=== PATIENT | male | born 1955 | race Caucasian/White ===

== ENCOUNTER 2020-06-18 12:28 | Inpatient (IN) | payer MEDICARE ==
--- NOTE | 2020-06-18 13:08 | ER Document Report ---
ED Medical Screen (RME) - General Chief Complaint: General Weakness Stated Complaint: WEAKNESS Time Seen by Provider: 06/18/20 13:05 Mode of Arrival: Wheelchair Information source: Relative Notes: Patient presents with altered mental status. Family member who lives with patient states that there was a choking episode 5 days ago when he did perform the Heimlich maneuver. Patient's family member states that since then he has not been acting normal. Patient has not been speaking and has been incontinent of urine twice today. Patient normally ambulates although has not been able to ambulate. Family member states that he fell 4 days ago as well as yesterday. Patient has an underlying history of stroke and only had a residual problem of some dysphagia from his prior stroke. Patient is not on any regular medications. I have greeted and performed a rapid initial assessment of this patient. A comprehensive ED assessment and evaluation of the patient, analysis of test results and completion of the medical decision making process will be conducted by additional ED providers. TRAVEL OUTSIDE OF THE [place] IN LAST 30 DAYS: No - Related Data Allergies/Adverse Reactions: Penicillins Allergy (Verified 06/18/20 12:57) Home Medications: son denies Past Medical History - Social History Chew tobacco use (# tins/day): No Frequency of alcohol use: quit 5 years ago Drug Abuse: None - Past Medical History Cardiac Medical History: Reports: Hx Hypertension Past Surgical History: Reports: Hx Orthopedic Surgery Physical Exam - Vital signs Vitals: Pulse Resp BP Pulse Ox 86 24 H 131/84 H 91 L 06/18/20 12:38 06/18/20 12:38 06/18/20 12:38 06/18/20 12:38 - General General appearance: Alert Notes: Tachypneic, does not respond to questioning - Respiratory Respiratory status: Tachypnea Breath sounds: Normal Course - Vital Signs Vital signs: Temp Pulse Resp BP Pulse Ox 86 24 H 131/84 H 91 L 06/18/20 12:38 06/18/20 12:38 06/18/20 12:38 06/18/20 12:38
[2020-06-18 14:27] LABS: HEMOGLOBIN 12.2 g/dL (13.5-17.0); MEAN CORPUSCULAR HEMOGLOBIN 32.2 pg (27.0-33.4); MEAN CORPUSCULAR HGB CONC 31.3 g/dL (32.0-36.0); MEAN CORPUSCULAR VOLUME 103 fl (80-97); PLATELET COUNT 120 10^3/uL (150-450); RED CELL DISTRIBUTION WIDTH 16.4 % (11.5-14.0); WHITE BLOOD COUNT 4.6 10^3/uL (4.0-10.5)
[2020-06-18 14:33] LABS: INTERNATIONAL RATION (INR) 1.61; PARTIAL THROMBOPLASTIN TIME 29.7 SEC (23.5-35.8)
[2020-06-18 14:38] LABS: PROTHROMBIN TIME 19.2 SEC (11.4-15.4)
[2020-06-18 14:44] LABS: ALBUMIN 3.3 g/dL (3.5-5.0); ALKALINE PHOSPHATASE 158 U/L (38-126); ASPARTATE AMINO TRANSFERASE 37 U/L (17-59); BILIRUBIN,DIRECT 0.4 mg/dL (0.0-0.4); BILIRUBIN,TOTAL 1.2 mg/dL (0.2-1.3); CALCIUM 8.6 mg/dL (8.4-10.2); CARBON DIOXIDE 13 mmol/L (22-30); CHLORIDE 155 mmol/L (98-107); CREATINE KINASE 992 U/L (55-170); GLUCOSE 90 mg/dL (75-110); POTASSIUM 5.5 mmol/L (3.6-5.0); TOTAL PROTEIN 6.3 g/dL (6.3-8.2)
[2020-06-18 14:46] LABS: ANION GAP 18 (5-19)
[2020-06-18 14:51] LABS: BLOOD UREA NITROGEN 149 mg/dL (7-20)
[2020-06-18 14:55] LABS: CREATINE KINASE MB 5.14 ng/mL (<4.55)
[2020-06-18 15:06] LABS: TROPONIN I 0.447 ng/mL
[2020-06-18] MEDS ORDERED: ETOMIDATE INJ/PF 20 MG/10 ML SDV IV ONE ×2 (15:11→15:13)
[2020-06-18 15:12] LABS: ABSOLUTE LYMPHOCYTES# (MANUAL) 1.1 10^3/uL (0.5-4.7); ABSOLUTE MONOCYTES # (MANUAL) 0.2 10^3/uL (0.1-1.4); BAND NEUTROPHILS % (MANUAL) 4 % (3-5); BASOPHILS % (MANUAL) 0 % (0-2); EOSINOPHILS % (MANUAL) 0 % (0-6); LYMPHOCYTES % (MANUAL) 23 % (13-45); MONOCYTES % (MANUAL) 5 % (3-13); NUCLEATED RED BLOOD CELLS 1 /100 WBC (0); SEGMENTED NEUTROPHILS % (MAN) 68 % (42-78); TOTAL CELLS COUNTED 100
[2020-06-18] MEDS ORDERED: SUCCINYLCHOLINE CHLORIDE INJ 200 MG/10 ML VIAL IV ONE (15:12)
[2020-06-18 15:13] LABS: BURR CELLS 2+; PLATELET COMMENT ADEQUATE; POIKILOCYTOSIS 2+
[2020-06-18] MEDS ORDERED: MIDAZOLAM HCL 50 MG/100 ML RTUINJ IV PRN (15:27)
[2020-06-18] MEDS ORDERED: RINGERS SOLUTION,LACTATED 1,000 ML IV PRN (15:28)
--- NOTE | 2020-06-18 15:29 | ER Document Report ---
ED General - General Chief Complaint: General Weakness Stated Complaint: WEAKNESS Time Seen by Provider: 06/18/20 13:05 Mode of Arrival: Wheelchair Notes: Patient is a 65-year-old male who presents emergency department with weakness, according to the patient's son. According to the patient's son, the patient was choking about 5 days ago. Patient had been talking, but the past few days has been more somnolent. According to the patient's son, the patient had fallen about 12 times in the past 4 days. Patient has hit his head multiple times. Patient has history of strokes in the past. According to the son, the patient does not take any medications. TRAVEL OUTSIDE OF THE [place] IN LAST 30 DAYS: No - Related Data Allergies/Adverse Reactions: Penicillins Allergy (Verified 06/18/20 12:57) Home Medications: son denies Past Medical History - General Information source: Relative - Social History Smoking Status: Former Smoker Chew tobacco use (# tins/day): No Frequency of alcohol use: quit 5 years ago Drug Abuse: None Family History: CAD - Past Medical History Cardiac Medical History: Reports: Hx Hypertension Past Surgical History: Reports: Hx Orthopedic Surgery Review of Systems - Review of Systems -: Yes ROS unobtainable due to patient's medical condition Physical Exam - Vital signs Vitals: Pulse Resp BP Pulse Ox 86 24 H 131/84 H 91 L 06/18/20 12:38 06/18/20 12:38 06/18/20 12:38 06/18/20 12:38 - Notes Notes: PHYSICAL EXAMINATION: GENERAL: Cachectic. Respiratory distress HEAD: Normocephalic, atraumatic. EYES: PERRL, conjunctiva normal, all extraocular movements intact, sclera nonicteric ENT: Moist mucous membranes. Cyanotic ears. NECK: Supple, no noticeable swelling, redness, rash. Normal range of motion. LUNGS: Equal breath sounds bilaterally and clear to auscultation. No wheezes rales or rhonchi. CARDIOVASCULAR: S1-S2, regular rate, regular rhythm. Radial pulses 2+, normal. ABDOMEN: Normoactive bowel sounds. Soft, nontender, no guarding, no rebound tenderness, and no masses palpated. EXTREMITIES: Mildly cyanotic. NEUROLOGICAL: Moves extremities to pain. PSYCH: Somnolent, nonresponsive SKIN: Cool, mottled. Course - Re-evaluation Re-evalutation: 06/18/20 15:30 Patient did not have any response and GCS was 5. SPO2 was not detectable. RSI intubation done with Dr. Romero at bedside for airway protection. Once patient was intubated, we were able to get an oxygen saturation of 100% on 40% FiO2. Orders placed.Sodium is 186.3. Patient has poor kidney function with a creatinine of 9.68 and BUN of 49. His CO2 was 13. Creatinine is elevated. Troponin 0 0.447. This is most likely due to ischemia from poor respiratory effort. Hemoglobin is 12.2. There is no elevated white blood cell count. There are 4 bands noted. Patient receive a liter of IV fluids. Versed for sedation. 06/18/20 15:[address] Grant from ICU. Patient will be admitted to ICU. - Vital Signs Vital signs: Temp Pulse Resp BP Pulse Ox 92.2 F L 86 21 H 86/46 L 96 06/18/20 16:02 06/18/20 12:38 06/18/20 16:02 06/18/20 16:02 06/18/20 16:02 - Laboratory Result Diagrams: 06/18/20 14:07 06/18/20 14:07 Laboratory results interpreted by me: 06/18/20 06/18/20 06/18/20 14:07 14:07 14:07 RBC 3.80 L Hgb 12.2 L MCV 103 H MCHC 31.3 L RDW 16.4 H Plt Count 120 L PT 19.2 H Carbonic Acid ABG pH ABG pCO2 ABG pO2 ABG HCO3 ABG Total CO2 Sodium 186.3 H* Potassium 5.5 H Chloride 155 H Carbon Dioxide 13 L BUN 149 H Creatinine 9.68 H Est GFR ( Amer) 7 L Est GFR (MDRD) Non-Af 5 L Alkaline Phosphatase 158 H Creatine Kinase 992 H CK-MB (CK-2) Albumin 3.3 L 06/18/20 06/18/20 14:07 16:04 RBC Hgb MCV MCHC RDW Plt Count PT Carbonic Acid 1.39 H ABG pH 7.01 L* ABG pCO2 46.1 H ABG pO2 107.4 H ABG HCO3 11.4 L ABG Total CO2 12.8 L Sodium Potassium Chloride Carbon Dioxide BUN Creatinine Est GFR ( Amer) Est GFR (MDRD) Non-Af Alkaline Phosphatase Creatine Kinase CK-MB (CK-2) 5.14 H Albumin Procedures - Intubation Orotracheal Airway evaluation: Normal anatomy Medications: Etomidate, Succinylcholine Intubation method: Orotracheal Blade type: Other Equipment used: Glidescope ETT size: 7.5 ETT secured at: Teeth ETT secured at (cm): 22 Breath Sounds after Intubation: Equal End tidal CO2 confirmed: Yes Ventilator settings: SIMV Tidal volume: 450 FiO2: 40 Respirations: 12 PEEP: 5 Post Intubation Xray: Yes Intubation Complications: No complications Critical Care Note - Critical Care Note Comments: Critical care time spent obtaining history from patient or surrogate, discussions with consultants, development of treatment plan with patient or surrogate, evaluation of patient's response to treatment, examination of patie nt, ordering and performing treatments and interventions, ordering and review of laboratory studies, re-evaluation of patient's condition, ordering and review of radiographic studies and review of old charts Discharge - Discharge Clinical Impression: Acute hypoxemic respiratory failure, Hypernatremia, Dehydration Bilateral pneumonia Qualifiers: Pneumonia type: due to unspecified organism Lung location: unspecified part of lung Qualified Code(s): J18.9 - Pneumonia, unspecified organism Acute kidney failure Qualifiers: Acute renal failure type: unspecified Qualified Code(s): N17.9 - Acute kidney failure, unspecified Hypothermia Qualifiers: Encounter type: initial encounter Qualified Code(s): T68.XXXA - Hypothermia, initial encounter Condition: Stable Disposition: ADMITTED INPATIENT Admitting Provider: Rudy (Guitar Instructor) Unit Admitted: ICU
[2020-06-18] MEDS ORDERED: VANCOMYCIN HCL INJ 1000 MG VIAL IV ONE (15:32)
--- NOTE | 2020-06-18 15:35 | RADIOLOGY REPORT (SQ) ---
EXAM DESCRIPTION: CT HEAD WITHOUT IMAGES COMPLETED DATE/TIME: 06/18/2020 1:16 pm REASON FOR STUDY: AMS, multiple falls COMPARISON: 2014 TECHNIQUE: Axial images acquired through the brain without intravenous contrast. Images reviewed wi th bone, brain and subdural windows. Additional sagittal and coronal reconstructions were generated. Images stored on PACS. All CT scanners at this facility use dose modulation, iterative reconstruction, and/or weight based d osing when appropriate to reduce radiation dose to as low as reasonably achievable (ALARA). [facility]: Dose Right [facility]: CareDose [facility]: Dose Right [facility]: Teradose 4D [facility]: Satmex RADIATION DOSE: mGy. LIMITATIONS: None. FINDINGS: VENTRICLES: Prominent. CEREBRUM: No masses. No hemorrhage. No midline shift. Old right occipital infarct. Areas of low d ensity in the white matter most likely due to chronic micro-vascular ischemic change. No evidence fo r acute infarction. CEREBELLUM: No masses. No hemorrhage. No alteration of density. No evidence for acute infarction. EXTRAAXIAL SPACES: Age-related involutional change. No fluid collections. No masses. ORBITS AND GLOBE: No intra- or extraconal masses. Normal contour of globe without masses. CALVARIUM: No fracture. PARANASAL SINUSES: No fluid or mucosal thickening. SOFT TISSUES: No mass or hematoma. OTHER: No other significant finding. IMPRESSION: CHRONIC CHANGES OF ATROPHY AND MICROVASCULAR ISCHEMIA. NO ACUTE PROCESS. EVIDENCE OF ACUTE STROKE: NO. TECHNICAL DOCUMENTATION: JOB ID: [id number] Quality ID # [id number]: Final reports with documentation of one or more dose reduction techniques (e.g., Au tomated exposure control, adjustment of the mA and/or kV according to patient size, use of iterative reconstruction technique) 2010 [employer]- All Rights Reserved Reading location - IP/workstation name: [email or web address]
--- NOTE | 2020-06-18 15:36 | RADIOLOGY REPORT (SQ) ---
EXAM DESCRIPTION: CHEST SINGLE VIEW IMAGES COMPLETED DATE/TIME: 06/18/2020 1:23 pm REASON FOR STUDY: AMS, multiple falls COMPARISON: None. EXAM PARAMETERS: NUMBER OF VIEWS: One view. TECHNIQUE: Single frontal radiographic view of the chest acquired. RADIATION DOSE: NA LIMITATIONS: None. FINDINGS: LUNGS AND PLEURA: Confluent irregular opacities in the upper lungs, right greater than lef t. MEDIASTINUM AND HILAR STRUCTURES: No masses. Contour normal. HEART AND VASCULAR STRUCTURES: Heart normal in size. Normal vasculature. BONES: No acute findings. HARDWARE: None in the chest appeared hardware in the right humerus. OTHER: No other significant finding. IMPRESSION: BILATERAL UPPER LUNG OPACITIES, POSSIBLY DUE TO PNEUMONIA. UNDERLYING PULMONARY MASSES CANNOT BE EXCLUDED. TECHNICAL DOCUMENTATION: JOB ID: [id number] 2010 [employer]- All Rights Reserved Reading location - IP/workstation name: [email or web address]
--- NOTE | 2020-06-18 16:18 | RADIOLOGY REPORT (SQ) ---
EXAM DESCRIPTION: CHEST SINGLE VIEW IMAGES COMPLETED DATE/TIME: 06/18/2020 3:49 pm REASON FOR STUDY: intubation COMPARISON: Earlier the same day. EXAM PARAMETERS: NUMBER OF VIEWS: One view. TECHNIQUE: Single frontal radiographic view of the chest acquired. RADIATION DOSE: NA LIMITATIONS: None. FINDINGS: LUNGS AND PLEURA: Endotracheal tube and NG tube is been added. Both are in satisfactory p osition. Persistent diffuse bilateral airspace disease most marked in the upper lobes. Minimal righ t lower lobe airspace disease. MEDIASTINUM AND HILAR STRUCTURES: No masses. Contour normal. HEART AND VASCULAR STRUCTURES: Heart normal in size. Normal vasculature. BONES: No acute findings. HARDWARE: None in the chest. OTHER: No other significant finding. IMPRESSION: Support lines and tubes are in satisfactory position. Persistent diffuse upper lobe inf iltrates. Minimal right lower lobe airspace disease. TECHNICAL DOCUMENTATION: JOB ID: [id number] 2010 [employer]- All Rights Reserved Reading location - IP/workstation name: [email or web address]
[2020-06-18 16:20] LABS: ARTERIAL BLOOD BASE EXCESS -19.6 mmol/L; ARTERIAL BLOOD H2CO3 1.39 mmol/L (1.05-1.35); ARTERIAL BLOOD HCO3 11.4 mmol/L (20-24); ARTERIAL BLOOD O2 SATURATION 94.9 % (94-98); ARTERIAL BLOOD PCO2 46.1 mmHg (35-45); ARTERIAL BLOOD PO2 107.4 mmHg (80-100); ARTERIAL BLOOD TOTAL CO2 12.8 mmol/L (23-27)
[2020-06-18 16:21] LABS: ARTERIAL BLOOD FIO2 45%
[2020-06-18] MEDS ORDERED: NORMAL SALINE 1000 ML 1,000 ML IV PRN (16:22)
[2020-06-18] MEDS ORDERED: PROPOFOL 1,000 MG/100 ML INFUS..BTL IV PRN (16:22)
[2020-06-18 16:23] LABS: ARTERIAL BLOOD PH 7.01 (7.35-7.45)
[2020-06-18] MEDS ORDERED: DEXTROSE 5%-WATER 1000 ML 1,000 ML with SODIUM BICARBONATE 150 MEQ IV PRN ×4 (18:16→19:58)
[2020-06-18] MEDS ORDERED: 1/2 NORMAL SALINE 1,000 ML IV PRN ×2 (18:27→19:56)
[2020-06-18 18:58] LABS: APPEARANCE,URINE SLIGHTLY-CLOUDY; BILIRUBIN,URINE NEGATIVE (NEGATIVE); COLOR,URINE YELLOW; GLUCOSE, URINE NEGATIVE (NEGATIVE); KETONES,URINE NEGATIVE (NEGATIVE); LEUKOCYTE ESTERASE,URINE NEGATIVE (NEGATIVE); NITRITE,URINE NEGATIVE (NEGATIVE); PROTEIN,URINE 100 mg/dL (NEGATIVE); URINE SPECIFIC GRAVITY 1.019; UROBILINOGEN,URINE NEGATIVE mg/dL (<2.0)
--- NOTE | 2020-06-18 19:01 | EKG REPORT ---
SEVERITY:- ABNORMAL ECG - SINUS RHYTHM INCOMPLETE RIGHT BUNDLE BRANCH BLOCK : Confirmed by: Scooby Carreon MD 18-Jun-2020 18:59:42
--- NOTE | 2020-06-18 19:23 | CRITICAL CARE ADMISSION REPORT ---
HPI Date:: 06/18/20 Time:: 16:32 Reason for ICU Reason:: Acute hypoxemic respiratory failure; severe dehydration; hypernatremia; altered mental status Admission Date/Time & PCP: Admission Date/Time: Primary Care Provider: HPI: This 65-year-old male presented to emergency department via EMS after experiencing altered mental status at home. The patient lives with his son, who provides clinical history. The patient had a choking episode at home approximately 5 days ago. He had trouble swallowing food (a chronic problem secondary to stroke). The patient's son performed the Heimlich maneuver and successfully retrieved the food causing the obstruction. The patient chose not to seek medical attention at that time. The patient's son adds that the patient has had poor oral intake over the past several months, presumably due to his dysphagia. The patient's son reports that his last known well time was yesterday, when the patient was fully conversant and what is at nc s "baseline". Today, the patient became progressively obtunded and visibly cyanotic. The patient was intubated in the emergency department, reportedly with a GCS score of 5. Head CT was negative for acute stroke. However, initial laboratory evaluation in the emergency department reveals a serum sodium of 186. Creatinine is over 9. History obtained from:: Patient's son - Diagnosis/Plan (1) Acute hypoxemic respiratory failure Is this a current diagnosis for this admission?: Yes Plan: * Titrate vent settings based on ABG results. * Propofol for sedation. (2) Acute kidney failure Qualifiers: Acute renal failure type: unspecified Qualified Code(s): N17.9 - Acute kidney failure, unspecified Is this a current diagnosis for this admission?: Yes Plan: * Avoid nephrotoxic drugs. * Renal dosing of medications. * Monitor urine output. * Monitor serum creatinine with cautious correction of hypernatremia. (3) Bilateral pneumonia Qualifiers: Pneumonia type: due to unspecified organism Lung location: unspecified part of lung Qualified Code(s): J18.9 - Pneumonia, unspecified organism Is this a current diagnosis for this admission?: Yes Plan: * This patient was given empiric vancomycin in the emergency department. * In light of the report of an aspiration event, will start empiric cefepime/Flagyl. There is no compelling indication to continue vancomycin use at this time. (4) Hypernatremia Is this a current diagnosis for this admission?: Yes Plan: * Patient has a free water deficit of 8 L. * He has borderline hypotension at the time of my first clinical encounter. Consequently, I will start with infusion of normal saline. * Check sodium every 4 hours. * Start free water supplementation via OG tube at 150 mL every 4 hours for now. * (5) Dehydration Is this a current diagnosis for this admission?: Yes (6) Hypothermia Qualifiers: Encounter type: initial encounter Qualified Code(s): T68.XXXA - Hypothermia, initial encounter Is this a current diagnosis for this admission?: Yes Plan: * Check TSH. * Continue Ravi hugger. (7) Unstageable pressure ulcer of left foot Is this a current diagnosis for this admission?: Yes Plan: Wound care consult Past Medical History Cardiac Medical History: Reports: Hypertension Past Surgical History Past Surgical History: Reports: Orthopedic Surgery Social/Family History - Social History Smoking Status: Former Smoker - Medication/Allergies Home Medications: No Home Medications 08/11/15 Allergies/Adverse Reactions: Penicillins Allergy (Verified 06/18/20 12:57) Review of Systems ROS unobtainable: Due to endotracheal tube, Due to mental status Physical Exam Vital Signs: Temp Pulse Resp BP Pulse Ox 92.2 F L 86 21 H 86/46 L 96 06/18/20 16:02 06/18/20 12:38 06/18/20 16:02 06/18/20 16:02 06/18/20 16:02 Intake & Output 06/17/20 06/18/20 06/19/20 06:59 06:59 06:59 Weight 48.6 kg Weight/Height Weight 48.6 kg Height 1.7 m General appearance: PRESENT: no acute distress, disheveled, thin Head exam: PRESENT: atraumatic, normocephalic Eye exam: PRESENT: conjunctiva pink, EOMI, PERRLA. ABSENT: scleral icterus Mouth exam: PRESENT: dry mucosa, tongue midline Neck exam: ABSENT: carotid bruit, JVD, lymphadenopathy, thyromegaly Respiratory exam: PRESENT: clear to auscultation dane. ABSENT: rales, rhonchi, wheezes Cardiovascular exam: PRESENT: RRR, tachycardia. ABSENT: diastolic murmur, rubs, systolic murmur Pulses: PRESENT: normal dorsalis pedis pul GI/Abdominal exam: PRESENT: normal bowel sounds, soft. ABSENT: distended, guarding, mass, organolmegaly, rebound, tenderness Extremities exam: PRESENT: full ROM. ABSENT: calf tenderness, clubbing, pedal edema Musculoskeletal exam: PRESENT: deformity - Left foot (previous injuryrun over by a tractor) Neurological exam: PRESENT: altered, other - Still under the effects of rapid sequence induction for intubation Skin exam: PRESENT: dry, warm, other - Numerous dried scabs on the left pretibia l region and involving multiple left toes. ABSENT: cyanosis, rash Tubes/Lines: PRESENT: Endotracheal Tube, Other - Orogastric Laboratory/Radiographs Laboratory Results: 06/18/20 14:07 06/18/20 14:07 06/18/20 06/18/20 06/18/20 14:07 14:07 16:04 WBC 4.6 RBC 3.80 L Hgb 12.2 L Hct 39.0 MCV 103 H MCH 32.2 MCHC 31.3 L RDW 16.4 H Plt Count 120 L Seg Neutrophils % Not Reportable Carbonic Acid 1.39 H HCO3/H2CO3 Ratio 8:1 ABG pH 7.01 L* ABG pCO2 46.1 H ABG pO2 107.4 H ABG HCO3 11.4 L ABG O2 Saturation 94.9 ABG Base Excess -19.6 FiO2 45% Sodium 186.3 H* Potassium 5.5 H Chloride 155 H Carbon Dioxide 13 L Anion Gap 18 BUN 149 H Creatinine 9.68 H Est GFR ( Amer) 7 L Glucose 90 Calcium 8.6 Total Bilirubin 1.2 AST 37 Alkaline Phosphatase 158 H Total Protein 6.3 Albumin 3.3 L 06/18/20 06/18/20 14:07 14:07 Creatine Kinase 992 H CK-MB (CK-2) 5.14 H Troponin I 0.447 Impressions: Head CT 06/18/20 13:05 IMPRESSION: CHRONIC CHANGES OF ATROPHY AND MICROVASCULAR ISCHEMIA. NO ACUTE P ROCESS. EVIDENCE OF ACUTE STROKE: NO. Chest X-Ray 06/18/20 15:29 IMPRESSION: Support lines and tubes are in satisfactory position. Persistent diffuse upper lobe infiltrates. Minimal right lower lobe airspace disease. All labs, radiographs, diagnostic studies and EKGs were personally reviewed: Yes In addition, reports of radiographic and diagnostic studies were read: Yes Critical Time Critical Time (minutes): 60 -: The care of a critically ill patient is dynamic. This note represents a static moment in the admission process. Orders and treatments may be given simultaneously and urgently, and time is not sales representative health insurance of the treatment pro cess. This patient requires Critical Care secondary to life threatening organ or limb dysfunction. Without Critical Care services, the patient is at risk for increased mortality and morbidity.
--- NOTE | 2020-06-18 19:28 | Operative Report ---
Bedside Procedure - History of Present Illness Indication for Procedure: vascular access; frequent lab draw; assessment of volume status Date: 06/18/20 Provider: SHELLEY NAVARRO - Central Line Left Internal jugular Time completed: 19:26 Consent obtained: Yes Central line pre-insertion: Sterile PPE donned, Chloraprep applied, Sterile drapes applied Central line lumen type: Triple Anesthetic type: 1% Lidocaine mL's of anesthesia: 5 Ultrasound guided: Yes CM at insertion site: 19 Line secured with sutures: Yes Central line post-insertion: Blood return from lumens, Sutured, Sterile dressing applied, Position confirmed w/ CXR Number of attempts: 1 Complications: No
[2020-06-18] MEDS ORDERED: SUCCINYLCHOLINE CHLORIDE INJ 200 MG/10 ML VIAL ONE (20:02)
[2020-06-18 20:19] LABS: CREATINE KINASE MB 8.85 ng/mL (<4.55)
[2020-06-18 20:23] LABS: TROPONIN I 0.64 ng/mL
--- NOTE | 2020-06-18 20:35 | RADIOLOGY REPORT (SQ) ---
EXAM DESCRIPTION: XR CHEST 1 VIEW 7:35 PM COMPLETED DATE/TME: 06/18/2020 19:12 CLINICAL HISTORY: 65 years, Male, CVC placement COMPARISON: Film today at 3:30 PM TECHNIQUE: Portable chest x-ray. FINDINGS: Lung bases not included in the study. Suspected advanced COPD/emphysema. Extensive bilateral groundglass opacities. Enteric tube present, tip not included. Recent films demonstrated the tube in the proximal stomach and recommend further advancement. Endotracheal tube in good position. Left internal jugular central line with the tip in the distal superior vena cava. No pneumothorax.
[2020-06-18 20:42] LABS: ARTERIAL BLOOD BASE EXCESS -12.6 mmol/L; ARTERIAL BLOOD H2CO3 0.85 mmol/L (1.05-1.35); ARTERIAL BLOOD HCO3 12.8 mmol/L (20-24); ARTERIAL BLOOD O2 SATURATION 94.5 % (94-98); ARTERIAL BLOOD PCO2 28.1 mmHg (35-45); ARTERIAL BLOOD PH 7.28 (7.35-7.45); ARTERIAL BLOOD PO2 79.4 mmHg (80-100); ARTERIAL BLOOD TOTAL CO2 13.7 mmol/L (23-27)
[2020-06-18 20:46] LABS: PROTHROMBIN TIME 19.2 SEC (11.4-15.4)
[2020-06-18 20:47] LABS: PARTIAL THROMBOPLASTIN TIME 29.6 SEC (23.5-35.8)
[2020-06-18 20:51] LABS: ARTERIAL BLOOD FIO2 40%
[2020-06-18] MEDS: METRONIDAZOLE 500 MG/NS RTU 500 MG/100 ML RTUPB IV SCH (20:54)
[2020-06-18] MEDS ORDERED: SODIUM BICARBONATE 8.4% INJ 50 MEQ/50 ML DISP.SYRIN ONE (21:14)
[2020-06-18] MEDS: HEPARIN SOD (PORCINE) 5,000 UNIT/ML 1 ML VIAL SUBCUT SCH (21:16)
[2020-06-18] MEDS: 1/2 NORMAL SALINE 1,000 ML IV PRN (21:19)
[2020-06-18] MEDS: DEXTROSE 5%-WATER 1000 ML 1,000 ML with SODIUM BICARBONATE 150 MEQ IV PRN ×2 (21:23)
[2020-06-18] MEDS ORDERED: SODIUM BICARBONATE 8.4% INJ 50 MEQ/50 ML DISP.SYRIN IV ONE (21:30)
[2020-06-18] MEDS ORDERED: CEFEPIME 1 GM/D5W RTU 1 GM/50 ML RTUPB IV SCH (22:00)
[2020-06-18] MEDS: CEFEPIME 1 GM/D5W RTU 1 GM/50 ML RTUPB IV SCH (22:05)
[2020-06-18] MEDS ORDERED: RINGERS SOLUTION,LACTATED 1,000 ML IV ONE (22:10)
[2020-06-18] MEDS ORDERED: NOREPINEPHRINE BITARTRATE INJ/PF 4 MG/4 ML SDV IV ONE (22:13)
[2020-06-18] MEDS: DEXTROSE 5%-WATER 250 ML with NOREPINEPHRINE BITARTRATE 4 MG IV PRN ×2 (22:27)
[2020-06-19 02:50] LABS: ARTERIAL BLOOD BASE EXCESS -6.7 mmol/L; ARTERIAL BLOOD H2CO3 0.83 mmol/L (1.05-1.35); ARTERIAL BLOOD HCO3 16.9 mmol/L (20-24); ARTERIAL BLOOD O2 SATURATION 96.5 % (94-98); ARTERIAL BLOOD PCO2 27.6 mmHg (35-45); ARTERIAL BLOOD PH 7.41 (7.35-7.45); ARTERIAL BLOOD PO2 83.5 mmHg (80-100); ARTERIAL BLOOD TOTAL CO2 17.8 mmol/L (23-27)
[2020-06-19 02:51] LABS: ARTERIAL BLOOD FIO2 40%
[2020-06-19] MEDS: METRONIDAZOLE 500 MG/NS RTU 500 MG/100 ML RTUPB IV SCH ×2 (02:56→09:46)
[2020-06-19] MEDS ORDERED: FENTANYL CITRATE INJ/PF 100 MCG/2 ML AMPUL IV ONE (03:02)
[2020-06-19 03:12] LABS: CREATINE KINASE MB 21.9 ng/mL (<4.55)
[2020-06-19] MEDS: DEXTROSE 5%-WATER 1000 ML 1,000 ML with SODIUM BICARBONATE 150 MEQ IV PRN ×2 (03:30)
[2020-06-19] MEDS: 1/2 NORMAL SALINE 1,000 ML IV PRN (03:32)
[2020-06-19 03:37] LABS: TROPONIN I 4.59 ng/mL
[2020-06-19] MEDS ORDERED: DEXTROSE 5%-WATER 1000 ML 1,000 ML with SODIUM BICARBONATE 150 MEQ IV PRN ×2 (03:42)
[2020-06-19] MEDS ORDERED: ASPIRIN 325 MG TABLET PO SCH (04:00)
[2020-06-19] MEDS ORDERED: SODIUM BICARBONATE 8.4% INJ 50 MEQ/50 ML DISP.SYRIN ONE (05:01)
[2020-06-19] MEDS ORDERED: NOREPINEPHRINE BITARTRATE INJ/PF 4 MG/4 ML SDV IV ONE ×2 (05:03→09:18)
[2020-06-19] MEDS ORDERED: SODIUM BICARBONATE 8.4% INJ 50 MEQ/50 ML DISP.SYRIN IV ONE (05:03)
[2020-06-19] MEDS ORDERED: ASPIRIN 81 MG TABLET, CHEWABLE PO ONE (05:08)
[2020-06-19] MEDS: DEXTROSE 5%-WATER 250 ML with NOREPINEPHRINE BITARTRATE 4 MG IV PRN ×10 (05:10→22:30)
[2020-06-19] MEDS: HEPARIN SOD (PORCINE) 5,000 UNIT/ML 1 ML VIAL SUBCUT SCH (05:18)
[2020-06-19 06:23] LABS: ALBUMIN 1.9 g/dL (3.5-5.0); ALKALINE PHOSPHATASE 84 U/L (38-126); ANION GAP 13 (5-19); ASPARTATE AMINO TRANSFERASE 58 U/L (17-59); BILIRUBIN,DIRECT 0.3 mg/dL (0.0-0.4); BILIRUBIN,TOTAL 0.9 mg/dL (0.2-1.3); CHLORIDE 133 mmol/L (98-107); CREATINE KINASE 814 U/L (55-170); GLUCOSE 151 mg/dL (75-110); POTASSIUM 4.6 mmol/L (3.6-5.0)
[2020-06-19 06:30] LABS: BLOOD UREA NITROGEN 161 mg/dL (7-20); CARBON DIOXIDE 25 mmol/L (22-30)
[2020-06-19 06:31] LABS: CALCIUM 6.8 mg/dL (8.4-10.2)
[2020-06-19] MEDS ORDERED: CALCIUM GLUC IN NACL, ISO-OSM 1 GM/50 ML RTUPB IV ONE (06:36)
[2020-06-19] MEDS: CALCIUM GLUC IN NACL, ISO-OSM 1 GM/50 ML RTUPB IV SCH ×2 (06:48→08:04)
[2020-06-19 07:15] LABS: HEMATOCRIT 25.4 % (37.9-51.0); MEAN CORPUSCULAR HEMOGLOBIN 32.6 pg (27.0-33.4); MEAN CORPUSCULAR HGB CONC 33.7 g/dL (32.0-36.0); RED BLOOD COUNT 2.63 10^6/uL (4.35-5.55); RED CELL DISTRIBUTION WIDTH 15.1 % (11.5-14.0)
[2020-06-19 07:20] LABS: WHITE BLOOD COUNT 10.6 10^3/uL (4.0-10.5)
[2020-06-19 07:21] LABS: HEMOGLOBIN 8.6 g/dL (13.5-17.0); MEAN CORPUSCULAR VOLUME 97 fl (80-97)
[2020-06-19 07:22] LABS: PLATELET COUNT 65 10^3/uL (150-450)
[2020-06-19 07:57] LABS: ABSOLUTE MONOCYTES # (MANUAL) 0.4 10^3/uL (0.1-1.4); BASOPHILS % (MANUAL) 1 % (0-2); EOSINOPHILS % (MANUAL) 2 % (0-6); LYMPHOCYTES % (MANUAL) 9 % (13-45); MONOCYTES % (MANUAL) 4 % (3-13); SEGMENTED NEUTROPHILS % (MAN) 65 % (42-78); TOTAL CELLS COUNTED 100
[2020-06-19 07:58] LABS: ANISOCYTOSIS SLIGHT
[2020-06-19 07:59] LABS: POIKILOCYTOSIS 1+; SCHISTOCYTES 1+
[2020-06-19 08:01] LABS: HELMET CELLS 1+
[2020-06-19 08:02] LABS: PLATELET COMMENT DECREASED
[2020-06-19 08:04] LABS: METAMYELOCYTES % (MANUAL) 3 % (0-1); MYELOCYTES % (MANUAL) 1 % (0)
[2020-06-19 08:05] LABS: BAND NEUTROPHILS % (MANUAL) 15 % (3-5)
[2020-06-19] MEDS ORDERED: HEPARIN SOD (PORCINE) 1,000 UNIT/ML 10 ML VIAL IV ONE (09:21)
[2020-06-19] MEDS ORDERED: HEPARIN SODIUM,PORCINE/D5W 25,000 UNIT/250 ML RTUINJ IV PRN (09:21)
[2020-06-19] MEDS: PANTOPRAZOLE SODIUM 40 MG VIAL IV SCH (09:47)
[2020-06-19 10:03] LABS: INTERNATIONAL RATION (INR) 1.74; PROTHROMBIN TIME 20.4 SEC (11.4-15.4)
[2020-06-19 10:04] LABS: PARTIAL THROMBOPLASTIN TIME 49.2 SEC (23.5-35.8)
[2020-06-19 10:14] LABS: HEMOGLOBIN 8.5 g/dL (13.5-17.0); MEAN CORPUSCULAR HEMOGLOBIN 31.6 pg (27.0-33.4); MEAN CORPUSCULAR HGB CONC 32.9 g/dL (32.0-36.0); MEAN CORPUSCULAR VOLUME 96 fl (80-97); RED CELL DISTRIBUTION WIDTH 14.8 % (11.5-14.0); WHITE BLOOD COUNT 11.7 10^3/uL (4.0-10.5)
[2020-06-19 10:18] LABS: ARTERIAL BLOOD BASE EXCESS -1.6 mmol/L; ARTERIAL BLOOD FIO2 40%; ARTERIAL BLOOD H2CO3 0.92 mmol/L (1.05-1.35); ARTERIAL BLOOD HCO3 21.7 mmol/L (20-24); ARTERIAL BLOOD O2 SATURATION 97.6 % (94-98); ARTERIAL BLOOD PCO2 30.7 mmHg (35-45); ARTERIAL BLOOD PH 7.47 (7.35-7.45); ARTERIAL BLOOD PO2 93.1 mmHg (80-100); ARTERIAL BLOOD TOTAL CO2 22.6 mmol/L (23-27)
[2020-06-19 10:44] LABS: PLATELET COUNT 65 10^3/uL (150-450)
[2020-06-19 10:47] LABS: ABSOLUTE LYMPHOCYTES# (MANUAL) 0.7 10^3/uL (0.5-4.7); BASOPHILS % (MANUAL) 0 % (0-2); EOSINOPHILS % (MANUAL) 1 % (0-6); LYMPHOCYTES % (MANUAL) 5 % (13-45); METAMYELOCYTES % (MANUAL) 4 % (0-1); MONOCYTES % (MANUAL) 0 % (3-13); MYELOCYTES % (MANUAL) 1 % (0); PROMYELOCYTES % (MANUAL) 3 % (0); SEGMENTED NEUTROPHILS % (MAN) 51 % (42-78); TOTAL CELLS COUNTED 100
[2020-06-19 10:48] LABS: ANISOCYTOSIS SLIGHT
[2020-06-19 10:49] LABS: PLATELET COMMENT DECREASED
[2020-06-19 10:51] LABS: BAND NEUTROPHILS % (MANUAL) 34 % (3-5)
[2020-06-19] MEDS ORDERED: NORMAL SALINE INJ/PF 0.9% 10 ML SDV IV PRN (10:52)
[2020-06-19] MEDS: NORMAL SALINE 1000 ML 1,000 ML IV PRN ×3 (11:04→14:39)
[2020-06-19] MEDS: CLINDAMYCIN 900 MG/D5W RTU 900 MG/50 ML RTUPB IV SCH ×2 (11:58→17:55)
[2020-06-19] MEDS ORDERED: HEPARIN SOD (PORCINE) 1,000 UNIT/ML 10 ML VIAL IV PRN (12:21)
[2020-06-19] MEDS ORDERED: 1/2 NORMAL SALINE 1,000 ML IV PRN (12:49)
[2020-06-19] MEDS ORDERED: CALCIUM GLUCONATE 1000 MG/10 ML INJ IV ONE (12:52)
[2020-06-19 13:06] LABS: ARTERIAL BLOOD BASE EXCESS -2.7 mmol/L; ARTERIAL BLOOD H2CO3 0.96 mmol/L (1.05-1.35); ARTERIAL BLOOD O2 SATURATION 76.8 % (94-98); ARTERIAL BLOOD PCO2 31.8 mmHg (35-45); ARTERIAL BLOOD TOTAL CO2 21.9 mmol/L (23-27)
[2020-06-19 13:07] LABS: ARTERIAL BLOOD FIO2 40%
[2020-06-19 13:09] LABS: ARTERIAL BLOOD PH 7.44 (7.35-7.45); ARTERIAL BLOOD PO2 39.3 mmHg (80-100)
[2020-06-19] MEDS ORDERED: CALCIUM GLUCONATE 1 GM/NS 50 ML RTU IV ONE (14:00)
[2020-06-19 14:58] LABS: ARTERIAL BLOOD BASE EXCESS -2.7 mmol/L; ARTERIAL BLOOD HCO3 20.4 mmol/L (20-24); ARTERIAL BLOOD O2 SATURATION 96.8 % (94-98); ARTERIAL BLOOD PH 7.45 (7.35-7.45); ARTERIAL BLOOD PO2 83.7 mmHg (80-100); ARTERIAL BLOOD TOTAL CO2 21.4 mmol/L (23-27)
[2020-06-19 15:00] LABS: ARTERIAL BLOOD FIO2 40%
--- NOTE | 2020-06-19 15:25 | PDOC CRITICAL CARE PROG REPORT ---
General Date:: 06/19/20 ICU Day:: 2 Ventilator Day:: 2 Resuscitation Status: Full Code Events in the past 12 to 24 Hours:: This 65-year-old male was admitted on 06/18/2020 after experiencing altered mental status at home, which the patient's son suspected was precipitated by a gross aspiration/airway obstruction event 5 days prior to presentation (which the son treated with a Heimlich maneuver). The patient was intubated in the emergency department for acute hypoxemic respiratory failure. Laboratory evaluation revealed that the patient had severe hypernatremia (sodium 186), likely secondary to severe dehydration/malnutrition. Serum creatinine 9.7. Lactate 8.2. Troponin 0 0.45. With a calculated free water deficit of 8 L, the patient was initiated on IV fluid resuscitation. He also was started on norepinephrine infusion. He is on 1/2NS and free water by NG tube for water replacement. 06/19: Remains intubated. Still on norepinephrine. Empiric cefepime/Flagyl/vancomycin. Left IJ CVC was placed yesterday. CVP 5. CK total has trended downward in the interim; however, troponin 0.5-->4.6. Sodium 186>> 171 over 16 hours. Reason for ICU Addmission:: Acute hypoxemic respiratory failure; severe dehydration; hypernatremia; altered mental status - Medications: Medications reviewed and adjusted accordingly: Yes Vasopressors:: Norepinephrine Physical Exam Vital Signs: Temp Pulse Resp BP Pulse Ox 98.8 F 86 28 H 120/86 H 100 06/19/20 08:00 06/19/20 08:00 06/19/20 08:00 06/19/20 08:00 06/19/20 08:00 Intake & Output 06/18/20 06/19/20 06/20/20 06:59 06:59 06:59 Intake Total 3851 573 Output Total 125 0 Balance 3726 573 Weight 53.8 kg Weight/Height Weight 53.8 kg Height 1.7 m General appearance: PRESENT: no acute distress, well-developed, well-nourished Head exam: PRESENT: atraumatic, normocephalic Eye exam: PRESENT: conjunctiva pink, EOMI, PERRLA. ABSENT: scleral icterus Mouth exam: PRESENT: dry mucosa, tongue midline Neck exam: ABSENT: carotid bruit, JVD, lymphadenopathy, thyromegaly Respiratory exam: PRESENT: clear to auscultation dane, tachypnea, unlabored. ABSENT: rales, rhonchi, wheezes Cardiovascular exam: PRESENT: RRR, tachycardia. ABSENT: diastolic murmur, rubs, systolic murmur Pulses: PRESENT: normal dorsalis pedis pul GI/Abdominal exam: PRESENT: normal bowel sounds, soft. ABSENT: distended, guarding, mass, organolmegaly, rebound, tenderness Gentrourinary exam: PRESENT: indwelling catheter Extremities exam: PRESENT: full ROM. ABSENT: calf tenderness, clubbing, pedal edema Musculoskeletal exam: PRESENT: deformity - Left foot (old) Neurological exam: PRESENT: altered, reflexes normal, CN II-XII grossly intact. ABSENT: motor sensory deficit Psychiatric exam: ABSENT: agitated, anxious Skin exam: PRESENT: abrasion - Left foot/toes Tubes/Lines: PRESENT: Endotracheal Tube, Central Line - For IJ Laboratory/Radiographs Laboratory Results: 06/19/20 06:56 06/19/20 05:47 06/18/20 06/18/20 06/18/20 14:07 14:07 16:04 WBC 4.6 RBC 3.80 L Hgb 12.2 L Hct 39.0 MCV 103 H MCH 32.2 MCHC 31.3 L RDW 16.4 H Plt Count 120 L Seg Neutrophils % Not Reportable Carbonic Acid 1.39 H HCO3/H2CO3 Ratio 8:1 ABG pH 7.01 L* ABG pCO2 46.1 H ABG pO2 107.4 H ABG HCO3 11.4 L ABG O2 Saturation 94.9 ABG Base Excess -19.6 FiO2 45% Sodium 186.3 H* Potassium 5.5 H Chloride 155 H Carbon Dioxide 13 L Anion Gap 18 BUN 149 H Creatinine 9.68 H Est GFR ( Amer) 7 L Glucose 90 Lactic Acid Calcium 8.6 Magnesium Total Bilirubin 1.2 AST 37 Alkaline Phosphatase 158 H Ammonia Total Protein 6.3 Albumin 3.3 L TSH Urine Color Urine Appearance Urine pH Ur Specific [place] Urine Protein Urine Glucose (UA) Urine Ketones Urine Blood Urine Nitrite Ur Leukocyte Esterase Urine WBC (Auto) Urine RBC (Auto) 06/18/20 06/18/20 06/18/20 16:20 18:30 18:30 WBC RBC Hgb Hct MCV MCH MCHC RDW Plt Count Seg Neutrophils % Carbonic Acid HCO3/H2CO3 Ratio ABG pH ABG pCO2 ABG pO2 ABG HCO3 ABG O2 Saturation ABG Base Excess FiO2 Sodium 183.5 H* Potassium Chloride Carbon Dioxide Anion Gap BUN Creatinine Est GFR ( Amer) Glucose Lactic Acid 8.2 H Calcium Magnesium Total Bilirubin AST Alkaline Phosphatase Ammonia Total Protein Albumin TSH 2.75 Urine Color Urine Appearance Urine pH Ur Specific [place] Urine Protein Urine Glucose (UA) Urine Ketones Urine Blood Urine Nitrite Ur Leukocyte Esterase Urine WBC (Auto) Urine RBC (Auto) 06/18/20 06/18/20 06/18/20 18:30 19:20 20:15 WBC RBC Hgb Hct MCV MCH MCHC RDW Plt Count Seg Neutrophils % Carbonic Acid 0.85 L HCO3/H2CO3 Ratio 15:1 ABG pH 7.28 L ABG pCO2 28.1 L ABG pO2 79.4 L ABG HCO3 12.8 L ABG O2 Saturation 94.5 ABG Base Excess -12.6 FiO2 40% Sodium Potassium Chloride Carbon Dioxide Anion Gap BUN Creatinine Est GFR ( Amer) Glucose Lactic Acid Calcium Magnesium Total Bilirubin AST Alkaline Phosphatase Ammonia 37.2 H Total Protein Albumin TSH Urine Color YELLOW Urine Appearance SLIGHTLY-CLOUDY Urine pH 5.0 Ur Specific [place] 1.019 Urine Protein 100 H Urine Glucose (UA) NEGATIVE Urine Ketones NEGATIVE Urine Blood LARGE H Urine Nitrite NEGATIVE Ur Leukocyte Esterase NEGATIVE Urine WBC (Auto) 3 Urine RBC (Auto) 42 06/18/20 06/19/20 06/19/20 22:09 02:33 02:33 WBC RBC Hgb Hct MCV MCH MCHC RDW Plt Count Seg Neutrophils % Carbonic Acid 0.83 L HCO3/H2CO3 Ratio 20:1 ABG pH 7.41 ABG pCO2 27.6 L ABG pO2 83.5 ABG HCO3 16.9 L ABG O2 Saturation 96.5 ABG Base Excess -6.7 FiO2 40% Sodium 179.1 H* 172.1 H* Potassium Chloride Carbon Dioxide Anion Gap BUN Creatinine Est GFR ( Amer) Glucose Lactic Acid Calcium Magnesium Total Bilirubin AST Alkaline Phosphatase Ammonia Total Protein Albumin TSH Urine Color Urine Appearance Urine pH Ur Specific [place] Urine Protein Urine Glucose (UA) Urine Ketones Urine Blood Urine Nitrite Ur Leukocyte Esterase Urine WBC (Auto) Urine RBC (Auto) 06/19/20 06/19/20 06/19/20 05:47 05:47 05:47 WBC Cancelled RBC Cancelled Hgb Cancelled Hct Cancelled MCV Cancelled MCH Cancelled MCHC Cancelled RDW Cancelled Plt Count Cancelled Seg Neutrophils % Cancelled Carbonic Acid HCO3/H2CO3 Ratio ABG pH ABG pCO2 ABG pO2 ABG HCO3 ABG O2 Saturation ABG Base Excess FiO2 Sodium 170.6 H* Cancelled Potassium 4.6 Chloride 133 H Carbon Dioxide 25 D Anion Gap 13 BUN 161 H Creatinine 7.86 H Est GFR ( Amer) 8 L Glucose 151 H Lactic Acid Calcium 6.8 L* Magnesium 2.4 H Total Bilirubin 0.9 AST 58 Alkaline Phosphatase 84 Ammonia Total Protein 4.0 L Albumin 1.9 L TSH Urine Color Urine Appearance Urine pH Ur Specific [place] Urine Protein Urine Glucose (UA) Urine Ketones Urine Blood Urine Nitrite Ur Leukocyte Esterase Urine WBC (Auto) Urine RBC (Auto) 06/19/20 06:56 WBC 10.6 H D RBC 2.63 L Hgb 8.6 L D Hct 25.4 L MCV 97 D MCH 32.6 MCHC 33.7 RDW 15.1 H Plt Count 65 L Seg Neutrophils % Not Reportable Carbonic Acid HCO3/H2CO3 Ratio ABG pH ABG pCO2 ABG pO2 ABG HCO3 ABG O2 Saturation ABG Base Excess FiO2 Sodium Potassium Chloride Carbon Dioxide Anion Gap BUN Creatinine Est GFR ( Amer) Glucose Lactic Acid Calcium Magnesium Total Bilirubin AST Alkaline Phosphatase Ammonia Total Protein Albumin TSH Urine Color Urine Appearance Urine pH Ur Specific [place] Urine Protein Urine Glucose (UA) Urine Ketones Urine Blood Urine Nitrite Ur Leukocyte Esterase Urine WBC (Auto) Urine RBC (Auto) 06/18/20 06/18/20 06/18/20 14:07 14:07 18:30 Creatine Kinase 992 H 940 H CK-MB (CK-2) 5.14 H Troponin I 0.447 06/18/20 06/19/20 06/19/20 19:20 02:33 02:33 Creatine Kinase 883 H CK-MB (CK-2) 8.85 H 21.90 H Troponin I 0.640 4.590 06/19/20 06/19/20 06/19/20 05:47 05:47 08:00 Creatine Kinase 814 H 862 H CK-MB (CK-2) Cancelled Troponin I Cancelled 06/19/20 08:00 Creatine Kinase CK-MB (CK-2) Troponin I 8.620 Impressions: Head CT 06/18/20 13:05 IMPRESSION: CHRONIC CHANGES OF ATROPHY AND MICROVASCULAR ISCHEMIA. NO ACUTE PROCESS. EVIDENCE OF ACUTE STROKE: NO. All labs, radiographs, diagnostic studies and EKGs were personally reviewed: Yes In addition, reports of radiographic and diagnostic studies were read: Yes Assessment and Plan - Diagnosis (1) Acute hypoxemic respiratory failure Is this a current diagnosis for this admission?: Yes Plan: * Titrate vent settings based on ABG results. * Propofol/fentanyl for sedation. Titrate for RASS -2. (2) Shock Is this a current diagnosis for this admission?: Yes Plan: * Unclear etiology: Unlikely a combination of hypovolemic +/- cardiogenic +/- septic. * Check SVO 2. * IV bolus with normal saline until CVP 68. * On empiric cefepime/vancomycin. Add clindamycin. (3) Non-ST elevated myocardial infarction (non-STEMI) Is this a current diagnosis for this admission?: Yes Plan: * Will lead EKG now. * Start aspirin. * Start heparin infusion. * Beta-blockade and GONZALO inhibitor/ARB are contraindicated in light of hypotension. (4) Acute kidney failure Qualifiers: Acute renal failure type: unspecified Qualified Code(s): N17.9 - Acute kidney failure, unspecified Is this a current diagnosis for this admission?: Yes Plan: * Creatinine has come down to 7.9, undoubtedly purely dilutional at this point. * He remains virtually anuric with approximately 50 cc of urine output over the past 24 hours. * Monitor urine output. (5) Bilateral pneumonia Qualifiers: Pneumonia type: due to unspecified organism Lung location: unspecified part of lung Qualified Code(s): J18.9 - Pneumonia, unspecified organism Is this a current diagnosis for this admission?: Yes Plan: * In an effort to provide coverage for both aspiration pneumonia and left lower extremity cellulitis, continue cefepime. Change Flagyl to clindamycin.. (6) Hypernatremia Is this a current diagnosis for this admission?: Yes Plan: * Monitor serial sodiums. * For the initial 24 hours, the rate of replacement has been acceptable. Going forward, the rate of correction needs to be 0.5 mEq/h. (7) Dehydration Is this a current diagnosis for this admission?: Yes (8) Hypothermia Qualifiers: Encounter type: initial encounter Qualified Code(s): T68.XXXA - Hypothermia, initial encounter Is this a current diagnosis for this admission?: Yes (9) Unstageable pressure ulcer of left foot Is this a current diagnosis for this admission?: Yes Plan: Start antibiotics (see above). Critical Time Critical Time (minutes): 90 Level of Care: ICU -: 1. The care of a critical patient is a dynamic process. This note is a goodwill representative synopsis but static in nature. The timeframe for treatments given in order is not necessarily the actual time these treatments may have been done. 2. This patient requires critical care secondary to ongoing requirements for therapy not offered or safe outside the critical care environment. Transfer to a lower level of care will result in altered life or limb morbidity and mortality. 3. Multidisciplinary rounds completed. 4. ABCDE bundle addressed.
[2020-06-19] MEDS: FENTANYL CITRATE/PF 600 MCG/60 ML BAG IV PRN ×2 (16:15→23:02)
--- NOTE | 2020-06-19 18:09 | EKG REPORT ---
SEVERITY:- ABNORMAL ECG - SINUS RHYTHM RIGHT AXIS DEVIATION NONSPECIFIC T ABNORMALITIES, ANT-LAT LEADS PROLONGED QT INTERVAL : Confirmed by: Scooby Carreon MD 19-Jun-2020 18:08:21
[2020-06-19 18:58] LABS: URINE SODIUM 28 mmol/L (30-90)
[2020-06-19 19:16] LABS: OSMOLALITY,URINE 489 mOsm/kg (300-900)
--- NOTE | 2020-06-19 19:16 | XCELERA REPORT ---
[address] [address] Transthoracic Echocardiogram Report Name: ALVARO DYKES Age: 65 yrs Gender: Male : 1955 Patient Status: Inpatient Patient Location: ICU^609^A Study Date: 06/19/2020 10:45 AM Height: 67 in Weight: 118 lb BSA: 1.6 m2 Procedure: A two-dimensional transthoracic echocardiogram with color flow and Doppler was performed. Study Quality: Fair. Reason For Study: elevated Troponin History: elevated Troponin / Murmur / Hypotension. Ordering Physician: LORETTA STERLING Performed By: Michelle Estrada Interpretation Summary elevated Troponin / Murmur / Hypotension The left ventricle is normal in size. There is normal left ventricular wall thickness. Left ventricular systolic function is normal. LV EF is 60% Doppler measurements suggest impaired left ventricular relaxation, which is associated with grade I/IV or mild diastolic dysfunction The left ventricular wall motion is normal. There is no thrombus. Cannot assesss ASD ,VSD or PFO. The right atrium is normal. The left atrial size is normal. There is no evidence of mitral valve prolapse. There is no vegetation seen on the mitral valve. There is no mitral valve stenosis. There is a trace amount of mitral regurgitation There is no aortic valvular vegetation. There is no aortic valve stenosis No aortic regurgitation is present. There is no tricuspid stenosis. There is a mild amount of tricuspid regurgitation There is moderate pulmonary hypertension by echo RVSP is at least 54 mm of Hg , with RA mean of at least 20. There is no pulmonic valvular stenosis. There is a trace amount of pulmonic regurgitation The aortic root is normal size. The inferior vena cava appeared dilated and did not change with respiration (RAP > 20 mmHg) There is no pericardial effusion. MMode/2D Measurements & Calculations RVDd: 2.3 cm LVIDd: 4.3 cm FS: 30.8 % Ao root diam: 3.3 cm IVSd: 0.99 cm LVIDs: 3.0 cm EDV(Teich): 82.9 ml Ao root area: 8.7 cm2 LVPWd: 0.99 cm ESV(Teich): 34.2 ml EF(Teich): 58.7 % Doppler Measurements & Calculations MV E max martinez: MV dec slope: Ao V2 max: LV V1 max P.0 cm/sec 322.7 cm/sec2 152.3 cm/sec 6.7 mmHg MV A max martinez: MV dec time: Ao max P.3 mmHgLV V1 max: 83.7 cm/sec 0.19 sec 129.1 cm/sec MV E/A: 0.74 MR max martinez: PA V2 max: PI end-d martinez: TR max martinez: 275.7 cm/sec 103.5 cm/sec 149.4 cm/sec 289.3 cm/sec MR max PG: PA max P.3 mmHg TR max P.4 mmHg 33.5 mmHg Left Ventricle The left ventricle is normal in size. There is normal left ventricular wall thickness. Left ventricular systolic function is normal. LV EF is 60%. Doppler measurements suggest impaired left ventricular relaxation, which is associated with grade I/IV or mild diastolic dysfunction. The left ventricular wall motion is normal. There is no thrombus. Cannot assesss ASD ,VSD or PFO. Right Ventricle The right ventricle is normal in size and function. Atria The right atrium is normal. The left atrial size is normal. Mitral Valve There is no evidence of mitral valve prolapse. There is no vegetation seen on the mitral valve. There is no mitral valve stenosis. There is a trace amount of mitral regurgitation. Aortic Valve There is no aortic valvular vegetation. There is no aortic valve stenosis. No aortic regurgitation is present. Tricuspid Valve There is no tricuspid stenosis. There is a mild amount of tricuspid regurgitation. There is moderate pulmonary hypertension by echo. RVSP is at least 54 mm of Hg , with RA mean of at least 20. Pulmonic Valve There is no pulmonic valvular stenosis. There is a trace amount of pulmonic regurgitation. Great Vessels The aortic root is normal size. The inferior vena cava appeared dilated and did not change with respiration (RAP > 20 mmHg). Effusions There is no pericardial effusion. : LORETTA STERLING, Harriet
--- NOTE | 2020-06-19 21:35 | PDOC CONSULTATION ---
Consultation-Blank Consultation: CARDIOLOGY CONSULTATION by Dr. Harriet Mclean on 06/19/2020. Patient seen at 6 PM. 60 minutes spent with patient more than 50% time spent in direct patient care. CONSULT REQUESTING PHYSICIAN: Dr. Grant. Critical care attends [facility]. REASON FOR CONSULTATION: Elevated troponin I of significant proportions. HISTORY OF present ILLNESS: Patient intubated and sedated and unable to get a history. Chart reviewed. Patient is a 65-year-old male with a history of hypertension prior history of CVA with a history of chronic dysphagia who about 6 days prior to admission was found by the patient's son to be choking on food. The son did the Heimlich maneuver and removed the food particles successfully. The patient did not want to come to the hospital for further treatment at that time. The patient due to his dysphagia has been slowly declining and not eating well or drinking fluids for the past several months. Although as per the chart the patient a day prior to his admission but is able to converse with the with his son and was is in his baseline usual state of health. The patient subsequently became very short of breath on the day of admission he was brought to the emergency room where he was found to be hypoxic and cyanotic and was intubated and subsequently also was hypotensive and required pressors. The patient is on a large dose of Levophed at 20 which has been dialed down to 20 mcg/min today. Yesterday the patient sodium was 186 and the patient's creatini ne was greater than 9. His EKG yesterday showed tall T waves and his potassium was elevated. Today's EKG shows sinus rhythm with incomplete right bundle branch block pattern with minor nonspecific ST-T changes in the anterolateral leads but no acute injury pattern. His troponin initially which was 0.405 trended up to 26 today. Of note the patient potassium is within normal limits today and his T waves are back to normal and are not tall T waves which is seen in the prior EKG when the patient was hyperkalemic. As mentioned earlier there is no acute ST segment depression or ST segment elevation on the EKG. Of note the patient's blood pressure is in the 110 systolic range on 20 mcg/min of Levophed. The patient's chest x-ray also suggestive of bibasilar pneumonia. Also unable to get a history from the patient. PAST MEDICAL HISTORY: As per chart history of hypertension. History of prior stroke CVA. PAST surgical history: History of orthopedic surgery. ALLERGIES: Patient is allergic to penicillin. HOME MEDICATIONS: The patient on no home medication. FAMILY HISTORY: At present not obtainable. SOCIAL HISTORY: Patient is a former smoker. Current Medications Generic Name Dose Route Start Last Admin Trade Name Freq PRN Reason Stop Dose Admin Albuterol 2.5 mg 06/18/20 16:22 Ventolin 0.083% Neb 2.5 Mg/3 Ml Ampul NEB 07/18/20 16:21 [id number] PRN SHORTNESS OF BREATH Aspirin 81 mg 06/20/20 10:00 Aspirin 81 Mg Chewable Tablet PO 07/20/20 09:59 DAILY BOB Heparin Sodium (Porcine) 0 - 12,000 unit 06/19/20 12:21 Heparin Inj 1,000 Unit/Ml 10 Ml Vial IV 07/19/20 12:20 .BOLUS PER PROTOCOL PRN RESPOND TO aPTT VALUE Protocol Heparin Sodium (Porcine) 30 unit 06/19/20 14:00 06/19/20 21:56 Heparin Flush 10 Unit/Ml 5 Ml Disp.Syrg IV 07/19/20 13:59 Not Given Q8 BOB Heparin Sodium (Porcine) 30 unit 06/19/20 10:52 Heparin Flush 10 Unit/Ml 5 Ml Disp.Syrg IV 07/19/20 10:51 .AFTER EACH USE PRN AFTER EACH INTERMITTENT USE Propofol 1,000 mg in 100 mls @ 1.458 mls/hr 06/18/20 16:22 06/19/20 17:12 Diprivan Rtu 1000 Mg/100 Ml Inf.Bottle IV 07/18/20 16:21 0 mcg/kg/min CONTINUOUS PRN 0 mls/hr THIS MED IS NOT "PRN" Titration Protocol 5 MCG/KG/MIN Cefepime HCl 1 gm in 50 mls @ 100 mls/hr 06/18/20 22:00 06/19/20 21:56 Maxipime Rtu 1 Gm/D5w 50 Ml Premix Bag IV 06/25/20 21:59 100 ml/h QHS BOB 100 mls/hr Administration Norepinephrine Bitartrate 4 mg 250 mls @ 0 mls/hr 06/18/20 22:09 06/19/20 21:57 / Dextrose IV 07/18/20 22:08 10 mcg/min CONTINUOUS PRN 37.5 mls/hr THIS MED IS NOT "PRN" Titration Protocol Titrate Sodium Bicarbonate 150 meq/ 1,000 mls @ 50 mls/hr 06/19/20 03:42 06/19/20 10:55 Dextrose IV 07/18/20 18:15 0 ml/h CONTINUOUS PRN 0 mls/hr THIS MED IS NOT "PRN" Infusion Fentanyl Citrate 600 mcg in 60 mls @ 0 mls/hr 06/19/20 05:59 06/19/20 23:02 Sublimaze Financial Advisor Trainee/Pf 600 Mcg/60 Ml Rtu Vial IV 06/26/20 05:58 10 mls/hr ASDIR PRN Administration THIS MED IS NOT "PRN" Protocol Per Protocol Heparin Sodium/Dextrose 25,000 unit in 250 mls @ 0 mls/hr 06/19/20 09:21 06/19/20 20:39 Heparin Rtu 25,000 Unit/250 Ml D5w Premix IV 07/19/20 09:20 476 unit/hr CONTINUOUS PRN 4.76 mls/hr THIS MED IS NOT "PRN" Titration Protocol Titrate Clindamycin Phosphate/Dextrose 900 mg in 50 mls @ 50 mls/hr 06/19/20 10:30 06/19/20 18:55 Cleocin Rtu 900 Mg/D5w 50 Ml Premix IV 06/26/20 10:29 Infused Q8A BOB Infusion Sodium Chloride 1,000 mls @ 100 mls/hr 06/19/20 12:49 06/19/20 15:48 Nacl 0.45% 1000 Ml Iv Soln IV 07/18/20 18:26 0 mls/hr CONTINUOUS PRN Infusion THIS MED IS NOT "PRN" Pantoprazole Sodium 40 mg 06/19/20 10:00 06/19/20 09:47 Protonix Iv Inj 40 Mg Vial IV 06/26/20 09:59 40 mg DAILY BOB Administration Sodium Chloride 2.5 ml 06/18/20 22:00 06/19/20 21:56 Saline Flush 2.5 Ml Monoject Prefil Syrin IV 07/18/20 21:59 Not Given Q8 BOB Sodium Chloride 10 ml 06/19/20 10:52 Nacl 0.9% Inj/Pf 10 Ml Sdv IV 07/19/20 10:51 .AFTER EACH USE PRN AFTER EACH INTERMITTENT USE Discontinued Medications Generic Name Dose Route Start Last Admin Trade Name Gary PRN Reason Stop Dose Admin Aspirin 325 mg 06/19/20 04:00 06/19/20 05:12 Aspirin 325 Mg Tablet PO 07/19/20 03:59 Not Given DAILY BOB Aspirin 324 mg 06/19/20 05:08 06/19/20 05:31 Aspirin 81 Mg Chewable Tablet PO 06/19/20 05:09 324 mg NOW ONE Administration Etomidate Confirm 06/18/20 15:11 06/18/20 15:12 Amidate Inj/Pf 20 Mg/10 Ml Sdv Administered 06/18/20 15:12 20 mg Dose Administration 20 mg IV .STK-MED ONE Etomidate 20 mg 06/18/20 15:13 06/18/20 16:37 Amidate Inj/Pf 20 Mg/10 Ml Sdv IV 06/18/20 15:14 Not Given NOW ONE Fentanyl Citrate 25 mcg 06/19/20 03:02 06/19/20 03:29 Sublimaze Inj/Pf 100 Mcg/2 Ml Ampule IV 06/19/20 03:03 25 mcg NOW ONE Administration Heparin Sodium (Porcine) 5,000 unit 06/18/20 22:00 06/19/20 05:18 Heparin Inj 5,000 Units/Ml 1 Ml Vial SUBCUT 07/18/20 21:59 5,000 unit Q8 BOB Administration Heparin Sodium (Porcine) 3,200 unit 06/19/20 09:21 06/19/20 11:59 Heparin Inj 1,000 Unit/Ml 10 Ml Vial 60 unit/kg (3200 unit) 06/19/20 09:22 3,200 units IV Administration NOW ONE Midazolam HCl 50 mg in 100 mls @ 0 mls/hr 06/18/20 15:27 Versed Rtu 50 Mg/100 Ml Premix Bag IV 06/25/20 15:26 CONTINUOUS PRN THIS MED IS NOT "PRN" Protocol Titrate Lactated Ringer's 1,000 mls @ 0 mls/hr 06/18/20 15:28 Lactated Ringers 1000 Ml Iv Soln IV 07/18/20 15:27 CONTINUOUS PRN THIS MED IS NOT "PRN" Wide Open Sodium Chloride 1,000 mls @ 100 mls/hr 06/18/20 16:22 06/18/20 23:51 Nacl 0.9% 1000 Ml Iv Soln IV 07/18/20 16:21 Infused CONTINUOUS PRN Infusion THIS MED IS NOT "PRN" Sodium Bicarbonate 150 meq/ 1,000 mls @ 50 mls/hr 06/18/20 18:16 Dextrose IV 07/18/20 18:15 CONTINUOUS PRN THIS MED IS NOT "PRN" Metronidazole 500 mg in 100 mls @ 100 mls/hr 06/18/20 20:00 06/19/20 10:46 Flagyl Rtu 500 Mg/Ns 100ml Premix IV 06/25/20 19:59 Infused Q6A BOB Infusion Sodium Chloride 1,000 mls @ 100 mls/hr 06/18/20 18:27 Nacl 0.45% 1000 Ml Iv Soln IV 07/18/20 18:26 CONTINUOUS PRN THIS MED IS NOT "PRN" Sodium Bicarbonate 150 meq/ 1,000 mls @ 75 mls/hr 06/18/20 19:58 06/18/20 23:52 Dextrose IV 07/18/20 18:15 Infused CONTINUOUS PRN Infusion THIS MED IS NOT "PRN" Sodium Chloride 1,000 mls @ 75 mls/hr 06/18/20 19:56 Nacl 0.45% 1000 Ml Iv Soln IV 07/18/20 18:26 CONTINUOUS PRN THIS MED IS NOT "PRN" Sodium Chloride 1,000 mls @ 150 mls/hr 06/18/20 21:11 06/19/20 11:56 Nacl 0.45% 1000 Ml Iv Soln IV 07/18/20 18:26 Infused CONTINUOUS PRN Infusion THIS MED IS NOT "PRN" Sodium Bicarbonate 150 meq/ 1,000 mls @ 150 mls/hr 06/18/20 21:18 06/19/20 03:30 Dextrose IV 07/18/20 18:15 150 ml/h CONTINUOUS PRN 150 mls/hr THIS MED IS NOT "PRN" Administration Lactated Ringer's 1,000 mls @ 0 mls/hr 06/18/20 22:10 06/18/20 23:51 Lactated Ringers 1000 Ml Iv Soln IV 06/18/20 22:11 Infused BOLUS ONE Infusion Wide Open Calcium Gluconate 1 gm in 50 mls @ 50 mls/hr 06/19/20 07:00 06/19/20 08:04 Calcium Gluconate Rtu 1 Gm/50 Ml IV 06/19/20 08:59 50 mls/hr Q1H BOB Administration Calcium Gluconate Confirm 06/19/20 06:36 06/19/20 06:48 Calcium Gluconate Rtu 1 Gm/50 Ml Administered 06/19/20 06:37 Not Given Dose 1 gm in 50 mls @ ud IV .STK-MED ONE Sodium Chloride 1,000 mls @ 999 mls/hr 06/19/20 09:29 06/19/20 15:40 Nacl 0.9% 1000 Ml Iv Soln IV Infused CONTINUOUS PRN Infusion THIS MED IS NOT "PRN" Calcium Gluconate 1 gm in 50 mls @ 50 mls/hr 06/19/20 14:00 06/19/20 14:40 Calcium Gluconate Rtu 1 Gm/50 Ml IV 06/19/20 14:59 50 mls/hr NOW ONE Administration Norepinephrine Bitartrate Confirm 06/18/20 22:13 06/18/20 22:28 Levophed Inj/Pf 4 Mg/4 Ml Sdv Administered 06/18/20 22:14 Not Given Dose 4 mg IV .STK-MED ONE Norepinephrine Bitartrate Confirm 06/19/20 05:03 06/19/20 05:09 Levophed Inj/Pf 4 Mg/4 Ml Sdv Administered 06/19/20 05:04 Not Given Dose 4 mg IV .STK-MED ONE Norepinephrine Bitartrate Confirm 06/19/20 09:18 06/19/20 09:53 Levophed Inj/Pf 4 Mg/4 Ml Sdv Administered 06/19/20 09:19 Not Given Dose 4 mg IV .STK-MED ONE Sodium Bicarbonate 50 meq 06/18/20 21:30 06/18/20 21:16 Sodium Bicarbonate 8.4% Inj 50 Meq/50ml Syrin IV 06/18/20 21:31 50 meq NOW ONE Administration Sodium Bicarbonate Confirm 06/18/20 21:14 06/18/20 21:23 Sodium Bicarbonate 8.4% Inj 50 Meq/50ml Syrin Administered 06/18/20 21:15 Not Given Dose 50 meq .ROUTE .STK-MED ONE Sodium Bicarbonate 100 meq 06/19/20 05:03 06/19/20 05:12 Sodium Bicarbonate 8.4% Inj 50 Meq/50ml Syrin IV 06/19/20 05:04 100 meq NOW ONE Administration Sodium Bicarbonate Confirm 06/19/20 05:01 06/19/20 05:09 Sodium Bicarbonate 8.4% Inj 50 Meq/50ml Syrin Administered 06/19/20 05:02 Not Given Dose 50 meq .ROUTE .STK-MED ONE Succinylcholine Chloride 100 mg 06/18/20 15:12 06/18/20 15:11 Anectine Inj 200 Mg/10 Ml Vial IV 06/18/20 15:13 100 mg NOW ONE Administration Succinylcholine Chloride 200 mg 06/18/20 20:02 Anectine Inj 200 Mg/10 Ml Vial .ROUTE 06/18/20 20:03 .STK-MED ONE Vancomycin HCl 1,000 mg 06/18/20 15:32 06/18/20 17:00 Vancocin Inj 1000 Mg Vial IV 06/18/20 15:33 1,000 mg IVBAG (ED) ONE Administration PHYSICAL EXAMINATION: The patient is intubated and sedated. HEAD: Is atraumatic normocephalic. EYES: Pupils are equal round reactive to light. ENT is negative. Neck is supple. There is no JVD. Carotids are equal there is no bruit. Trachea central. Lungs there is a few bibasilar crackles right crackles. Rest of the lungs are clear. HEART: S1-S2 is heard. There is no S3 gallop. There is no S4 gallop. There is systolic murmur left sternal border and the apex there is no rub. ABDOMEN: Is soft. There is no hepatosplenomegaly. Bowel sounds are heard. EXTREMITIES: Femorals felt. There is no femoral bruits. There is no pedal edema. There is no DVT or cellulitis. Leg pulses slightly diminished. There is no cyanosis or clubbing. DEPARTMENT CLERK and psychiatric not examined since the patient intubated and sedated ECHOCARDIOGRAM: Shows normal normal left atrial chamber size. Wall motion and normal ejection fraction. There is moderate pulmonary hypertension at least. There is no pericardial effusion. The patient's initial EKG done on 06/18/2020 shows sinus rhythm. Incomplete right bundle branch block pattern. Tall T waves suggestive of hyperkalemia. The patient is EKG today shows sinus rhythm. Minor nonspecific ST-T changes. Incomplete right bundle branch block pattern. The T waves are normalized now. Labs- Entire Visit 06/18/20 06/18/20 06/18/20 14:07 14:07 14:07 WBC 4.6 RBC 3.80 L Hgb 12.2 L Hct 39.0 MCV 103 H MCH 32.2 MCHC 31.3 L RDW 16.4 H Plt Count 120 L Lymph % (Auto) Not Reportable Haines % (Auto) Not Reportable Eos % (Auto) Not Reportable Baso % (Auto) Not Reportable Absolute Neuts (auto) Not Reportable Absolute Lymphs (auto) Not Reportable Absolute Monos (auto) Not Reportable Absolute Eos (auto) Not Reportable Absolute Basos (auto) Not Reportable Total Counted 100 Seg Neutrophils % Not Reportable Seg Neuts % (Manual) 68 Band Neutrophils % 4 Lymphocytes % (Manual) 23 Atypical Lymphs % Monocytes % (Manual) 5 Eosinophils % (Manual) 0 Basophils % (Manual) 0 Metamyelocytes % Myelocytes % Promyelocytes % Abs Neuts (Manual) 3.3 Abs Lymphs (Manual) 1.1 Abs Monocytes (Manual) 0.2 Absolute Eos (Manual) 0.0 Abs Basophils (Manual) 0.0 Nucleated RBCs 1 Platelet Estimate Platelet Comment ADEQUATE Poikilocytosis 2+ Anisocytosis Microcytosis 1+ Helmet Cells Robin Cells 2+ Schistocytes PT 19.2 H INR 1.61 APTT 29.7 Carbonic Acid HCO3/H2CO3 Ratio ABG pH ABG pCO2 ABG pO2 ABG HCO3 ABG Total CO2 ABG O2 Saturation ABG Base Excess FiO2 Sodium 186.3 H* Potassium 5.5 H Chloride 155 H Carbon Dioxide 13 L Anion Gap 18 BUN 149 H Creatinine 9.68 H Est GFR ( Amer) 7 L Est GFR (MDRD) Non-Af 5 L Glucose 90 Serum Osmolality Lactic Acid Calcium 8.6 Magnesium Total Bilirubin 1.2 Direct Bilirubin 0.4 Neonat Total Bilirubin Not Reportable Neonat Direct Bilirubin Not Reportable Neonat Indirect Bili Not Reportable AST 37 ALT 40 Alkaline Phosphatase 158 H Ammonia Creatine Kinase 992 H CK-MB (CK-2) Troponin I Total Protein 6.3 Albumin 3.3 L TSH Urine Color Urine Appearance Urine pH Ur Specific [place] Urine Protein Urine Glucose (UA) Urine Ketones Urine Blood Urine Nitrite Urine Bilirubin Urine Urobilinogen Ur Leukocyte Esterase Urine WBC (Auto) Urine RBC (Auto) U Hyaline Cast (Auto) Urine Bacteria (Auto) Squamous Epi Cells Auto Urine Mucus (Auto) Urine Osmolality Urine Sodium Urine Ascorbic Acid Slides for Path Review 06/18/20 06/18/20 06/18/20 14:07 16:04 16:20 WBC RBC Hgb Hct MCV MCH MCHC RDW Plt Count Lymph % (Auto) Haines % (Auto) Eos % (Auto) Baso % (Auto) Absolute Neuts (auto) Absolute Lymphs (auto) Absolute Monos (auto) Absolute Eos (auto) Absolute Basos (auto) Total Counted Seg Neutrophils % Seg Neuts % (Manual) Band Neutrophils % Lymphocytes % (Manual) Atypical Lymphs % Monocytes % (Manual) Eosinophils % (Manual) Basophils % (Manual) Metamyelocytes % Myelocytes % Promyelocytes % Abs Neuts (Manual) Abs Lymphs (Manual) Abs Monocytes (Manual) Absolute Eos (Manual) Abs Basophils (Manual) Nucleated RBCs Platelet Estimate Platelet Comment Poikilocytosis Anisocytosis Microcytosis Helmet Cells Robin Cells Schistocytes PT INR APTT Carbonic Acid 1.39 H HCO3/H2CO3 Ratio 8:1 ABG pH 7.01 L* ABG pCO2 46.1 H ABG pO2 107.4 H ABG HCO3 11.4 L ABG Total CO2 12.8 L ABG O2 Saturation 94.9 ABG Base Excess -19.6 FiO2 45% Sodium Potassium Chloride Carbon Dioxide Anion Gap BUN Creatinine Est GFR ( Amer) Est GFR (MDRD) Non-Af Glucose Serum Osmolality Lactic Acid 8.2 H Calcium Magnesium Total Bilirubin Direct Bilirubin Neonat Total Bilirubin Neonat Direct Bilirubin Neonat Indirect Bili AST ALT Alkaline Phosphatase Ammonia Creatine Kinase CK-MB (CK-2) 5.14 H Troponin I 0.447 Total Protein Albumin TSH Urine Color Urine Appearance Urine pH Ur Specific [place] Urine Protein Urine Glucose (UA) Urine Ketones Urine Blood Urine Nitrite Urine Bilirubin Urine Urobilinogen Ur Leukocyte Esterase Urine WBC (Auto) Urine RBC (Auto) U Hyaline Cast (Auto) Urine Bacteria (Auto) Squamous Epi Cells Auto Urine Mucus (Auto) Urine Osmolality Urine Sodium Urine Ascorbic Acid Slides for Path Review 06/18/20 06/18/20 06/18/20 18:30 18:30 18:30 WBC RBC Hgb Hct MCV MCH MCHC RDW Plt Count Lymph % (Auto) Haines % (Auto) Eos % (Auto) Baso % (Auto) Absolute Neuts (auto) Absolute Lymphs (auto) Absolute Monos (auto) Absolute Eos (auto) Absolute Basos (auto) Total Counted Seg Neutrophils % Seg Neuts % (Manual) Band Neutrophils % Lymphocytes % (Manual) Atypical Lymphs % Monocytes % (Manual) Eosinophils % (Manual) Basophils % (Manual) Metamyelocytes % Myelocytes % Promyelocytes % Abs Neuts (Manual) Abs Lymphs (Manual) Abs Monocytes (Manual) Absolute Eos (Manual) Abs Basophils (Manual) Nucleated RBCs Platelet Estimate Platelet Comment Poikilocytosis Anisocytosis Microcytosis Helmet Cells Winn Cells Schistocytes PT INR APTT Carbonic Acid HCO3/H2CO3 Ratio ABG pH ABG pCO2 ABG pO2 ABG HCO3 ABG Total CO2 ABG O2 Saturation ABG Base Excess FiO2 Sodium 183.5 H* Potassium Chloride Carbon Dioxide Anion Gap BUN Creatinine Est GFR ( Amer) Est GFR (MDRD) Non-Af Glucose Serum Osmolality Lactic Acid Calcium Magnesium Total Bilirubin Direct Bilirubin Neonat Total Bilirubin Neonat Direct Bilirubin Neonat Indirect Bili AST ALT Alkaline Phosphatase Ammonia Creatine Kinase 940 H CK-MB (CK-2) Troponin I Total Protein Albumin TSH 2.75 Urine Color Urine Appearance Urine pH Ur Specific [place] Urine Protein Urine Glucose (UA) Urine Ketones Urine Blood Urine Nitrite Urine Bilirubin Urine Urobilinogen Ur Leukocyte Esterase Urine WBC (Auto) Urine RBC (Auto) U Hyaline Cast (Auto) Urine Bacteria (Auto) Squamous Epi Cells Auto Urine Mucus (Auto) Urine Osmolality Urine Sodium Urine Ascorbic Acid Slides for Path Review 06/18/20 06/18/20 06/18/20 18:30 19:20 19:20 WBC RBC Hgb Hct MCV MCH MCHC RDW Plt Count Lymph % (Auto) Haines % (Auto) Eos % (Auto) Baso % (Auto) Absolute Neuts (auto) Absolute Lymphs (auto) Absolute Monos (auto) Absolute Eos (auto) Absolute Basos (auto) Total Counted Seg Neutrophils % Seg Neuts % (Manual) Band Neutrophils % Lymphocytes % (Manual) Atypical Lymphs % Monocytes % (Manual) Eosinophils % (Manual) Basophils % (Manual) Metamyelocytes % Myelocytes % Promyelocytes % Abs Neuts (Manual) Abs Lymphs (Manual) Abs Monocytes (Manual) Absolute Eos (Manual) Abs Basophils (Manual) Nucleated RBCs Platelet Estimate Platelet Comment Poikilocytosis Anisocytosis Microcytosis Helmet Cells Robin Cells Schistocytes PT INR APTT Carbonic Acid HCO3/H2CO3 Ratio ABG pH ABG pCO2 ABG pO2 ABG HCO3 ABG Total CO2 ABG O2 Saturation ABG Base Excess FiO2 Sodium Potassium Chloride Carbon Dioxide Anion Gap BUN Creatinine Est GFR ( Amer) Est GFR (MDRD) Non-Af Glucose Serum Osmolality Lactic Acid Calcium Magnesium Total Bilirubin Direct Bilirubin Neonat Total Bilirubin Neonat Direct Bilirubin Neonat Indirect Bili AST ALT Alkaline Phosphatase Ammonia 37.2 H Creatine Kinase CK-MB (CK-2) 8.85 H Troponin I 0.640 Total Protein Albumin TSH Urine Color YELLOW Urine Appearance SLIGHTLY-CLOUDY Urine pH 5.0 Ur Specific [place] 1.019 Urine Protein 100 H Urine Glucose (UA) NEGATIVE Urine Ketones NEGATIVE Urine Blood LARGE H Urine Nitrite NEGATIVE Urine Bilirubin NEGATIVE Urine Urobilinogen NEGATIVE Ur Leukocyte Esterase NEGATIVE Urine WBC (Auto) 3 Urine RBC (Auto) 42 U Hyaline Cast (Auto) 1 Urine Bacteria (Auto) TRACE Squamous Epi Cells Auto 1 Urine Mucus (Auto) RARE Urine Osmolality Urine Sodium Urine Ascorbic Acid NEGATIVE Slides for Path Review 06/18/20 06/18/20 06/18/20 19:20 20:15 22:09 WBC RBC Hgb Hct MCV MCH MCHC RDW Plt Count Lymph % (Auto) Haines % (Auto) Eos % (Auto) Baso % (Auto) Absolute Neuts (auto) Absolute Lymphs (auto) Absolute Monos (auto) Absolute Eos (auto) Absolute Basos (auto) Total Counted Seg Neutrophils % Seg Neuts % (Manual) Band Neutrophils % Lymphocytes % (Manual) Atypical Lymphs % Monocytes % (Manual) Eosinophils % (Manual) Basophils % (Manual) Metamyelocytes % Myelocytes % Promyelocytes % Abs Neuts (Manual) Abs Lymphs (Manual) Abs Monocytes (Manual) Absolute Eos (Manual) Abs Basophils (Manual) Nucleated RBCs Platelet Estimate Platelet Comment Poikilocytosis Anisocytosis Microcytosis Helmet Cells Winn Cells Schistocytes PT 19.2 H INR 1.60 APTT 29.6 Carbonic Acid 0.85 L HCO3/H2CO3 Ratio 15:1 ABG pH 7.28 L ABG pCO2 28.1 L ABG pO2 79.4 L ABG HCO3 12.8 L ABG Total CO2 13.7 L ABG O2 Saturation 94.5 ABG Base Excess -12.6 FiO2 40% Sodium 179.1 H* Potassium Chloride Carbon Dioxide Anion Gap BUN Creatinine Est GFR ( Amer) Est GFR (MDRD) Non-Af Glucose Serum Osmolality Lactic Acid Calcium Magnesium Total Bilirubin Direct Bilirubin Neonat Total Bilirubin Neonat Direct Bilirubin Neonat Indirect Bili AST ALT Alkaline Phosphatase Ammonia Creatine Kinase CK-MB (CK-2) Troponin I Total Protein Albumin TSH Urine Color Urine Appearance Urine pH Ur Specific [place] Urine Protein Urine Glucose (UA) Urine Ketones Urine Blood Urine Nitrite Urine Bilirubin Urine Urobilinogen Ur Leukocyte Esterase Urine WBC (Auto) Urine RBC (Auto) U Hyaline Cast (Auto) Urine Bacteria (Auto) Squamous Epi Cells Auto Urine Mucus (Auto) Urine Osmolality Urine Sodium Urine Ascorbic Acid Slides for Path Review 06/19/20 06/19/20 06/19/20 02:33 02:33 02:33 WBC RBC Hgb Hct MCV MCH MCHC RDW Plt Count Lymph % (Auto) Haines % (Auto) Eos % (Auto) Baso % (Auto) Absolute Neuts (auto) Absolute Lymphs (auto) Absolute Monos (auto) Absolute Eos (auto) Absolute Basos (auto) Total Counted Seg Neutrophils % Seg Neuts % (Manual) Band Neutrophils % Lymphocytes % (Manual) Atypical Lymphs % Monocytes % (Manual) Eosinophils % (Manual) Basophils % (Manual) Metamyelocytes % Myelocytes % Promyelocytes % Abs Neuts (Manual) Abs Lymphs (Manual) Abs Monocytes (Manual) Absolute Eos (Manual) Abs Basophils (Manual) Nucleated RBCs Platelet Estimate Platelet Comment Poikilocytosis Anisocytosis Microcytosis Helmet Cells Robin Cells Schistocytes PT INR APTT Carbonic Acid 0.83 L HCO3/H2CO3 Ratio 20:1 ABG pH 7.41 ABG pCO2 27.6 L ABG pO2 83.5 ABG HCO3 16.9 L ABG Total CO2 17.8 L ABG O2 Saturation 96.5 ABG Base Excess -6.7 FiO2 40% Sodium Potassium Chloride Carbon Dioxide Anion Gap BUN Creatinine Est GFR ( Amer) Est GFR (MDRD) Non-Af Glucose Serum Osmolality Lactic Acid Calcium Magnesium Total Bilirubin Direct Bilirubin Neonat Total Bilirubin Neonat Direct Bilirubin Neonat Indirect Bili AST ALT Alkaline Phosphatase Ammonia Creatine Kinase 883 H CK-MB (CK-2) 21.90 H Troponin I 4.590 Total Protein Albumin TSH Urine Color Urine Appearance Urine pH Ur Specific [place] Urine Protein Urine Glucose (UA) Urine Ketones Urine Blood Urine Nitrite Urine Bilirubin Urine Urobilinogen Ur Leukocyte Esterase Urine WBC (Auto) Urine RBC (Auto) U Hyaline Cast (Auto) Urine Bacteria (Auto) Squamous Epi Cells Auto Urine Mucus (Auto) Urine Osmolality Urine Sodium Urine Ascorbic Acid Slides for Path Review 06/19/20 06/19/20 06/19/20 02:33 05:47 05:47 WBC Cancelled RBC Cancelled Hgb Cancelled Hct Cancelled MCV Cancelled MCH Cancelled MCHC Cancelled RDW Cancelled Plt Count Cancelled Lymph % (Auto) Cancelled Haines % (Auto) Cancelled Eos % (Auto) Cancelled Baso % (Auto) Cancelled Absolute Neuts (auto) Cancelled Absolute Lymphs (auto) Cancelled Absolute Monos (auto) Cancelled Absolute Eos (auto) Cancelled Absolute Basos (auto) Cancelled Total Counted Seg Neutrophils % Cancelled Seg Neuts % (Manual) Band Neutrophils % Lymphocytes % (Manual) Atypical Lymphs % Monocytes % (Manual) Eosinophils % (Manual) Basophils % (Manual) Metamyelocytes % Myelocytes % Promyelocytes % Abs Neuts (Manual) Abs Lymphs (Manual) Abs Monocytes (Manual) Absolute Eos (Manual) Abs Basophils (Manual) Nucleated RBCs Platelet Estimate Cancelled Platelet Comment Poikilocytosis Anisocytosis Microcytosis Helmet Cells Robin Cells Schistocytes PT INR APTT Carbonic Acid HCO3/H2CO3 Ratio ABG pH ABG pCO2 ABG pO2 ABG HCO3 ABG Total CO2 ABG O2 Saturation ABG Base Excess FiO2 Sodium 172.1 H* 170.6 H* Potassium 4.6 Chloride 133 H Carbon Dioxide 25 D Anion Gap 13 BUN 161 H Creatinine 7.86 H Est GFR ( Amer) 8 L Est GFR (MDRD) Non-Af 7 L Glucose 151 H Serum Osmolality Lactic Acid Calcium 6.8 L* Magnesium 2.4 H Total Bilirubin 0.9 Direct Bilirubin 0.3 Neonat Total Bilirubin Not Reportable Neonat Direct Bilirubin Not Reportable Neonat Indirect Bili Not Reportable AST 58 ALT 28 Alkaline Phosphatase 84 Ammonia Creatine Kinase 814 H CK-MB (CK-2) Troponin I Total Protein 4.0 L Albumin 1.9 L TSH Urine Color Urine Appearance Urine pH Ur Specific [place] Urine Protein Urine Glucose (UA) Urine Ketones Urine Blood Urine Nitrite Urine Bilirubin Urine Urobilinogen Ur Leukocyte Esterase Urine WBC (Auto) Urine RBC (Auto) U Hyaline Cast (Auto) Urine Bacteria (Auto) Squamous Epi Cells Auto Urine Mucus (Auto) Urine Osmolality Urine Sodium Urine Ascorbic Acid Slides for Path Review Cancelled 06/19/20 06/19/20 06/19/20 05:47 05:47 06:56 WBC 10.6 H D RBC 2.63 L Hgb 8.6 L D Hct 25.4 L MCV 97 D MCH 32.6 MCHC 33.7 RDW 15.1 H Plt Count 65 L Lymph % (Auto) Not Reportable Haines % (Auto) Not Reportable Eos % (Auto) Not Reportable Baso % (Auto) Not Reportable Absolute Neuts (auto) Not Reportable Absolute Lymphs (auto) Not Reportable Absolute Monos (auto) Not Reportable Absolute Eos (auto) Not Reportable Absolute Basos (auto) Not Reportable Total Counted 100 Seg Neutrophils % Not Reportable Seg Neuts % (Manual) 65 Band Neutrophils % 15 H D Lymphocytes % (Manual) 9 L Atypical Lymphs % Monocytes % (Manual) 4 Eosinophils % (Manual) 2 Basophils % (Manual) 1 Metamyelocytes % 3 H Myelocytes % 1 H Promyelocytes % Abs Neuts (Manual) 8.9 H Abs Lymphs (Manual) 1.0 Abs Monocytes (Manual) 0.4 Absolute Eos (Manual) 0.2 Abs Basophils (Manual) 0.1 Nucleated RBCs Platelet Estimate Platelet Comment DECREASED Poikilocytosis 1+ Anisocytosis SLIGHT Microcytosis Helmet Cells 1+ Winn Cells Schistocytes 1+ PT INR APTT Carbonic Acid HCO3/H2CO3 Ratio ABG pH ABG pCO2 ABG pO2 ABG HCO3 ABG Total CO2 ABG O2 Saturation ABG Base Excess FiO2 Sodium Cancelled Potassium Chloride Carbon Dioxide Anion Gap BUN Creatinine Est GFR ( Amer) Est GFR (MDRD) Non-Af Glucose Serum Osmolality Lactic Acid Calcium Magnesium Total Bilirubin Direct Bilirubin Neonat Total Bilirubin Neonat Direct Bilirubin Neonat Indirect Bili AST ALT Alkaline Phosphatase Ammonia Creatine Kinase CK-MB (CK-2) Cancelled Troponin I Cancelled Total Protein Albumin TSH Urine Color Urine Appearance Urine pH Ur Specific [place] Urine Protein Urine Glucose (UA) Urine Ketones Urine Blood Urine Nitrite Urine Bilirubin Urine Urobilinogen Ur Leukocyte Esterase Urine WBC (Auto) Urine RBC (Auto) U Hyaline Cast (Auto) Urine Bacteria (Auto) Squamous Epi Cells Auto Urine Mucus (Auto) Urine Osmolality Urine Sodium Urine Ascorbic Acid Slides for Path Review 06/19/20 06/19/20 06/19/20 08:00 08:00 08:00 WBC RBC Hgb Hct MCV MCH MCHC RDW Plt Count Lymph % (Auto) Haines % (Auto) Eos % (Auto) Baso % (Auto) Absolute Neuts (auto) Absolute Lymphs (auto) Absolute Monos (auto) Absolute Eos (auto) Absolute Basos (auto) Total Counted Seg Neutrophils % Seg Neuts % (Manual) Band Neutrophils % Lymphocytes % (Manual) Atypical Lymphs % Monocytes % (Manual) Eosinophils % (Manual) Basophils % (Manual) Metamyelocytes % Myelocytes % Promyelocytes % Abs Neuts (Manual) Abs Lymphs (Manual) Abs Monocytes (Manual) Absolute Eos (Manual) Abs Basophils (Manual) Nucleated RBCs Platelet Estimate Platelet Comment Poikilocytosis Anisocytosis Microcytosis Helmet Cells Winn Cells Schistocytes PT INR APTT Carbonic Acid HCO3/H2CO3 Ratio ABG pH ABG pCO2 ABG pO2 ABG HCO3 ABG Total CO2 ABG O2 Saturation ABG Base Excess FiO2 Sodium Potassium Chloride Carbon Dioxide Anion Gap BUN Creatinine Est GFR ( Amer) Est GFR (MDRD) Non-Af Glucose Serum Osmolality Lactic Acid Calcium Magnesium Total Bilirubin Direct Bilirubin Neonat Total Bilirubin Neonat Direct Bilirubin Neonat Indirect Bili AST ALT Alkaline Phosphatase Ammonia Creatine Kinase 862 H CK-MB (CK-2) 22.00 H Troponin I 8.620 Total Protein Albumin TSH Urine Color Urine Appearance Urine pH Ur Specific [place] Urine Protein Urine Glucose (UA) Urine Ketones Urine Blood Urine Nitrite Urine Bilirubin Urine Urobilinogen Ur Leukocyte Esterase Urine WBC (Auto) Urine RBC (Auto) U Hyaline Cast (Auto) Urine Bacteria (Auto) Squamous Epi Cells Auto Urine Mucus (Auto) Urine Osmolality Urine Sodium Urine Ascorbic Acid Slides for Path Review 06/19/20 06/19/20 06/19/20 09:41 09:41 09:41 WBC 11.7 H RBC 2.70 L Hgb 8.5 L Hct 26.0 L MCV 96 MCH 31.6 MCHC 32.9 RDW 14.8 H Plt Count 65 L Lymph % (Auto) Not Reportable Haines % (Auto) Not Reportable Eos % (Auto) Not Reportable Baso % (Auto) Not Reportable Absolute Neuts (auto) Not Reportable Absolute Lymphs (auto) Not Reportable Absolute Monos (auto) Not Reportable Absolute Eos (auto) Not Reportable Absolute Basos (auto) Not Reportable Total Counted 100 Seg Neutrophils % Not Reportable Seg Neuts % (Manual) 51 Band Neutrophils % 34 H D Lymphocytes % (Manual) 5 L Atypical Lymphs % 1 Monocytes % (Manual) 0 L Eosinophils % (Manual) 1 Basophils % (Manual) 0 Metamyelocytes % 4 H Myelocytes % 1 H Promyelocytes % 3 H Abs Neuts (Manual) 10.9 H Abs Lymphs (Manual) 0.7 Abs Monocytes (Manual) 0.0 L Absolute Eos (Manual) 0.1 Abs Basophils (Manual) 0.0 Nucleated RBCs Platelet Estimate Platelet Comment DECREASED Poikilocytosis Anisocytosis SLIGHT Microcytosis Helmet Cells Robin Cells Schistocytes PT 20.4 H INR 1.74 APTT 49.2 H Carbonic Acid HCO3/H2CO3 Ratio ABG pH ABG pCO2 ABG pO2 ABG HCO3 ABG Total CO2 ABG O2 Saturation ABG Base Excess FiO2 Sodium 166.3 H Potassium Chloride Carbon Dioxide Anion Gap BUN Creatinine Est GFR ( Amer) Est GFR (MDRD) Non-Af Glucose Serum Osmolality Lactic Acid Calcium Magnesium Total Bilirubin Direct Bilirubin Neonat Total Bilirubin Neonat Direct Bilirubin Neonat Indirect Bili AST ALT Alkaline Phosphatase Ammonia Creatine Kinase CK-MB (CK-2) Troponin I Total Protein Albumin TSH Urine Color Urine Appearance Urine pH Ur Specific [place] Urine Protein Urine Glucose (UA) Urine Ketones Urine Blood Urine Nitrite Urine Bilirubin Urine Urobilinogen Ur Leukocyte Esterase Urine WBC (Auto) Urine RBC (Auto) U Hyaline Cast (Auto) Urine Bacteria (Auto) Squamous Epi Cells Auto Urine Mucus (Auto) Urine Osmolality Urine Sodium Urine Ascorbic Acid Slides for Path Review 06/19/20 06/19/20 06/19/20 09:41 10:00 12:38 WBC RBC Hgb Hct MCV MCH MCHC RDW Plt Count Lymph % (Auto) Haines % (Auto) Eos % (Auto) Baso % (Auto) Absolute Neuts (auto) Absolute Lymphs (auto) Absolute Monos (auto) Absolute Eos (auto) Absolute Basos (auto) Total Counted Seg Neutrophils % Seg Neuts % (Manual) Band Neutrophils % Lymphocytes % (Manual) Atypical Lymphs % Monocytes % (Manual) Eosinophils % (Manual) Basophils % (Manual) Metamyelocytes % Myelocytes % Promyelocytes % Abs Neuts (Manual) Abs Lymphs (Manual) Abs Monocytes (Manual) Absolute Eos (Manual) Abs Basophils (Manual) Nucleated RBCs Platelet Estimate Platelet Comment Poikilocytosis Anisocytosis Microcytosis Helmet Cells Robin Cells Schistocytes PT INR APTT Carbonic Acid 0.92 L HCO3/H2CO3 Ratio 23:1 ABG pH 7.47 H ABG pCO2 30.7 L ABG pO2 93.1 ABG HCO3 21.7 ABG Total CO2 22.6 L ABG O2 Saturation 97.6 ABG Base Excess -1.6 FiO2 40% Sodium Potassium Chloride Carbon Dioxide Anion Gap BUN Creatinine Est GFR ( Amer) Est GFR (MDRD) Non-Af Glucose Serum Osmolality Lactic Acid 3.9 H 3.0 H Calcium Magnesium Total Bilirubin Direct Bilirubin Neonat Total Bilirubin Neonat Direct Bilirubin Neonat Indirect Bili AST ALT Alkaline Phosphatase Ammonia Creatine Kinase CK-MB (CK-2) Troponin I Total Protein Albumin TSH Urine Color Urine Appearance Urine pH Ur Specific [place] Urine Protein Urine Glucose (UA) Urine Ketones Urine Blood Urine Nitrite Urine Bilirubin Urine Urobilinogen Ur Leukocyte Esterase Urine WBC (Auto) Urine RBC (Auto) U Hyaline Cast (Auto) Urine Bacteria (Auto) Squamous Epi Cells Auto Urine Mucus (Auto) Urine Osmolality Urine Sodium Urine Ascorbic Acid Slides for Path Review 06/19/20 06/19/20 06/19/20 12:38 14:20 14:20 WBC RBC Hgb Hct MCV MCH MCHC RDW Plt Count Lymph % (Auto) Haines % (Auto) Eos % (Auto) Baso % (Auto) Absolute Neuts (auto) Absolute Lymphs (auto) Absolute Monos (auto) Absolute Eos (auto) Absolute Basos (auto) Total Counted Seg Neutrophils % Seg Neuts % (Manual) Band Neutrophils % Lymphocytes % (Manual) Atypical Lymphs % Monocytes % (Manual) Eosinophils % (Manual) Basophils % (Manual) Metamyelocytes % Myelocytes % Promyelocytes % Abs Neuts (Manual) Abs Lymphs (Manual) Abs Monocytes (Manual) Absolute Eos (Manual) Abs Basophils (Manual) Nucleated RBCs Platelet Estimate Platelet Comment Poikilocytosis Anisocytosis Microcytosis Helmet Cells Winn Cells Schistocytes PT INR APTT Carbonic Acid 0.96 L HCO3/H2CO3 Ratio 21:1 ABG pH 7.44 ABG pCO2 31.8 L ABG pO2 39.3 L* ABG HCO3 21.0 ABG Total CO2 21.9 L ABG O2 Saturation 76.8 L ABG Base Excess -2.7 FiO2 40% Sodium 162.2 H Potassium Chloride Carbon Dioxide Anion Gap BUN Creatinine Est GFR ( Amer) Est GFR (MDRD) Non-Af Glucose Serum Osmolality Lactic Acid Calcium Magnesium Total Bilirubin Direct Bilirubin Neonat Total Bilirubin Neonat Direct Bilirubin Neonat Indirect Bili AST ALT Alkaline Phosphatase Ammonia Creatine Kinase CK-MB (CK-2) Troponin I 26.900 Total Protein Albumin TSH Urine Color Urine Appearance Urine pH Ur Specific [place] Urine Protein Urine Glucose (UA) Urine Ketones Urine Blood Urine Nitrite Urine Bilirubin Urine Urobilinogen Ur Leukocyte Esterase Urine WBC (Auto) Urine RBC (Auto) U Hyaline Cast (Auto) Urine Bacteria (Auto) Squamous Epi Cells Auto Urine Mucus (Auto) Urine Osmolality Urine Sodium Urine Ascorbic Acid Slides for Path Review 06/19/20 06/19/20 06/19/20 14:20 15:50 17:16 WBC RBC Hgb Hct MCV MCH MCHC RDW Plt Count Lymph % (Auto) Haines % (Auto) Eos % (Auto) Baso % (Auto) Absolute Neuts (auto) Absolute Lymphs (auto) Absolute Monos (auto) Absolute Eos (auto) Absolute Basos (auto) Total Counted Seg Neutrophils % Seg Neuts % (Manual) Band Neutrophils % Lymphocytes % (Manual) Atypical Lymphs % Monocytes % (Manual) Eosinophils % (Manual) Basophils % (Manual) Metamyelocytes % Myelocytes % Promyelocytes % Abs Neuts (Manual) Abs Lymphs (Manual) Abs Monocytes (Manual) Absolute Eos (Manual) Abs Basophils (Manual) Nucleated RBCs Platelet Estimate Platelet Comment Poikilocytosis Anisocytosis Microcytosis Helmet Cells Winn Cells Schistocytes PT INR APTT Carbonic Acid 0.90 L HCO3/H2CO3 Ratio 22:1 ABG pH 7.45 ABG pCO2 30.0 L ABG pO2 83.7 ABG HCO3 20.4 ABG Total CO2 21.4 L ABG O2 Saturation 96.8 ABG Base Excess -2.7 FiO2 40% Sodium Potassium Chloride Carbon Dioxide Anion Gap BUN Creatinine Est GFR ( Amer) Est GFR (MDRD) Non-Af Glucose Serum Osmolality 380 H Lactic Acid 2.8 H Calcium Magnesium Total Bilirubin Direct Bilirubin Neonat Total Bilirubin Neonat Direct Bilirubin Neonat Indirect Bili AST ALT Alkaline Phosphatase Ammonia Creatine Kinase CK-MB (CK-2) Troponin I Total Protein Albumin TSH Urine Color Urine Appearance Urine pH Ur Specific [place] Urine Protein Urine Glucose (UA) Urine Ketones Urine Blood Urine Nitrite Urine Bilirubin Urine Urobilinogen Ur Leukocyte Esterase Urine WBC (Auto) Urine RBC (Auto) U Hyaline Cast (Auto) Urine Bacteria (Auto) Squamous Epi Cells Auto Urine Mucus (Auto) Urine Osmolality Urine Sodium Urine Ascorbic Acid Slides for Path Review 06/19/20 06/19/20 06/19/20 17:16 18:05 18:40 WBC RBC Hgb Hct MCV MCH MCHC RDW Plt Count Lymph % (Auto) Haines % (Auto) Eos % (Auto) Baso % (Auto) Absolute Neuts (auto) Absolute Lymphs (auto) Absolute Monos (auto) Absolute Eos (auto) Absolute Basos (auto) Total Counted Seg Neutrophils % Seg Neuts % (Manual) Band Neutrophils % Lymphocytes % (Manual) Atypical Lymphs % Monocytes % (Manual) Eosinophils % (Manual) Basophils % (Manual) Metamyelocytes % Myelocytes % Promyelocytes % Abs Neuts (Manual) Abs Lymphs (Manual) Abs Monocytes (Manual) Absolute Eos (Manual) Abs Basophils (Manual) Nucleated RBCs Platelet Estimate Platelet Comment Poikilocytosis Anisocytosis Microcytosis Helmet Cells Robin Cells Schistocytes PT INR APTT 141.1 H* D Carbonic Acid HCO3/H2CO3 Ratio ABG pH ABG pCO2 ABG pO2 ABG HCO3 ABG Total CO2 ABG O2 Saturation ABG Base Excess FiO2 Sodium 159.5 H Potassium Chloride Carbon Dioxide Anion Gap BUN Creatinine Est GFR ( Amer) Est GFR (MDRD) Non-Af Glucose Serum Osmolality Lactic Acid Calcium Magnesium Total Bilirubin Direct Bilirubin Neonat Total Bilirubin Neonat Direct Bilirubin Neonat Indirect Bili AST ALT Alkaline Phosphatase Ammonia Creatine Kinase CK-MB (CK-2) Troponin I Total Protein Albumin TSH Urine Color Urine Appearance Urine pH Ur Specific [place] Urine Protein Urine Glucose (UA) Urine Ketones Urine Blood Urine Nitrite Urine Bilirubin Urine Urobilinogen Ur Leukocyte Esterase Urine WBC (Auto) Urine RBC (Auto) U Hyaline Cast (Auto) Urine Bacteria (Auto) Squamous Epi Cells Auto Urine Mucus (Auto) Urine Osmolality 489 Urine Sodium 28 L Urine Ascorbic Acid Slides for Path Review 11/05/20 20:25 WBC RBC Hgb Hct MCV MCH MCHC RDW Plt Count Lymph % (Auto) Haines % (Auto) Eos % (Auto) Baso % (Auto) Absolute Neuts (auto) Absolute Lymphs (auto) Absolute Monos (auto) Absolute Eos (auto) Absolute Basos (auto) Total Counted Seg Neutrophils % Seg Neuts % (Manual) Band Neutrophils % Lymphocytes % (Manual) Atypical Lymphs % Monocytes % (Manual) Eosinophils % (Manual) Basophils % (Manual) Metamyelocytes % Myelocytes % Promyelocytes % Abs Neuts (Manual) Abs Lymphs (Manual) Abs Monocytes (Manual) Absolute Eos (Manual) Abs Basophils (Manual) Nucleated RBCs Platelet Estimate Platelet Comment Poikilocytosis Anisocytosis Microcytosis Helmet Cells Winn Cells Schistocytes PT INR APTT Carbonic Acid HCO3/H2CO3 Ratio ABG pH ABG pCO2 ABG pO2 ABG HCO3 ABG Total CO2 ABG O2 Saturation ABG Base Excess FiO2 Sodium Potassium Chloride Carbon Dioxide Anion Gap BUN Creatinine Est GFR ( Amer) Est GFR (MDRD) Non-Af Glucose Serum Osmolality Lactic Acid Calcium Magnesium Total Bilirubin Direct Bilirubin Neonat Total Bilirubin Neonat Direct Bilirubin Neonat Indirect Bili AST ALT Alkaline Phosphatase Ammonia Creatine Kinase CK-MB (CK-2) Troponin I 36.400 Total Protein Albumin TSH Urine Color Urine Appearance Urine pH Ur Specific [place] Urine Protein Urine Glucose (UA) Urine Ketones Urine Blood Urine Nitrite Urine Bilirubin Urine Urobilinogen Ur Leukocyte Esterase Urine WBC (Auto) Urine RBC (Auto) U Hyaline Cast (Auto) Urine Bacteria (Auto) Squamous Epi Cells Auto Urine Mucus (Auto) Urine Osmolality Urine Sodium Urine Ascorbic Acid Slides for Path Review Chest X-Ray 06/18/20 13:05 IMPRESSION: BILATERAL UPPER LUNG OPACITIES, POSSIBLY DUE TO PNEUMONIA. UNDERLYING PULMONARY MASSES CANNOT BE EXCLUDED. Head CT 06/18/20 13:05 IMPRESSION: CHRONIC CHANGES OF ATROPHY AND MICROVASCULAR ISCHEMIA. NO ACUTE PROCESS. EVIDENCE OF ACUTE STROKE: NO. Chest X-Ray 06/18/20 15:29 IMPRESSION: Support lines and tubes are in satisfactory position. Persistent diffuse upper lobe infiltrates. Minimal right lower lobe airspace disease. IMPRESSION/RECOMMENDATION: 1. Significantly elevated troponin I albeit with no EKG changes. Since the patient cannot give a history although this may all be due to troponin leak due to hypotension/shock, severe dehydration and possibly sepsis would at least place the patient on IV heparin drip for at least 48 hours. Unfortunately due to the patient's being shocked cannot use beta-blockers or nitrates. Consider aspirin by her NG tube or as a suppository. 2. Shock is mostly combination of dehydration, and sepsis and secondary to severe acidosis. Continue IV Levophed for now consider starting the patient on vasopressin drip. 3. Acute renal failure: Continue hydration. 4. Severe hypernatremia: Continue gentle hydration 5. Bibasilar pneumonia: Continue antibiotics 6. Prior history of CVA. Current CT scan does not show any new CVA. 7. History of hypertension: At present patient is Medications reviewed. Medical regimen and management plan discussed with the typewriter repairer. Medical decision making is of high complexity. 60 minutes spent with patient with more than 50% of time spent in direct patient care. Will follow
[2020-06-19] MEDS: CEFEPIME 1 GM/D5W RTU 1 GM/50 ML RTUPB IV SCH (21:56)
[2020-06-20] MEDS: CLINDAMYCIN 900 MG/D5W RTU 900 MG/50 ML RTUPB IV SCH ×3 (01:10→18:05)
[2020-06-20] MEDS ORDERED: 1/2 NORMAL SALINE 1,000 ML IV PRN ×2 (04:03→04:04)
[2020-06-20] MEDS: FENTANYL CITRATE/PF 600 MCG/60 ML BAG IV PRN ×4 (04:58→22:31)
[2020-06-20] MEDS: DEXTROSE 5%-WATER 250 ML with NOREPINEPHRINE BITARTRATE 4 MG IV PRN ×6 (06:11→19:54)
[2020-06-20 06:17] LABS: ARTERIAL BLOOD BASE EXCESS -5.6 mmol/L; ARTERIAL BLOOD H2CO3 1.18 mmol/L (1.05-1.35); ARTERIAL BLOOD HCO3 19.9 mmol/L (20-24); ARTERIAL BLOOD O2 SATURATION 87.9 % (94-98); ARTERIAL BLOOD PCO2 39.1 mmHg (35-45); ARTERIAL BLOOD PH 7.32 (7.35-7.45); ARTERIAL BLOOD PO2 57.3 mmHg (80-100); ARTERIAL BLOOD TOTAL CO2 21.1 mmol/L (23-27)
[2020-06-20 06:23] LABS: APPEARANCE,URINE CLOUDY; BILIRUBIN,URINE NEGATIVE (NEGATIVE); GLUCOSE, URINE NEGATIVE (NEGATIVE); KETONES,URINE NEGATIVE (NEGATIVE); LEUKOCYTE ESTERASE,URINE TRACE (NEGATIVE); NITRITE,URINE NEGATIVE (NEGATIVE); PROTEIN,URINE 100 mg/dL (NEGATIVE); URINE SPECIFIC GRAVITY 1.017; UROBILINOGEN,URINE NEGATIVE mg/dL (<2.0)
[2020-06-20 06:24] LABS: ARTERIAL BLOOD FIO2 40%; COLOR,URINE DARK YELLOW
[2020-06-20 06:27] LABS: HEMATOCRIT 23.1 % (37.9-51.0); MEAN CORPUSCULAR HEMOGLOBIN 32.1 pg (27.0-33.4); MEAN CORPUSCULAR HGB CONC 32.8 g/dL (32.0-36.0); RED BLOOD COUNT 2.36 10^6/uL (4.35-5.55); RED CELL DISTRIBUTION WIDTH 15.8 % (11.5-14.0); WHITE BLOOD COUNT 14.4 10^3/uL (4.0-10.5)
[2020-06-20 06:41] LABS: ANION GAP 12 (5-19); CARBON DIOXIDE 20 mmol/L (22-30); CHLORIDE 125 mmol/L (98-107); PHOSPHORUS 5.5 mg/dL (2.5-4.5); POTASSIUM 5.4 mmol/L (3.6-5.0)
[2020-06-20 06:48] LABS: PREALBUMIN 3.9 mg/dL (17.6-36.0)
[2020-06-20 06:52] LABS: BLOOD UREA NITROGEN 147 mg/dL (7-20); CALCIUM 6.2 mg/dL (8.4-10.2); GLUCOSE 61 mg/dL (75-110)
[2020-06-20 07:17] LABS: PLATELET COUNT 50 10^3/uL (150-450)
[2020-06-20 07:19] LABS: HEMOGLOBIN 7.6 g/dL (13.5-17.0)
[2020-06-20 07:24] LABS: ABSOLUTE LYMPHOCYTES# (MANUAL) 0.7 10^3/uL (0.5-4.7); ABSOLUTE MONOCYTES # (MANUAL) 0.3 10^3/uL (0.1-1.4); BAND NEUTROPHILS % (MANUAL) 13 % (3-5); BASOPHILS % (MANUAL) 0 % (0-2); BURR CELLS SLIGHT; EOSINOPHILS % (MANUAL) 1 % (0-6); LYMPHOCYTES % (MANUAL) 5 % (13-45); MONOCYTES % (MANUAL) 2 % (3-13); POIKILOCYTOSIS SLIGHT; SEGMENTED NEUTROPHILS % (MAN) 79 % (42-78); TOTAL CELLS COUNTED 100
[2020-06-20 07:25] LABS: PLATELET COMMENT DECREASED
[2020-06-20 07:26] LABS: MEAN CORPUSCULAR VOLUME 98 fl (80-97)
[2020-06-20] MEDS ORDERED: DOBUTAMINE HCL/D5W 500 MG/250 ML RTUINJ IV PRN ×2 (07:52→20:12)
[2020-06-20] MEDS ORDERED: DOBUTAMINE HCL/D5W 500 MG/250 ML RTUINJ IV ONE (07:56)
--- NOTE | 2020-06-20 08:19 | RADIOLOGY REPORT (SQ) ---
EXAM DESCRIPTION: CHEST SINGLE VIEW IMAGES COMPLETED DATE/TIME: 06/20/2020 5:25 am REASON FOR STUDY: ETT tube COMPARISON: 06/18/2020 NUMBER OF VIEWS: One view. TECHNIQUE: Single frontal radiographic image of the chest acquired. LIMITATIONS: None. FINDINGS: LUNGS AND PLEURA: Stable appearance. MEDIASTINUM AND HILAR STRUCTURES: Stable heart size and mediastinal structures. HEART AND VASCULAR STRUCTURES: Stable appearance. SUPPORT DEVICES: Appropriate location without change. BONES: No acute findings. OTHER: No other significant finding. IMPRESSION: STABLE APPEARANCE OF THE CHEST. SUPPORT DEVICES UNCHANGED. TECHNICAL DOCUMENTATION: JOB ID: [id number] 2010 [employer] All Rights Reserved Reading location - IP/workstation name: [email or web address]
[2020-06-20] MEDS: ASPIRIN 81 MG TABLET, CHEWABLE PO SCH (10:44)
[2020-06-20] MEDS: PANTOPRAZOLE SODIUM 40 MG VIAL IV SCH (10:46)
[2020-06-20] MEDS ORDERED: NORMAL SALINE 1000 ML 2,000 ML IV ONE (11:29)
[2020-06-20] MEDS ORDERED: CALCIUM GLUC IN NACL, ISO-OSM 1 GM/50 ML RTUPB IV ONE ×4 (11:49→22:00)
[2020-06-20] MEDS ORDERED: DEXTROSE 50%-WATER 25 GM/50 ML DISP.SYRIN IV ONE ×2 (11:52→11:53)
[2020-06-20] MEDS ORDERED: CALCIUM GLUCONATE 1000 MG/10 ML INJ IV ONE (11:53)
[2020-06-20 13:27] LABS: PATH REVIEW PATHOLOGIST REVIEWED
[2020-06-20] MEDS: CEFTRIAXONE 1 GM/D5W RTU 1 GM/50 ML RTUPB IV SCH (13:41)
[2020-06-20] MEDS: ALBUTEROL SULFATE 0.083% NEB 2.5 MG/3 ML AMPUL NEB PRN (15:06)
[2020-06-20 15:21] LABS: ARTERIAL BLOOD BASE EXCESS -7.7 mmol/L; ARTERIAL BLOOD H2CO3 1.01 mmol/L (1.05-1.35); ARTERIAL BLOOD HCO3 17.4 mmol/L (20-24); ARTERIAL BLOOD O2 SATURATION 91.8 % (94-98); ARTERIAL BLOOD PCO2 33.6 mmHg (35-45); ARTERIAL BLOOD PH 7.33 (7.35-7.45); ARTERIAL BLOOD PO2 65.2 mmHg (80-100); ARTERIAL BLOOD TOTAL CO2 18.4 mmol/L (23-27)
[2020-06-20 15:27] LABS: ARTERIAL BLOOD FIO2 40%
[2020-06-20 15:34] LABS: ANION GAP 15 (5-19); CARBON DIOXIDE 17 mmol/L (22-30); CHLORIDE 125 mmol/L (98-107); GLUCOSE 131 mg/dL (75-110); POTASSIUM 4.9 mmol/L (3.6-5.0)
[2020-06-20 15:41] LABS: BLOOD UREA NITROGEN 151 mg/dL (7-20)
[2020-06-20 15:42] LABS: CALCIUM 6.4 mg/dL (8.4-10.2)
[2020-06-20] MEDS ORDERED: NORMAL SALINE 250 ML IV PRN ×2 (16:27)
[2020-06-20] MEDS ORDERED: NORMAL SALINE 250 ML with NOREPINEPHRINE BITARTRATE 4 MG IV PRN ×2 (18:01)
[2020-06-20] MEDS ORDERED: DOPAMINE HCL/DEXTROSE 5%-WATER 800 MG/250 ML RTUINJ IV PRN (18:31)
[2020-06-20] MEDS ORDERED: DOPAMINE HCL/DEXTROSE 5%-WATER 800 MG/250 ML RTUINJ IV ONE (18:31)
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
[2020-06-20] MEDS ORDERED: DEXTROSE 5%-WATER 250 ML with VASOPRESSIN 100 UNIT IV PRN ×2 (19:02)
[2020-06-20] MEDS ORDERED: VASOPRESSIN INJ 20 UNIT/1 ML VIAL ONE (19:05)
[2020-06-20] MEDS ORDERED: LIDOCAINE 2% INJ-PF (100 MG/5 ML) SYRINGE ONE (19:19)
[2020-06-20 20:51] LABS: ARTERIAL BLOOD BASE EXCESS -10.3 mmol/L; ARTERIAL BLOOD H2CO3 0.94 mmol/L (1.05-1.35); ARTERIAL BLOOD HCO3 15.1 mmol/L (20-24); ARTERIAL BLOOD O2 SATURATION 90.4 % (94-98); ARTERIAL BLOOD PCO2 31.2 mmHg (35-45); ARTERIAL BLOOD PO2 63.1 mmHg (80-100)
[2020-06-20 20:53] LABS: ARTERIAL BLOOD FIO2 40%
[2020-06-20 21:54] LABS: HEMATOCRIT 23.3 % (37.9-51.0); MEAN CORPUSCULAR HEMOGLOBIN 31.2 pg (27.0-33.4); MEAN CORPUSCULAR HGB CONC 32.4 g/dL (32.0-36.0); MEAN CORPUSCULAR VOLUME 96 fl (80-97); RED BLOOD COUNT 2.42 10^6/uL (4.35-5.55); RED CELL DISTRIBUTION WIDTH 16.5 % (11.5-14.0); WHITE BLOOD COUNT 12.2 10^3/uL (4.0-10.5)
[2020-06-20 22:15] LABS: PLATELET COUNT 38 10^3/uL (150-450)
[2020-06-20 22:18] LABS: HEMOGLOBIN 7.5 g/dL (13.5-17.0)
--- NOTE | 2020-06-20 22:48 | Progress Note ---
Provider Note Provider Note: CARDIOLOGY PROGRESS NOTE by Dr. Harriet Mclean on 06/20/2020. SUBJECTIVE: The patient is intubated and sedated. His sodium is coming down gently. There was some artifact on the monitor and also on the twelve-lead EKG with no definite evidence of V. tach or arrhythmia. An attempt was made to stop the patient's Levophed and change him to dopamine and vasopressin. But with that the patient blood pressure dropped to 60s and hence these were stopped and the patient is back on Levophed. PHYSICAL EXAMINATION: The patient appears to be chronically ill he is intubated and sedated. Selected Entries 06/19/20 06/19/20 06/19/20 18:07 18:08 18:55 Temperature 99.3 F 99.1 F Heart Rate ( 77 Monitors) Respiratory 29 H Rate Blood Pressure 111/53 L Blood Pressure 72 Mean O2 Sat by Pulse 99 Oximetry Fraction of 40 Inspired Oxygen (FIO2) 06/20/20 06/20/20 06/20/20 20:29 20:33 20:34 Temperature 96.6 F L Heart Rate ( 89 Monitors) Respiratory 24 H Rate Blood Pressure 95/46 L 116/48 L Blood Pressure 62 70 Mean O2 Sat by Pulse 100 Oximetry Fraction of Inspired Oxygen (FIO2) PHYSICAL EXAMINATION: The patient is intubated and sedated. HEAD: Is atraumatic normocephalic. EYES: Pupils are equal round reactive to light. ENT is negative. Neck is supple. There is no JVD. Carotids are equal there is no bruit. Trachea central. Lungs there is a few bibasilar crackles right crackles. Rest of the lungs are clear. HEART: S1-S2 is heard. There is no S3 gallop. There is no S4 gallop. There is systolic murmur left sternal border and the apex there is no rub. ABDOMEN: Is soft. There is no hepatosplenomegaly. Bowel sounds are heard. EXTREMITIES: Femorals felt. There is no femoral bruits. There is no pedal edema. There is no DVT or cellulitis. Leg pulses slightly diminished. There is no cyanosis or clubbing. AUTH SPECIALIST and psychiatric not examined since the patient intubated and sedated. His 24-hour intake is 6309 mL. Output is 197 mL. Labs- All tests 24 hr 06/19/20 06/19/2020 06:56 21:58 02:15 WBC RBC Hgb Hct MCV MCH MCHC RDW Plt Count Lymph % (Auto) Blair % (Auto) Eos % (Auto) Baso % (Auto) Absolute Neuts (auto) Absolute Lymphs (auto) Absolute Monos (auto) Absolute Eos (auto) Absolute Basos (auto) Total Counted Seg Neutrophils % Seg Neuts % (Manual) Band Neutrophils % Lymphocytes % (Manual) Monocytes % (Manual) Eosinophils % (Manual) Basophils % (Manual) Abs Neuts (Manual) Abs Lymphs (Manual) Abs Monocytes (Manual) Absolute Eos (Manual) Abs Basophils (Manual) Platelet Comment Poikilocytosis [place] Cells APTT 107.3 H Carbonic Acid HCO3/H2CO3 Ratio ABG pH ABG pCO2 ABG pO2 ABG HCO3 ABG Total CO2 ABG O2 Saturation ABG Base Excess FiO2 Sodium 158.5 H Potassium Chloride Carbon Dioxide Anion Gap BUN Creatinine Est GFR ( Amer) Est GFR (MDRD) Non-Af Glucose Calcium Ionized Calcium [place] Phosphorus Magnesium Troponin I Prealbumin Urine Color Urine Appearance Urine pH Ur Specific [place] Urine Protein Urine Glucose (UA) Urine Ketones Urine Blood Urine Nitrite Urine Bilirubin Urine Urobilinogen Ur Leukocyte Esterase Urine WBC (Auto) Urine RBC (Auto) Urine Bacteria (Auto) Squamous Epi Cells Auto Urine Mucus (Auto) Urine Ascorbic Acid Slides for Path Review PATHOLOGIST REVIEWED Blood Type Blood Type Confirm Antibody Screen Crossmatch 06/20/20 06/20/20 06/20/20 02:15 02:15 05:55 WBC RBC Hgb Hct MCV MCH MCHC RDW Plt Count Lymph % (Auto) Blair % (Auto) Eos % (Auto) Baso % (Auto) Absolute Neuts (auto) Absolute Lymphs (auto) Absolute Monos (auto) Absolute Eos (auto) Absolute Basos (auto) Total Counted Seg Neutrophils % Seg Neuts % (Manual) Band Neutrophils % Lymphocytes % (Manual) Monocytes % (Manual) Eosinophils % (Manual) Basophils % (Manual) Abs Neuts (Manual) Abs Lymphs (Manual) Abs Monocytes (Manual) Absolute Eos (Manual) Abs Basophils (Manual) Platelet Comment Poikilocytosis [place] Cells APTT Carbonic Acid 1.18 HCO3/H2CO3 Ratio 16:1 ABG pH 7.32 L ABG pCO2 39.1 ABG pO2 57.3 L ABG HCO3 19.9 L ABG Total CO2 21.1 L ABG O2 Saturation 87.9 L ABG Base Excess -5.6 FiO2 40% Sodium 158.4 H Potassium Chloride Carbon Dioxide Anion Gap BUN Creatinine Est GFR ( Amer) Est GFR (MDRD) Non-Af Glucose Calcium Ionized Calcium [place] 0.89 L Phosphorus Magnesium Troponin I 31.500 Prealbumin Urine Color Urine Appearance Urine pH Ur Specific [place] Urine Protein Urine Glucose (UA) Urine Ketones Urine Blood Urine Nitrite Urine Bilirubin Urine Urobilinogen Ur Leukocyte Esterase Urine WBC (Auto) Urine RBC (Auto) Urine Bacteria (Auto) Squamous Epi Cells Auto Urine Mucus (Auto) Urine Ascorbic Acid Slides for Path Review Blood Type Blood Type Confirm Antibody Screen Crossmatch 06/20/20 06/20/20 06/20/20 05:55 05:55 05:55 WBC 14.4 H RBC 2.36 L Hgb 7.6 L Hct 23.1 L MCV 98 H MCH 32.1 MCHC 32.8 RDW 15.8 H Plt Count 50 L Lymph % (Auto) Not Reportable [place] % (Auto) Not Reportable Eos % (Auto) Not Reportable Baso % (Auto) Not Reportable Absolute Neuts (auto) Not Reportable Absolute Lymphs (auto) Not Reportable Absolute Monos (auto) Not Reportable Absolute Eos (auto) Not Reportable Absolute Basos (auto) Not Reportable Total Counted 100 Seg Neutrophils % Not Reportable Seg Neuts % (Manual) 79 H Band Neutrophils % 13 H Lymphocytes % (Manual) 5 L Monocytes % (Manual) 2 L Eosinophils % (Manual) 1 Basophils % (Manual) 0 Abs Neuts (Manual) 13.2 H Abs Lymphs (Manual) 0.7 Abs Monocytes (Manual) 0.3 Absolute Eos (Manual) 0.1 Abs Basophils (Manual) 0.0 Platelet Comment DECREASED Poikilocytosis SLIGHT [place] Cells SLIGHT APTT Carbonic Acid HCO3/H2CO3 Ratio ABG pH ABG pCO2 ABG pO2 ABG HCO3 ABG Total CO2 ABG O2 Saturation ABG Base Excess FiO2 Sodium 156.7 H Potassium 5.4 H Chloride 125 H Carbon Dioxide 20 L Anion Gap 12 BUN 147 H Creatinine 7.88 H Est GFR ( Amer) 8 L Est GFR (MDRD) Non-Af 7 L Glucose 61 L Calcium 6.2 L* Ionized Calcium [place] Phosphorus 5.5 H Magnesium 2.1 Troponin I Prealbumin 3.9 L Urine Color DARK YELLOW Urine Appearance CLOUDY Urine pH 5.0 Ur Specific [place] 1.017 Urine Protein 100 H Urine Glucose (UA) NEGATIVE Urine Ketones NEGATIVE Urine Blood MODERATE H Urine Nitrite NEGATIVE Urine Bilirubin NEGATIVE Urine Urobilinogen NEGATIVE Ur Leukocyte Esterase TRACE H Urine WBC (Auto) 8 Urine RBC (Auto) 20 Urine Bacteria (Auto) TRACE Squamous Epi Cells Auto <1 Urine Mucus (Auto) RARE Urine Ascorbic Acid NEGATIVE Slides for Path Review Blood Type Blood Type Confirm Antibody Screen Crossmatch 06/20/20 06/20/20 06/20/20 08:21 08:21 08:21 WBC RBC Hgb Hct MCV MCH MCHC RDW Plt Count Lymph % (Auto) [place] % (Auto) Eos % (Auto) Baso % (Auto) Absolute Neuts (auto) Absolute Lymphs (auto) Absolute Monos (auto) Absolute Eos (auto) Absolute Basos (auto) Total Counted Seg Neutrophils % Seg Neuts % (Manual) Band Neutrophils % Lymphocytes % (Manual) Monocytes % (Manual) Eosinophils % (Manual) Basophils % (Manual) Abs Neuts (Manual) Abs Lymphs (Manual) Abs Monocytes (Manual) Absolute Eos (Manual) Abs Basophils (Manual) Platelet Comment Poikilocytosis [place] Cells APTT 78.0 H Carbonic Acid HCO3/H2CO3 Ratio ABG pH ABG pCO2 ABG pO2 ABG HCO3 ABG Total CO2 ABG O2 Saturation ABG Base Excess FiO2 Sodium 156.9 H Potassium Chloride Carbon Dioxide Anion Gap BUN Creatinine Est GFR ( Amer) Est GFR (MDRD) Non-Af Glucose Calcium Ionized Calcium [place] Phosphorus Magnesium Troponin I 24.700 Prealbumin Urine Color Urine Appearance Urine pH Ur Specific [place] Urine Protein Urine Glucose (UA) Urine Ketones Urine Blood Urine Nitrite Urine Bilirubin Urine Urobilinogen Ur Leukocyte Esterase Urine WBC (Auto) Urine RBC (Auto) Urine Bacteria (Auto) Squamous Epi Cells Auto Urine Mucus (Auto) Urine Ascorbic Acid Slides for Path Review Blood Type Blood Type Confirm Antibody Screen Crossmatch 06/20/20 06/20/20 06/20/20 13:45 13:45 13:45 WBC RBC Hgb Hct MCV MCH MCHC RDW Plt Count Lymph % (Auto) [place] % (Auto) Eos % (Auto) Baso % (Auto) Absolute Neuts (auto) Absolute Lymphs (auto) Absolute Monos (auto) Absolute Eos (auto) Absolute Basos (auto) Total Counted Seg Neutrophils % Seg Neuts % (Manual) Band Neutrophils % Lymphocytes % (Manual) Monocytes % (Manual) Eosinophils % (Manual) Basophils % (Manual) Abs Neuts (Manual) Abs Lymphs (Manual) Abs Monocytes (Manual) Absolute Eos (Manual) Abs Basophils (Manual) Platelet Comment Poikilocytosis [place] Cells APTT Carbonic Acid HCO3/H2CO3 Ratio ABG pH ABG pCO2 ABG pO2 ABG HCO3 ABG Total CO2 ABG O2 Saturation ABG Base Excess FiO2 Sodium 154.7 H 156.6 H Potassium 4.9 Chloride 125 H Carbon Dioxide 17 L Anion Gap 15 BUN 151 H Creatinine 7.52 H Est GFR ( Amer) 9 L Est GFR (MDRD) Non-Af 7 L Glucose 131 H Calcium 6.4 L* Ionized Calcium [place] Phosphorus Magnesium 2.1 Troponin I 20.800 Prealbumin Urine Color Urine Appearance Urine pH Ur Specific [place] Urine Protein Urine Glucose (UA) Urine Ketones Urine Blood Urine Nitrite Urine Bilirubin Urine Urobilinogen Ur Leukocyte Esterase Urine WBC (Auto) Urine RBC (Auto) Urine Bacteria (Auto) Squamous Epi Cells Auto Urine Mucus (Auto) Urine Ascorbic Acid Slides for Path Review Blood Type Blood Type Confirm Antibody Screen Crossmatch 06/20/20 06/20/20 06/20/20 15:02 16:47 16:54 WBC RBC Hgb Hct MCV MCH MCHC RDW Plt Count Lymph % (Auto) [place] % (Auto) Eos % (Auto) Baso % (Auto) Absolute Neuts (auto) Absolute Lymphs (auto) Absolute Monos (auto) Absolute Eos (auto) Absolute Basos (auto) Total Counted Seg Neutrophils % Seg Neuts % (Manual) Band Neutrophils % Lymphocytes % (Manual) Monocytes % (Manual) Eosinophils % (Manual) Basophils % (Manual) Abs Neuts (Manual) Abs Lymphs (Manual) Abs Monocytes (Manual) Absolute Eos (Manual) Abs Basophils (Manual) Platelet Comment Poikilocytosis [place] Cells APTT Carbonic Acid 1.01 L HCO3/H2CO3 Ratio 17:1 ABG pH 7.33 L ABG pCO2 33.6 L ABG pO2 65.2 L ABG HCO3 17.4 L ABG Total CO2 18.4 L ABG O2 Saturation 91.8 L ABG Base Excess -7.7 FiO2 40% Sodium Potassium Chloride Carbon Dioxide Anion Gap BUN Creatinine Est GFR ( Amer) Est GFR (MDRD) Non-Af Glucose Calcium Ionized Calcium [place] Phosphorus Magnesium Troponin I Prealbumin Urine Color Urine Appearance Urine pH Ur Specific [place] Urine Protein Urine Glucose (UA) Urine Ketones Urine Blood Urine Nitrite Urine Bilirubin Urine Urobilinogen Ur Leukocyte Esterase Urine WBC (Auto) Urine RBC (Auto) Urine Bacteria (Auto) Squamous Epi Cells Auto Urine Mucus (Auto) Urine Ascorbic Acid Slides for Path Review Blood Type A POSITIVE Blood Type Confirm A POSITIVE Antibody Screen NEGATIVE Crossmatch See Detail 06/20/20 06/20/20 06/20/20 18:09 20:25 20:25 WBC RBC Hgb Hct MCV MCH MCHC RDW Plt Count Lymph % (Auto) [place] % (Auto) Eos % (Auto) Baso % (Auto) Absolute Neuts (auto) Absolute Lymphs (auto) Absolute Monos (auto) Absolute Eos (auto) Absolute Basos (auto) Total Counted Seg Neutrophils % Seg Neuts % (Manual) Band Neutrophils % Lymphocytes % (Manual) Monocytes % (Manual) Eosinophils % (Manual) Basophils % (Manual) Abs Neuts (Manual) Abs Lymphs (Manual) Abs Monocytes (Manual) Absolute Eos (Manual) Abs Basophils (Manual) Platelet Comment Poikilocytosis [place] Cells APTT Carbonic Acid 0.94 L HCO3/H2CO3 Ratio 16:1 ABG pH 7.30 L ABG pCO2 31.2 L ABG pO2 63.1 L ABG HCO3 15.1 L ABG Total CO2 16.0 L ABG O2 Saturation 90.4 L ABG Base Excess -10.3 FiO2 40% Sodium 155.9 H Potassium Chloride Carbon Dioxide Anion Gap BUN Creatinine Est GFR ( Amer) Est GFR (MDRD) Non-Af Glucose Calcium Ionized Calcium [place] 0.98 L Phosphorus Magnesium Troponin I 17.300 Prealbumin Urine Color Urine Appearance Urine pH Ur Specific [place] Urine Protein Urine Glucose (UA) Urine Ketones Urine Blood Urine Nitrite Urine Bilirubin Urine Urobilinogen Ur Leukocyte Esterase Urine WBC (Auto) Urine RBC (Auto) Urine Bacteria (Auto) Squamous Epi Cells Auto Urine Mucus (Auto) Urine Ascorbic Acid Slides for Path Review Blood Type Blood Type Confirm Antibody Screen Crossmatch 06/20/20 06/20/20 20:25 21:13 WBC 12.2 H RBC 2.42 L Hgb 7.5 L Hct 23.3 L MCV 96 MCH 31.2 MCHC 32.4 RDW 16.5 H Plt Count 38 L Lymph % (Auto) [place] % (Auto) Eos % (Auto) Baso % (Auto) Absolute Neuts (auto) Absolute Lymphs (auto) Absolute Monos (auto) Absolute Eos (auto) Absolute Basos (auto) Total Counted Seg Neutrophils % Seg Neuts % (Manual) Band Neutrophils % Lymphocytes % (Manual) Monocytes % (Manual) Eosinophils % (Manual) Basophils % (Manual) Abs Neuts (Manual) Abs Lymphs (Manual) Abs Monocytes (Manual) Absolute Eos (Manual) Abs Basophils (Manual) Platelet Comment Poikilocytosis [place] Cells APTT Carbonic Acid HCO3/H2CO3 Ratio ABG pH ABG pCO2 ABG pO2 ABG HCO3 ABG Total CO2 ABG O2 Saturation ABG Base Excess FiO2 Sodium 154.5 H Potassium Chloride Carbon Dioxide Anion Gap BUN Creatinine Est GFR ( Amer) Est GFR (MDRD) Non-Af Glucose Calcium Ionized Calcium [place] Phosphorus Magnesium Troponin I Prealbumin Urine Color Urine Appearance Urine pH Ur Specific [place] Urine Protein Urine Glucose (UA) Urine Ketones Urine Blood Urine Nitrite Urine Bilirubin Urine Urobilinogen Ur Leukocyte Esterase Urine WBC (Auto) Urine RBC (Auto) Urine Bacteria (Auto) Squamous Epi Cells Auto Urine Mucus (Auto) Urine Ascorbic Acid Slides for Path Review Blood Type Blood Type Confirm Antibody Screen Crossmatch Chest X-Ray 06/18/20 13:05 IMPRESSION: BILATERAL UPPER LUNG OPACITIES, POSSIBLY DUE TO PNEUMONIA. UNDERLYING PULMONARY MASSES CANNOT BE EXCLUDED. Head CT 06/18/20 13:05 IMPRESSION: CHRONIC CHANGES OF ATROPHY AND MICROVASCULAR ISCHEMIA. NO ACUTE PROCESS. EVIDENCE OF ACUTE STROKE: NO. Chest X-Ray 06/18/20 15:29 IMPRESSION: Support lines and tubes are in satisfactory position. Persistent diffuse upper lobe infiltrates. Minimal right lower lobe airspace disease. Chest X-Ray 06/20/20 05:00 IMPRESSION: STABLE APPEARANCE OF THE CHEST. SUPPORT DEVICES UNCHANGED. IMPRESSION/RECOMMENDATION: 1. Significantly elevated troponin I albeit with no EKG changes. Since the patient cannot give a history although this may all be due to troponin leak due to hypotension/shock, severe dehydration and possibly sepsis would at least place the patient on IV heparin drip for at least 48 hours. Unfortunately due to the patient's being shocked cannot use beta-blockers or nitrates. Consider aspirin by her NG tube or as a suppository. 2. Shock is mostly combination of dehydration, and sepsis and secondary to severe acidosis. Continue IV Levophed for now consider starting the patient on vasopressin drip. 3. Acute renal failure: Continue hydration. 4. Severe hypernatremia: Continue gentle hydration 5. Bibasilar pneumonia: Continue antibiotics 6. Prior history of CVA. Current CT scan does not show any new CVA. 7. History of hypertension: At present patient is requiring inotropes to keep his blood pressure up. Medications reviewed. Medical regimen and management plan discussed with the deputy brand inspector. Medical decision making is of high complexity. 60 minutes spent with patient with more than 50% of time spent in direct patient care. Will follow
[2020-06-21] MEDS ORDERED: AMIODARONE HCL INJ 150 MG/3 ML VIAL IV ONE ×2 (00:44→01:37)
[2020-06-21] MEDS ORDERED: MAGNESIUM SULFATE/D5W 1 GM/100 ML RTUPB IV ONE ×2 (00:58→01:32)
[2020-06-21] MEDS ORDERED: DEXTROSE 5%-WATER 500 ML with AMIODARONE HCL 900 MG IV PRN ×2 (01:31)
[2020-06-21] MEDS ORDERED: AMIODARONE HCL 150 MG in DEXTROSE 5%-WATER 100 ML IV ONE (01:31)
[2020-06-21] MEDS ORDERED: NOREPINEPHRINE BITARTRATE INJ/PF 4 MG/4 ML SDV IV ONE (02:29)
[2020-06-21] MEDS: CLINDAMYCIN 900 MG/D5W RTU 900 MG/50 ML RTUPB IV SCH ×3 (02:30→17:04)
--- NOTE | 2020-06-21 06:54 | EKG REPORT ---
SEVERITY:- ABNORMAL ECG - SINUS RHYTHM RIGHT AXIS DEVIATION LOW VOLTAGE THROUGHOUT BORDERLINE R WAVE PROGRESSION, ANTERIOR LEADS ABNORMAL T, CONSIDER ISCHEMIA, INFERIOR LEADS MOVEMENT ARTEFACT : Confirmed by: Scooby Carreon MD 21-Jun-2020 06:53:29
--- NOTE | 2020-06-21 06:55 | EKG REPORT ---
SEVERITY:- ABNORMAL ECG - PROBABALE SINUS RHYTHM LOW VOLTAGE THROUGHOUT BORDERLINE R WAVE PROGRESSION, ANTERIOR LEADS NONSPECIFIC T ABNORMALITIES, ANT-LAT LEADS BASELINE ARTEFACT PROLONGED QT INTERVAL : Confirmed by: Scooby Carreon MD 21-Jun-2020 06:54:49
[2020-06-21 07:24] LABS: ANION GAP 12 (5-19); CARBON DIOXIDE 18 mmol/L (22-30); CHLORIDE 125 mmol/L (98-107); GLUCOSE 113 mg/dL (75-110); POTASSIUM 5.4 mmol/L (3.6-5.0)
[2020-06-21 07:36] LABS: BLOOD UREA NITROGEN 152 mg/dL (7-20)
[2020-06-21 07:38] LABS: CALCIUM 6.4 mg/dL (8.4-10.2)
[2020-06-21] MEDS ORDERED: CALCIUM GLUC IN NACL, ISO-OSM 1 GM/50 ML RTUPB IV ONE (07:41)
[2020-06-21 08:34] LABS: ARTERIAL BLOOD BASE EXCESS -11.1 mmol/L; ARTERIAL BLOOD H2CO3 0.88 mmol/L (1.05-1.35); ARTERIAL BLOOD HCO3 14.2 mmol/L (20-24); ARTERIAL BLOOD O2 SATURATION 95.5 % (94-98); ARTERIAL BLOOD PCO2 29.3 mmHg (35-45); ARTERIAL BLOOD PO2 83.8 mmHg (80-100); ARTERIAL BLOOD TOTAL CO2 15.1 mmol/L (23-27)
[2020-06-21 08:38] LABS: ARTERIAL BLOOD FIO2 40%; HEMATOCRIT 25.9 % (37.9-51.0); HEMOGLOBIN 8.7 g/dL (13.5-17.0); MEAN CORPUSCULAR HEMOGLOBIN 31.3 pg (27.0-33.4); MEAN CORPUSCULAR HGB CONC 33.6 g/dL (32.0-36.0); MEAN CORPUSCULAR VOLUME 93 fl (80-97); RED BLOOD COUNT 2.78 10^6/uL (4.35-5.55); RED CELL DISTRIBUTION WIDTH 16.8 % (11.5-14.0); WHITE BLOOD COUNT 12.4 10^3/uL (4.0-10.5)
[2020-06-21 08:43] LABS: PLATELET COUNT 32 10^3/uL (150-450)
[2020-06-21 09:02] LABS: ABSOLUTE LYMPHOCYTES# (MANUAL) 0.5 10^3/uL (0.5-4.7); ABSOLUTE MONOCYTES # (MANUAL) 0.1 10^3/uL (0.1-1.4); BAND NEUTROPHILS % (MANUAL) 18 % (3-5); BASOPHILS % (MANUAL) 0 % (0-2); EOSINOPHILS % (MANUAL) 0 % (0-6); LYMPHOCYTES % (MANUAL) 4 % (13-45); METAMYELOCYTES % (MANUAL) 1 % (0-1); MONOCYTES % (MANUAL) 1 % (3-13); SEGMENTED NEUTROPHILS % (MAN) 76 % (42-78); TOTAL CELLS COUNTED 100
[2020-06-21 09:04] LABS: ANISOCYTOSIS 1+; BURR CELLS 1+; PLATELET COMMENT DECREASED; POIKILOCYTOSIS 1+
--- NOTE | 2020-06-21 09:30 | RADIOLOGY REPORT (SQ) ---
EXAM DESCRIPTION: CHEST SINGLE VIEW IMAGES COMPLETED DATE/TIME: 06/21/2020 6:00 am REASON FOR STUDY: dyspnea COMPARISON: 06/20/2020 06/18/2020 EXAM PARAMETERS: NUMBER OF VIEWS: One view TECHNIQUE: Single frontal radiograph of the chest. RADIATION DOSE: N/A LIMITATIONS: None. FINDINGS: TEMPORARY SUPPORT DEVICES:ETT in expected location. NG tube courses below the jerrell-diaphr agm in to the stomach. Central venous access catheter tip is in expected location. LUNGS AND PLEURA: Persistent parenchymal opacities predominantly upper lobe. No effusions. MEDIASTINUM AND HILAR STRUCTURES: No masses. Contour normal. HEART AND VASCULAR STRUCTURES: Heart size normal. Normal vascularity. Aorta normal for age BONES: Acute appearing right rib fractures 7th 8th and 9th ribs. OTHER: No other significant finding. IMPRESSION: Parenchymal opacities with some improvement particularly since 06/18/2020 Acute appearing lower right rib fractures. Unchanged from 06/18/2020. SUPPORT DEVICE(S) IN EXPECTED LOCATIONS. TECHNICAL DOCUMENTATION: JOB ID: [id number] 2010 [employer]- All Rights Reserved Reading location - IP/workstation name: [email or web address]
[2020-06-21] MEDS: DEXTROSE 5%-WATER 1000 ML 1,000 ML with SODIUM BICARBONATE 100 MEQ IV PRN ×2 (10:31)
[2020-06-21] MEDS: ASPIRIN 81 MG TABLET, CHEWABLE PO SCH (10:31)
[2020-06-21] MEDS: CEFTRIAXONE 1 GM/D5W RTU 1 GM/50 ML RTUPB IV SCH (10:32)
[2020-06-21] MEDS: PANTOPRAZOLE SODIUM 40 MG VIAL IV SCH (10:32)
[2020-06-21] MEDS ORDERED: HEPARIN SODIUM,PORCINE/D5W 25,000 UNIT/250 ML RTUINJ IV PRN (11:00)
[2020-06-21 12:21] LABS: ARTERIAL BLOOD BASE EXCESS -10.2 mmol/L; ARTERIAL BLOOD H2CO3 1.05 mmol/L (1.05-1.35); ARTERIAL BLOOD HCO3 15.7 mmol/L (20-24); ARTERIAL BLOOD O2 SATURATION 93.9 % (94-98); ARTERIAL BLOOD PCO2 34.8 mmHg (35-45); ARTERIAL BLOOD PH 7.27 (7.35-7.45); ARTERIAL BLOOD PO2 77.1 mmHg (80-100); ARTERIAL BLOOD TOTAL CO2 16.8 mmol/L (23-27)
[2020-06-21 12:27] LABS: ARTERIAL BLOOD FIO2 40%
[2020-06-21] MEDS: FENTANYL CITRATE/PF 600 MCG/60 ML BAG IV PRN ×2 (12:27→23:33)
[2020-06-21] MEDS ORDERED: VASOPRESSIN INJ 20 UNIT/1 ML VIAL ONE (13:35)
[2020-06-21] MEDS: DEXTROSE 5%-WATER 250 ML with VASOPRESSIN 100 UNIT IV PRN ×2 (13:45)
[2020-06-21 14:21] LABS: HEMATOCRIT 25.9 % (37.9-51.0); HEMOGLOBIN 8.7 g/dL (13.5-17.0); MEAN CORPUSCULAR HEMOGLOBIN 31.5 pg (27.0-33.4); MEAN CORPUSCULAR HGB CONC 33.7 g/dL (32.0-36.0); MEAN CORPUSCULAR VOLUME 93 fl (80-97); RED BLOOD COUNT 2.78 10^6/uL (4.35-5.55); RED CELL DISTRIBUTION WIDTH 16.9 % (11.5-14.0); WHITE BLOOD COUNT 11.1 10^3/uL (4.0-10.5)
[2020-06-21 14:44] LABS: PLATELET COUNT 32 10^3/uL (150-450)
[2020-06-21] MEDS ORDERED: NORMAL SALINE 250 ML with ARGATROBAN 250 MG IV PRN ×2 (15:12)
[2020-06-21] MEDS: DEXTROSE 5%-WATER 250 ML with NOREPINEPHRINE BITARTRATE 4 MG IV PRN ×2 (15:20)
[2020-06-21 15:37] LABS: ARTERIAL BLOOD BASE EXCESS -8.9 mmol/L; ARTERIAL BLOOD H2CO3 0.86 mmol/L (1.05-1.35); ARTERIAL BLOOD HCO3 15.6 mmol/L (20-24); ARTERIAL BLOOD O2 SATURATION 97.9 % (94-98); ARTERIAL BLOOD PCO2 28.7 mmHg (35-45); ARTERIAL BLOOD PH 7.35 (7.35-7.45); ARTERIAL BLOOD TOTAL CO2 16.4 mmol/L (23-27)
[2020-06-21 15:40] LABS: ARTERIAL BLOOD FIO2 40%
[2020-06-21] MEDS: NORMAL SALINE 250 ML with ARGATROBAN 250 MG IV PRN ×2 (16:52)
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
[2020-06-21] MEDS: ALBUTEROL SULFATE 0.083% NEB 2.5 MG/3 ML AMPUL NEB PRN (18:47)
[2020-06-21] MEDS ORDERED: VANCOMYCIN HCL 750 MG in DEXTROSE 5%-WATER 250 ML IV SCH (20:00)
--- NOTE | 2020-06-21 21:13 | Progress Note ---
Provider Note Provider Note: CARDIOLOGY PROGRESS NOTE by Dr. Harriet Mclean on 06/21/2020. SUBJECTIVE: The patient continues to be intubated and sedated. The patient is on amiodarone. Review of the patient's chart and monitor does not show any arrhythmias or indication for the patient being on amiodarone. Hence will recommend stopping this. Also the patient is on dobutamine and Levophed. His blood pressure is in the 70s to 80s. We will stop the patient's dobutamine. Will gallop the norepinephrine and start the patient on vasopressin. The patient's urine output is still in the oliguric range. There is no arrhythmias seen on the monitor. With the change in the inotropes and addition of vasopressin the patient's blood pressure is come up. PHYSICAL EXAMINATION: The patient appears to be chronically ill. Selected Entries 06/21/20 06/21/20 16:30 16:45 Temperature 97.2 F Heart Rate ( 65 Monitors) Respiratory 24 H Rate Blood Pressure 106/58 L Blood Pressure 74 Mean O2 Sat by Pulse 99 Oximetry Fraction of 40 Inspired Oxygen (FIO2) PHYSICAL EXAMINATION: The patient is intubated and sedated. HEAD: Is atraumatic normocephalic. EYES: Pupils are equal round reactive to light. ENT is negative. Neck is supple. There is no JVD. Carotids are equal there is no bruit. Trachea central. Lungs there is a few bibasilar crackles right crackles. Rest of the lungs are clear. HEART: S1-S2 is heard. There is no S3 gallop. There is no S4 gallop. There is systolic murmur left sternal border and the apex there is no rub. ABDOMEN: Is soft. There is no hepatosplenomegaly. Bowel sounds are heard. EXTREMITIES: Femorals felt. There is no femoral bruits. There is no pedal edema. There is no DVT or cellulitis. Leg pulses slightly diminished. There is no cyanosis or clubbing. INTERNET DESIGNER and psychiatric not examined since the patient intubated and sedated. His 24-hour intake is 4146 mL. Output is 205 mL. EKG: Shows ectopic atrial rhythm no acute changes. This is probably the effect of amiodarone. EKG has been interpreted by [facility] Chest X-Ray 06/18/20 13:05 IMPRESSION: BILATERAL UPPER LUNG OPACITIES, POSSIBLY DUE TO PNEUMONIA. UNDERLYING PULMONARY MASSES CANNOT BE EXCLUDED. Head CT 06/18/20 13:05 IMPRESSION: CHRONIC CHANGES OF ATROPHY AND MICROVASCULAR ISCHEMIA. NO ACUTE PROCESS. EVIDENCE OF ACUTE STROKE: NO. Chest X-Ray 06/18/20 15:29 IMPRESSION: Support lines and tubes are in satisfactory position. Persistent diffuse upper lobe infiltrates. Minimal right lower lobe airspace disease. Chest X-Ray 06/20/20 05:00 IMPRESSION: STABLE APPEARANCE OF THE CHEST. SUPPORT DEVICES UNCHANGED. Chest X-Ray 06/21/20 05:00 IMPRESSION: Parenchymal opacities with some improvement particularly since 06/18/2020 Acute appearing lower right rib fractures. Unchanged from 06/18/2020. SUPPORT DEVICE(S) IN EXPECTED LOCATIONS. Labs- All tests 24 hr 06/20/20 06/20/20 06/20/20 16:47 20:25 20:25 WBC RBC Hgb Hct MCV MCH MCHC RDW Plt Count Lymph % (Auto) [place] % (Auto) Eos % (Auto) Baso % (Auto) Absolute Neuts (auto) Absolute Lymphs (auto) Absolute Monos (auto) Absolute Eos (auto) Absolute Basos (auto) Total Counted Seg Neutrophils % Seg Neuts % (Manual) Band Neutrophils % Lymphocytes % (Manual) Monocytes % (Manual) Eosinophils % (Manual) Basophils % (Manual) Metamyelocytes % Abs Neuts (Manual) Abs Lymphs (Manual) Abs Monocytes (Manual) Absolute Eos (Manual) Abs Basophils (Manual) Platelet Comment Poikilocytosis Anisocytosis Robin Cells APTT Carbonic Acid HCO3/H2CO3 Ratio ABG pH ABG pCO2 ABG pO2 ABG HCO3 ABG Total CO2 ABG O2 Saturation ABG Base Excess FiO2 Sodium 154.5 H Potassium Chloride Carbon Dioxide Anion Gap BUN Creatinine Est GFR ( Amer) Est GFR (MDRD) Non-Af Glucose POC Glucose Lactic Acid Calcium Magnesium Troponin I 17.300 NT-Pro-B Natriuret Pep Blood Type A POSITIVE Antibody Screen NEGATIVE Crossmatch See Detail 06/20/20 06/21/20 06/21/20 21:13 05:00 05:00 WBC 12.2 H RBC 2.42 L Hgb 7.5 L Hct 23.3 L MCV 96 MCH 31.2 MCHC 32.4 RDW 16.5 H Plt Count 38 L Lymph % (Auto) [place] % (Auto) Eos % (Auto) Baso % (Auto) Absolute Neuts (auto) Absolute Lymphs (auto) Absolute Monos (auto) Absolute Eos (auto) Absolute Basos (auto) Total Counted Seg Neutrophils % Seg Neuts % (Manual) Band Neutrophils % Lymphocytes % (Manual) Monocytes % (Manual) Eosinophils % (Manual) Basophils % (Manual) Metamyelocytes % Abs Neuts (Manual) Abs Lymphs (Manual) Abs Monocytes (Manual) Absolute Eos (Manual) Abs Basophils (Manual) Platelet Comment Poikilocytosis Anisocytosis [place] Cells APTT Carbonic Acid HCO3/H2CO3 Ratio ABG pH ABG pCO2 ABG pO2 ABG HCO3 ABG Total CO2 ABG O2 Saturation ABG Base Excess FiO2 Sodium 154.5 H Potassium 5.4 H Chloride 125 H Carbon Dioxide 18 L Anion Gap 12 BUN 152 H Creatinine 7.15 H Est GFR ( Amer) 9 L Est GFR (MDRD) Non-Af 8 L Glucose 113 H POC Glucose Lactic Acid Calcium 6.4 L* Magnesium 2.3 Troponin I NT-Pro-B Natriuret Pep 7010 H Blood Type Antibody Screen Crossmatch 06/21/20 06/21/20 06/21/20 05:00 05:00 07:50 WBC 12.4 H RBC 2.78 L Hgb 8.7 L Hct 25.9 L MCV 93 MCH 31.3 MCHC 33.6 RDW 16.8 H Plt Count 32 L Lymph % (Auto) Not Reportable [place] % (Auto) Not Reportable Eos % (Auto) Not Reportable Baso % (Auto) Not Reportable Absolute Neuts (auto) Not Reportable Absolute Lymphs (auto) Not Reportable Absolute Monos (auto) Not Reportable Absolute Eos (auto) Not Reportable Absolute Basos (auto) Not Reportable Total Counted 100 Seg Neutrophils % Not Reportable Seg Neuts % (Manual) 76 Band Neutrophils % 18 H Lymphocytes % (Manual) 4 L Monocytes % (Manual) 1 L Eosinophils % (Manual) 0 Basophils % (Manual) 0 Metamyelocytes % 1 Abs Neuts (Manual) 11.8 H Abs Lymphs (Manual) 0.5 Abs Monocytes (Manual) 0.1 Absolute Eos (Manual) 0.0 Abs Basophils (Manual) 0.0 Platelet Comment DECREASED Poikilocytosis 1+ Anisocytosis 1+ Robin Cells 1+ APTT 59.0 H Carbonic Acid HCO3/H2CO3 Ratio ABG pH ABG pCO2 ABG pO2 ABG HCO3 ABG Total CO2 ABG O2 Saturation ABG Base Excess FiO2 Sodium Potassium Chloride Carbon Dioxide Anion Gap BUN Creatinine Est GFR ( Amer) Est GFR (MDRD) Non-Af Glucose POC Glucose Lactic Acid Calcium Magnesium Troponin I 10.500 NT-Pro-B Natriuret Pep Blood Type Antibody Screen Crossmatch 06/21/20 06/21/20 06/21/20 07:50 07:50 10:10 WBC RBC Hgb Hct MCV MCH MCHC RDW Plt Count Lymph % (Auto) [place] % (Auto) Eos % (Auto) Baso % (Auto) Absolute Neuts (auto) Absolute Lymphs (auto) Absolute Monos (auto) Absolute Eos (auto) Absolute Basos (auto) Total Counted Seg Neutrophils % Seg Neuts % (Manual) Band Neutrophils % Lymphocytes % (Manual) Monocytes % (Manual) Eosinophils % (Manual) Basophils % (Manual) Metamyelocytes % Abs Neuts (Manual) Abs Lymphs (Manual) Abs Monocytes (Manual) Absolute Eos (Manual) Abs Basophils (Manual) Platelet Comment Poikilocytosis Anisocytosis Robin Cells APTT Carbonic Acid 0.88 L HCO3/H2CO3 Ratio 16:1 ABG pH 7.30 L ABG pCO2 29.3 L ABG pO2 83.8 ABG HCO3 14.2 L ABG Total CO2 15.1 L ABG O2 Saturation 95.5 ABG Base Excess -11.1 FiO2 40% Sodium 152.0 H Potassium Chloride Carbon Dioxide Anion Gap BUN Creatinine Est GFR ( Amer) Est GFR (MDRD) Non-Af Glucose POC Glucose Lactic Acid Calcium Magnesium Troponin I 10.300 NT-Pro-B Natriuret Pep Blood Type Antibody Screen Crossmatch 06/21/20 06/21/20 06/21/20 12:00 12:00 14:00 WBC 11.1 H RBC 2.78 L Hgb 8.7 L Hct 25.9 L MCV 93 MCH 31.5 MCHC 33.7 RDW 16.9 H Plt Count 32 L Lymph % (Auto) [place] % (Auto) Eos % (Auto) Baso % (Auto) Absolute Neuts (auto) Absolute Lymphs (auto) Absolute Monos (auto) Absolute Eos (auto) Absolute Basos (auto) Total Counted Seg Neutrophils % Seg Neuts % (Manual) Band Neutrophils % Lymphocytes % (Manual) Monocytes % (Manual) Eosinophils % (Manual) Basophils % (Manual) Metamyelocytes % Abs Neuts (Manual) Abs Lymphs (Manual) Abs Monocytes (Manual) Absolute Eos (Manual) Abs Basophils (Manual) Platelet Comment Poikilocytosis Anisocytosis [place] Cells APTT Carbonic Acid 1.05 HCO3/H2CO3 Ratio 14:1 ABG pH 7.27 L ABG pCO2 34.8 L ABG pO2 77.1 L ABG HCO3 15.7 L ABG Total CO2 16.8 L ABG O2 Saturation 93.9 L ABG Base Excess -10.2 FiO2 40% Sodium Potassium Chloride Carbon Dioxide Anion Gap BUN Creatinine Est GFR ( Amer) Est GFR (MDRD) Non-Af Glucose POC Glucose Lactic Acid 1.8 Calcium Magnesium Troponin I NT-Pro-B Natriuret Pep Blood Type Antibody Screen Crossmatch 06/21/20 06/21/20 06/21/20 14:00 14:00 15:15 WBC RBC Hgb Hct MCV MCH MCHC RDW Plt Count Lymph % (Auto) [place] % (Auto) Eos % (Auto) Baso % (Auto) Absolute Neuts (auto) Absolute Lymphs (auto) Absolute Monos (auto) Absolute Eos (auto) Absolute Basos (auto) Total Counted Seg Neutrophils % Seg Neuts % (Manual) Band Neutrophils % Lymphocytes % (Manual) Monocytes % (Manual) Eosinophils % (Manual) Basophils % (Manual) Metamyelocytes % Abs Neuts (Manual) Abs Lymphs (Manual) Abs Monocytes (Manual) Absolute Eos (Manual) Abs Basophils (Manual) Platelet Comment Poikilocytosis Anisocytosis Robin Cells APTT Carbonic Acid 0.86 L HCO3/H2CO3 Ratio 18:1 ABG pH 7.35 ABG pCO2 28.7 L ABG pO2 110.0 H ABG HCO3 15.6 L ABG Total CO2 16.4 L ABG O2 Saturation 97.9 ABG Base Excess -8.9 FiO2 40% Sodium 149.0 H Potassium Chloride Carbon Dioxide Anion Gap BUN Creatinine Est GFR ( Amer) Est GFR (MDRD) Non-Af Glucose POC Glucose Lactic Acid Calcium Magnesium Troponin I 8.520 NT-Pro-B Natriuret Pep Blood Type Antibody Screen Crossmatch 06/21/20 06/21/20 06/21/20 15:15 15:15 17:37 WBC RBC Hgb Hct MCV MCH MCHC RDW Plt Count Lymph % (Auto) [place] % (Auto) Eos % (Auto) Baso % (Auto) Absolute Neuts (auto) Absolute Lymphs (auto) Absolute Monos (auto) Absolute Eos (auto) Absolute Basos (auto) Total Counted Seg Neutrophils % Seg Neuts % (Manual) Band Neutrophils % Lymphocytes % (Manual) Monocytes % (Manual) Eosinophils % (Manual) Basophils % (Manual) Metamyelocytes % Abs Neuts (Manual) Abs Lymphs (Manual) Abs Monocytes (Manual) Absolute Eos (Manual) Abs Basophils (Manual) Platelet Comment Poikilocytosis Anisocytosis [place] Cells APTT 61.2 H Carbonic Acid HCO3/H2CO3 Ratio ABG pH ABG pCO2 ABG pO2 ABG HCO3 ABG Total CO2 ABG O2 Saturation ABG Base Excess FiO2 Sodium Potassium Chloride Carbon Dioxide Anion Gap BUN Creatinine Est GFR ( Amer) Est GFR (MDRD) Non-Af Glucose POC Glucose 187 H Lactic Acid 2.8 H Calcium Magnesium Troponin I NT-Pro-B Natriuret Pep Blood Type Antibody Screen Crossmatch 06/21/20 06/21/20 06/21/20 18:25 19:00 19:00 WBC RBC Hgb Hct MCV MCH MCHC RDW Plt Count Lymph % (Auto) [place] % (Auto) Eos % (Auto) Baso % (Auto) Absolute Neuts (auto) Absolute Lymphs (auto) Absolute Monos (auto) Absolute Eos (auto) Absolute Basos (auto) Total Counted Seg Neutrophils % Seg Neuts % (Manual) Band Neutrophils % Lymphocytes % (Manual) Monocytes % (Manual) Eosinophils % (Manual) Basophils % (Manual) Metamyelocytes % Abs Neuts (Manual) Abs Lymphs (Manual) Abs Monocytes (Manual) Absolute Eos (Manual) Abs Basophils (Manual) Platelet Comment Poikilocytosis Anisocytosis [place] Cells APTT 66.0 H Carbonic Acid HCO3/H2CO3 Ratio ABG pH ABG pCO2 ABG pO2 ABG HCO3 ABG Total CO2 ABG O2 Saturation ABG Base Excess FiO2 Sodium 147.4 H Potassium Chloride Carbon Dioxide Anion Gap BUN Creatinine Est GFR ( Amer) Est GFR (MDRD) Non-Af Glucose POC Glucose Lactic Acid 3.3 H Calcium Magnesium Troponin I NT-Pro-B Natriuret Pep Blood Type Antibody Screen Crossmatch IMPRESSION/RECOMMENDATION: 1. Significantly elevated troponin I albeit with no EKG changes. Since the patient cannot give a history although this may all be due to troponin leak due to hypotension/shock, severe dehydration and possibly sepsis would at least place the patient on IV heparin drip for at least 48 hours. Unfortunately due to the patient's being shocked cannot use beta-blockers or nitrates. Consider aspirin by her NG tube or as a suppository. Troponin is still elevated. 2. Shock is mostly combination of dehydration, and sepsis and secondary to severe acidosis. Continue IV Levophed for now consider starting the patient on vasopressin drip. 3. Acute renal failure: Continue hydration. Still no significant improvement in urine output., But the creatinine is coming down slightly. 4. Severe hypernatremia: Continue gentle hydration 5. Bibasilar pneumonia: Continue antibiotics 6. Prior history of CVA. Current CT scan does not show any new CVA. 7. History of hypertension: At present patient is requiring inotropes to keep his blood pressure up. Medications reviewed. Medications adjusted. Discussed with Dr. Grant. Discussed with the patient's nurse. Medical decision making is high complexity. 40 minutes spent as patient more than 50% of time spent in direct patient care. Will follow.
--- NOTE | 2020-06-21 21:23 | RADIOLOGY REPORT (SQ) ---
XR CHEST 1 VIEW HISTORY: Evaluate enteric tube. COMPARISON: Radiographs from earlier the same day. FINDINGS: The enteric tube courses below the left hemidiaphragm out of the [id number]. Remaining support devices are stable. Unchanged bilateral patchy airspace opacities but no large pleural effusions or pneumothorax. Heart size is stable. Multiple right lower rib fractures are stable. IMPRESSION: Enteric tube courses below the left hemidiaphragm out of the [id number]. Consider abdominal radiographs for complete evaluation.
[2020-06-21 21:27] LABS: ARTERIAL BLOOD BASE EXCESS -9.6 mmol/L; ARTERIAL BLOOD FIO2 40%; ARTERIAL BLOOD H2CO3 0.88 mmol/L (1.05-1.35); ARTERIAL BLOOD HCO3 15.1 mmol/L (20-24); ARTERIAL BLOOD O2 SATURATION 97.5 % (94-98); ARTERIAL BLOOD PCO2 29.2 mmHg (35-45); ARTERIAL BLOOD PH 7.33 (7.35-7.45); ARTERIAL BLOOD PO2 104.4 mmHg (80-100)
[2020-06-22] MEDS: CLINDAMYCIN 900 MG/D5W RTU 900 MG/50 ML RTUPB IV SCH ×2 (01:05→10:54)
[2020-06-22] MEDS: DEXTROSE 5%-WATER 250 ML with NOREPINEPHRINE BITARTRATE 4 MG IV PRN ×2 (03:56)
[2020-06-22 06:04] LABS: ARTERIAL BLOOD BASE EXCESS -6.6 mmol/L; ARTERIAL BLOOD H2CO3 0.82 mmol/L (1.05-1.35); ARTERIAL BLOOD HCO3 16.9 mmol/L (20-24); ARTERIAL BLOOD O2 SATURATION 98.2 % (94-98); ARTERIAL BLOOD PCO2 27.3 mmHg (35-45); ARTERIAL BLOOD PH 7.41 (7.35-7.45); ARTERIAL BLOOD PO2 110.9 mmHg (80-100); ARTERIAL BLOOD TOTAL CO2 17.7 mmol/L (23-27)
[2020-06-22 06:23] LABS: HEMATOCRIT 25.4 % (37.9-51.0); HEMOGLOBIN 8.7 g/dL (13.5-17.0); MEAN CORPUSCULAR HEMOGLOBIN 31.6 pg (27.0-33.4); MEAN CORPUSCULAR HGB CONC 34.2 g/dL (32.0-36.0); MEAN CORPUSCULAR VOLUME 92 fl (80-97); RED BLOOD COUNT 2.75 10^6/uL (4.35-5.55); RED CELL DISTRIBUTION WIDTH 16.8 % (11.5-14.0); WHITE BLOOD COUNT 8.6 10^3/uL (4.0-10.5)
[2020-06-22 06:24] LABS: ALBUMIN 1.7 g/dL (3.5-5.0); ALKALINE PHOSPHATASE 141 U/L (38-126); ANION GAP 15 (5-19); ASPARTATE AMINO TRANSFERASE 31 U/L (17-59); BILIRUBIN,DIRECT 0.6 mg/dL (0.0-0.4); BILIRUBIN,TOTAL 0.8 mg/dL (0.2-1.3); CARBON DIOXIDE 17 mmol/L (22-30); CHLORIDE 115 mmol/L (98-107); GLUCOSE 284 mg/dL (75-110); PHOSPHORUS 5.4 mg/dL (2.5-4.5); POTASSIUM 5.5 mmol/L (3.6-5.0); TOTAL PROTEIN 3.7 g/dL (6.3-8.2)
[2020-06-22 06:29] LABS: ARTERIAL BLOOD FIO2 40%
[2020-06-22 06:36] LABS: BLOOD UREA NITROGEN 159 mg/dL (7-20)
[2020-06-22 06:39] LABS: CALCIUM 6.6 mg/dL (8.4-10.2)
[2020-06-22] MEDS: FENTANYL CITRATE/PF 600 MCG/60 ML BAG IV PRN (07:34)
[2020-06-22] MEDS: DEXTROSE 5%-WATER 1000 ML 1,000 ML with SODIUM BICARBONATE 100 MEQ IV PRN ×2 (08:00)
[2020-06-22 08:25] LABS: PLATELET COUNT 31 10^3/uL (150-450)
[2020-06-22 08:28] LABS: ABSOLUTE MONOCYTES # (MANUAL) 0.2 10^3/uL (0.1-1.4); BASOPHILS % (MANUAL) 0 % (0-2); EOSINOPHILS % (MANUAL) 0 % (0-6); LYMPHOCYTES % (MANUAL) 12 % (13-45); MONOCYTES % (MANUAL) 2 % (3-13); NUCLEATED RED BLOOD CELLS 3 /100 WBC (0); SEGMENTED NEUTROPHILS % (MAN) 86 % (42-78); TOTAL CELLS COUNTED 100
[2020-06-22 08:30] LABS: ANISOCYTOSIS 1+; PLATELET COMMENT DECREASED; TOXIC GRANULATION 1+; TOXIC VACUOLATION PRESENT
--- NOTE | 2020-06-22 08:39 | RADIOLOGY REPORT (SQ) ---
EXAM DESCRIPTION: KUB/ABDOMEN (SINGLE VIEW) IMAGES COMPLETED DATE/TIME: 06/22/2020 8:22 am REASON FOR STUDY: high tube feed residuals COMPARISON: None. NUMBER OF VIEWS: One view. TECHNIQUE: Supine radiographic image of the abdomen acquired. LIMITATIONS: None. FINDINGS: BOWEL GAS PATTERN: Normal bowel gas pattern. No dilated loops. CALCIFICATIONS: No suspicious calcifications. SOFT TISSUES: No gross mass or suggestion of organomegaly. HARDWARE: Nasogastric tube tip in the stomach. BONES: No acute fracture. No worrisome bone lesions. OTHER: No other significant finding. IMPRESSION: NO RADIOGRAPHIC EVIDENCE FOR ACUTE ABDOMINAL DISEASE. TECHNICAL DOCUMENTATION: JOB ID: [id number] 2010 [employer]- All Rights Reserved Reading location - IP/workstation name: [email or web address]
--- NOTE | 2020-06-22 09:24 | RADIOLOGY REPORT (SQ) ---
EXAM DESCRIPTION: CHEST SINGLE VIEW IMAGES COMPLETED DATE/TIME: 06/22/2020 5:47 am REASON FOR STUDY: ETT tube COMPARISON: 06/21/2020 EXAM PARAMETERS: NUMBER OF VIEWS: One view TECHNIQUE: Single frontal radiograph of the chest. RADIATION DOSE: N/A LIMITATIONS: None. FINDINGS: TEMPORARY SUPPORT DEVICES:ETT in expected location. NG tube courses below the jerrell-diaphr agm in to the stomach. Central venous access catheter tip is in expected location. LUNGS AND PLEURA: Stable parenchymal opacities. No pneumothorax. MEDIASTINUM AND HILAR STRUCTURES: No masses. Contour normal. HEART AND VASCULAR STRUCTURES: Heart size normal. Normal vascularity. Aorta normal for age BONES: No acute findings. OTHER: No other significant finding. IMPRESSION: Stable parenchymal opacities without improvement. SUPPORT DEVICE(S) IN EXPECTED LOCATIONS. TECHNICAL DOCUMENTATION: JOB ID: [id number] 2010 [employer]- All Rights Reserved Reading location - IP/workstation name: [email or web address]
[2020-06-22] MEDS: ASPIRIN 81 MG TABLET, CHEWABLE PO SCH (10:09)
[2020-06-22] MEDS: PANTOPRAZOLE SODIUM 40 MG VIAL IV SCH (10:09)
[2020-06-22] MEDS: CEFTRIAXONE 1 GM/D5W RTU 1 GM/50 ML RTUPB IV SCH (10:09)
[2020-06-22] MEDS ORDERED: SENNOSIDES/DOCUSATE 8.6-50 MG 1 EACH TABLET PO PRN (10:55)
[2020-06-22] MEDS ORDERED: CALCIUM GLUC IN NACL, ISO-OSM 1 GM/50 ML RTUPB IV ONE (11:30)
[2020-06-22] MEDS: ALBUMIN HUMAN 12.5 GM/50 ML RTUINJ IV SCH ×4 (13:04→15:39)
[2020-06-22] MEDS ORDERED: VASOPRESSIN INJ 20 UNIT/1 ML VIAL ONE (13:46)
[2020-06-22] MEDS: DEXTROSE 5%-WATER 250 ML with VASOPRESSIN 100 UNIT IV PRN ×2 (13:53)
[2020-06-22 15:51] LABS: ARTERIAL BLOOD BASE EXCESS -3.7 mmol/L; ARTERIAL BLOOD H2CO3 0.87 mmol/L (1.05-1.35); ARTERIAL BLOOD O2 SATURATION 96.5 % (94-98); ARTERIAL BLOOD PCO2 28.8 mmHg (35-45); ARTERIAL BLOOD PH 7.44 (7.35-7.45); ARTERIAL BLOOD PO2 81.8 mmHg (80-100); ARTERIAL BLOOD TOTAL CO2 19.9 mmol/L (23-27)
[2020-06-22 15:55] LABS: ARTERIAL BLOOD FIO2 40%
[2020-06-22 16:44] LABS: ANION GAP 15 (5-19); CARBON DIOXIDE 18 mmol/L (22-30); CHLORIDE 112 mmol/L (98-107); GLUCOSE 219 mg/dL (75-110); POTASSIUM 4.9 mmol/L (3.6-5.0)
[2020-06-22 16:56] LABS: BLOOD UREA NITROGEN 162 mg/dL (7-20)
[2020-06-22 16:58] LABS: CALCIUM 6.8 mg/dL (8.4-10.2)
[2020-06-22] MEDS: AZITHROMYCIN 500 MG in DEXTROSE 5%-WATER 250 ML IV SCH (18:06)
--- NOTE | 2020-06-22 18:08 | EKG REPORT ---
SEVERITY:- ABNORMAL ECG - SINUS OR ECTOPIC ATRIAL RHYTHM ATRIAL PREMATURE COMPLEX PROBABLE ANTEROSEPTAL INFARCT, AGE INDETERM BORDERLINE PROLONGED QT INTERVAL : Confirmed by: Scooby Carreon MD 22-Jun-2020 18:06:37
--- NOTE | 2020-06-22 18:08 | EKG REPORT ---
SEVERITY:- ABNORMAL ECG - SINUS ARRHYTHMIA PROBABLE ANTEROSEPTAL INFARCT, AGE INDETERM PROLONGED QT INTERVAL : Confirmed by: Scooby Carreon MD 22-Jun-2020 18:06:28
--- NOTE | 2020-06-22 19:22 | Progress Note ---
Provider Note Provider Note: CARDIOLOGY PROGRESS NOTE by Dr. Harriet Mclean on 06/22/2020. SUBJECTIVE: The patient showed some slight improvement but still intubated and sedated. There is no atrial or ventricular arrhythmias seen on the monitor although the morning EKG shows sinus arrhythmia. The patient sodium is coming down. His troponin yesterday was down to 8.5. The patient's blood pressure is also improved with vasopressin he is now on Levophed at 2mcg/min. This will also be weaned off as per the patient's blood pressure. PHYSICAL EXAMINATION: The patient appears to be chronically ill. Selected Entries 06/22/20 14:02 Temperature 97.0 F Heart Rate ( 61 Monitors) Respiratory 19 Rate Blood Pressure 107/70 Blood Pressure 82 Mean O2 Sat by Pulse 100 Oximetry PHYSICAL EXAMINATION: The patient is intubated and sedated. HEAD: Is atraumatic normocephalic. EYES: Pupils are equal round reactive to light. ENT is negative. Neck is supple. There is no JVD. Carotids are equal there is no bruit. Trachea central. Lungs there is a few bibasilar crackles right crackles. Rest of the lungs are clear. HEART: S1-S2 is heard. There is no S3 gallop. There is no S4 gallop. There is systolic murmur left sternal border and the apex there is no rub. ABDOMEN: Is soft. There is no hep atosplenomegaly. Bowel sounds are heard. EXTREMITIES: Femorals felt. There is no femoral bruits. There is no pedal edema. There is no DVT or cellulitis. Leg pulses slightly diminished. There is no cyanosis or clubbing. OPERATIONS OFFICER and psychiatric not examined since the patient intubated and sedated. His 24-hour intake is 2202 mL. Output is 262 mL. EKG:SINUS ARRHYTHMIA [AMI21] . PROBABLE ANTEROSEPTAL INFARCT, AGE INDETERM [LQT] . PROLONGED QT INTERVAL Labs- All tests 24 hr 06/20/20 06/21/20 06/21/20 16:47 18:25 19:00 WBC RBC Hgb Hct MCV MCH MCHC RDW Plt Count Lymph % (Auto) Clarke % (Auto) Eos % (Auto) Baso % (Auto) Absolute Neuts (auto) Absolute Lymphs (auto) Absolute Monos (auto) Absolute Eos (auto) Absolute Basos (auto) Total Counted Seg Neutrophils % Seg Neuts % (Manual) Lymphocytes % (Manual) Monocytes % (Manual) Eosinophils % (Manual) Basophils % (Manual) Abs Neuts (Manual) Abs Lymphs (Manual) Abs Monocytes (Manual) Absolute Eos (Manual) Abs Basophils (Manual) Nucleated RBCs Toxic Granulation Toxic Vacuolation Dohle Bodies Platelet Comment Anisocytosis APTT Carbonic Acid HCO3/H2CO3 Ratio ABG pH ABG pCO2 ABG pO2 ABG HCO3 ABG Total CO2 ABG O2 Saturation ABG Base Excess FiO2 Sodium 147.4 H Potassium Chloride Carbon Dioxide Anion Gap BUN Creatinine Est GFR ( Amer) Est GFR (MDRD) Non-Af Glucose Lactic Acid 3.3 H Calcium Ionized Calcium Akila Phosphorus Magnesium Total Bilirubin Direct Bilirubin Neonat Total Bilirubin Neonat Direct Bilirubin Neonat Indirect Bili AST ALT Alkaline Phosphatase NT-Pro-B Natriuret Pep Total Protein Albumin Time Trough Drawn Vancomycin Trough Blood Type A POSITIVE Antibody Screen NEGATIVE Crossmatch See Detail 06/21/20 06/21/20 06/21/20 19:00 20:40 20:40 WBC RBC Hgb Hct MCV MCH MCHC RDW Plt Count Lymph % (Auto) Clarke % (Auto) Eos % (Auto) Baso % (Auto) Absolute Neuts (auto) Absolute Lymphs (auto) Absolute Monos (auto) Absolute Eos (auto) Absolute Basos (auto) Total Counted Seg Neutrophils % Seg Neuts % (Manual) Lymphocytes % (Manual) Monocytes % (Manual) Eosinophils % (Manual) Basophils % (Manual) Abs Neuts (Manual) Abs Lymphs (Manual) Abs Monocytes (Manual) Absolute Eos (Manual) Abs Basophils (Manual) Nucleated RBCs Toxic Granulation Toxic Vacuolation Dohle Bodies Platelet Comment Anisocytosis APTT 66.0 H Carbonic Acid 0.88 L HCO3/H2CO3 Ratio 17:1 ABG pH 7.33 L ABG pCO2 29.2 L ABG pO2 104.4 H ABG HCO3 15.1 L ABG Total CO2 16.0 L ABG O2 Saturation 97.5 ABG Base Excess -9.6 FiO2 40% Sodium 147.8 H Potassium Chloride Carbon Dioxide Anion Gap BUN Creatinine Est GFR ( Amer) Est GFR (MDRD) Non-Af Glucose Lactic Acid Calcium Ionized Calcium Akila Phosphorus Magnesium Total Bilirubin Direct Bilirubin Neonat Total Bilirubin Neonat Direct Bilirubin Neonat Indirect Bili AST ALT Alkaline Phosphatase NT-Pro-B Natriuret Pep Total Protein Albumin Time Trough Drawn Vancomycin Trough Blood Type Antibody Screen Crossmatch 06/21/20 06/22/20 06/22/20 20:40 02:10 05:30 WBC 8.6 RBC 2.75 L Hgb 8.7 L Hct 25.4 L MCV 92 MCH 31.6 MCHC 34.2 RDW 16.8 H Plt Count 31 L Lymph % (Auto) Not Reportable Clarke % (Auto) Not Reportable Eos % (Auto) Not Reportable Baso % (Auto) Not Reportable Absolute Neuts (auto) Not Reportable Absolute Lymphs (auto) Not Reportable Absolute Monos (auto) Not Reportable Absolute Eos (auto) Not Reportable Absolute Basos (auto) Not Reportable Total Counted 100 Seg Neutrophils % Not Reportable Seg Neuts % (Manual) 86 H Lymphocytes % (Manual) 12 L Monocytes % (Manual) 2 L Eosinophils % (Manual) 0 Basophils % (Manual) 0 Abs Neuts (Manual) 7.4 Abs Lymphs (Manual) 1.0 Abs Monocytes (Manual) 0.2 Absolute Eos (Manual) 0.0 Abs Basophils (Manual) 0.0 Nucleated RBCs 3 Toxic Granulation 1+ Toxic Vacuolation PRESENT Dohle Bodies PRESENT Platelet Comment DECREASED Anisocytosis 1+ APTT Carbonic Acid HCO3/H2CO3 Ratio ABG pH ABG pCO2 ABG pO2 ABG HCO3 ABG Total CO2 ABG O2 Saturation ABG Base Excess FiO2 Sodium 144.9 Potassium Chloride Carbon Dioxide Anion Gap BUN Creatinine Est GFR ( Amer) Est GFR (MDRD) Non-Af Glucose Lactic Acid Calcium Ionized Calcium Akila Phosphorus Magnesium Total Bilirubin Direct Bilirubin Neonat Total Bilirubin Neonat Direct Bilirubin Neonat Indirect Bili AST ALT Alkaline Phosphatase NT-Pro-B Natriuret Pep Total Protein Albumin Time Trough Drawn 2040 Vancomycin Trough 7.0 Blood Type Antibody Screen Crossmatch 06/22/20 06/22/20 06/22/20 05:30 05:30 05:50 WBC RBC Hgb Hct MCV MCH MCHC RDW Plt Count Lymph % (Auto) Clarke % (Auto) Eos % (Auto) Baso % (Auto) Absolute Neuts (auto) Absolute Lymphs (auto) Absolute Monos (auto) Absolute Eos (auto) Absolute Basos (auto) Total Counted Seg Neutrophils % Seg Neuts % (Manual) Lymphocytes % (Manual) Monocytes % (Manual) Eosinophils % (Manual) Basophils % (Manual) Abs Neuts (Manual) Abs Lymphs (Manual) Abs Monocytes (Manual) Absolute Eos (Manual) Abs Basophils (Manual) Nucleated RBCs Toxic Granulation Toxic Vacuolation Dohle Bodies Platelet Comment Anisocytosis APTT Carbonic Acid 0.82 L HCO3/H2CO3 Ratio 20:1 ABG pH 7.41 ABG pCO2 27.3 L ABG pO2 110.9 H ABG HCO3 16.9 L ABG Total CO2 17.7 L ABG O2 Saturation 98.2 H ABG Base Excess -6.6 FiO2 40% Sodium 146.7 H Potassium 5.5 H Chloride 115 H Carbon Dioxide 17 L Anion Gap 15 BUN 159 H Creatinine 6.71 H Est GFR ( Amer) 10 L Est GFR (MDRD) Non-Af 8 L Glucose 284 H Lactic Acid Calcium 6.6 L* Ionized Calcium Akial Phosphorus 5.4 H Magnesium 2.2 Total Bilirubin 0.8 Direct Bilirubin 0.6 H Neonat Total Bilirubin Not Reportable Neonat Direct Bilirubin Not Reportable Neonat Indirect Bili Not Reportable AST 31 ALT 21 Alkaline Phosphatase 141 H NT-Pro-B Natriuret Pep 6320 H Total Protein 3.7 L Albumin 1.7 L Time Trough Drawn Vancomycin Trough Blood Type Antibody Screen Crossmatch 06/22/20 06/22/20 06/22/20 08:00 15:05 15:05 WBC RBC Hgb Hct MCV MCH MCHC RDW Plt Count Lymph % (Auto) Clarke % (Auto) Eos % (Auto) Baso % (Auto) Absolute Neuts (auto) Absolute Lymphs (auto) Absolute Monos (auto) Absolute Eos (auto) Absolute Basos (auto) Total Counted Seg Neutrophils % Seg Neuts % (Manual) Lymphocytes % (Manual) Monocytes % (Manual) Eosinophils % (Manual) Basophils % (Manual) Abs Neuts (Manual) Abs Lymphs (Manual) Abs Monocytes (Manual) Absolute Eos (Manual) Abs Basophils (Manual) Nucleated RBCs Toxic Granulation Toxic Vacuolation Dohle Bodies Platelet Comment Anisocytosis APTT Carbonic Acid 0.87 L HCO3/H2CO3 Ratio 21:1 ABG pH 7.44 ABG pCO2 28.8 L ABG pO2 81.8 ABG HCO3 19.0 L ABG Total CO2 19.9 L ABG O2 Saturation 96.5 ABG Base Excess -3.7 FiO2 40% Sodium 145.2 H Potassium 4.9 Chloride 112 H Carbon Dioxide 18 L Anion Gap 15 BUN 162 H Creatinine 6.50 H Est GFR ( Amer) 10 L Est GFR (MDRD) Non-Af 9 L Glucose 219 H Lactic Acid Calcium 6.8 L* Ionized Calcium Akila 1.02 L Phosphorus Magnesium 2.3 Total Bilirubin Direct Bilirubin Neonat Total Bilirubin Neonat Direct Bilirubin Neonat Indirect Bili AST ALT Alkaline Phosphatase NT-Pro-B Natriuret Pep Total Protein Albumin Time Trough Drawn Vancomycin Trough Blood Type Antibody Screen Crossmatch 06/22/20 17:06 WBC RBC Hgb Hct MCV MCH MCHC RDW Plt Count Lymph % (Auto) Clarke % (Auto) Eos % (Auto) Baso % (Auto) Absolute Neuts (auto) Absolute Lymphs (auto) Absolute Monos (auto) Absolute Eos (auto) Absolute Basos (auto) Total Counted Seg Neutrophils % Seg Neuts % (Manual) Lymphocytes % (Manual) Monocytes % (Manual) Eosinophils % (Manual) Basophils % (Manual) Abs Neuts (Manual) Abs Lymphs (Manual) Abs Monocytes (Manual) Absolute Eos (Manual) Abs Basophils (Manual) Nucleated RBCs Toxic Granulation Toxic Vacuolation Dohle Bodies Platelet Comment Anisocytosis APTT 83.0 H Carbonic Acid HCO3/H2CO3 Ratio ABG pH ABG pCO2 ABG pO2 ABG HCO3 ABG Total CO2 ABG O2 Saturation ABG Base Excess FiO2 Sodium Potassium Chloride Carbon Dioxide Anion Gap BUN Creatinine Est GFR ( Amer) Est GFR (MDRD) Non-Af Glucose Lactic Acid Calcium Ionized Calcium Akila Phosphorus Magnesium Total Bilirubin Direct Bilirubin Neonat Total Bilirubin Neonat Direct Bilirubin Neonat Indirect Bili AST ALT Alkaline Phosphatase NT-Pro-B Natriuret Pep Total Protein Albumin Time Trough Drawn Vancomycin Trough Blood Type Antibody Screen Crossmatch Chest X-Ray 06/18/20 13:05 IMPRESSION: BILATERAL UPPER LUNG OPACITIES, POSSIBLY DUE TO PNEUMONIA. UNDERLYING PULMONARY MASSES CANNOT BE EXCLUDED. Head CT 06/18/20 13:05 IMPRESSION: CHRONIC CHANGES OF ATROPHY AND MICROVASCULAR ISCHEMIA. NO ACUTE PROCESS. EVIDENCE OF ACUTE STROKE: NO. Chest X-Ray 06/18/20 15:29 IMPRESSION: Support lines and tubes are in satisfactory position. Persistent diffuse upper lobe infiltrates. Minimal right lower lobe airspace disease. Chest X-Ray 06/20/20 05:00 IMPRESSION: STABLE APPEARANCE OF THE CHEST. SUPPORT DEVICES UNCHANGED. Chest X-Ray 06/21/20 05:00 IMPRESSION: Parenchymal opacities with some improvement particularly since 06/18/2020 Acute appearing lower right rib fractures. Unchanged from 06/18/2020. SUPPORT DEVICE(S) IN EXPECTED LOCATIONS. Chest X-Ray 06/21/20 20:31 IMPRESSION: Enteric tube courses below the left hemidiaphragm out of the [id number]. Consider abdominal radiographs for complete evaluation. KUB X-Ray 06/22/20 00:00 IMPRESSION: NO RADIOGRAPHIC EVIDENCE FOR ACUTE ABDOMINAL DISEASE. Chest X-Ray 06/22/20 05:00 IMPRESSION: Stable parenchymal opacities without improvement. SUPPORT DEVICE(S) IN EXPECTED LOCATIONS. IMPRESSION/RECOMMENDATION: 1. Significantly elevated troponin I albeit with no EKG changes. Since the patient cannot give a history although this may all be due to troponin leak due to hypotension/shock, severe dehydration and possibly sepsis would at least place the patient on IV heparin drip for at least 48 hours. Unfortunately due to the patient's being shocked cannot use beta-blockers or nitrates. Consider aspirin by her NG tube or as a suppository. Troponin is still elevated. 2. Shock is mostly combination of dehydration, and sepsis and secondary to severe acidosis. Continue IV Levophed for now consider starting the patient on vasopressin drip. 3. Acute renal failure: Continue hydration. Still no significant improvement in urine output., But the creatinine is coming down slightly. 4. Severe hypernatremia: Continue gentle hydration 5. Bibasilar pneumonia: Continue antibiotics 6. Prior history of CVA. Current CT scan does not show any new CVA. 7. History of hypertension: At present patient is requiring inotropes to keep his blood pressure up. 8. History of dysphagia Medications reviewed. Medical regimen management plan discussed with the supervisor forming department. Medical decision making hours of moderate complexity since the patient's of all inotropes except vasopressin. 40 minutes spent on this patient with more than 50% time spent in direct patient care. Will follow.
--- NOTE | 2020-06-22 19:30 | PDOC CRITICAL CARE PROG REPORT ---
General Date:: 06/22/20 ICU Day:: 5 Ventilator Day:: 5 Hospital Day:: 5 Resuscitation Status: Full Code Events in the past 12 to 24 Hours:: This 65-year-old male was admitted on 06/18/2020 after experiencing alt ered mental status at home, which the patient's son suspected was precipitated by a gross aspiration/airway obstruction event 5 days prior to presentation (which the son treated with a Heimlich maneuver). The patient was intubated in the emergency department for acute hypoxemic respiratory failure. Laboratory evaluation revealed that the patient had severe hypernatremia (sodium 186), likely secondary to severe dehydration/malnutrition. Serum creatinine 9.7. Lactate 8.2. Troponin 0 0.45. With a calculated free water deficit of 8 L, the patient was initiated on IV fluid resuscitation. He also was started on norepinephrine infusion. He is on 1/2NS and free water by NG tube for water rep lacement. 06/19: Remains intubated. Still on norepinephrine. Empiric cefepime/Flagyl/vancomycin. Left IJ CVC was placed yesterday. CVP 5. CK total has trended downward in the interim; however, troponin 0.5-->4.6. Sodium 186>> 171 over 16 hours. 06/20: Remains intubated. Still on norepinephrine. Started on dobutamine this morning. On empiric cefepime/Flagyl/vancomycin. However, wound culture has isolated Haemophilus influenzae (should be covered by clindamycin). CVP 56. Troponin peaked yesterday at 36.4, now downtrending. On heparin. On aspirin. Not on beta-blockade, GONZALO inhibitor or ARB due to hypotension. Sodium 157 this morning. All free water supplementation was discontinued in the interim due to concerns about overly rapid correction of serum sodium. 06/21: Remains intubated. On norepinephrine and dobutamine. Afebrile. WBC 12.4. On Rocephin/clindamycin/vancomycin. Trach aspirate (06/19) is isolating gram-negative rods. Remains on heparin infusion for non-STEMI. On aspirin. Sodium 155 this morning. Throughout the day yesterday and overnight, the patient demonstrated arrhythmias on the monitor. This was quite confusing, as t he monitor made it appear as if the patient was having VT/VF; however, 12-lead EKG demonstrated an underlying sinus rhythm. Rhythm abnormalities did seem to be related to initiation of dobutamine and/or dopamine (observed with a both medications). No improvement with IV lidocaine. Overnight, the patient did get amiodarone bolus and was started on amiodarone infusion. This did "clean up" the rhythm to a sinus rhythm with right axis deviation. This morning, nurse reports high tube feed residuals, hindering free water supplementation. Creatinine 7.2 today. Continues to be oliguric. 06/22: Remains intubated. ABG this a.m. 7.. Case discussed again with Dr. Mclean yesterday. Now on norepinephrine/vasopressin for blood pressure support. Remains on heparin infusion for non-STEMI. On aspirin. No sinister arrhythmias in the interim. Monitor shows sinus bradycardia. Afebrile. WBC 8.6. On Rocephin/clindamycin/vancomycin. Blood cultures (06/18) isolated Cardenas emophilus influenzae. Trach aspirate (06/19) isolated gram-negative rods: A cinetobacter baumannii, Klebsiella pneumoniae. Nursing staff is reported a new problem with high tube feed residuals that started yesterday. Diminished bowel sounds. Sodium 146. Creatinine 6.7. Still oliguric. Ionized calcium 1.0. Review of systems relevant to events:: Neurologic: Altered mental status Renal: Hypernatremia, dehydration, acute renal failure Cardiovascular: Hypotension Skin: Left diabetic foot Reason for ICU Addmission:: Acute hypoxemic respiratory failure; severe dehydration; hypernatremia; altered mental status - Medications: Medications reviewed and adjusted accordingly: Yes Vasopressors:: Norepinephrine/vasopressin Sedation:: Fentanyl Physical Exam Vital Signs: Temp Pulse Resp BP Pulse Ox 97.9 F 57 L 27 H 104/54 L 100 06/22/20 06:31 06/22/20 06:00 06/22/20 06:31 06/22/20 06:31 06/22/20 08:05 Intake & Output 06/21/20 06/22/20 06/23/20 06:59 06:59 06:59 Intake Total 4146 2169 1074 Output Total 205 262 35 Balance 3941 1907 1039 Weight 64.9 kg 67.2 kg Weight/Height Weight 67.2 kg Height 1.7 m General appearance: PRESENT: no acute distress, thin Head exam: PRESENT: atraumatic, normocephalic Eye exam: PRESENT: conjunctiva pink, EOMI, PERRLA. ABSENT: scleral icterus Mouth exam: PRESENT: moist, tongue midline, other - Lower incisor loose (imminent enucleation) Neck exam: ABSENT: carotid bruit, JVD, lymphadenopathy, thyromegaly Respiratory exam: PRESENT: rales, rhonchi, symmetrical, tachypnea, unlabored. ABSENT: wheezes Cardiovascular exam: PRESENT: bradycardia, RRR. ABSENT: diastolic murmur, rubs, systolic murmur GI/Abdominal exam: PRESENT: soft. ABSENT: distended, guarding, mass, organolmegaly, rebound, tenderness Laboratory/Radiographs Laboratory Results: 06/22/20 05:30 06/22/20 05:30 06/20/20 06/21/20 06/21/20 16:47 10:10 12:00 WBC RBC Hgb Hct MCV MCH MCHC RDW Plt Count Seg Neutrophils % Carbonic Acid 1.05 HCO3/H2CO3 Ratio 14:1 ABG pH 7.27 L ABG pCO2 34.8 L ABG pO2 77.1 L ABG HCO3 15.7 L ABG O2 Saturation 93.9 L ABG Base Excess -10.2 FiO2 40% Sodium 152.0 H Potassium Chloride Carbon Dioxide Anion Gap BUN Creatinine Est GFR ( Amer) Glucose Lactic Acid Calcium Ionized Calcium Akila Phosphorus Magnesium Total Bilirubin AST Alkaline Phosphatase Total Protein Albumin Blood Type A POSITIVE Antibody Screen NEGATIVE 06/21/20 06/21/20 06/21/20 12:00 14:00 14:00 WBC 11.1 H RBC 2.78 L Hgb 8.7 L Hct 25.9 L MCV 93 MCH 31.5 MCHC 33.7 RDW 16.9 H Plt Count 32 L Seg Neutrophils % Carbonic Acid HCO3/H2CO3 Ratio ABG pH ABG pCO2 ABG pO2 ABG HCO3 ABG O2 Saturation ABG Base Excess FiO2 Sodium 149.0 H Potassium Chloride Carbon Dioxide Anion Gap BUN Creatinine Est GFR ( Amer) Glucose Lactic Acid 1.8 Calcium Ionized Calcium Akila Phosphorus Magnesium Total Bilirubin AST Alkaline Phosphatase Total Protein Albumin Blood Type Antibody Screen 06/21/20 06/21/20 06/21/20 15:15 15:15 18:25 WBC RBC Hgb Hct MCV MCH MCHC RDW Plt Count Seg Neutrophils % Carbonic Acid 0.86 L HCO3/H2CO3 Ratio 18:1 ABG pH 7.35 ABG pCO2 28.7 L ABG pO2 110.0 H ABG HCO3 15.6 L ABG O2 Saturation 97.9 ABG Base Excess -8.9 FiO2 40% Sodium Potassium Chloride Carbon Dioxide Anion Gap BUN Creatinine Est GFR ( Amer) Glucose Lactic Acid 2.8 H 3.3 H Calcium Ionized Calcium Akila Phosphorus Magnesium Total Bilirubin AST Alkaline Phosphatase Total Protein Albumin Blood Type Antibody Screen 06/21/20 06/21/20 06/21/20 19:00 20:40 20:40 WBC RBC Hgb Hct MCV MCH MCHC RDW Plt Count Seg Neutrophils % Carbonic Acid 0.88 L HCO3/H2CO3 Ratio 17:1 ABG pH 7.33 L ABG pCO2 29.2 L ABG pO2 104.4 H ABG HCO3 15.1 L ABG O2 Saturation 97.5 ABG Base Excess -9.6 FiO2 40% Sodium 147.4 H 147.8 H Potassium Chloride Carbon Dioxide Anion Gap BUN Creatinine Est GFR ( Amer) Glucose Lactic Acid Calcium Ionized Calcium Akila Phosphorus Magnesium Total Bilirubin AST Alkaline Phosphatase Total Protein Albumin Blood Type Antibody Screen 06/22/20 06/22/20 06/22/20 02:10 05:30 05:30 WBC 8.6 RBC 2.75 L Hgb 8.7 L Hct 25.4 L MCV 92 MCH 31.6 MCHC 34.2 RDW 16.8 H Plt Count 31 L Seg Neutrophils % Not Reportable Carbonic Acid HCO3/H2CO3 Ratio ABG pH ABG pCO2 ABG pO2 ABG HCO3 ABG O2 Saturation ABG Base Excess FiO2 Sodium 144.9 146.7 H Potassium 5.5 H Chloride 115 H Carbon Dioxide 17 L Anion Gap 15 BUN 159 H Creatinine 6.71 H Est GFR ( Amer) 10 L Glucose 284 H Lactic Acid Calcium 6.6 L* Ionized Calcium Akila Phosphorus 5.4 H Magnesium 2.2 Total Bilirubin 0.8 AST 31 Alkaline Phosphatase 141 H Total Protein 3.7 L Albumin 1.7 L Blood Type Antibody Screen 06/22/20 06/22/20 05:50 08:00 WBC RBC Hgb Hct MCV MCH MCHC RDW Plt Count Seg Neutrophils % Carbonic Acid 0.82 L HCO3/H2CO3 Ratio 20:1 ABG pH 7.41 ABG pCO2 27.3 L ABG pO2 110.9 H ABG HCO3 16.9 L ABG O2 Saturation 98.2 H ABG Base Excess -6.6 FiO2 40% Sodium Potassium Chloride Carbon Dioxide Anion Gap BUN Creatinine Est GFR ( Amer) Glucose Lactic Acid Calcium Ionized Calcium Akila 1.02 L Phosphorus Magnesium Total Bilirubin AST Alkaline Phosphatase Total Protein Albumin Blood Type Antibody Screen 06/18/20 06/18/20 06/18/20 14:07 14:07 18:30 Creatine Kinase 992 H 940 H CK-MB (CK-2) 5.14 H Troponin I 0.447 NT-Pro-B Natriuret Pep 06/18/20 06/19/20 06/19/20 19:20 02:33 02:33 Creatine Kinase 883 H CK-MB (CK-2) 8.85 H 21.90 H Troponin I 0.640 4.590 NT-Pro-B Natriuret Pep 06/19/20 06/19/20 06/19/20 05:47 05:47 08:00 Creatine Kinase 814 H CK-MB (CK-2) Cancelled 22.00 H Troponin I Cancelled NT-Pro-B Natriuret Pep 06/19/20 06/19/20 06/19/20 08:00 08:00 14:20 Creatine Kinase 862 H CK-MB (CK-2) Troponin I 8.620 26.900 NT-Pro-B Natriuret Pep 06/19/20 06/20/20 06/20/20 20:25 02:15 08:21 Creatine Kinase CK-MB (CK-2) Troponin I 36.400 31.500 24.700 NT-Pro-B Natriuret Pep 06/20/20 06/20/20 06/21/20 13:45 20:25 05:00 Creatine Kinase CK-MB (CK-2) Troponin I 20.800 17.300 NT-Pro-B Natriuret Pep 7010 H 06/21/20 06/21/20 06/21/20 05:00 07:50 14:00 Creatine Kinase CK-MB (CK-2) Troponin I 10.500 10.300 8.520 NT-Pro-B Natriuret Pep 06/22/20 05:30 Creatine Kinase CK-MB (CK-2) Troponin I NT-Pro-B Natriuret Pep 6320 H Impressions: Head CT 06/18/20 13:05 IMPRESSION: CHRONIC CHANGES OF ATROPHY AND MICROVASCULAR ISCHEMIA. NO ACUTE PROCESS. EVIDENCE OF ACUTE STROKE: NO. KUB X-Ray 06/22/20 00:00 IMPRESSION: NO RADIOGRAPHIC EVIDENCE FOR ACUTE ABDOMINAL DISEASE. Chest X-Ray 06/22/20 05:00 IMPRESSION: Stable parenchymal opacities without improvement. SUPPORT DEVICE(S) IN EXPECTED LOCATIONS. All labs, radiographs, diagnostic studies and EKGs were personally reviewed: Yes In addition, reports of radiographic and diagnostic studies were read: Yes Assessment and Plan - Diagnosis (1) Acute hypoxemic respiratory failure Is this a current diagnosis for this admission?: Yes (2) Shock Is this a current diagnosis for this admission?: Yes (3) Non-ST elevated myocardial infarction (non-STEMI) Is this a current diagnosis for this admission?: Yes (4) Acute kidney failure Qualifiers: Acute renal failure type: unspecified Qualified Code(s): N17.9 - Acute kidney failure, unspecified Is this a current diagnosis for this admission?: Yes (5) Bilateral pneumonia Qualifiers: Pneumonia type: due to Haemophilus influenzae Lung location: unspecified part of lung Qualified Code(s): J14 - Pneumonia due to Hemophilus influenzae Is this a current diagnosis for this admission?: Yes Plan: * On cefepime/clindamycin. Continue cefepime. Change clindamycin to az ithromycin. Add MULUGETA nebs. * Respiratory cultures isolate Acinetobacter baumannii and Klebsiella pneumoniae . * Blood cultures isolated Haemophilus influenzae. (6) Hypernatremia Is this a current diagnosis for this admission?: Yes (7) Dehydration Is this a current diagnosis for this admission?: Yes (8) Hypothermia Qualifiers: Encounter type: initial encounter Qualified Code(s): T68.XXXA - Hypothermia, initial encounter Is this a current diagnosis for this admission?: Yes (9) Unstageable pressure ulcer of left foot Is this a current diagnosis for this admission?: Yes (10) Thrombocytopenia Is this a current diagnosis for this admission?: Yes (11) Failure to thrive in adult Is this a current diagnosis for this admission?: Yes (12) Constipation Qualifiers: Constipation type: unspecified constipation type Qualified Code(s): K59.00 - Constipation, unspecified Is this a current diagnosis for this admission?: Yes Plan: * I suspect this is drug-induced constipation, although his lactate is rising which does raise the possibility of bowel ischemia. * Hold tube feeds. * KUB now. * Add senna plus. Critical Time Critical Time (minutes): 90 Level of Care: ICU -: 1. The care of a critical patient is a dynamic process. This note is a quality control representative synopsis but static in nature. The timeframe for treatments given in order is not necessarily the actual time these treatments may have been done. 2. This patient requires critical care secondary to ongoing requirements for therapy not offered or safe outside the critical care environment. Transfer to a lower level of care will result in altered life or limb morbidity and mortality. 3. Multidisciplinary rounds completed. 4. ABCDE bundle addressed.
[2020-06-22] MEDS ORDERED: TOBRAMYCIN SULFATE INJ 80 MG/2 ML VIAL NEB SCH (20:00)
[2020-06-22] MEDS: TOBRAMYCIN SULFATE NEB 40 MG/ML 30 ML NEB SCH (20:17)
[2020-06-22] MEDS: ALBUTEROL SULFATE 0.083% NEB 2.5 MG/3 ML AMPUL NEB PRN (20:18)
[2020-06-22] MEDS ORDERED: CEFEPIME 2 GM/D5W RTU 2 GM/50 ML RTUPB IV SCH (22:00)
[2020-06-23] MEDS: CEFEPIME 1 GM/D5W RTU 1 GM/50 ML RTUPB IV SCH ×2 (01:00→21:49)
[2020-06-23] MEDS: DEXTROSE 5%-WATER 1000 ML 1,000 ML with SODIUM BICARBONATE 100 MEQ IV PRN ×2 (07:14)
--- NOTE | 2020-06-23 08:42 | RADIOLOGY REPORT (SQ) ---
EXAM DESCRIPTION: CHEST SINGLE VIEW IMAGES COMPLETED DATE/TIME: 06/23/2020 5:44 am REASON FOR STUDY: ETT tube COMPARISON: AP chest 06/22/2020, 06/21/2020 EXAM PARAMETERS: NUMBER OF VIEWS: One view. TECHNIQUE: Single frontal radiographic view of the chest acquired. RADIATION DOSE: NA LIMITATIONS: None. FINDINGS: LUNGS AND PLEURA: Diffuse bilateral airspace disease increased compared to 06/22/2020. SYLVIA S versus pneumonia versus pulmonary edema. No pneumothorax Right apical pleural calcification MEDIASTINUM AND HILAR STRUCTURES: No masses. Contour normal. HEART AND VASCULAR STRUCTURES: No cardiomegaly BONES: Old right lateral rib fractures HARDWARE: Endotracheal tube tip 4 cm above the hedy. Nasogastric tube tip and side port below the hemidiaphragms. Left jugular central line tip superior vena cava OTHER: No other significant finding. IMPRESSION: Tubes and lines in good positioning Increasing bilateral alveolar and interstitial infiltrates TECHNICAL DOCUMENTATION: JOB ID: [id number] 2010 [employer]- All Rights Reserved Reading location - IP/workstation name: [email or web address]
[2020-06-23] MEDS: ALBUTEROL SULFATE 0.083% NEB 2.5 MG/3 ML AMPUL NEB PRN (09:07)
[2020-06-23] MEDS: TOBRAMYCIN SULFATE NEB 40 MG/ML 30 ML NEB SCH ×2 (09:07→22:05)
--- NOTE | 2020-06-23 09:11 | PDOC CRITICAL CARE PROG REPORT ---
General Date:: 06/23/20 ICU Day:: 5 Ventilator Day:: 5 Hospital Day:: 5 Resuscitation Status: Full Code Events in the past 12 to 24 Hours:: Off sedation but still not awake enough to protect airway. Review of systems relevant to events:: Neurological. Reason for ICU Addmission:: Acute hypoxemic respiratory failure; severe dehydration; hypernatremia; altered mental status. Intubated. - Medications: Medications reviewed and adjusted accordingly: Yes Vasopressors:: Vasopressin. Sedation:: None as off this AM. Physical Exam Vital Signs: Temp Pulse Resp BP Pulse Ox 97.3 F 54 L 20 107/55 L 97 06/23/20 08:12 06/23/20 05:43 06/23/20 08:12 06/23/20 08:12 06/23/20 08:12 Intake & Output 06/22/20 06/23/20 06/24/20 06:59 06:59 06:59 Intake Total 2202 3127 50 Output Total 262 467 60 Balance 1940 2660 -10 Weight 67.2 kg 70 kg Weight/Height Weight 70 kg Height 5 ft 7 in General appearance: PRESENT: no acute distress, disheveled, thin Head exam: PRESENT: atraumatic, normocephalic Eye exam: PRESENT: conjunctiva pink, EOMI, PERRLA. ABSENT: scleral icterus Ear exam: PRESENT: normal external ear exam Mouth exam: PRESENT: moist, tongue midline Respiratory exam: PRESENT: clear to auscultation dane, decreased breath sounds. ABSENT: rales, rhonchi, wheezes Cardiovascular exam: PRESENT: bradycardia, RRR. ABSENT: diastolic murmur, rubs, systolic murmur GI/Abdominal exam: PRESENT: normal bowel sounds, soft. ABSENT: distended, guarding, mass, organolmegaly, rebound, tenderness Rectal exam: PRESENT: deferred Extremities exam: PRESENT: full ROM. ABSENT: calf tenderness, clubbing, pedal edema Musculoskeletal exam: PRESENT: normal inspection Neurological exam: PRESENT: altered, other - edated and eyes slightly discongugate. Skin exam: PRESENT: dry, intact, warm, other - Wound on L foot.. ABSENT: cyanosis, rash Laboratory/Radiographs Laboratory Results: 06/22/20 05:30 06/22/20 15:05 06/22/20 06/22/20 15:05 15:05 Carbonic Acid 0.87 L HCO3/H2CO3 Ratio 21:1 ABG pH 7.44 ABG pCO2 28.8 L ABG pO2 81.8 ABG HCO3 19.0 L ABG O2 Saturation 96.5 ABG Base Excess -3.7 FiO2 40% Sodium 145.2 H Potassium 4.9 Chloride 112 H Carbon Dioxide 18 L Anion Gap 15 BUN 162 H Creatinine 6.50 H Est GFR ( Amer) 10 L Glucose 219 H Calcium 6.8 L* Magnesium 2.3 06/19/20 13:15 Tracheal Aspirate Gram Stain - Final 06/19/20 13:15 Tracheal Aspirate Sputum Culture - Final Acinetobacter Baumannii/Haem Klebsiella Pneumoniae Greatly Reduced Normal Malathi 06/18/20 06/18/20 06/18/20 14:07 14:07 18:30 Creatine Kinase 992 H 940 H CK-MB (CK-2) 5.14 H Troponin I 0.447 NT-Pro-B Natriuret Pep 06/18/20 06/19/20 06/19/20 19:20 02:33 02:33 Creatine Kinase 883 H CK-MB (CK-2) 8.85 H 21.90 H Troponin I 0.640 4.590 NT-Pro-B Natriuret Pep 06/19/20 06/19/20 06/19/20 05:47 05:47 08:00 Creatine Kinase 814 H CK-MB (CK-2) Cancelled 22.00 H Troponin I Cancelled NT-Pro-B Natriuret Pep 06/19/20 06/19/20 06/19/20 08:00 08:00 14:20 Creatine Kinase 862 H CK-MB (CK-2) Troponin I 8.620 26.900 NT-Pro-B Natriuret Pep 06/19/20 06/20/20 06/20/20 20:25 02:15 08:21 Creatine Kinase CK-MB (CK-2) Troponin I 36.400 31.500 24.700 NT-Pro-B Natriuret Pep 06/20/20 06/20/20 06/21/20 13:45 20:25 05:00 Creatine Kinase CK-MB (CK-2) Troponin I 20.800 17.300 NT-Pro-B Natriuret Pep 7010 H 06/21/20 06/21/20 06/21/20 05:00 07:50 14:00 Creatine Kinase CK-MB (CK-2) Troponin I 10.500 10.300 8.520 NT-Pro-B Natriuret Pep 06/22/20 05:30 Creatine Kinase CK-MB (CK-2) Troponin I NT-Pro-B Natriuret Pep 6320 H Impressions: Head CT 06/18/20 13:05 IMPRESSION: CHRONIC CHANGES OF ATROPHY AND MICROVASCULAR ISCHEMIA. NO ACUTE PROCESS. EVIDENCE OF ACUTE STROKE: NO. KUB X-Ray 06/22/20 00:00 IMPRESSION: NO RADIOGRAPHIC EVIDENCE FOR ACUTE ABDOMINAL DISEASE. Chest X-Ray 06/23/20 05:00 IMPRESSION: Tubes and lines in good positioning Increasing bilateral alveolar and interstitial infiltrates All labs, radiographs, diagnostic studies and EKGs were personally reviewed: Yes In addition, reports of radiographic and diagnostic studies were read: Yes Assessment and Plan - Diagnosis (1) Acute kidney failure Qualifiers: Acute renal failure type: unspecified Qualified Code(s): N17.9 - Acute kidney failure, unspecified Is this a current diagnosis for this admission?: Yes Plan: His U/O is picking up. I've asked Dr. Gan to render an opinion. CR and GFR are improved but still dysfunctional. Does not need dialysis at this time. Recheck labs in AM. (2) Dehydration Is this a current diagnosis for this admission?: Yes Plan: Improving, free water deficit calculated at 8L. (3) Failure to thrive in adult Is this a current diagnosis for this admission?: Yes Plan: This is on going and if he goes home will likely need an APS referral. No allegations of abuse but he does not seem to care well for himself. (4) Non-ST elevated myocardial infarction (non-STEMI) Is this a current diagnosis for this admission?: Yes Plan: Dr. Olvera is helping this aspect. He is only on vasopressin. (5) Thrombocytopenia Is this a current diagnosis for this admission?: Yes Plan: Because of the possibility of HIT he is on argatroban. (6) Aspirated gastric contents in lower respiratory tract Is this a current diagnosis for this admission?: Yes Plan: Given the witnessed aspiration and need for Heimlich at home, his CXR has multilobar involvement C/W aspiration. (7) Altered mental status Qualifiers: Altered mental status type: somnolence Qualified Code(s): R40.0 - Somnolence Is this a current diagnosis for this admission?: Yes Plan: This is likely the result of sedation and renal failure. However the possibility of CPM with his high sodium is possible and the best test for this would be MRI when extubated. Plan Summary: Continue to wean vasopressin, restart TF at lower rate. Wait for him to awaken. Critical Time Critical Time (minutes): 45 Level of Care: ICU Anticipated discharge: SNF Anticipated DC Timeframe: Other -: 1. The care of a critical patient is a dynamic process. This note is a independent sales representative synopsis but static in nature. The timeframe for treatments giv en in order is not necessarily the actual time these treatments may have been done. 2. This patient requires critical care secondary to ongoing requirements for therapy not offered or safe outside the critical care environment. Transfer to a lower level of care will result in altered life or limb morbidity and mortality. 3. Multidisciplinary rounds completed. 4. ABCDE bundle addressed.
[2020-06-23 09:13] LABS: HEMATOCRIT 23.3 % (37.9-51.0); MEAN CORPUSCULAR HEMOGLOBIN 31.2 pg (27.0-33.4); MEAN CORPUSCULAR HGB CONC 34.2 g/dL (32.0-36.0); MEAN CORPUSCULAR VOLUME 91 fl (80-97); RED BLOOD COUNT 2.55 10^6/uL (4.35-5.55); RED CELL DISTRIBUTION WIDTH 16.2 % (11.5-14.0); WHITE BLOOD COUNT 7.6 10^3/uL (4.0-10.5)
[2020-06-23 09:20] LABS: ARTERIAL BLOOD BASE EXCESS -4.8 mmol/L; ARTERIAL BLOOD FIO2 40%; ARTERIAL BLOOD H2CO3 0.79 mmol/L (1.05-1.35); ARTERIAL BLOOD HCO3 18.1 mmol/L (20-24); ARTERIAL BLOOD O2 SATURATION 98.6 % (94-98); ARTERIAL BLOOD PCO2 26.3 mmHg (35-45); ARTERIAL BLOOD PH 7.46 (7.35-7.45); ARTERIAL BLOOD PO2 121.4 mmHg (80-100); ARTERIAL BLOOD TOTAL CO2 18.9 mmol/L (23-27)
[2020-06-23 09:32] LABS: ALBUMIN 2.2 g/dL (3.5-5.0); ALKALINE PHOSPHATASE 180 U/L (38-126); ANION GAP 17 (5-19); ASPARTATE AMINO TRANSFERASE 38 U/L (17-59); BILIRUBIN,DIRECT 0.9 mg/dL (0.0-0.4); BILIRUBIN,TOTAL 1.2 mg/dL (0.2-1.3); CARBON DIOXIDE 19 mmol/L (22-30); CHLORIDE 108 mmol/L (98-107); GLUCOSE 131 mg/dL (75-110); PHOSPHORUS 4.7 mg/dL (2.5-4.5); POTASSIUM 4.7 mmol/L (3.6-5.0); TOTAL PROTEIN 4.6 g/dL (6.3-8.2)
[2020-06-23 09:38] LABS: PLATELET COUNT 26 10^3/uL (150-450)
[2020-06-23 09:39] LABS: PREALBUMIN 4.7 mg/dL (17.6-36.0)
[2020-06-23 09:41] LABS: BLOOD UREA NITROGEN 164 mg/dL (7-20)
[2020-06-23 09:42] LABS: ABSOLUTE LYMPHOCYTES# (MANUAL) 1.7 10^3/uL (0.5-4.7); ABSOLUTE MONOCYTES # (MANUAL) 0.2 10^3/uL (0.1-1.4); ANISOCYTOSIS 1+; BAND NEUTROPHILS % (MANUAL) 1 % (3-5); BASOPHILS % (MANUAL) 0 % (0-2); EOSINOPHILS % (MANUAL) 1 % (0-6); LYMPHOCYTES % (MANUAL) 22 % (13-45); MONOCYTES % (MANUAL) 3 % (3-13); NUCLEATED RED BLOOD CELLS 2 /100 WBC (0); PLATELET COMMENT DECREASED; PLATELET LARGE PRESENT; SEGMENTED NEUTROPHILS % (MAN) 73 % (42-78); TOTAL CELLS COUNTED 100
[2020-06-23 09:44] LABS: CALCIUM 6.6 mg/dL (8.4-10.2)
[2020-06-23] MEDS ORDERED: VANCOMYCIN HCL 1,000 MG in DEXTROSE 5%-WATER 250 ML IV SCH (10:00)
[2020-06-23] MEDS: ASPIRIN 81 MG TABLET, CHEWABLE PO SCH ×2 (10:36→10:42)
[2020-06-23] MEDS: PANTOPRAZOLE SODIUM 40 MG VIAL IV SCH (10:36)
[2020-06-23 13:42] LABS: PATH REVIEW PATHOLOGIST REVIEWED
[2020-06-23] MEDS: ALBUMIN HUMAN 12.5 GM/50 ML RTUINJ IV SCH ×2 (15:49→16:38)
--- NOTE | 2020-06-23 16:09 | RADIOLOGY REPORT (SQ) ---
EXAM DESCRIPTION: U/S RETROPERITON (RENAL/AORTA) IMAGES COMPLETED DATE/TIME: 06/23/2020 3:58 pm REASON FOR STUDY: ANA COMPARISON: None. TECHNIQUE: Dynamic and static grayscale images acquired of the kidneys and bladder and recorded on P ACS. Additional selected color Doppler and spectral images recorded. LIMITATIONS: Study done portable. Patient unable to follow commands. FINDINGS: RIGHT KIDNEY: Normal size. Multiple dilated fluid lesions measuring up to 6 cm. Cannot e xclude chronic hydronephrosis. LEFT KIDNEY: Normal size. Normal echogenicity. No solid or suspicious masses. No hydronephrosis. No calcifications. BLADDER: Zapata catheter. OTHER FINDINGS: No other significant finding. IMPRESSION: Multiple right renal cysts versus chronic hydronephrosis. TECHNICAL DOCUMENTATION: JOB ID: [id number] 2010 [employer]- All Rights Reserved Reading location - IP/workstation name: [email or web address]
--- NOTE | 2020-06-23 16:23 | Progress Note ---
Provider Note Provider Note: CARDIOLOGY PROGRESS NOTE by Dr. Harriet Mclean on 06/23/2020. SUBJECTIVE: The patient showed some slight improvement but still intubated and sedated. There is no atrial or ventricular arrhythmias seen on the monitor although the morning EKG shows sinus arrhythmia. The patient sodium is coming down. His troponin is trending down the patient's blood pressure is also improved with vasopressin he is now on Levophed at 2mcg/min. This will also be weaned off as per the patient's blood pressure. Nephrology has seen the patient. Nephrology consult appreciated. At present no need for renal replacement as per nephrology. Orders have been given for diuresis. PHYSICAL EXAMINATION: The patient appears to be chronically ill. Selected Entries 06/23/20 06/23/20 06/23/20 16:00 16:48 17:00 Temperature 97.3 F 97.5 F Heart Rate ( 61 60 Monitors) Respiratory 19 Rate Blood Pressure 101/51 L Blood Pressure 67 Mean O2 Sat by Pulse 97 98 Oximetry Oxygen Delivery Mechanical Method ( Ventilator includes room air) Fraction of 35 Inspired Oxygen (FIO2) PHYSICAL EXAMINATION: The patient is intubated and sedated. HEAD: Is atraumatic normocephalic. EYES: Pupils are equal round reactive to light. ENT is negative. Neck is supple. There is no JVD. Carotids are equal there is no bruit. Trachea central. Lungs there is a few bibasilar crackles right crackles. Rest of the lungs are clear. HEART: S1-S2 is heard. There is no S3 gallop. There is no S4 gallop. There is systolic murmur left sternal border and the apex there is no rub. ABDOMEN: Is soft. There is no hepatosplenomegaly. Bowel sounds are heard. EXTREMITIES: Femorals felt. There is no femoral bruits. There is no pedal edema. There is no DVT or cellulitis. Leg pulses slightly diminished. There is no cyanosis or clubbing. [employer] and psychiatric not examined since the patient intubated and sedated. His 24-hour intake is 3167 mL. Output is 467 mL. Labs- All tests 24 hr 06/19/20 06/23/20 06/23/20 15:50 06:40 06:40 WBC 7.6 RBC 2.55 L Hgb 8.0 L Hct 23.3 L MCV 91 MCH 31.2 MCHC 34.2 RDW 16.2 H Plt Count 26 L* Lymph % (Auto) Not Reportable Aiken % (Auto) Not Reportable Eos % (Auto) Not Reportable Baso % (Auto) Not Reportable Absolute Neuts (auto) Not Reportable Absolute Lymphs (auto) Not Reportable Absolute Monos (auto) Not Reportable Absolute Eos (auto) Not Reportable Absolute Basos (auto) Not Reportable Total Counted 100 Seg Neutrophils % Not Reportable Seg Neuts % (Manual) 73 Band Neutrophils % 1 L Lymphocytes % (Manual) 22 Monocytes % (Manual) 3 Eosinophils % (Manual) 1 Basophils % (Manual) 0 Abs Neuts (Manual) 5.6 Abs Lymphs (Manual) 1.7 Abs Monocytes (Manual) 0.2 Absolute Eos (Manual) 0.1 Abs Basophils (Manual) 0.0 Nucleated RBCs 2 Large Platelets PRESENT Platelet Comment DECREASED Anisocytosis 1+ ESR APTT Carbonic Acid 0.79 L HCO3/H2CO3 Ratio 22:1 ABG pH 7.46 H ABG pCO2 26.3 L ABG pO2 121.4 H ABG HCO3 18.1 L ABG Total CO2 18.9 L ABG O2 Saturation 98.6 H ABG Base Excess -4.8 FiO2 40% Sodium Potassium Chloride Carbon Dioxide Anion Gap BUN Creatinine Est GFR ( Amer) Est GFR (MDRD) Non-Af Glucose POC Glucose Calcium Ionized Calcium [place] Phosphorus Magnesium Total Bilirubin Direct Bilirubin Neonat Total Bilirubin Neonat Direct Bilirubin Neonat Indirect Bili AST ALT Alkaline Phosphatase Lactate Dehydrogenase Troponin I Total Protein Albumin Prealbumin Procalcitonin 23.50 H Urine Color Urine Appearance Urine pH Ur Specific [place] Urine Protein Urine Glucose (UA) Urine Ketones Urine Blood Urine Nitrite Urine Bilirubin Urine Urobilinogen Ur Leukocyte Esterase Urine WBC (Auto) Urine RBC (Auto) Squamous Epi Cells Auto Urine Mucus (Auto) Urine Creatinine Protein/Creatinin Ratio Urine Total Protein Urine Ascorbic Acid HIV 1&2 Antibody Slides for Path Review PATHOLOGIST REVIEWED 06/23/20 06/23/20 06/23/20 06:40 06:40 06:40 WBC RBC Hgb Hct MCV MCH MCHC RDW Plt Count Lymph % (Auto) Aiken % (Auto) Eos % (Auto) Baso % (Auto) Absolute Neuts (auto) Absolute Lymphs (auto) Absolute Monos (auto) Absolute Eos (auto) Absolute Basos (auto) Total Counted Seg Neutrophils % Seg Neuts % (Manual) Band Neutrophils % Lymphocytes % (Manual) Monocytes % (Manual) Eosinophils % (Manual) Basophils % (Manual) Abs Neuts (Manual) Abs Lymphs (Manual) Abs Monocytes (Manual) Absolute Eos (Manual) Abs Basophils (Manual) Nucleated RBCs Large Platelets Platelet Comment Anisocytosis ESR APTT Carbonic Acid HCO3/H2CO3 Ratio ABG pH ABG pCO2 ABG pO2 ABG HCO3 ABG Total CO2 ABG O2 Saturation ABG Base Excess FiO2 Sodium 144.2 Potassium 4.7 Chloride 108 H Carbon Dioxide 19 L Anion Gap 17 BUN 164 H Creatinine 6.68 H Est GFR ( Amer) 10 L Est GFR (MDRD) Non-Af 8 L Glucose 131 H POC Glucose Calcium 6.6 L* Ionized Calcium Akila 0.90 L Phosphorus 4.7 H Magnesium 2.4 H Total Bilirubin 1.2 Direct Bilirubin 0.9 H Neonat Total Bilirubin Not Reportable Neonat Direct Bilirubin Not Reportable Neonat Indirect Bili Not Reportable AST 38 ALT 22 Alkaline Phosphatase 180 H Lactate Dehydrogenase Troponin I 4.550 Total Protein 4.6 L Albumin 2.2 L Prealbumin 4.7 L Procalcitonin Urine Color Urine Appearance Urine pH Ur Specific [place] Urine Protein Urine Glucose (UA) Urine Ketones Urine Blood Urine Nitrite Urine Bilirubin Urine Urobilinogen Ur Leukocyte Esterase Urine WBC (Auto) Urine RBC (Auto) Squamous Epi Cells Auto Urine Mucus (Auto) Urine Creatinine Protein/Creatinin Ratio Urine Total Protein Urine Ascorbic Acid HIV 1&2 Antibody Slides for Path Review 06/23/20 06/23/20 06/23/20 16:10 16:10 16:10 WBC RBC Hgb Hct MCV MCH MCHC RDW Plt Count Lymph % (Auto) Aiken % (Auto) Eos % (Auto) Baso % (Auto) Absolute Neuts (auto) Absolute Lymphs (auto) Absolute Monos (auto) Absolute Eos (auto) Absolute Basos (auto) Total Counted Seg Neutrophils % Seg Neuts % (Manual) Band Neutrophils % Lymphocytes % (Manual) Monocytes % (Manual) Eosinophils % (Manual) Basophils % (Manual) Abs Neuts (Manual) Abs Lymphs (Manual) Abs Monocytes (Manual) Absolute Eos (Manual) Abs Basophils (Manual) Nucleated RBCs Large Platelets Platelet Comment Anisocytosis ESR 96 H APTT Carbonic Acid HCO3/H2CO3 Ratio ABG pH ABG pCO2 ABG pO2 ABG HCO3 ABG Total CO2 ABG O2 Saturation ABG Base Excess FiO2 Sodium Potassium Chloride Carbon Dioxide Anion Gap BUN Creatinine Est GFR ( Amer) Est GFR (MDRD) Non-Af Glucose POC Glucose Calcium Ionized Calcium [place] Phosphorus Magnesium Total Bilirubin Direct Bilirubin Neonat Total Bilirubin Neonat Direct Bilirubin Neonat Indirect Bili AST ALT Alkaline Phosphatase Lactate Dehydrogenase 382 H Troponin I Total Protein Albumin Prealbumin Procalcitonin Urine Color YELLOW Urine Appearance CLEAR Urine pH 5.0 Ur Specific [place] 1.016 Urine Protein 100 H Urine Glucose (UA) NEGATIVE Urine Ketones NEGATIVE Urine Blood LARGE H Urine Nitrite NEGATIVE Urine Bilirubin NEGATIVE Urine Urobilinogen NEGATIVE Ur Leukocyte Esterase NEGATIVE Urine WBC (Auto) 2 Urine RBC (Auto) 1 Squamous Epi Cells Auto <1 Urine Mucus (Auto) RARE Urine Creatinine Protein/Creatinin Ratio Urine Total Protein Urine Ascorbic Acid NEGATIVE HIV 1&2 Antibody NEGATIVE Slides for Path Review 06/23/20 06/23/20 06/23/20 16:10 16:50 16:51 WBC RBC Hgb Hct MCV MCH MCHC RDW Plt Count Lymph % (Auto) Aiken % (Auto) Eos % (Auto) Baso % (Auto) Absolute Neuts (auto) Absolute Lymphs (auto) Absolute Monos (auto) Absolute Eos (auto) Absolute Basos (auto) Total Counted Seg Neutrophils % Seg Neuts % (Manual) Band Neutrophils % Lymphocytes % (Manual) Monocytes % (Manual) Eosinophils % (Manual) Basophils % (Manual) Abs Neuts (Manual) Abs Lymphs (Manual) Abs Monocytes (Manual) Absolute Eos (Manual) Abs Basophils (Manual) Nucleated RBCs Large Platelets Platelet Comment Anisocytosis ESR APTT Carbonic Acid 1.11 HCO3/H2CO3 Ratio 19:1 ABG pH 7.38 ABG pCO2 36.9 ABG pO2 88.3 ABG HCO3 21.2 ABG Total CO2 22.4 L ABG O2 Saturation 96.6 ABG Base Excess -3.6 FiO2 35% Sodium Potassium Chloride Carbon Dioxide Anion Gap BUN Creatinine Est GFR ( Amer) Est GFR (MDRD) Non-Af Glucose POC Glucose 87 Calcium Ionized Calcium [place] Phosphorus Magnesium Total Bilirubin Direct Bilirubin Neonat Total Bilirubin Neonat Direct Bilirubin Neonat Indirect Bili AST ALT Alkaline Phosphatase Lactate Dehydrogenase Troponin I Total Protein Albumin Prealbumin Procalcitonin Urine Color Urine Appearance Urine pH Ur Specific [place] Urine Protein Urine Glucose (UA) Urine Ketones Urine Blood Urine Nitrite Urine Bilirubin Urine Urobilinogen Ur Leukocyte Esterase Urine WBC (Auto) Urine RBC (Auto) Squamous Epi Cells Auto Urine Mucus (Auto) Urine Creatinine 58.6 Protein/Creatinin Ratio 1.4 H Urine Total Protein 80.4 H Urine Ascorbic Acid HIV 1&2 Antibody Slides for Path Review 06/23/20 17:40 WBC RBC Hgb Hct MCV MCH MCHC RDW Plt Count Lymph % (Auto) Aiken % (Auto) Eos % (Auto) Baso % (Auto) Absolute Neuts (auto) Absolute Lymphs (auto) Absolute Monos (auto) Absolute Eos (auto) Absolute Basos (auto) Total Counted Seg Neutrophils % Seg Neuts % (Manual) Band Neutrophils % Lymphocytes % (Manual) Monocytes % (Manual) Eosinophils % (Manual) Basophils % (Manual) Abs Neuts (Manual) Abs Lymphs (Manual) Abs Monocytes (Manual) Absolute Eos (Manual) Abs Basophils (Manual) Nucleated RBCs Large Platelets Platelet Comment Anisocytosis ESR APTT 73.6 H Carbonic Acid HCO3/H2CO3 Ratio ABG pH ABG pCO2 ABG pO2 ABG HCO3 ABG Total CO2 ABG O2 Saturation ABG Base Excess FiO2 Sodium Potassium Chloride Carbon Dioxide Anion Gap BUN Creatinine Est GFR ( Amer) Est GFR (MDRD) Non-Af Glucose POC Glucose Calcium Ionized Calcium [place] Phosphorus Magnesium Total Bilirubin Direct Bilirubin Neonat Total Bilirubin Neonat Direct Bilirubin Neonat Indirect Bili AST ALT Alkaline Phosphatase Lactate Dehydrogenase Troponin I Total Protein Albumin Prealbumin Procalcitonin Urine Color Urine Appearance Urine pH Ur Specific [place] Urine Protein Urine Glucose (UA) Urine Ketones Urine Blood Urine Nitrite Urine Bilirubin Urine Urobilinogen Ur Leukocyte Esterase Urine WBC (Auto) Urine RBC (Auto) Squamous Epi Cells Auto Urine Mucus (Auto) Urine Creatinine Protein/Creatinin Ratio Urine Total Protein Urine Ascorbic Acid HIV 1&2 Antibody Slides for Path Review Chest X-Ray 06/18/20 13:05 IMPRESSION: BILATERAL UPPER LUNG OPACITIES, POSSIBLY DUE TO PNEUMONIA. UNDERLYING PULMONARY MASSES CANNOT BE EXCLUDED. Head CT 06/18/20 13:05 IMPRESSION: CHRONIC CHANGES OF ATROPHY AND MICROVASCULAR ISCHEMIA. NO ACUTE PROCESS. EVIDENCE OF ACUTE STROKE: NO. Chest X-Ray 06/18/20 15:29 IMPRESSION: Support lines and tubes are in satisfactory position. Persistent diffuse upper lobe infiltrates. Minimal right lower lobe airspace disease. Chest X-Ray 06/20/20 05:00 IMPRESSION: STABLE APPEARANCE OF THE CHEST. SUPPORT DEVICES UNCHANGED. Chest X-Ray 06/21/20 05:00 IMPRESSION: Parenchymal opacities with some improvement particularly since 06/18/2020 Acute appearing lower right rib fractures. Unchanged from 06/18/2020. SUPPORT DEVICE(S) IN EXPECTED LOCATIONS. Chest X-Ray 06/21/20 20:31 IMPRESSION: Enteric tube courses below the left hemidiaphragm out of the [id number]. Consider abdominal radiographs for complete evaluation. KUB X-Ray 06/22/20 00:00 IMPRESSION: NO RADIOGRAPHIC EVIDENCE FOR ACUTE ABDOMINAL DISEASE. Chest X-Ray 06/22/20 05:00 IMPRESSION: Stable parenchymal opacities without improvement. SUPPORT DEVICE(S) IN EXPECTED LOCATIONS. Renal Ultrasound 06/23/20 00:00 IMPRESSION: Multiple right renal cysts versus chronic hydronephrosis. Chest X-Ray 06/23/20 05:00 IMPRESSION: Tubes and lines in good positioning Increasing bilateral alveolar and interstitial infiltrates IMPRESSION/RECOMMENDATION: 1. Significantly elevated troponin I albeit with no EKG changes. Since the patient cannot give a history although this may all be due to troponin leak due to hypotension/shock, severe dehydration and possibly sepsis would at least place the patient on IV heparin drip for at least 48 hours. Unfortunately due to the patient's being shocked cannot use beta-blockers or nitrates. Consider aspirin by her NG tube or as a suppository. Troponin is still elevated. 2. Shock is mostly combination of dehydration, and sepsis and secondary to severe acidosis. Continue IV Levophed for now consider starting the patient on vasopressin drip. 3. Acute renal failure: Continue hydration. Still no significant improvement in urine output., But the creatinine is coming down slightly. 4. Severe hypernatremia: Continue gentle hydration 5. Bibasilar pneumonia: Continue antibiotics 6. Prior history of CVA. Current CT scan does not show any new CVA. 7. History of hypertension: At present patient is requiring inotropes to keep h is blood pressure up. 8. History of dysphagia Medications reviewed. Medical regimen management plan discussed with the supervisor pipe finishing. Medical decision making hours of moderate complexity since the p atient's of all inotropes except vasopressin. 40 minutes spent on this patient with more than 50% time spent in direct patient care. Will follow.
[2020-06-23 16:38] LABS: APPEARANCE,URINE CLEAR; BILIRUBIN,URINE NEGATIVE (NEGATIVE); COLOR,URINE YELLOW; GLUCOSE, URINE NEGATIVE (NEGATIVE); KETONES,URINE NEGATIVE (NEGATIVE); LEUKOCYTE ESTERASE,URINE NEGATIVE (NEGATIVE); NITRITE,URINE NEGATIVE (NEGATIVE); PROTEIN,URINE 100 mg/dL (NEGATIVE); URINE SPECIFIC GRAVITY 1.016; UROBILINOGEN,URINE NEGATIVE mg/dL (<2.0)
[2020-06-23 16:53] LABS: UR PRO/CREAT RATIO RESULT 1.4 mg/mg (0.0-0.2); URINE CREATININE 58.6 mg/dL (22-328); URINE PROTEIN 80.4 mg/dL (<12)
[2020-06-23 17:13] LABS: ARTERIAL BLOOD BASE EXCESS -3.6 mmol/L; ARTERIAL BLOOD H2CO3 1.11 mmol/L (1.05-1.35); ARTERIAL BLOOD HCO3 21.2 mmol/L (20-24); ARTERIAL BLOOD O2 SATURATION 96.6 % (94-98); ARTERIAL BLOOD PCO2 36.9 mmHg (35-45); ARTERIAL BLOOD PH 7.38 (7.35-7.45); ARTERIAL BLOOD PO2 88.3 mmHg (80-100); ARTERIAL BLOOD TOTAL CO2 22.4 mmol/L (23-27)
[2020-06-23 17:15] LABS: ARTERIAL BLOOD FIO2 35%
[2020-06-23] MEDS: AZITHROMYCIN 500 MG in DEXTROSE 5%-WATER 250 ML IV SCH (17:19)
[2020-06-23] MEDS ORDERED: FUROSEMIDE INJ/PF 40 MG/4 ML SDV ONE (17:19)
--- NOTE | 2020-06-23 18:11 | PDOC CONSULTATION ---
Consultation Consult Date: 06/23/20 Provider Consulted: HARJEET JEFFERSON Consult reason:: ANA History of Present Illness Admission Date/PCP: 06/18/20 16:42 History of Present Illness: ALVARO SANDRA is a 65 year old male gentleman admitted on 06/18/2020 due to acute respiratory failure, severe dehydration associated with hypovolemic shock, hypernatremia and altered mental status. Patient has been intubated since admission and history is obtained from records and the patient's son, Alexis singh. Apparently the patient has choking episode 5 days prior to admission for which his son Alvaro had done successfully Heimlich maneuver. For about a week the patient's oral intake of solid and liquid has been diminished. He confirmed that the patient does not regularly see a physician. He was at [facility] emergency room 1 and half months ago for the same choking episode. On admission the patient has a serum sodium of 186, BUN of 149, and creatinine of 9.68 with bicarbonate of 13. Patient was also relatively hypotensive. He was intubated and admitted to the ICU. He was given fluid resuscitation to correct fluid deficit. He has been on vasopressors since admission for hypotension to include norepinephrine, dobutamine and now vasopressin. He developed ventricular arrhythmia at one point. He also has been on bicarbonate drip. He is also being given antibiotics for bilateral pneumonia and possible aspiration. Patient also was noted to have elevated troponin for which he was initiated on heparin drip and it infrastructure consultant, Dr. Mclean consulted. Since his platelets started to go down the heparin drip was changed to argatroban. Heparin-induced platelet antibody still pending. Patient is also significantly anemic. In terms of the kidney function, his BUN and creatinine remains to be elevated although slightly better than admission. Currently he has a BUN of 164, creatinine of 6.68 with EGFR of 8. His last creatinine on records here was from July 2015 with creatinine of 1.32. He has been oliguric with urine output ranging anywhere between 200-400. His cumulative intake and output balance is approximately +19 L since admission. His urinalysis from admission showed positive protein of 100 with moderate blood and some WBC and RBCs. Vancomycin trough level on June 21 was 7.0 and vancomycin was subsequently discontinued. According to Alvaro, patient's son he is not aware of any previous kidney problems nor kidney stones. Son admits some and note of incontinence. He said the patient ate at and drinks decently until about 1 week prior to admission. Past Medical History Cardiac Medical History: Reports: Hypertension-primary Neurological Medical History: Reports: Ischemic CVA, Other - Dysphagia Musculoskeltal Medical History: Reports: Other - Frequent falls Past Surgical History Past Surgical History: Reports: None Social History Information Source: Relative Lives with: Family - Lives with son Smoking Status: Former Smoker Electronic Cigarette use?: No Frequency of Alcohol Use: Heavy - Quit 5 years ago Hx Recreational Drug Use: No Hx Prescription Drug Abuse: No - Advance Directive Resuscitation Status: Full Code Family History Family History: Hypertension - Parents Family History: Son reports no family history of kidney disease Parental Family History Reviewed: Yes Children Family History Reviewed: Yes Sibling(s) Family History Reviewed.: Yes Medication/Allergy Home Medications: No Home Medications 08/11/15 Allergies/Adverse Reactions: Penicillins Allergy (Verified 06/18/20 12:57) Review of Systems ROS unobtainable: Due to endotracheal tube, Due to mental status Physical Exam Vital Signs: Temp Pulse Resp BP Pulse Ox 97.0 F 58 L 9 L 97/49 L 96 06/23/20 14:33 06/23/20 09:07 06/23/20 14:33 06/23/20 14:33 06/23/20 14:33 Intake & Output 06/22/20 06/23/20 06/24/20 06:59 06:59 06:59 Intake Total 2202 3167 154 Output Total 262 467 430 Balance 1940 2700 -276 Weight 67.2 kg 70 kg Exam: General appearance: Intubated, obtunded without sedation, fairly developed and fairly nourished Head exam: PRESENT: atraumatic, normocephalic Eye exam: PRESENT: Eyes closed Mouth exam: PRESENT: moist, neck supple, tongue midline Neck exam: PRESENT: full ROM. ABSENT: carotid bruit, JVD, lymphadenopathy, thyromegaly Respiratory exam: PRESENT: clear to auscultation bilaterally. ABSENT: rales, rhonchi, stridor, wheezes Cardiovascular exam: PRESENT: RRR, +S1, +S2. ABSENT: systolic murmur Pulses: PRESENT: normal radial pulses, normal dorsalis pedis pulses GI/Abdominal exam: PRESENT: normal bowel sounds, soft. ABSENT: guarding, mass, tenderness Rectal exam: Deferred Extremities exam: PRESENT: Positive bilateral upper extremities and grade 2 bilateral lower extremities pitting edema ABSENT: calf tenderness Musculoskeletal: PRESENT: No spontaneous movements Neurological exam: PRESENT: Obtunded without sedation Psychiatric exam: PRESENT: Cannot be assessed at this time Skin exam: PRESENT: intact, dry, warm. ABSENT: rash Results Laboratory Results: 06/23/20 06:40 06/23/20 06:40 06/22/20 06/22/20 06/23/20 15:05 15:05 06:40 WBC RBC Hgb Hct MCV MCH MCHC RDW Plt Count Seg Neutrophils % Carbonic Acid 0.87 L 0.79 L HCO3/H2CO3 Ratio 21:1 22:1 ABG pH 7.44 7.46 H ABG pCO2 28.8 L 26.3 L ABG pO2 81.8 121.4 H ABG HCO3 19.0 L 18.1 L ABG O2 Saturation 96.5 98.6 H ABG Base Excess -3.7 -4.8 FiO2 40% 40% Sodium 145.2 H Potassium 4.9 Chloride 112 H Carbon Dioxide 18 L Anion Gap 15 BUN 162 H Creatinine 6.50 H Est GFR ( Amer) 10 L Glucose 219 H Calcium 6.8 L* Ionized Calcium Akila Phosphorus Magnesium 2.3 Total Bilirubin AST Alkaline Phosphatase Total Protein Albumin Prealbumin 06/23/20 06/23/20 06/23/20 06:40 06:40 06:40 WBC 7.6 RBC 2.55 L Hgb 8.0 L Hct 23.3 L MCV 91 MCH 31.2 MCHC 34.2 RDW 16.2 H Plt Count 26 L* Seg Neutrophils % Not Reportable Carbonic Acid HCO3/H2CO3 Ratio ABG pH ABG pCO2 ABG pO2 ABG HCO3 ABG O2 Saturation ABG Base Excess FiO2 Sodium 144.2 Potassium 4.7 Chloride 108 H Carbon Dioxide 19 L Anion Gap 17 BUN 164 H Creatinine 6.68 H Est GFR ( Amer) 10 L Glucose 131 H Calcium 6.6 L* Ionized Calcium Akila 0.90 L Phosphorus 4.7 H Magnesium 2.4 H Total Bilirubin 1.2 AST 38 Alkaline Phosphatase 180 H Total Protein 4.6 L Albumin 2.2 L Prealbumin 4.7 L 06/19/20 13:15 Tracheal Aspirate Gram Stain - Final 06/19/20 13:15 Tracheal Aspirate Sputum Culture - Final Acinetobacter Baumannii/Haem Klebsiella Pneumoniae Greatly Reduced Normal Malathi 06/18/20 06/18/20 06/18/20 14:07 14:07 18:30 Creatine Kinase 992 H 940 H CK-MB (CK-2) 5.14 H Troponin I 0.447 NT-Pro-B Natriuret Pep 06/18/20 06/19/20 06/19/20 19:20 02:33 02:33 Creatine Kinase 883 H CK-MB (CK-2) 8.85 H 21.90 H Troponin I 0.640 4.590 NT-Pro-B Natriuret Pep 06/19/20 06/19/20 06/19/20 05:47 05:47 08:00 Creatine Kinase 814 H CK-MB (CK-2) Cancelled 22.00 H Troponin I Cancelled NT-Pro-B Natriuret Pep 06/19/20 06/19/20 06/19/20 08:00 08:00 14:20 Creatine Kinase 862 H CK-MB (CK-2) Troponin I 8.620 26.900 NT-Pro-B Natriuret Pep 06/19/20 06/20/20 06/20/20 20:25 02:15 08:21 Creatine Kinase CK-MB (CK-2) Troponin I 36.400 31.500 24.700 NT-Pro-B Natriuret Pep 06/20/20 06/20/20 06/21/20 13:45 20:25 05:00 Creatine Kinase CK-MB (CK-2) Troponin I 20.800 17.300 NT-Pro-B Natriuret Pep 7010 H 06/21/20 06/21/20 06/21/20 05:00 07:50 14:00 Creatine Kinase CK-MB (CK-2) Troponin I 10.500 10.300 8.520 NT-Pro-B Natriuret Pep 06/22/20 06/23/20 05:30 06:40 Creatine Kinase CK-MB (CK-2) Troponin I 4.550 NT-Pro-B Natriuret Pep 6320 H Impressions: Head CT 06/18/20 13:05 IMPRESSION: CHRONIC CHANGES OF ATROPHY AND MICROVASCULAR ISCHEMIA. NO ACUTE PROCESS. EVIDENCE OF ACUTE STROKE: NO. KUB X-Ray 06/22/20 00:00 IMPRESSION: NO RADIOGRAPHIC EVIDENCE FOR ACUTE ABDOMINAL DISEASE. Chest X-Ray 06/23/20 05:00 IMPRESSION: Tubes and lines in good positioning Increasing bilateral alveolar and interstitial infiltrates Assessment & Plan - Diagnosis (1) Acute kidney injury Is this a current diagnosis for this admission?: Yes Plan: Unknown baseline kidney function, last creatinine on record was in 2014 with creatinine of 1.32. Patient continues to be oliguric despite fluid resuscitation with continued elevated BUN and creatinine. His creatinine has gone from admission of 9.68 to current of 6.68. He has associated proteinuria and microhematuria on admission. Differential diagnosis include ATN secondary t o shock and hypotension, needs to rule out glomerular diseases/vasculitis, consider thrombotic microangiopathy with presence of thrombocytopenia and anemia, needs to rule out acute obstructive uropathy. For work-up I will order kidney ultrasound, serologies to rule out the above to include LDH, RAJEEV, ANCA, anti-GBM, hepatitis B and C panels, ESR, C3/C4, cryoglobulin, HIV, and Yu TS 13. There is no indication for acute renal replacement therapy at this time however if the patient's kidney function continued to get worse he will need acute renal replacement therapy at one point. I talked to the patient's son Alvaro about renal replacement therapy. I discussed with him the procedure, benefits and risks to include infection, bleeding, hemodynamic instability and cardiac arrest rarely. He states that if needed he will agree to have it done. For today we will give the patient 25 g of albumin followed by Lasix 40 mg IV to see if he responds. Continue to monitor kidney function. Adjust medications accordingly per kidney function. Avoid nephrotoxic medications. (2) Acute hypoxemic respiratory failure Is this a current diagnosis for this admission?: Yes Plan: On mechanical ventilation per electrical engineer. (3) Shock Is this a current diagnosis for this admission?: Yes Plan: Still requiring Levophed and vasopressin. (4) Metabolic acidosis Is this a current diagnosis for this admission?: Yes Plan: Mild anion gap. Bicarbonate has gone from 13-19. Continue bicarbonate drip for now. (5) Elevated troponin Is this a current diagnosis for this admission?: Yes Plan: Bulb Grader, Dr. Mclean following the patient. Echocardiogram on 06/19/2020 showed LVEF of 60%, grade 1/4 mild diastolic dysfunction with moderate pulmonary hypertension. (6) Thrombocytopenia Is this a current diagnosis for this admission?: Yes Plan: Differential diagnosis includes heparin-induced thrombocytopenia versus the possibility of thrombotic microangiopathy. (7) Anemia Is this a current diagnosis for this admission?: Yes Plan: Acute drop in the hemoglobin throughout hospitalization is most likely secondary to volume resuscitation however also needs to rule out other causes including he molytic anemia in the presence of schistocytes noted 1 day. Check LDH. (8) Hypocalcemia Is this a current diagnosis for this admission?: Yes Plan: Replace as necessary. (9) Bilateral pneumonia Qualifiers: Pneumonia type: due to Haemophilus influenzae Lung location: unspecified part of lung Qualified Code(s): J14 - Pneumonia due to Hemophilus influenzae Is this a current diagnosis for this admission?: Yes Plan: 06/18/2020 blood culture showed Haemophilus influenzae. Sputum culture on 06/19/20 showed Acinetobacter and Klebsiella. By history the patient has been aspirating the causing aspiration pneumonia. Patient was given previously vancomycin, cefepime, Flagyl, Rocephin and clindamycin. Currently on cefepime and azithromycin IV. (10) Altered mental status Qualifiers: Altered mental status type: somnolence Qualified Code(s): R40.0 - Somnolence Is this a current diagnosis for this admission?: Yes Plan: On presentation most likely secondary to uremia, hypernatremia, severe acidosis causing metabolic encephalopathy. Currently obtunded without sedation. (11) Hypernatremia Is this a current diagnosis for this admission?: Yes Plan: Resolved. (12) Dehydration Is this a current diagnosis for this admission?: Yes Plan: Resolved. - Notes Notes: Thank you very much for this consultation. Discussed with Dr. Terry, electrical engineer. Also discussed the assessment and recommendations with the patient's son, Alvaro SandraJr. We will follow the patient with you.
[2020-06-23] MEDS ORDERED: FUROSEMIDE INJ/PF 40 MG/4 ML SDV IV ONE (18:30)
[2020-06-23] MEDS ORDERED: CALCIUM GLUC IN NACL, ISO-OSM 1 GM/50 ML RTUPB IV ONE (22:17)
--- NOTE | 2020-06-23 22:55 | EKG REPORT ---
SEVERITY:- ABNORMAL ECG - ECTOPIC ATRIAL RHYTHM BORDERLINE RIGHT AXIS DEVIATION LOW VOLTAGE IN FRONTAL LEADS BORDERLINE T ABNORMALITIES, ANT-LAT LEADS BORDERLINE PROLONGED QT INTERVAL : Confirmed by: Cruzito Gay 23-Jun-2020 22:53:25
[2020-06-24] MEDS: DEXTROSE 5%-WATER 1000 ML 1,000 ML with SODIUM BICARBONATE 100 MEQ IV PRN ×2 (04:40)
[2020-06-24 05:57] LABS: ANION GAP 15 (5-19); CARBON DIOXIDE 23 mmol/L (22-30); CHLORIDE 108 mmol/L (98-107); POTASSIUM 4.4 mmol/L (3.6-5.0)
[2020-06-24 06:00] LABS: BLOOD UREA NITROGEN 171 mg/dL (7-20); GLUCOSE 63 mg/dL (75-110)
[2020-06-24 06:01] LABS: CALCIUM 6.2 mg/dL (8.4-10.2)
[2020-06-24] MEDS ORDERED: CALCIUM GLUC IN NACL, ISO-OSM 1 GM/50 ML RTUPB IV ONE (06:04)
[2020-06-24 06:10] LABS: ARTERIAL BLOOD BASE EXCESS -2.3 mmol/L; ARTERIAL BLOOD H2CO3 1.07 mmol/L (1.05-1.35); ARTERIAL BLOOD O2 SATURATION 96.5 % (94-98); ARTERIAL BLOOD PCO2 35.6 mmHg (35-45); ARTERIAL BLOOD PH 7.41 (7.35-7.45); ARTERIAL BLOOD PO2 83.9 mmHg (80-100); ARTERIAL BLOOD TOTAL CO2 23.1 mmol/L (23-27)
[2020-06-24 06:23] LABS: ARTERIAL BLOOD FIO2 35%
[2020-06-24] MEDS: TOBRAMYCIN SULFATE NEB 40 MG/ML 30 ML NEB SCH ×2 (08:31→20:32)
[2020-06-24] MEDS: ALBUTEROL SULFATE 0.083% NEB 2.5 MG/3 ML AMPUL NEB PRN (08:31)
[2020-06-24] MEDS: ASPIRIN 81 MG TABLET, CHEWABLE PO SCH (09:27)
[2020-06-24] MEDS: PANTOPRAZOLE SODIUM 40 MG VIAL IV SCH (09:27)
[2020-06-24 11:38] LABS: HEMATOCRIT 22.7 % (37.9-51.0); MEAN CORPUSCULAR HEMOGLOBIN 31.5 pg (27.0-33.4); MEAN CORPUSCULAR HGB CONC 34.6 g/dL (32.0-36.0); MEAN CORPUSCULAR VOLUME 91 fl (80-97); RED BLOOD COUNT 2.49 10^6/uL (4.35-5.55); RED CELL DISTRIBUTION WIDTH 15.4 % (11.5-14.0); WHITE BLOOD COUNT 7.3 10^3/uL (4.0-10.5)
--- NOTE | 2020-06-24 11:58 | PDOC CRITICAL CARE PROG REPORT ---
General Date:: 06/24/20 ICU Day:: 6 Ventilator Day:: 6 Hospital Day:: 6 Resuscitation Status: Full Code Events in the past 12 to 24 Hours:: Off sedation but still not awake. Review of systems relevant to events:: Renal, neurological. Reason for ICU Addmission:: Acute hypoxemic respiratory failure; severe dehydration; hypernatremia; altered mental status. Intubated. - Medications: Medications reviewed and adjusted accordingly: Yes Vasopressors:: None Sedation:: None Physical Exam Vital Signs: Temp Pulse Resp BP Pulse Ox 97.0 F 67 23 H 111/49 L 100 06/24/20 08:00 06/24/20 10:00 06/24/20 10:00 06/24/20 10:00 06/24/20 10:00 Intake & Output 06/23/20 06/24/20 06/25/20 06:59 06:59 06:59 Intake Total 3167 1931 239 Output Total 792 1915 650 Balance 2375 16 -411 Weight 70 kg 68.6 kg 68.8 kg Weight/Height Weight 68.8 kg Height 5 ft 7 in General appearance: PRESENT: no acute distress, thin Head exam: PRESENT: atraumatic, normocephalic Eye exam: PRESENT: conjunctiva pink, EOMI, PERRLA. ABSENT: scleral icterus Ear exam: PRESENT: normal external ear exam Mouth exam: PRESENT: moist, tongue midline Respiratory exam: PRESENT: clear to auscultation dane, decreased breath sounds. ABSENT: rales, rhonchi, wheezes Cardiovascular exam: PRESENT: RRR. ABSENT: diastolic murmur, rubs, systolic murmur GI/Abdominal exam: PRESENT: normal bowel sounds, soft. ABSENT: distended, guarding, mass, organolmegaly, rebound, tenderness Rectal exam: PRESENT: deferred Gentrourinary exam: PRESENT: indwelling catheter Extremities exam: PRESENT: full ROM. ABSENT: calf tenderness, clubbing, pedal edema Musculoskeletal exam: PRESENT: normal inspection Neurological exam: PRESENT: altered, other - He occassionally will open eyes to voice or stimulation. Skin exam: PRESENT: dry, intact, warm. ABSENT: cyanosis, rash Tubes/Lines: PRESENT: Endotracheal Tube, Nasogastic Tube Laboratory/Radiographs Laboratory Results: 06/24/20 03:40 06/23/20 06/23/2006/24/20 16:10 16:50 03:40 Carbonic Acid 1.11 1.07 HCO3/H2CO3 Ratio 19:1 20:1 ABG pH 7.38 7.41 ABG pCO2 36.9 35.6 ABG pO2 88.3 83.9 ABG HCO3 21.2 22.0 ABG O2 Saturation 96.6 96.5 ABG Base Excess -3.6 -2.3 FiO2 35% 35% Sodium Potassium Chloride Carbon Dioxide Anion Gap BUN Creatinine Est GFR ( Amer) Glucose Calcium Ionized Calcium Akila 0.88 L Urine Color YELLOW Urine Appearance CLEAR Urine pH 5.0 Ur Specific [place] 1.016 Urine Protein 100 H Urine Glucose (UA) NEGATIVE Urine Ketones NEGATIVE Urine Blood LARGE H Urine Nitrite NEGATIVE Ur Leukocyte Esterase NEGATIVE Urine WBC (Auto) 2 Urine RBC (Auto) 1 06/24/20 03:40 Carbonic Acid HCO3/H2CO3 Ratio ABG pH ABG pCO2 ABG pO2 ABG HCO3 ABG O2 Saturation ABG Base Excess FiO2 Sodium 145.6 H Potassium 4.4 Chloride 108 H Carbon Dioxide 23 Anion Gap 15 BUN 171 H Creatinine 6.28 H Est GFR ( Amer) 11 L Glucose 63 L Calcium 6.2 L* Ionized Calcium Akila Urine Color Urine Appearance Urine pH Ur Specific [place] Urine Protein Urine Glucose (UA) Urine Ketones Urine Blood Urine Nitrite Ur Leukocyte Esterase Urine WBC (Auto) Urine RBC (Auto) 06/18/20 20:15 Blood Blood Culture - Final NO GROWTH IN 5 DAYS 06/18/20 16:20 Blood Blood Culture (PCR) - Final Haemophilus Influenzae 06/18/20 16:20 Blood Blood Culture - Final Haemophilus Influenzae 06/18/20 06/18/20 06/18/20 14:07 14:07 18:30 Creatine Kinase 992 H 940 H CK-MB (CK-2) 5.14 H Troponin I 0.447 NT-Pro-B Natriuret Pep 06/18/20 06/19/20 06/19/20 19:20 02:33 02:33 Creatine Kinase 883 H CK-MB (CK-2) 8.85 H 21.90 H Troponin I 0.640 4.590 NT-Pro-B Natriuret Pep 06/19/20 06/19/20 06/19/20 05:47 05:47 08:00 Creatine Kinase 814 H CK-MB (CK-2) Cancelled 22.00 H Troponin I Cancelled NT-Pro-B Natriuret Pep 06/19/20 06/19/20 06/19/20 08:00 08:00 14:20 Creatine Kinase 862 H CK-MB (CK-2) Troponin I 8.620 26.900 NT-Pro-B Natriuret Pep 06/19/20 06/20/20 06/20/20 20:25 02:15 08:21 Creatine Kinase CK-MB (CK-2) Troponin I 36.400 31.500 24.700 NT-Pro-B Natriuret Pep 06/20/20 06/20/20 06/21/20 13:45 20:25 05:00 Creatine Kinase CK-MB (CK-2) Troponin I 20.800 17.300 NT-Pro-B Natriuret Pep 7010 H 06/21/20 06/21/20 06/21/20 05:00 07:50 14:00 Creatine Kinase CK-MB (CK-2) Troponin I 10.500 10.300 8.520 NT-Pro-B Natriuret Pep 06/22/20 06/23/20 05:30 06:40 Creatine Kinase CK-MB (CK-2) Troponin I 4.550 NT-Pro-B Natriuret Pep 6320 H Impressions: Head CT 06/18/20 13:05 IMPRESSION: CHRONIC CHANGES OF ATROPHY AND MICROVASCULAR ISCHEMIA. NO ACUTE PROCESS. EVIDENCE OF ACUTE STROKE: NO. KUB X-Ray 06/22/20 00:00 IMPRESSION: NO RADIOGRAPHIC EVIDENCE FOR ACUTE ABDOMINAL DISEASE. Renal Ultrasound 06/23/20 00:00 IMPRESSION: Multiple right renal cysts versus chronic hydronephrosis. Chest X-Ray 06/23/20 05:00 IMPRESSION: Tubes and lines in good positioning Increasing bilateral alveolar and interstitial infiltrates All labs, radiographs, diagnostic studies and EKGs were personally reviewed: Yes In addition, reports of radiographic and diagnostic studies were read: Yes Assessment and Plan - Diagnosis (1) Acute kidney failure Qualifiers: Acute renal failure type: unspecified Qualified Code(s): N17.9 - Acute kidney failure, unspecified Is this a current diagnosis for this admission?: Yes Plan: Cr still 6.2 GFR 9. To be seen by nephrology today. Edging toward dialysis. (2) Dehydration Is this a current diagnosis for this admission?: Yes Plan: Resolved (3) Failure to thrive in adult Is this a current diagnosis for this admission?: Yes Plan: This situation most likely has been going on for quite some time. (4) Non-ST elevated myocardial infarction (non-STEMI) Is this a current diagnosis for this admission?: Yes Plan: Troponin peaked at 36. Now 4.5. Given his renal function this is probably quite low. (5) Thrombocytopenia Is this a current diagnosis for this admission?: Yes Plan: Level only 28. Repeat pending. ? if this is HIT. (6) Aspirated gastric contents in lower respiratory tract Is this a current diagnosis for this admission?: Yes Plan: Resolved (7) Altered mental status Qualifiers: Altered mental status type: somnolence Qualified Code(s): R40.0 - Somnolence Is this a current diagnosis for this admission?: Yes Plan: Despite being off sedation 24 hours or more. He is still obtunded. An MRI would be best but not intubated. Will check head CT today. Critical Time Critical Time (minutes): 35 Level of Care: ICU Anticipated discharge: SNF Anticipated DC Timeframe: Other -: 1. The care of a critical patient is a dynamic process. This note is a traveling sales representative synopsis but static in nature. The timeframe for treatments given in order is not necessarily the actual time these treatments may have been done. 2. This patient requires critical care secondary to ongoing requirements for therapy not offered or safe outside the critical care environment. Transfer to a lower level of care will result in altered life or limb morbidity and mortality. 3. Multidisciplinary rounds completed. 4. ABCDE bundle addressed.
[2020-06-24 12:06] LABS: HEMOGLOBIN 7.8 g/dL (13.5-17.0); PLATELET COUNT 34 10^3/uL (150-450)
[2020-06-24 12:08] LABS: ABSOLUTE MONOCYTES # (MANUAL) 0.1 10^3/uL (0.1-1.4); BAND NEUTROPHILS % (MANUAL) 1 % (3-5); BASOPHILS % (MANUAL) 0 % (0-2); EOSINOPHILS % (MANUAL) 3 % (0-6); LYMPHOCYTES % (MANUAL) 14 % (13-45); MONOCYTES % (MANUAL) 2 % (3-13); SEGMENTED NEUTROPHILS % (MAN) 80 % (42-78); TOTAL CELLS COUNTED 100
[2020-06-24 12:09] LABS: ANISOCYTOSIS SLIGHT
[2020-06-24 12:10] LABS: PLATELET COMMENT DECREASED; ROULEAUX SLIGHT
[2020-06-24] MEDS ORDERED: CALCIUM GLUCONATE 1000 MG/10 ML INJ IV ONE (12:32)
[2020-06-24] MEDS: CALCIUM GLUCONATE 1 GM/NS 50 ML RTU IV SCH ×2 (12:59→14:50)
--- NOTE | 2020-06-24 14:10 | RADIOLOGY REPORT (SQ) ---
EXAM DESCRIPTION: CT HEAD WITHOUT IMAGES COMPLETED DATE/TIME: 06/24/2020 1:53 pm REASON FOR STUDY: Off sedation > 24 hours. Not waking up. COMPARISON: 06/18/2020 TECHNIQUE: Axial images acquired through the brain without intravenous contrast. Images reviewed wi th bone, brain and subdural windows. Additional sagittal and coronal reconstructions were generated. Images stored on PACS. All CT scanners at this facility use dose modulation, iterative reconstruction, and/or weight based d osing when appropriate to reduce radiation dose to as low as reasonably achievable (ALARA). [facility]: Dose Right [facility]: CareDose [facility]: Dose Right [facility]: Teradose 4D [facility]: BookMyShow RADIATION DOSE: CT Rad equipment meets quality standard of care and radiation dose reduction techniq ues were employed. CTDIvol: 49.0 mGy. DLP: 961 mGy-cm. mGy. LIMITATIONS: None. FINDINGS: There has been interval development of large areas of low-attenuation in both cerebral hem ispheres consistent with global anoxia/nonhemorrhagic infarction. Relative sparing of parts of the b ilateral MCA territories as well as sparing of the MARLA territory. Nonhemorrhagic infarction in the r ight cerebellum. IMPRESSION: Extensive acute nonhemorrhagic infarction. EVIDENCE OF ACUTE STROKE: YES. Multiple territories. COMMENT: Quality ID # [id number]: Final reports with documentation of one or more dose reduction techniques (e.g., Automated exposure control, adjustment of the mA and/or kV according to patient size, use of iterative reconstruction technique) TECHNICAL DOCUMENTATION: JOB ID: [id number] 2010 [employer]- All Rights Reserved Reading location - IP/workstation name: [email or web address]
[2020-06-24] MEDS: ALBUMIN HUMAN 12.5 GM/50 ML RTUINJ IV SCH ×3 (14:20→16:04)
[2020-06-24] MEDS: FUROSEMIDE INJ/PF 40 MG/4 ML SDV IV ONE ×2 (14:20→17:05)
[2020-06-24] MEDS ORDERED: TUBERCULIN,PURIF.PROT.DERIV. 5 TU/0.1 ML TEST 1 ML VIAL ID ONE (15:00)
[2020-06-24] MEDS ORDERED: FENTANYL CITRATE INJ/PF 100 MCG/2 ML AMPUL IV ONE (15:08)
--- NOTE | 2020-06-24 16:27 | PDOC PROGRESS REPORT ---
Subjective Date:: 06/24/20 Subjective:: Patient remains to be obtunded and unresponsive without any sedation. He is a s till intubated. Patient responded very well with albumin and furosemide that I gave him yesterday producing about 1915 mL of urine output for the past 24 hours. This morning he already made about 650 mL of urine output. Reason For Visit: ACUTE HYPOXEMIC RESPIRATORY FAILURE; SEVERE Physical Exam Vital Signs: Temp Pulse Resp BP Pulse Ox 97.0 F 67 23 H 111/49 L 99 06/24/20 08:00 06/24/20 10:00 06/24/20 10:00 06/24/20 10:00 06/24/20 12:00 Intake & Output 06/23/20 06/24/20 06/25/20 06:59 06:59 06:59 Intake Total 3167 1931 239 Output Total 792 1915 650 Balance 2375 16 -411 Weight 70 kg 68.6 kg 68.8 kg Exam: General appearance: PRESENT: Intubated Head exam: PRESENT: atraumatic, normocephalic Eye exam: PRESENT: Eyes closed Neck exam: ABSENT: JVD Respiratory exam: PRESENT: Diminished breath sounds. ABSENT: crackles, rales, rhonchi, unlabored, wheezes Cardiovascular exam: PRESENT: Regular rate rhythm -+S1, +S2. ABSENT: diastolic murmur, systolic murmur GI/Abdominal exam: PRESENT: normal bowel sounds, soft. ABSENT: guarding, mass, tenderness Extremities exam: Bilateral upper extremity edema and grade 1 bilateral lower extremity pitting edema Neurological exam: PRESENT: Unresponsive. Skin exam: PRESENT: dry, warm, Results Laboratory Results: 06/24/20 11:21 06/24/20 03:40 06/23/20 06/23/20 06/24/20 16:10 16:50 03:40 WBC RBC Hgb Hct MCV MCH MCHC RDW Plt Count Seg Neutrophils % Carbonic Acid 1.11 1.07 HCO3/H2CO3 Ratio 19:1 20:1 ABG pH 7.38 7.41 ABG pCO2 36.9 35.6 ABG pO2 88.3 83.9 ABG HCO3 21.2 22.0 ABG O2 Saturation 96.6 96.5 ABG Base Excess -3.6 -2.3 FiO2 35% 35% Sodium Potassium Chloride Carbon Dioxide Anion Gap BUN Creatinine Est GFR ( Amer) Glucose Calcium Ionized Calcium Akila 0.88 L Urine Color YELLOW Urine Appearance CLEAR Urine pH 5.0 Ur Specific [place] 1.016 Urine Protein 100 H Urine Glucose (UA) NEGATIVE Urine Ketones NEGATIVE Urine Blood LARGE H Urine Nitrite NEGATIVE Ur Leukocyte Esterase NEGATIVE Urine WBC (Auto) 2 Urine RBC (Auto) 1 06/24/20 06/24/20 03:40 11:21 WBC 7.3 RBC 2.49 L Hgb 7.8 L Hct 22.7 L MCV 91 MCH 31.5 MCHC 34.6 RDW 15.4 H Plt Count 34 L Seg Neutrophils % Not Reportable Carbonic Acid HCO3/H2CO3 Ratio ABG pH ABG pCO2 ABG pO2 ABG HCO3 ABG O2 Saturation ABG Base Excess FiO2 Sodium 145.6 H Potassium 4.4 Chloride 108 H Carbon Dioxide 23 Anion Gap 15 BUN 171 H Creatinine 6.28 H Est GFR ( Amer) 11 L Glucose 63 L Calcium 6.2 L* Ionized Calcium Akila Urine Color Urine Appearance Urine pH Ur Specific [place] Urine Protein Urine Glucose (UA) Urine Ketones Urine Blood Urine Nitrite Ur Leukocyte Esterase Urine WBC (Auto) Urine RBC (Auto) 06/18/20 20:15 Blood Blood Culture - Final NO GROWTH IN 5 DAYS 06/18/20 16:20 Blood Blood Culture (PCR) - Final Haemophilus Influenzae 06/18/20 16:20 Blood Blood Culture - Final Haemophilus Influenzae 06/18/20 06/18/20 06/18/20 14:07 14:07 18:30 Creatine Kinase 992 H 940 H CK-MB (CK-2) 5.14 H Troponin I 0.447 NT-Pro-B Natriuret Pep 06/18/20 06/19/20 06/19/20 19:20 02:33 02:33 Creatine Kinase 883 H CK-MB (CK-2) 8.85 H 21.90 H Troponin I 0.640 4.590 NT-Pro-B Natriuret Pep 06/19/20 06/19/20 06/19/20 05:47 05:47 08:00 Creatine Kinase 814 H CK-MB (CK-2) Cancelled 22.00 H Troponin I Cancelled NT-Pro-B Natriuret Pep 06/19/20 06/19/20 06/19/20 08:00 08:00 14:20 Creatine Kinase 862 H CK-MB (CK-2) Troponin I 8.620 26.900 NT-Pro-B Natriuret Pep 06/19/20 06/20/20 06/20/20 20:25 02:15 08:21 Creatine Kinase CK-MB (CK-2) Troponin I 36.400 31.500 24.700 NT-Pro-B Natriuret Pep 06/20/20 06/20/20 06/21/20 13:45 20:25 05:00 Creatine Kinase CK-MB (CK-2) Troponin I 20.800 17.300 NT-Pro-B Natriuret Pep 7010 H 06/21/20 06/21/20 06/21/20 05:00 07:50 14:00 Creatine Kinase CK-MB (CK-2) Troponin I 10.500 10.300 8.520 NT-Pro-B Natriuret Pep 06/22/20 06/23/20 06/24/20 05:30 06:40 11:21 Creatine Kinase 612 H CK-MB (CK-2) Troponin I 4.550 NT-Pro-B Natriuret Pep 6320 H Impressions: Head CT 06/18/20 13:05 IMPRESSION: CHRONIC CHANGES OF ATROPHY AND MICROVASCULAR ISCHEMIA. NO ACUTE PROCESS. EVIDENCE OF ACUTE STROKE: NO. KUB X-Ray 06/22/20 00:00 IMPRESSION: NO RADIOGRAPHIC EVIDENCE FOR ACUTE ABDOMINAL DISEASE. Renal Ultrasound 06/23/20 00:00 IMPRESSION: Multiple right renal cysts versus chronic hydronephrosis. Chest X-Ray 06/23/20 05:00 IMPRESSION: Tubes and lines in good positioning Increasing bilateral alveolar and interstitial infiltrates Assessment & Plan - Diagnosis (1) Acute kidney injury Is this a current diagnosis for this admission?: Yes Plan: Unknown baseline kidney function, last creatinine on record was in 2014 with creatinine of 1.32. His creatinine has gone from admission of 9.68-> 6.68->6. 28. He has associated proteinuria and microhematuria on admission. Differential diagnosis include ATN secondary to shock and hypotension, needs to rule out glomerular diseases/vasculitis, consider thrombotic microangiopathy with presence of thrombocytopenia and anemia. Kidney ultrasound showed that the right kidney has multiple right renal cysts versus chronic hydronephrosis in the left kidney with normal size and echogenicity without evidence of hydronephrosis. His urine protein to creatinine ratio is 1.4, LDH is elevated at 382, ESR is elevated at 96 and HIV negative. Although other serologies I sent are still currently pending. Since there is no significant improvement in his kidney function although urine output is improved and with associated altered mental state, I think it is worth a try to decrease uremic toxins by doing acute renal replacement therapy and see if that helps his mentation. I talked to the patient's son Hernando again today via the phone about renal replacement therapy. I discussed with him the procedure, benefits and risks to include infection, bleeding, hemodynamic instability and cardiac arrest rarely. He consented to proceed with dialysis. Also explained that he would need a dialysis catheter placed which she also consented. Dr. Terry is kind enough to plan to place the dialysis catheter today for tomorrow's dialysis. For today we will give the patient 25 g of albumin followed by Lasix 40 mg IV to see if he responds. Continue to monitor kidney function. Adjust medications accordingly per kidney function. Avoid nephrotoxic medications. Dr. Valerio will be covering the nephrology service starting tomorrow and will follow the patient. (2) Acute hypoxemic respiratory failure Is this a current diagnosis for this admission?: Yes Plan: On mechanical ventilation per forestry worker. (3) Altered mental status Qualifiers: Altered mental status type: somnolence Qualified Code(s): R40.0 - Somnolence Is this a current diagnosis for this admission?: Yes Plan: CT scan to be done today. This is also contributed by uremia. (4) Shock Is this a current diagnosis for this admission?: Yes Plan: Currently off vasopressors. (5) Metabolic acidosis Is this a current diagnosis for this admission?: Yes Plan: Mild anion gap. Bicarbonate has gone from 13-23. Continue bicarbonate drip for now. Once dialysis is initiated, this can be discontinued. (6) Elevated troponin Is this a current diagnosis for this admission?: Yes Plan: Pattern Mechanic, Dr. Mclean following the patient. Echocardiogram on 06/19/2020 showed LVEF of 60%, grade 1/4 mild diastolic dysfunction with moderate pulmonary hypertension. (7) Thrombocytopenia Is this a current diagnosis for this admission?: Yes Plan: Differential diagnosis includes heparin-induced thrombocytopenia versus the possibility of thrombotic microangiopathy. (8) Anemia Is this a current diagnosis for this admission?: Yes Plan: Acute drop in the hemoglobin throughout hospitalization is most likely secondary to volume resuscitation however also needs to rule out other causes including hemolytic anemia in the presence of schistocytes noted 1 day. Elevated LDH. (9) Hypocalcemia Is this a current diagnosis for this admission?: Yes Plan: Replace as necessary. (10) Bilateral pneumonia Qualifiers: Pneumonia type: due to Haemophilus influenzae Lung location: unspecified part of lung Qualified Code(s): J14 - Pneumonia due to Hemophilus influenzae Is this a current diagnosis for this admission?: Yes Plan: 06/18/2020 blood culture showed Haemophilus influenzae. Sputum culture on 06/19/20 showed Acinetobacter and Klebsiella. By history the patient has been aspirating the causing aspiration pneumonia. Patient was given previously vanc omycin, cefepime, Flagyl, Rocephin and clindamycin. Currently on cefepime and azithromycin IV. (11) Hypernatremia Is this a current diagnosis for this admission?: Yes Plan: Resolved. (12) Dehydration Is this a current diagnosis for this admission?: Yes Plan: Resolved. - Notes Notes: Discussed with Dr. Terry. Discussed with the patient's son Mr. Villagomez Jr Boaz. - Time Time with patient: Greater than 35 minutes
[2020-06-24] MEDS: AZITHROMYCIN 500 MG in DEXTROSE 5%-WATER 250 ML IV SCH (17:15)
--- NOTE | 2020-06-24 19:29 | Progress Note ---
Provider Note Provider Note: CARDIOLOGY PROGRESS NOTE by Dr. Harriet Bearden on 06/24/2020. SUBJECTIVE: The patient remains status quo. He is off all pressors. There is no arrhythmias seen on the monitor. His CT scan of the head shows new extensive nonhemorrhagic infarction. PHYSICAL EXAMINATION: The patient appears to be chronically ill. He frannie intubated. Selected Entries 06/24/20 14:00 Pulse Rate 62 Respiratory 16 Rate Positive End 5 Expiratory Pressure Blood Pressure 112/66 [Right Upper Arm] Blood Pressure 81 Mean [Right Upper Arm] Blood Pressure Supine Position [Right Upper Arm] O2 Sat by Pulse 96 Oximetry Oxygen Delivery Mechanical Method ( Ventilator includes room air) Fraction of 35 Inspired Oxygen (FIO2) PHYSICAL EXAMINATION: The patient is intubated and sedated. HEAD: Is atraumatic normocephalic. EYES: Pupils are equal round reactive to light. ENT is negative. Neck is supple. There is no JVD. Carotids are equal there is no bruit. Trachea central. Lungs there is a few bibasilar crackles right crackles. Rest of the lungs are clear. HEART: S1-S2 is heard. There is no S3 gallop. There is no S4 gallop. There is systolic murmur left sternal border and the apex there is no rub. ABDOMEN: Is soft. There is no hepatosplenomegaly. Bowel sounds are heard. EXTREMITIES: Femorals felt. There is no femoral bruits. There is no pedal edema. There is no DVT or cellulitis. Leg pulses slightly diminished. There is no cyanosis or clubbing. INDUSTRIAL PSYCHOLOGIST and psychiatric not examined since the patient intubated and sedated. His 24-hour intake is 1931 mL. Output is 1915 mL. Labs- All tests 24 hr 06/24/20 06/24/20 06/24/20 03:40 03:40 11:21 WBC 7.3 RBC 2.49 L Hgb 7.8 L Hct 22.7 L MCV 91 MCH 31.5 MCHC 34.6 RDW 15.4 H Plt Count 34 L Lymph % (Auto) Not Reportable [place] % (Auto) Not Reportable Eos % (Auto) Not Reportable Baso % (Auto) Not Reportable Absolute Neuts (auto) Not Reportable Absolute Lymphs (auto) Not Reportable Absolute Monos (auto) Not Reportable Absolute Eos (auto) Not Reportable Absolute Basos (auto) Not Reportable Total Counted 100 Seg Neutrophils % Not Reportable Seg Neuts % (Manual) 80 H Band Neutrophils % 1 L Lymphocytes % (Manual) 14 Monocytes % (Manual) 2 L Eosinophils % (Manual) 3 Basophils % (Manual) 0 Abs Neuts (Manual) 5.9 Abs Lymphs (Manual) 1.0 Abs Monocytes (Manual) 0.1 Absolute Eos (Manual) 0.2 Abs Basophils (Manual) 0.0 Platelet Comment DECREASED Anisocytosis SLIGHT Rouleaux SLIGHT APTT Carbonic Acid 1.07 HCO3/H2CO3 Ratio 20:1 ABG pH 7.41 ABG pCO2 35.6 ABG pO2 83.9 ABG HCO3 22.0 ABG Total CO2 23.1 ABG O2 Saturation 96.5 ABG Base Excess -2.3 FiO2 35% Sodium 145.6 H Potassium 4.4 Chloride 108 H Carbon Dioxide 23 Anion Gap 15 BUN 171 H Creatinine 6.28 H Est GFR ( Amer) 11 L Est GFR (MDRD) Non-Af 9 L Glucose 63 L Calcium 6.2 L* Ionized Calcium [place] 0.88 L Creatine Kinase 06/24/20 06/24/20 11:21 17:11 WBC RBC Hgb Hct MCV MCH MCHC RDW Plt Count Lymph % (Auto) [place] % (Auto) Eos % (Auto) Baso % (Auto) Absolute Neuts (auto) Absolute Lymphs (auto) Absolute Monos (auto) Absolute Eos (auto) Absolute Basos (auto) Total Counted Seg Neutrophils % Seg Neuts % (Manual) Band Neutrophils % Lymphocytes % (Manual) Monocytes % (Manual) Eosinophils % (Manual) Basophils % (Manual) Abs Neuts (Manual) Abs Lymphs (Manual) Abs Monocytes (Manual) Absolute Eos (Manual) Abs Basophils (Manual) Platelet Comment Anisocytosis Rouleaux APTT 59.4 H Carbonic Acid HCO3/H2CO3 Ratio ABG pH ABG pCO2 ABG pO2 ABG HCO3 ABG Total CO2 ABG O2 Saturation ABG Base Excess FiO2 Sodium Potassium Chloride Carbon Dioxide Anion Gap BUN Creatinine Est GFR ( Amer) Est GFR (MDRD) Non-Af Glucose Calcium Ionized Calcium [place]ila Creatine Kinase 612 H Chest X-Ray 06/18/20 13:05 IMPRESSION: BILATERAL UPPER LUNG OPACITIES, POSSIBLY DUE TO PNEUMONIA. UNDERLYING PULMONARY MASSES CANNOT BE EXCLUDED. Head CT 06/18/20 13:05 IMPRESSION: CHRONIC CHANGES OF ATROPHY AND MICROVASCULAR ISCHEMIA. NO ACUTE PROCESS. EVIDENCE OF ACUTE STROKE: NO. Chest X-Ray 06/18/20 15:29 IMPRESSION: Support lines and tubes are in satisfactory position. Persistent diffuse upper lobe infiltrates. Minimal right lower lobe airspace disease. Chest X-Ray 06/20/20 05:00 IMPRESSION: STABLE APPEARANCE OF THE CHEST. SUPPORT DEVICES UNCHANGED. Chest X-Ray 06/21/20 05:00 IMPRESSION: Parenchymal opacities with some improvement particularly since 06/18/2020 Acute appearing lower right rib fractures. Unchanged from 06/18/2020. SUPPORT DEVICE(S) IN EXPECTED LOCATIONS. Chest X-Ray 06/21/20 20:31 IMPRESSION: Enteric tube courses below the left hemidiaphragm out of the [id number]. Consider abdominal radiographs for complete evaluation. KUB X-Ray 06/22/20 00:00 IMPRESSION: NO RADIOGRAPHIC EVIDENCE FOR ACUTE ABDOMINAL DISEASE. Chest X-Ray 06/22/20 05:00 IMPRESSION: Stable parenchymal opacities without improvement. SUPPORT DEVICE(S) IN EXPECTED LOCATIONS. Renal Ultrasound 06/23/20 00:00 IMPRESSION: Multiple right renal cysts versus chronic hydronephrosis. Chest X-Ray 06/23/20 05:00 IMPRESSION: Tubes and lines in good positioning Increasing bilateral alveolar and interstitial infiltrates Head CT 06/24/20 00:00 IMPRESSION: Extensive acute nonhemorrhagic infarction. EVIDENCE OF ACUTE STROKE: YES. Multiple territories. IMPRESSION/RECOMMENDATION: 1. Large recent nonhemorrhagic CVA of the brain. This seems to be very extensive by CT scan of today. 2. Significantly elevated troponin I albeit with no EKG changes. Since the patient cannot give a history although this may all be due to troponin leak due to hypotension/shock, severe dehydration and possibly sepsis. So this is secondary to extensive nonhemorrhagic cerebral infarction showing on the CT scan not much to offer from cardiology point of view. Consider patient being made hospice care. Would recommend stopping the patient's IV heparin. 3. Shock is mostly combination of dehydration, and sepsis and secondary to severe acidosis. The patient is off all pressors and vasopressin. His blood pressure remained stable. 4. Acute renal failure: Continue hydration. Still no significant improvement in urine output., But the creatinine is coming down slightly. Urine output is much improved. 5. Severe hypernatremia: Continue gentle hydration 6. Bibasilar pneumonia: Continue antibiotics 7. Prior history of CVA. Current CT scan of head shows extensive new CVA. 8. History of hypertension: At present patient is requiring inotropes to keep his blood pressure up. 9. History of dysphagia. Medications reviewed. Medical regimen management plan discussed with the wedding florist and the welding machine operator helper gas. In view of the cardiac status now stabilized medical decision making from cardiac standpoint is moderate. Will follow.
[2020-06-24] MEDS: CEFEPIME 1 GM/D5W RTU 1 GM/50 ML RTUPB IV SCH (22:16)
[2020-06-24] MEDS: NORMAL SALINE 250 ML with ARGATROBAN 250 MG IV PRN ×2 (22:53)
[2020-06-25] MEDS: DEXTROSE 5%-WATER 1000 ML 1,000 ML with SODIUM BICARBONATE 100 MEQ IV PRN ×2 (03:59)
[2020-06-25 04:51] LABS: ARTERIAL BLOOD BASE EXCESS 0.5 mmol/L; ARTERIAL BLOOD FIO2 35%; ARTERIAL BLOOD H2CO3 1.01 mmol/L (1.05-1.35); ARTERIAL BLOOD HCO3 23.7 mmol/L (20-24); ARTERIAL BLOOD PCO2 33.5 mmHg (35-45); ARTERIAL BLOOD PH 7.47 (7.35-7.45); ARTERIAL BLOOD PO2 69.6 mmHg (80-100); ARTERIAL BLOOD TOTAL CO2 24.7 mmol/L (23-27)
[2020-06-25 04:52] LABS: APPEARANCE,URINE CLEAR; BILIRUBIN,URINE NEGATIVE (NEGATIVE); COLOR,URINE YELLOW; GLUCOSE, URINE NEGATIVE (NEGATIVE); KETONES,URINE NEGATIVE (NEGATIVE); LEUKOCYTE ESTERASE,URINE NEGATIVE (NEGATIVE); NITRITE,URINE NEGATIVE (NEGATIVE); PROTEIN,URINE 30 mg/dL (NEGATIVE); URINE SPECIFIC GRAVITY 1.006; UROBILINOGEN,URINE NEGATIVE mg/dL (<2.0)
[2020-06-25 04:55] LABS: HEMATOCRIT 23.4 % (37.9-51.0); MEAN CORPUSCULAR HEMOGLOBIN 31.4 pg (27.0-33.4); MEAN CORPUSCULAR HGB CONC 34.3 g/dL (32.0-36.0); MEAN CORPUSCULAR VOLUME 92 fl (80-97); RED BLOOD COUNT 2.55 10^6/uL (4.35-5.55); WHITE BLOOD COUNT 8.8 10^3/uL (4.0-10.5)
[2020-06-25] MEDS ORDERED: NORMAL SALINE 1000 ML 1,000 ML IV PRN (05:00)
[2020-06-25] MEDS ORDERED: HEPARIN SOD (PORCINE) 1,000 UNIT/ML 10 ML VIAL IV PRN (05:00)
[2020-06-25 05:43] LABS: ALBUMIN 2.2 g/dL (3.5-5.0); ANION GAP 14 (5-19); CARBON DIOXIDE 25 mmol/L (22-30); CHLORIDE 103 mmol/L (98-107); GLUCOSE 74 mg/dL (75-110); PHOSPHORUS 5.4 mg/dL (2.5-4.5); POTASSIUM 3.9 mmol/L (3.6-5.0)
[2020-06-25 05:59] LABS: BLOOD UREA NITROGEN 164 mg/dL (7-20)
[2020-06-25 06:01] LABS: PLATELET COUNT 38 10^3/uL (150-450)
[2020-06-25 06:02] LABS: ABSOLUTE LYMPHOCYTES# (MANUAL) 1.5 10^3/uL (0.5-4.7); ABSOLUTE MONOCYTES # (MANUAL) 0.3 10^3/uL (0.1-1.4); BAND NEUTROPHILS % (MANUAL) 1 % (3-5); BASOPHILS % (MANUAL) 0 % (0-2); CALCIUM 6.3 mg/dL (8.4-10.2); EOSINOPHILS % (MANUAL) 1 % (0-6); LYMPHOCYTES % (MANUAL) 17 % (13-45); MONOCYTES % (MANUAL) 3 % (3-13); SEGMENTED NEUTROPHILS % (MAN) 78 % (42-78); TOTAL CELLS COUNTED 100
[2020-06-25 06:03] LABS: ANISOCYTOSIS SLIGHT; OVALOCYTES SLIGHT; POLYCHROMASIA SLIGHT
[2020-06-25 06:04] LABS: PLATELET COMMENT DECREASED
[2020-06-25] MEDS ORDERED: ALBUMIN HUMAN 12.5 GM/50 ML RTUINJ IV SCH (06:30)
[2020-06-25] MEDS: ALBUTEROL SULFATE 0.083% NEB 2.5 MG/3 ML AMPUL NEB PRN (08:18)
[2020-06-25] MEDS: TOBRAMYCIN SULFATE NEB 40 MG/ML 30 ML NEB SCH ×2 (08:18→20:33)
[2020-06-25] MEDS: ASPIRIN 81 MG TABLET, CHEWABLE PO SCH (09:14)
[2020-06-25] MEDS: PANTOPRAZOLE SODIUM 40 MG VIAL IV SCH (09:14)
[2020-06-25] MEDS: ALBUMIN HUMAN 12.5 GM/50 ML RTUINJ IV SCH ×4 (09:14→12:53)
[2020-06-25 10:37] LABS: HEPATITIS C VIRUS AB <0.1 s/co ratio (0.0-0.9)
[2020-06-25 10:46] LABS: HEPATITS B SURFACE ANTIGEN Negative (Negative)
--- NOTE | 2020-06-25 11:46 | PDOC PROGRESS REPORT ---
Subjective Reason For Visit: Patient seen today in the ICU on dialysis. Chart review was done. This patient was admitted via the emergency department via EMS after experiencing altered mental status at home. The patient who lives with his son, who provided clinical history. The patient had a choking episode at home approximately 5 days prior to admission. He had trouble swallowing food (a chronic problem secondary to stroke). The patient's son performed the Heimlich maneuver and successfully retrieved the food causing the obstruction. The patient chose not to seek medical attention at that time. The patient's son added that the diane connor has had poor oral intake over the past several months, presumably due to his dysphagia. The patient's son reports that his last known well time was the day before admission, when the patient was fully conversant and what is at his "baseline". On the day of admission, the patient became progressively obtunded and visibly cyanotic. The patient was intubated in the emergency department, reportedly with a GCS score of 5. Head CT was negative for acute stroke. However, initial laboratory evaluation in the emergency department reveals a serum sodium of 186 and a BUN/creatinine of 149/9.6.Subsequently his BUN/creatinine yesterday was 171/6.2. Because of his continued persistent obtundation and altered mental status a decision was made to initiate hemodialysis and see the response early yesterday. His initial admission CPK was 992 and yesterday was 612 and albumin of 2.2.Initially he was oliguric but his urine output has been progressively increasing and yesterday was over [address] of his brain done yesterday shows extensive acute nonhemorrhagic stroke involving both lobes. Dialysis orders was reviewed with the treating dialysis nurse. Physical Exam Vital Signs: Temp Pulse Resp BP Pulse Ox 98.4 F 60 22 H 143/66 H 98 06/25/20 10:33 06/25/20 10:00 06/25/20 10:33 06/25/20 10:33 06/25/20 10:33 Intake & Output 06/24/20 06/25/20 06/26/20 06:59 06:59 06:59 Intake Total 1931 5016 379 Output Total 1854 9816 575 Balance Weight 68.6 kg 68 kg Exam: Remains intubated and sedated.Looks very gaunt and emaciated. Respiratory exam: PRESENT: clear to auscultation dane. ABSENT: crackles Cardiovascular exam: PRESENT: +S1, +S2, systolic murmur GI/Abdominal exam: PRESENT: normal bowel sounds, soft. ABSENT: organomegaly, tenderness Extremities exam: ABSENT: pedal edema Neurological exam: PRESENT: altered Skin exam: ABSENT: cyanosis, erythema, mottled Results Laboratory Results: 06/25/20 04:15 06/25/20 04:15 06/24/20 06/25/20 06/25/20 11:21 04:15 04:15 WBC 7.3 RBC 2.49 L Hgb 7.8 L Hct 22.7 L MCV 91 MCH 31.5 MCHC 34.6 RDW 15.4 H Plt Count 34 L Seg Neutrophils % Not Reportable Carbonic Acid 1.01 L HCO3/H2CO3 Ratio 23:1 ABG pH 7.47 H ABG pCO2 33.5 L ABG pO2 69.6 L ABG HCO3 23.7 ABG O2 Saturation 95.0 ABG Base Excess 0.5 FiO2 35% Sodium 142.4 Potassium 3.9 Chloride 103 Carbon Dioxide 25 Anion Gap 14 BUN 164 H Creatinine 5.81 H Est GFR ( Amer) 12 L Glucose 74 L Calcium 6.3 L* Ionized Calcium [place]ila 0.88 L Phosphorus 5.4 H Magnesium 2.1 Albumin 2.2 L Urine Color Urine Appearance Urine pH Ur Specific [place] Urine Protein Urine Glucose (UA) Urine Ketones Urine Blood Urine Nitrite Ur Leukocyte Esterase Urine WBC (Auto) Urine RBC (Auto) 06/25/20 06/25/20 04:15 04:15 WBC 8.8 RBC 2.55 L Hgb 8.0 L Hct 23.4 L MCV 92 MCH 31.4 MCHC 34.3 RDW 15.0 H Plt Count 38 L Seg Neutrophils % Not Reportable Carbonic Acid HCO3/H2CO3 Ratio ABG pH ABG pCO2 ABG pO2 ABG HCO3 ABG O2 Saturation ABG Base Excess FiO2 Sodium Potassium Chloride Carbon Dioxide Anion Gap BUN Creatinine Est GFR ( Amer) Glucose Calcium Ionized Calcium Akila Phosphorus Magnesium Albumin Urine Color YELLOW Urine Appearance CLEAR Urine pH 7.0 Ur Specific [place] 1.006 Urine Protein 30 H Urine Glucose (UA) NEGATIVE Urine Ketones NEGATIVE Urine Blood MODERATE H Urine Nitrite NEGATIVE Ur Leukocyte Esterase NEGATIVE Urine WBC (Auto) 2 Urine RBC (Auto) 1 06/18/20 06/18/20 06/18/20 14:07 14:07 18:30 Creatine Kinase 992 H 940 H CK-MB (CK-2) 5.14 H Troponin I 0.447 NT-Pro-B Natriuret Pep 06/18/20 06/19/20 06/19/20 19:20 02:33 02:33 Creatine Kinase 883 H CK-MB (CK-2) 8.85 H 21.90 H Troponin I 0.640 4.590 NT-Pro-B Natriuret Pep 06/19/20 06/19/20 06/19/20 05:47 05:47 08:00 Creatine Kinase 814 H CK-MB (CK-2) Cancelled 22.00 H Troponin I Cancelled NT-Pro-B Natriuret Pep 06/19/20 06/19/20 06/19/20 08:00 08:00 14:20 Creatine Kinase 862 H CK-MB (CK-2) Troponin I 8.620 26.900 NT-Pro-B Natriuret Pep 06/19/20 06/20/20 06/20/20 20:25 02:15 08:21 Creatine Kinase CK-MB (CK-2) Troponin I 36.400 31.500 24.700 NT-Pro-B Natriuret Pep 06/20/20 06/20/20 06/21/20 13:45 20:25 05:00 Creatine Kinase CK-MB (CK-2) Troponin I 20.800 17.300 NT-Pro-B Natriuret Pep 7010 H 06/21/20 06/21/20 06/21/20 05:00 07:50 14:00 Creatine Kinase CK-MB (CK-2) Troponin I 10.500 10.300 8.520 NT-Pro-B Natriuret Pep 06/22/20 06/23/20 06/24/20 05:30 06:40 11:21 Creatine Kinase 612 H CK-MB (CK-2) Troponin I 4.550 NT-Pro-B Natriuret Pep 6320 H Impressions: KUB X-Ray 06/22/20 00:00 IMPRESSION: NO RADIOGRAPHIC EVIDENCE FOR ACUTE ABDOMINAL DISEASE. Renal Ultrasound 06/23/20 00:00 IMPRESSION: Multiple right renal cysts versus chronic hydronephrosis. Chest X-Ray 06/23/20 05:00 IMPRESSION: Tubes and lines in good positioning Increasing bilateral alveolar and interstitial infiltrates Head CT 06/24/20 00:00 IMPRESSION: Extensive acute nonhemorrhagic infarction. EVIDENCE OF ACUTE STROKE: YES. Multiple territories. Assessment & Plan - Diagnosis (1) CVA (cerebral vascular accident) Plan: New CT scan done shows extensive nonhemorrhagic infarction bilaterally. Poor prognosis. (2) Acute hypoxemic respiratory failure Is this a current diagnosis for this admission?: Yes Plan: Currently intubated and sedated. (3) Acute kidney failure Qualifiers: Acute renal failure type: unspecified Qualified Code(s): N17.9 - Acute kidney failure, unspecified Is this a current diagnosis for this admission?: Yes Plan: Multifactorial. Element of rhabdomyolysis which seems to have slowly improving with continuation of fluids and bicarbonate. Looks like he is entering an acute diuretic phase of ATN recovery and has made really good amounts of urine but still BUN is relatively high. See the response to hemodialysis. Initially one was thinking about uremic encephalopathy but given the recent CT scan done yesterday showing bilateral extensive nonhemorrhagic stroke prognosis looks very bleak. (4) Altered mental status Qualifiers: Altered mental status type: somnolence Qualified Code(s): R40.0 - Somnolence Is this a current diagnosis for this admission?: Yes Plan: As mentioned earlier one initially considered uremic encephalopathy as part of differential. However patient looks to have suffered acute bilateral non hemorrhagic infarction in the brain which augments poor prognosis. Monitor closely. (5) Anemia Is this a current diagnosis for this admission?: Yes Plan: Monitor. (6) Bilateral pneumonia Qualifiers: Pneumonia type: due to Haemophilus influenzae Lung location: unspecified part of lung Qualified Code(s): J14 - Pneumonia due to Hemophilus influenzae Is this a current diagnosis for this admission?: Yes Plan: Tracheal aspirate grew Klebsiella and Acinetobacter. On antibiotics. (7) Failure to thrive in adult Is this a current diagnosis for this admission?: Yes Plan: Chronic. Looks very emaciated. (8) Non-ST elevated myocardial infarction (non-STEMI) Is this a current diagnosis for this admission?: Yes Plan: As per cardiology. (9) Shock Is this a current diagnosis for this admission?: Yes Plan: On pressors. Monitor.
[2020-06-25 13:46] LABS: ANION GAP 12 (5-19); CALCIUM 7.5 mg/dL (8.4-10.2); CARBON DIOXIDE 28 mmol/L (22-30); CHLORIDE 100 mmol/L (98-107); GLUCOSE 76 mg/dL (75-110); POTASSIUM 3.3 mmol/L (3.6-5.0)
[2020-06-25 13:57] LABS: BLOOD UREA NITROGEN 100 mg/dL (7-20)
[2020-06-25 15:37] LABS: ANTIMYELOPEROXIDASE (MPO) AB <9.0 U/mL (0.0-9.0); CYTOPLASMIC (C-ANCA) <1:20 titer (Neg:<1:20)
--- NOTE | 2020-06-25 16:43 | PDOC CRITICAL CARE PROG REPORT ---
General Date:: 06/25/20 ICU Day:: 7 Ventilator Day:: 7 Resuscitation Status: Full Code Events in the past 12 to 24 Hours:: Patient with significant bradycardia today in the 40s to 50s however he has remained hemodynamically stable. He underwent HD and his electrolytes are now within normal limits. We will recheck electrolytes in the a.m. Review of systems relevant to events:: ICU day: 7 Neuro: Patient remains unarousable despite not being on any sedation over the past [address] scan on 06/24/2020 shows multiple large areas of anoxic injury, nonhemorrhagic. If no significant improvement, we will readdress goals of care with family tomorrow. In light of new evidence of large CVA on CT scan, his prognosis is unfortunately very poor. Pulmonary: Patient remains on ventilatory support. PSV: 10, PEEP: 5, FiO2 35%. Breath sounds are relatively clear. Tracheal aspirate on 06/19/2020 shows Klebsiella pneumonia. Patient remains on Cefepime. Remains on ventilator due to neuro status. Cardiovascular: Bradycardic earlier today to the 40s and 50s now with a heart rate in the low to mid 60s. He has remained hemodynamically stable. He has been weaned off of all vasoactive medications. Indwelling catheters: Left IJ TLC. Heme: Severe thrombocytopenia, exploring the possibility of HIT. Patient was placed on argatroban and heparin was DC'd. Renal: Hemodialysis today. Sodium bicarb given today and can be discontinued. Electrolytes within normal range. We will repeat renal panel in a.m. Gastrointestinal: No acute abdominal issues. Plan: GI prophylaxis: Patient is on Protonix 40 mg IV daily as well as senna and Colace twice daily. Diet: Nepro 1.8 at 15 mL an hour with goal of 35 mL an hour. : Zapata catheter in place. ID: Patient remains on cefepime and azithromycin as well as tobramycin inhaled. Blood culture positive on 06/18 with H. influenza And tracheal aspirate positive on 06/19 with Klebsiella pneumonia. Barriers to discharge from ICU: Patient has unfortunately not recovered from a neurologic point of view since admission. Ongoing discussions with his family regarding goals of care. Reason for ICU Addmission:: Acute hypoxemic respiratory failure; severe dehydration; hypernatremia; altered mental status. Intubated. - Medications: Medications reviewed and adjusted accordingly: Yes Physical Exam Vital Signs: Temp Pulse Resp BP Pulse Ox 97.5 F 65 17 135/65 H 97 06/25/20 14:33 06/25/20 14:00 06/25/20 14:33 06/25/20 14:33 06/25/20 14:33 Intake & Output 06/24/20 06/25/20 06/26/20 06:59 06:59 06:59 Intake Total 1931 2356 1179 Output Total 4922 4070 3800 Balance 24 -6159 -8457 Weight 68.6 kg 68 kg Weight/Height Weight 68 kg Height 5 ft 7 in General appearance: PRESENT: no acute distress, thin Head exam: PRESENT: atraumatic, normocephalic Eye exam: PRESENT: PERRLA Ear exam: PRESENT: normal external ear exam Mouth exam: PRESENT: dry mucosa Neck exam: PRESENT: full ROM. ABSENT: JVD, lymphadenopathy, thyromegaly Respiratory exam: PRESENT: clear to auscultation dane. ABSENT: rales, rhonchi, wheezes Cardiovascular exam: PRESENT: bradycardia, +S1, +S2 Pulses: PRESENT: normal carotid pulses, normal radial pulses, normal femoral pulses, +1 pedal pulses bilateral Vascular exam: PRESENT: normal capillary refill GI/Abdominal exam: PRESENT: normal bowel sounds, soft Musculoskeletal exam: PRESENT: normal inspection Neurological exam: PRESENT: CN II-XII grossly intact. ABSENT: alert, awake Psychiatric exam: ABSENT: agitated Tubes/Lines: PRESENT: Endotracheal Tube, Central Line Laboratory/Radiographs Laboratory Results: 06/25/20 04:15 06/25/20 12:56 06/25/20 06/25/20 06/25/20 04:15 04:15 04:15 WBC 8.8 RBC 2.55 L Hgb 8.0 L Hct 23.4 L MCV 92 MCH 31.4 MCHC 34.3 RDW 15.0 H Plt Count 38 L Seg Neutrophils % Not Reportable Carbonic Acid 1.01 L HCO3/H2CO3 Ratio 23:1 ABG pH 7.47 H ABG pCO2 33.5 L ABG pO2 69.6 L ABG HCO3 23.7 ABG O2 Saturation 95.0 ABG Base Excess 0.5 FiO2 35% Sodium 142.4 Potassium 3.9 Chloride 103 Carbon Dioxide 25 Anion Gap 14 BUN 164 H Creatinine 5.81 H Est GFR ( Amer) 12 L Glucose 74 L Calcium 6.3 L* Ionized Calcium Akila 0.88 L Phosphorus 5.4 H Magnesium 2.1 Albumin 2.2 L Urine Color Urine Appearance Urine pH Ur Specific Kelly Urine Protein Urine Glucose (UA) Urine Ketones Urine Blood Urine Nitrite Ur Leukocyte Esterase Urine WBC (Auto) Urine RBC (Auto) 06/25/20 06/25/20 04:15 12:56 WBC RBC Hgb Hct MCV MCH MCHC RDW Plt Count Seg Neutrophils % Carbonic Acid HCO3/H2CO3 Ratio ABG pH ABG pCO2 ABG pO2 ABG HCO3 ABG O2 Saturation ABG Base Excess FiO2 Sodium 139.5 Potassium 3.3 L Chloride 100 Carbon Dioxide 28 Anion Gap 12 BUN 100 H D Creatinine 3.56 H Est GFR ( Amer) 21 L Glucose 76 Calcium 7.5 L Ionized Calcium Akila Phosphorus Magnesium Albumin Urine Color YELLOW Urine Appearance CLEAR Urine pH 7.0 Ur Specific Kelly 1.006 Urine Protein 30 H Urine Glucose (UA) NEGATIVE Urine Ketones NEGATIVE Urine Blood MODERATE H Urine Nitrite NEGATIVE Ur Leukocyte Esterase NEGATIVE Urine WBC (Auto) 2 Urine RBC (Auto) 1 06/18/20 06/18/20 06/18/20 14:07 14:07 18:30 Creatine Kinase 992 H 940 H CK-MB (CK-2) 5.14 H Troponin I 0.447 NT-Pro-B Natriuret Pep 06/18/20 06/19/20 06/19/20 19:20 02:33 02:33 Creatine Kinase 883 H CK-MB (CK-2) 8.85 H 21.90 H Troponin I 0.640 4.590 NT-Pro-B Natriuret Pep 06/19/20 06/19/20 06/19/20 05:47 05:47 08:00 Creatine Kinase 814 H CK-MB (CK-2) Cancelled 22.00 H Troponin I Cancelled NT-Pro-B Natriuret Pep 06/19/20 06/19/20 06/19/20 08:00 08:00 14:20 Creatine Kinase 862 H CK-MB (CK-2) Troponin I 8.620 26.900 NT-Pro-B Natriuret Pep 06/19/20 06/20/20 06/20/20 20:25 02:15 08:21 Creatine Kinase CK-MB (CK-2) Troponin I 36.400 31.500 24.700 NT-Pro-B Natriuret Pep 06/20/20 06/20/20 06/21/20 13:45 20:25 05:00 Creatine Kinase CK-MB (CK-2) Troponin I 20.800 17.300 NT-Pro-B Natriuret Pep 7010 H 06/21/20 06/21/20 06/21/20 05:00 07:50 14:00 Creatine Kinase CK-MB (CK-2) Troponin I 10.500 10.300 8.520 NT-Pro-B Natriuret Pep 06/22/20 06/23/20 06/24/20 05:30 06:40 11:21 Creatine Kinase 612 H CK-MB (CK-2) Troponin I 4.550 NT-Pro-B Natriuret Pep 6320 H Impressions: KUB X-Ray 06/22/20 00:00 IMPRESSION: NO RADIOGRAPHIC EVIDENCE FOR ACUTE ABDOMINAL DISEASE. Renal Ultrasound 06/23/20 00:00 IMPRESSION: Multiple right renal cysts versus chronic hydronephrosis. Chest X-Ray 06/23/20 05:00 IMPRESSION: Tubes and lines in good positioning Increasing bilateral alveolar and interstitial infiltrates Head CT 06/24/20 00:00 IMPRESSION: Extensive acute nonhemorrhagic infarction. EVIDENCE OF ACUTE STROKE: YES. Multiple territories. All labs, radiographs, diagnostic studies and EKGs were personally reviewed: Yes In addition, reports of radiographic and diagnostic studies were read: Yes Assessment and Plan - Diagnosis (1) Acute hypoxemic respiratory failure Is this a current diagnosis for this admission?: Yes Plan: Please see systems review for greater detail. Continue vent support Continue albuterol as needed Continue antibiotics for Klebsiella pneumonia. (2) Acute kidney failure Qualifiers: Acute renal failure type: unspecified Qualified Code(s): N17.9 - Acute kidney failure, unspecified Is this a current diagnosis for this admission?: Yes Plan: Patient underwent HD today. We will reevaluate in a.m. for continued need. (3) Bilateral pneumonia Qualifiers: Pneumonia type: due to Haemophilus influenzae Lung location: unspecified part of lung Qualified Code(s): J14 - Pneumonia due to Hemophilus influenzae Is this a current diagnosis for this admission?: Yes Plan: Continue cefepime and azithromycin as well as inhaled tobramycin. Currently without significant leukocytosis. Patient is afebrile. (4) Metabolic acidosis Is this a current diagnosis for this admission?: Yes Plan: Resolved. We can now discontinue sodium bicarbonate. (5) Thrombocytopenia Is this a current diagnosis for this admission?: Yes Plan: Platelets not indicated at this time. No spontaneous bleeding. Patient also has recent nonhemorrhagic CVA. Continue argatroban. Plan Summary: Patient's mental status has not been improving. CT scan shows significant CVA which would explain his very poor mental status. Prognosis is unfortunately very poor. We will discuss goals of care with patient's family in a.m. Critical Time Critical Time (minutes): 50 Level of Care: ICU Anticipated discharge: Hospice Anticipated DC Timeframe: within 48 hours -: 1. The care of a critical patient is a dynamic process. This note is a [employer] liqu[employer] sales representative synopsis but static in nature. The timeframe for treatments given in order is not necessarily the actual time these treatments may have been done. 2. This patient requires critical care secondary to ongoing requirements for therapy not offered or safe outside the critical care environment. Transfer to a lower level of care will result in altered life or limb morbidity and mortality. 3. Multidisciplinary rounds completed. 4. ABCDE bundle addressed.
[2020-06-25] MEDS: AZITHROMYCIN 500 MG in DEXTROSE 5%-WATER 250 ML IV SCH (17:55)
[2020-06-25] MEDS: CEFEPIME 1 GM/D5W RTU 1 GM/50 ML RTUPB IV SCH (21:34)
[2020-06-25] MEDS: PHARMACY COMMUNICATION ORDER MC SCH (21:41)
[2020-06-25] MEDS: NORMAL SALINE 250 ML with ARGATROBAN 250 MG IV PRN ×2 (21:41)
[2020-06-25 22:51] LABS: ABSOLUTE EOSINOPHILS # (AUTO) 0.1 10^3/uL (0.0-0.6); ABSOLUTE LYMPHOCYTES (AUTO) 0.9 10^3/uL (0.5-4.7); ABSOLUTE MONOCYTES (AUTO) 0.6 10^3/uL (0.1-1.4); BASOPHILS % (AUTO) 0.2 % (0-2); EOSINOPHILS % (AUTO) 0.7 % (0-6); HEMATOCRIT 23.6 % (37.9-51.0); HEMOGLOBIN 8.1 g/dL (13.5-17.0); LYMPHOCYTES % (AUTO) 10.8 % (13-45); MEAN CORPUSCULAR HEMOGLOBIN 31.2 pg (27.0-33.4); MEAN CORPUSCULAR HGB CONC 34.4 g/dL (32.0-36.0); MEAN CORPUSCULAR VOLUME 91 fl (80-97); MONOCYTES % (AUTO) 6.5 % (3-13); RED CELL DISTRIBUTION WIDTH 15.1 % (11.5-14.0); SEGMENTED NEUTROPHILS % (AUTO) 81.8 % (42-78); TOTAL CELLS COUNTED % (AUTO) 100 %; WHITE BLOOD COUNT 8.6 10^3/uL (4.0-10.5)
[2020-06-25 23:05] LABS: ALBUMIN 2.4 g/dL (3.5-5.0); ALKALINE PHOSPHATASE 313 U/L (38-126); ANION GAP 12 (5-19); ASPARTATE AMINO TRANSFERASE 58 U/L (17-59); BILIRUBIN,DIRECT 0.5 mg/dL (0.0-0.4); BILIRUBIN,TOTAL 1.1 mg/dL (0.2-1.3); BLOOD UREA NITROGEN 106 mg/dL (7-20); CARBON DIOXIDE 27 mmol/L (22-30); CHLORIDE 100 mmol/L (98-107); GLUCOSE 100 mg/dL (75-110); POTASSIUM 3.5 mmol/L (3.6-5.0); TOTAL PROTEIN 4.7 g/dL (6.3-8.2)
[2020-06-25 23:11] LABS: CALCIUM 6.7 mg/dL (8.4-10.2)
[2020-06-25 23:17] LABS: PLATELET COUNT 57 10^3/uL (150-450)
[2020-06-26 04:28] LABS: ABSOLUTE EOSINOPHILS # (AUTO) 0.1 10^3/uL (0.0-0.6); ABSOLUTE LYMPHOCYTES (AUTO) 0.9 10^3/uL (0.5-4.7); ABSOLUTE MONOCYTES (AUTO) 0.5 10^3/uL (0.1-1.4); ABSOLUTE NEUT (AUTO) 7.8 10^3/uL (1.7-8.2); BASOPHILS % (AUTO) 0.2 % (0-2); EOSINOPHILS % (AUTO) 0.7 % (0-6); HEMATOCRIT 24.5 % (37.9-51.0); HEMOGLOBIN 8.4 g/dL (13.5-17.0); LYMPHOCYTES % (AUTO) 9.6 % (13-45); MEAN CORPUSCULAR HEMOGLOBIN 31.1 pg (27.0-33.4); MEAN CORPUSCULAR HGB CONC 34.3 g/dL (32.0-36.0); MEAN CORPUSCULAR VOLUME 91 fl (80-97); MONOCYTES % (AUTO) 5.9 % (3-13); RED CELL DISTRIBUTION WIDTH 14.7 % (11.5-14.0); SEGMENTED NEUTROPHILS % (AUTO) 83.6 % (42-78); TOTAL CELLS COUNTED % (AUTO) 100 %; WHITE BLOOD COUNT 9.3 10^3/uL (4.0-10.5)
[2020-06-26 04:39] LABS: ALBUMIN 2.4 g/dL (3.5-5.0); ALKALINE PHOSPHATASE 330 U/L (38-126); ANION GAP 10 (5-19); ASPARTATE AMINO TRANSFERASE 60 U/L (17-59); BILIRUBIN,DIRECT 0.7 mg/dL (0.0-0.4); BILIRUBIN,TOTAL 1.3 mg/dL (0.2-1.3); BLOOD UREA NITROGEN 107 mg/dL (7-20); CARBON DIOXIDE 29 mmol/L (22-30); CHLORIDE 100 mmol/L (98-107); GLUCOSE 87 mg/dL (75-110); POTASSIUM 3.6 mmol/L (3.6-5.0); TOTAL PROTEIN 4.5 g/dL (6.3-8.2)
[2020-06-26 04:47] LABS: PLATELET COUNT 62 10^3/uL (150-450)
[2020-06-26 04:51] LABS: CALCIUM 6.6 mg/dL (8.4-10.2)
[2020-06-26 07:02] LABS: ATYPICAL PANCA <1:20 titer (Neg:<1:20)
[2020-06-26] MEDS: TOBRAMYCIN SULFATE NEB 40 MG/ML 30 ML NEB SCH ×2 (07:44→19:45)
[2020-06-26] MEDS ORDERED: INFLUENZA QUAD (6MOS+) 2020-21 VAC 0.5 ML SYR IM ONE (08:00)
[2020-06-26] MEDS: ASPIRIN 81 MG TABLET, CHEWABLE PO SCH (10:24)
[2020-06-26] MEDS: PANTOPRAZOLE SODIUM 40 MG VIAL IV SCH (10:24)
[2020-06-26 10:41] LABS: HEPATITIS B CORE AB TOT Negative (Negative)
--- NOTE | 2020-06-26 13:48 | PDOC CRITICAL CARE PROG REPORT ---
General Date:: 06/26/20 ICU Day:: 8 Hospital Day:: 8 Resuscitation Status: Full Code Events in the past 12 to 24 Hours:: 06/25/20: Patient with significant bradycardia today in the 40s to 50s however he has remained hemodynamically stable. He underwent HD and his electrolytes are now within normal limits. We will recheck electrolytes in the a.m. 06/26/20: Patient's bradycardia seems to have resolved. As per cardiology, argatroban was discontinued. No other acute events. Review of systems relevant to events:: ICU day: 8 Neuro: Patient remains unarousable despite not being on any sedation over the past [address] scan on 06/24/2020 shows multiple large areas of anoxic injury, nonhemorrhagic. If no significant improvement, we will readdress goals of care with family today. In light of new evidence of large CVA on CT scan, his prognosis is unfortunately very poor. Pulmonary: Patient remains on ventilatory support. PSV: 10, PEEP: 5, FiO2 35%. Breath sounds are relatively clear. Tracheal aspirate on 06/19/2020 shows Klebsiella pneumonia. Patient remains on Cefepime. Remains on ventilator due to neuro status. Cardiovascular: Bradycardic earlier today to the 40s and 50s now with a heart rate in the low to mid 60s. He has remained hemodynamically stable. He has been weaned off of all vasoactive medications. Indwelling catheters: Left IJ TLC. Heme: Cytopenia is steadily improving. No evidence of HIT. Argatroban discontinued. Renal: Hemodialysis again for tomorrow. Creatinine did improve after HD yesterday. Electrolytes within normal range. We will repeat renal panel in a.m. Gastrointestinal: No acute abdominal issues. Plan: GI prophylaxis: Patient is on Protonix 40 mg IV daily as well as senna and Colace twice daily. Diet: Nepro 1.8 at 15 mL an hour with goal of 35 mL an hour. : Zapata catheter in place. ID: Patient remains on cefepime and azithromycin as well as tobramycin inhaled. Blood culture positive on 06/18 with H. influenza And tracheal aspirate positive on 06/19 with Klebsiella pneumonia. Barriers to discharge from ICU: Patient has unfortunately not recovered from a neurologic point of view since admission. Ongoing discussions with his family regarding goals of care. Reason for ICU Addmission:: Acute hypoxemic respiratory failure; severe dehydration; hypernatremia; altered mental status. Intubated. - Medications: Medications reviewed and adjusted accordingly: Yes Physical Exam Vital Signs: Temp Pulse Resp BP Pulse Ox 100.6 F H 86 30 H 154/67 H 94 06/26/20 12:00 06/26/20 12:00 06/26/20 12:00 06/26/20 12:00 06/26/20 13:13 Intake & Output 06/25/20 06/26/20 06/27/20 06:59 06:59 06:59 Intake Total 2656 2093 5 Output Total 4070 6180 750 Balance -1412 -4087 -745 Weight 68 kg 66.7 kg 66.7 kg Weight/Height Weight 66.7 kg Height 5 ft 7 in General appearance: PRESENT: no acute distress, thin Head exam: PRESENT: atraumatic, normocephalic Eye exam: PRESENT: PERRLA Ear exam: PRESENT: normal external ear exam Mouth exam: PRESENT: dry mucosa Neck exam: ABSENT: carotid bruit, JVD Respiratory exam: PRESENT: clear to auscultation dane. ABSENT: rhonchi, wheezes Cardiovascular exam: PRESENT: RRR, +S1, +S2 Pulses: PRESENT: normal carotid pulses, normal radial pulses, normal femoral pulses, normal dorsalis pedis pul, +1 pedal pulses bilateral Vascular exam: PRESENT: normal capillary refill GI/Abdominal exam: PRESENT: normal bowel sounds Extremities exam: ABSENT: joint swelling, pedal edema Musculoskeletal exam: PRESENT: normal inspection Neurological exam: ABSENT: awake Skin exam: PRESENT: intact, normal color, warm Tubes/Lines: PRESENT: Endotracheal Tube, Central Line Laboratory/Radiographs Laboratory Results: 06/26/20 03:55 06/26/20 03:55 06/25/20 06/25/20 06/25/20 12:56 22:25 22:25 WBC 8.6 RBC 2.60 L Hgb 8.1 L Hct 23.6 L MCV 91 MCH 31.2 MCHC 34.4 RDW 15.1 H Plt Count 57 L Seg Neutrophils % 81.8 H Sodium 139.5 138.8 Potassium 3.3 L 3.5 L Chloride 100 100 Carbon Dioxide 28 27 Anion Gap 12 12 BUN 100 H D 106 H Creatinine 3.56 H 4.19 H Est GFR ( Amer) 21 L 17 L Glucose 76 100 Calcium 7.5 L 6.7 L* Total Bilirubin 1.1 AST 58 Alkaline Phosphatase 313 H Total Protein 4.7 L Albumin 2.4 L 06/26/20 06/26/20 03:55 03:55 WBC 9.3 RBC 2.70 L Hgb 8.4 L Hct 24.5 L MCV 91 MCH 31.1 MCHC 34.3 RDW 14.7 H Plt Count 62 L Seg Neutrophils % 83.6 H Sodium 138.7 Potassium 3.6 Chloride 100 Carbon Dioxide 29 Anion Gap 10 BUN 107 H Creatinine 4.09 H Est GFR ( Amer) 18 L Glucose 87 Calcium 6.6 L* Total Bilirubin 1.3 AST 60 H Alkaline Phosphatase 330 H Total Protein 4.5 L Albumin 2.4 L 06/18/20 06/18/20 06/18/20 14:07 14:07 18:30 Creatine Kinase 992 H 940 H CK-MB (CK-2) 5.14 H Troponin I 0.447 NT-Pro-B Natriuret Pep 06/18/20 06/19/20 06/19/20 19:20 02:33 02:33 Creatine Kinase 883 H CK-MB (CK-2) 8.85 H 21.90 H Troponin I 0.640 4.590 NT-Pro-B Natriuret Pep 06/19/20 06/19/20 06/19/20 05:47 05:47 08:00 Creatine Kinase 814 H CK-MB (CK-2) Cancelled 22.00 H Troponin I Cancelled NT-Pro-B Natriuret Pep 06/19/20 06/19/20 06/19/20 08:00 08:00 14:20 Creatine Kinase 862 H CK-MB (CK-2) Troponin I 8.620 26.900 NT-Pro-B Natriuret Pep 06/19/20 06/20/20 06/20/20 20:25 02:15 08:21 Creatine Kinase CK-MB (CK-2) Troponin I 36.400 31.500 24.700 NT-Pro-B Natriuret Pep 06/20/20 06/20/20 06/21/20 13:45 20:25 05:00 Creatine Kinase CK-MB (CK-2) Troponin I 20.800 17.300 NT-Pro-B Natriuret Pep 7010 H 11/07/20 11/07/20 11/07/20 05:00 07:50 14:00 Creatine Kinase CK-MB (CK-2) Troponin I 10.500 10.300 8.520 NT-Pro-B Natriuret Pep 06/22/20 06/23/20 06/24/20 05:30 06:40 11:21 Creatine Kinase 612 H CK-MB (CK-2) Troponin I 4.550 NT-Pro-B Natriuret Pep 6320 H Impressions: KUB X-Ray 06/22/20 00:00 IMPRESSION: NO RADIOGRAPHIC EVIDENCE FOR ACUTE ABDOMINAL DISEASE. Renal Ultrasound 06/23/20 00:00 IMPRESSION: Multiple right renal cysts versus chronic hydronephrosis. Chest X-Ray 06/23/20 05:00 IMPRESSION: Tubes and lines in good positioning Increasing bilateral alveolar and interstitial infiltrates Head CT 06/24/20 00:00 IMPRESSION: Extensive acute nonhemorrhagic infarction. EVIDENCE OF ACUTE STROKE: YES. Multiple territories. All labs, radiographs, diagnostic studies and EKGs were personally reviewed: Yes In addition, reports of radiographic and diagnostic studies were read: Yes Assessment and Plan - Diagnosis (1) Acute hypoxemic respiratory failure Is this a current diagnosis for this admission?: Yes Plan: Please see systems review for greater detail. Continue vent support Continue albuterol as needed Continue antibiotics for Klebsiella pneumonia. (2) Acute kidney failure Qualifiers: Acute renal failure type: unspecified Qualified Code(s): N17.9 - Acute kidney failure, unspecified Is this a current diagnosis for this admission?: Yes Plan: BUN/creatinine improved with hemodialysis yesterday. Patient will most likely need dialysis again tomorrow. Goals of care to first be discussed with patient's family today. (3) Bilateral pneumonia Qualifiers: Pneumonia type: due to Haemophilus influenzae Lung location: unspecified part of lung Qualified Code(s): J14 - Pneumonia due to Hemophilus influenzae Is this a current diagnosis for this admission?: Yes Plan: Continue cefepime and azithromycin as well as inhaled tobramycin. Currently without significant leukocytosis. Patient is afebrile. (4) Metabolic acidosis Is this a current diagnosis for this admission?: Yes Plan: Resolved. Sinew to monitor renal panel closely in the presence of renal failure. (5) Thrombocytopenia Is this a current diagnosis for this admission?: Yes Plan: Platelets not indicated at this time. No spontaneous bleeding. Patient also has recent nonhemorrhagic CVA. Argatroban discontinued. No evidence of HIT DVT prophylaxis with subcutaneous heparin reinitiated. We will watch platelet level closely. Critical Time Critical Time (minutes): 40 Level of Care: ICU Anticipated discharge: Other Anticipated DC Timeframe: within 48 hours -: 1. The care of a critical patient is a dynamic process. This note is a patient registration representative synopsis but static in nature. The timeframe for treatments given in order is not necessarily the actual time these treatments may have been done. 2. This patient requires critical care secondary to ongoing requirements for therapy not offered or safe outside the critical care environment. Transfer to a lower level of care will result in altered life or limb morbidity and mortality. 3. Multidisciplinary rounds completed. 4. ABCDE bundle addressed.
[2020-06-26] MEDS: AZITHROMYCIN 500 MG in DEXTROSE 5%-WATER 250 ML IV SCH (17:59)
[2020-06-26] MEDS: PHARMACY COMMUNICATION ORDER MC SCH (19:30)
[2020-06-26] MEDS: ALBUTEROL SULFATE 0.083% NEB 2.5 MG/3 ML AMPUL NEB PRN (19:44)
[2020-06-26] MEDS: CEFEPIME 1 GM/D5W RTU 1 GM/50 ML RTUPB IV SCH (21:26)
[2020-06-26] MEDS: HEPARIN SOD (PORCINE) 5,000 UNIT/ML 1 ML VIAL SUBCUT SCH (21:26)
--- NOTE | 2020-06-26 22:45 | Progress Note ---
Provider Note Provider Note: CARDIOLOGY PROGRESS NOTE by Dr. Harriet Mclean on 06/26/2020. Subjective: The patient underwent dialysis today and his urine output is picked up. Otherwise remains status quo his blood pressure is picked up. Neurologically appears to be the same he still intubated and sedated. There is no atrial or ventricular edema seen. Early the patient is having bradycardia without any hemodynamiic adverse effects. The bradycardia is now resolved. Thrombocytopenia has improved. There is no evidence of heparin-induced thrombocytopenia. The patient is off argatroban. PHYSICAL EXAMINATION: The patient appears to be chronically ill he is intubated and sedated. Selected Entries 06/26/20 06/26/20 06/26/20 16:00 16:28 16:29 Temperature 99.9 F Heart Rate ( 81 Monitors) Respiratory 25 H Rate Blood Pressure 170/68 H Blood Pressure 102 Mean O2 Sat by Pulse 92 Oximetry Oxygen Delivery Mechanical Method ( Ventilator includes room air) Fraction of 35 Inspired Oxygen (FIO2) Percent of 35 Oxygen PHYSICAL EXAMINATION: The patient is intubated and sedated. HEAD: Is atraumatic normocephalic. EYES: Pupils are equal round reactive to light. ENT is negative. Neck is supple. There is no JVD. Carotids are equal there is no bruit. Trachea central. Lungs there is a few bibasilar crackles right crackles. Rest of the lungs are clear. HEART: S1-S2 is heard. There is no S3 gallop. There is no S4 gallop. There is systolic murmur left sternal border and the apex there is no rub. ABDOMEN: Is soft. There is no hepatosplenomegaly. Bowel sounds are heard. EXTREMITIES: Femorals felt. There is no femoral bruits. There is no pedal edema. There is no DVT or cellulitis. Leg pulses slightly diminished. There is no cyanosis or clubbing. SAFETY INSPECTOR and psychiatric not examined since the patient intubated and sedated. His 24-hour intake is 2343 mL. Output is 6180 mL. Labs- All tests 24 hr 06/23/20 06/23/20 06/23/20 16:10 16:10 16:10 WBC RBC Hgb Hct MCV MCH MCHC RDW Plt Count Lymph % (Auto) [place] % (Auto) Eos % (Auto) Baso % (Auto) Absolute Neuts (auto) Absolute Lymphs (auto) Absolute Monos (auto) Absolute Eos (auto) Absolute Basos (auto) Seg Neutrophils % APTT Sodium Potassium Chloride Carbon Dioxide Anion Gap BUN Creatinine Est GFR ( Amer) Est GFR (MDRD) Non-Af Glucose Calcium Total Bilirubin Direct Bilirubin Neonat Total Bilirubin Neonat Direct Bilirubin Neonat Indirect Bili AST ALT Alkaline Phosphatase Total Protein Albumin RAJEEV (Multiplex) TNP c-ANCA Antibody <1:20 Anti-Proteinase 3 Intrp <3.5 Atypical p-ANCA <1:20 p-ANCA Antibody <1:20 Myeloperoxidase Ab <9.0 Complement C3 74 L Hep B Core Total Ab 06/25/20 06/26/20 06/26/20 04:15 03:55 03:55 WBC 9.3 RBC 2.70 L Hgb 8.4 L Hct 24.5 L MCV 91 MCH 31.1 MCHC 34.3 RDW 14.7 H Plt Count 62 L Lymph % (Auto) 9.6 L [place] % (Auto) 5.9 Eos % (Auto) 0.7 Baso % (Auto) 0.2 Absolute Neuts (auto) 7.8 Absolute Lymphs (auto) 0.9 Absolute Monos (auto) 0.5 Absolute Eos (auto) 0.1 Absolute Basos (auto) 0.0 Seg Neutrophils % 83.6 H APTT Sodium 138.7 Potassium 3.6 Chloride 100 Carbon Dioxide 29 Anion Gap 10 BUN 107 H Creatinine 4.09 H Est GFR ( Amer) 18 L Est GFR (MDRD) Non-Af 15 L Glucose 87 Calcium 6.6 L* Total Bilirubin 1.3 Direct Bilirubin 0.7 H Neonat Total Bilirubin Not Reportable Neonat Direct Bilirubin Not Reportable Neonat Indirect Bili Not Reportable AST 60 H ALT 29 Alkaline Phosphatase 330 H Total Protein 4.5 L Albumin 2.4 L RAJEEV (Multiplex) c-ANCA Antibody Anti-Proteinase 3 Intrp Atypical p-ANCA p-ANCA Antibody Myeloperoxidase Ab Complement C3 Hep B Core Total Ab Negative 06/26/20 03:55 WBC RBC Hgb Hct MCV MCH MCHC RDW Plt Count Lymph % (Auto) [place] % (Auto) Eos % (Auto) Baso % (Auto) Absolute Neuts (auto) Absolute Lymphs (auto) Absolute Monos (auto) Absolute Eos (auto) Absolute Basos (auto) Seg Neutrophils % APTT 54.1 H Sodium Potassium Chloride Carbon Dioxide Anion Gap BUN Creatinine Est GFR ( Amer) Est GFR (MDRD) Non-Af Glucose Calcium Total Bilirubin Direct Bilirubin Neonat Total Bilirubin Neonat Direct Bilirubin Neonat Indirect Bili AST ALT Alkaline Phosphatase Total Protein Albumin RAJEEV (Multiplex) c-ANCA Antibody Anti-Proteinase 3 Intrp Atypical p-ANCA p-ANCA Antibody Myeloperoxidase Ab Complement C3 Hep B Core Total Ab Chest X-Ray 06/18/20 13:05 IMPRESSION: BILATERAL UPPER LUNG OPACITIES, POSSIBLY DUE TO PNEUMONIA. UNDERLYING PULMONARY MASSES CANNOT BE EXCLUDED. Head CT 06/18/20 13:05 IMPRESSION: CHRONIC CHANGES OF ATROPHY AND MICROVASCULAR ISCHEMIA. NO ACUTE PROCESS. EVIDENCE OF ACUTE STROKE: NO. Chest X-Ray 06/18/20 15:29 IMPRESSION: Support lines and tubes are in satisfactory position. Persistent diffuse upper lobe infiltrates. Minimal right lower lobe airspace disease. Chest X-Ray 06/20/20 05:00 IMPRESSION: STABLE APPEARANCE OF THE CHEST. SUPPORT DEVICES UNCHANGED. Chest X-Ray 06/21/20 05:00 IMPRESSION: Parenchymal opacities with some improvement particularly since 06/18/2020 Acute appearing lower right rib fractures. Unchanged from 06/18/2020. SUPPORT DEVICE(S) IN EXPECTED LOCATIONS. Chest X-Ray 06/21/20 20:31 IMPRESSION: Enteric tube courses below the left hemidiaphragm out of the [id number]. Consider abdominal radiographs for complete evaluation. KUB X-Ray 06/22/20 00:00 IMPRESSION: NO RADIOGRAPHIC EVIDENCE FOR ACUTE ABDOMINAL DISEASE. Chest X-Ray 06/22/20 05:00 IMPRESSION: Stable parenchymal opacities without improvement. SUPPORT DEVICE(S) IN EXPECTED LOCATIONS. Renal Ultrasound 06/23/20 00:00 IMPRESSION: Multiple right renal cysts versus chronic hydronephrosis. Chest X-Ray 06/23/20 05:00 IMPRESSION: Tubes and lines in good positioning Increasing bilateral alveolar and interstitial infiltrates Head CT 06/24/20 00:00 IMPRESSION: Extensive acute nonhemorrhagic infarction. EVIDENCE OF ACUTE STROKE: YES. Multiple territories. IMPRESSION/RECOMMENDATION: 1. Large recent nonhemorrhagic CVA of the brain. This seems to be very extensive by CT scan of today. 2. Significantly elevated troponin I albeit with no EKG changes. Since the patient cannot give a history although this may all be due to troponin leak due to hypotension/shock, severe dehydration and possibly sepsis. So this is secondary to extensive nonhemorrhagic cerebral infarction showing on the CT scan not much to offer from cardiology point of view. Consider patient being made hospice care. Would recommend stopping the patient's IV heparin. 3. Shock is mostly combination of dehydration, and sepsis and secondary to severe acidosis. The patient is off all pressors and vasopressin. This is resolved and his blood pressures remained stable.. 4. Acute renal failure: Continue hydration. Still no significant improvement in urine output., But the creatinine is coming down slightly. The patient was dialyzed today and urine output is much improved. 5. Severe hypernatremia: Continue gentle hydration this is resolved. 6. Bibasilar pneumonia: Continue antibiotics 7. Prior history of CVA. Current CT scan of head shows extensive new CVA. 8. History of hypertension: At present patient is requiring inotropes to keep his blood pressure up. 9. Thrombocytopenia: No evidence of heparin-induced thrombocytopenia. 10. History of dysphagia. Medications reviewed. Medical regimen management plan discussed with the campus executive director and the pharmacist intern. In view of the cardiac status now stabilized medical decision making from cardiac standpoint is moderate. Further cardiac work-up depending on the patient's neurological recovery and residual neurologic status. Will follow.
[2020-06-27] MEDS ORDERED: HEPARIN SOD (PORCINE) 1,000 UNIT/ML 10 ML VIAL IV PRN (05:00)
[2020-06-27 05:15] LABS: ANION GAP 12 (5-19); BLOOD UREA NITROGEN 104 mg/dL (7-20); CARBON DIOXIDE 26 mmol/L (22-30); CHLORIDE 100 mmol/L (98-107); GLUCOSE 100 mg/dL (75-110); POTASSIUM 3.2 mmol/L (3.6-5.0)
[2020-06-27 05:26] LABS: CALCIUM 6.3 mg/dL (8.4-10.2)
[2020-06-27 05:37] LABS: HEMATOCRIT 26.6 % (37.9-51.0); MEAN CORPUSCULAR HEMOGLOBIN 30.8 pg (27.0-33.4); MEAN CORPUSCULAR HGB CONC 33.9 g/dL (32.0-36.0); MEAN CORPUSCULAR VOLUME 91 fl (80-97); RED BLOOD COUNT 2.93 10^6/uL (4.35-5.55); RED CELL DISTRIBUTION WIDTH 14.6 % (11.5-14.0); WHITE BLOOD COUNT 12.4 10^3/uL (4.0-10.5)
[2020-06-27 05:38] LABS: PLATELET COUNT 128 10^3/uL (150-450)
[2020-06-27] MEDS: TOBRAMYCIN SULFATE NEB 40 MG/ML 30 ML NEB SCH ×2 (08:06→20:17)
[2020-06-27] MEDS: HEPARIN SOD (PORCINE) 5,000 UNIT/ML 1 ML VIAL SUBCUT SCH ×2 (10:05→21:45)
[2020-06-27] MEDS: PANTOPRAZOLE SODIUM 40 MG VIAL IV SCH (10:06)
[2020-06-27] MEDS: ASPIRIN 81 MG TABLET, CHEWABLE PO SCH (10:06)
[2020-06-27] MEDS: EPOETIN ALFA-EPBX 20,000 UNIT in SYRINGE, DISPOSABLE, 1 EACH IV PRN (11:10)
[2020-06-27 11:38] LABS: HEPATITIS C QUANTITATION HCV Not Detected IU/mL (.)
--- NOTE | 2020-06-27 15:07 | PDOC PROGRESS REPORT ---
Subjective Date:: 06/27/20 Reason For Visit: Patient seen in the ICU today on dialysis. Remains intubated and sedated. Labs and medications were reviewed. Good urine output continuing. Labs shows persistent elevated renal numbers. Dialysis orders reviewed with the treating dialysis nurse. Physical Exam Vital Signs: Temp Pulse Resp BP Pulse Ox 99.7 F 80 30 H 149/58 H 94 06/27/20 14:16 06/27/20 12:00 06/27/20 14:16 06/27/20 14:16 06/27/20 14:16 Intake & Output 06/26/20 06/27/20 06/28/20 06:59 06:59 06:59 Intake Total 2343 255 Output Total 6180 5155 2750 Balance -3137 -3060 -2750 Weight 66.7 kg 65.3 kg General appearance: PRESENT: disheveled Exam: Patient intubated and sedated. Respiratory exam: PRESENT: clear to auscultation dane. ABSENT: crackles Cardiovascular exam: PRESENT: +S1, +S2, systolic murmur GI/Abdominal exam: PRESENT: normal bowel sounds, soft. ABSENT: organomegaly, tenderness Extremities exam: ABSENT: pedal edema Neurological exam: PRESENT: altered Results Laboratory Results: 06/27/20 04:24 06/27/20 04:16 06/27/20 06/27/20 04:16 04:24 WBC 12.4 H RBC 2.93 L Hgb 9.0 L Hct 26.6 L MCV 91 MCH 30.8 MCHC 33.9 RDW 14.6 H Plt Count 128 L D Sodium 137.9 Potassium 3.2 L Chloride 100 Carbon Dioxide 26 Anion Gap 12 BUN 104 H Creatinine 4.15 H Est GFR ( Amer) 18 L Glucose 100 Calcium 6.3 L* 06/18/20 06/18/20 06/18/20 14:07 14:07 18:30 Creatine Kinase 992 H 940 H CK-MB (CK-2) 5.14 H Troponin I 0.447 NT-Pro-B Natriuret Pep 06/18/20 06/19/20 06/19/20 19:20 02:33 02:33 Creatine Kinase 883 H CK-MB (CK-2) 8.85 H 21.90 H Troponin I 0.640 4.590 NT-Pro-B Natriuret Pep 06/19/20 06/19/20 06/19/20 05:47 05:47 08:00 Creatine Kinase 814 H CK-MB (CK-2) Cancelled 22.00 H Troponin I Cancelled NT-Pro-B Natriuret Pep 06/19/20 06/19/20 06/19/20 08:00 08:00 14:20 Creatine Kinase 862 H CK-MB (CK-2) Troponin I 8.620 26.900 NT-Pro-B Natriuret Pep 06/19/20 06/20/20 06/20/20 20:25 02:15 08:21 Creatine Kinase CK-MB (CK-2) Troponin I 36.400 31.500 24.700 NT-Pro-B Natriuret Pep 06/20/20 06/20/20 06/21/20 13:45 20:25 05:00 Creatine Kinase CK-MB (CK-2) Troponin I 20.800 17.300 NT-Pro-B Natriuret Pep 7010 H 06/21/20 06/21/20 06/21/20 05:00 07:50 14:00 Creatine Kinase CK-MB (CK-2) Troponin I 10.500 10.300 8.520 NT-Pro-B Natriuret Pep 06/22/20 06/23/20 06/24/20 05:30 06:40 11:21 Creatine Kinase 612 H CK-MB (CK-2) Troponin I 4.550 NT-Pro-B Natriuret Pep 6320 H Impressions: KUB X-Ray 06/22/20 00:00 IMPRESSION: NO RADIOGRAPHIC EVIDENCE FOR ACUTE ABDOMINAL DISEASE. Renal Ultrasound 06/23/20 00:00 IMPRESSION: Multiple right renal cysts versus chronic hydronephrosis. Chest X-Ray 06/23/20 05:00 IMPRESSION: Tubes and lines in good positioning Increasing bilateral alveolar and interstitial infiltrates Head CT 06/24/20 00:00 IMPRESSION: Extensive acute nonhemorrhagic infarction. EVIDENCE OF ACUTE STROKE: YES. Multiple territories. Assessment & Plan - Diagnosis (1) CVA (cerebral vascular accident) Plan: New CT scan done shows extensive nonhemorrhagic infarction bilaterally. Poor prognosis. (2) Acute kidney failure Qualifiers: Acute renal failure type: unspecified Qualified Code(s): N17.9 - Acute kidney failure, unspecified Is this a current diagnosis for this admission?: Yes Plan: Multifactorial. Looks like he is entering an acute diuretic phase of ATN recovery and has made really good amounts of urine but still BUN is relatively high. See the response to hemodialysis. Initially one was thinking about uremic encephalopathy but given the recent CT scan done yesterday showing bilateral extensive nonhemorrhagic stroke prognosis looks very bleak.Patient currently undergoing supervised dialysis. Plan to remove less than a liter of fluid as tolerated. Dialysis orders reviewed with the treating dialysis nurse. (3) Acute hypoxemic respiratory failure Is this a current diagnosis for this admission?: Yes Plan: Currently intubated and sedated. (4) Altered mental status Qualifiers: Altered mental status type: somnolence Qualified Code(s): R40.0 - Somnolence Is this a current diagnosis for this admission?: Yes Plan: As mentioned earlier one initially considered uremic encephalopathy as part of differential. However patient looks to have suffered acute bilateral non hemorrhagic infarction in the brain which augments poor prognosis. Monitor closely. (5) Anemia Is this a current diagnosis for this admission?: Yes Plan: Monitor. (6) Bilateral pneumonia Qualifiers: Pneumonia type: due to Haemophilus influenzae Lung location: unspecified part of lung Qualified Code(s): J14 - Pneumonia due to Hemophilus influenzae Is this a current diagnosis for this admission?: Yes Plan: Tracheal aspirate grew Klebsiella and Acinetobacter. On antibiotics. (7) Failure to thrive in adult Is this a current diagnosis for this admission?: Yes Plan: Chronic. Looks very emaciated. (8) Non-ST elevated myocardial infarction (non-STEMI) Is this a current diagnosis for this admission?: Yes Plan: As per cardiology. (9) Shock Is this a current diagnosis for this admission?: Yes Plan: Off pressors. Monitor.
[2020-06-27] MEDS: AZITHROMYCIN 500 MG in DEXTROSE 5%-WATER 250 ML IV SCH (18:15)
[2020-06-27] MEDS: PHARMACY COMMUNICATION ORDER MC SCH (18:16)
--- NOTE | 2020-06-27 19:27 | PDOC CRITICAL CARE PROG REPORT ---
General Date:: 06/27/20 ICU Day:: 9 Ventilator Day:: 9 Resuscitation Status: Full Code Events in the past 12 to 24 Hours:: 06/25/20: Patient with significant bradycardia today in the 40s to 50s however he has remained hemodynamically stable. He underwent HD and his electrolytes are now within normal limits. We will recheck electrolytes in the a.m. 06/26/20: Patient's bradycardia seems to have resolved. As per cardiology, argatroban was discontinued. No other acute events. 06/27/2020: No significant changes today. I had an extensive conversation with the patient's son yesterday and again today. Patient was made DNR. Son is interested in withdrawing ventilatory support and providing comfort measures. He is reaching out to family members tonight. Review of systems relevant to events:: ICU day: 9 Neuro: Patient remains unarousable despite not being on any sedation over the past [address] scan on 06/24/2020 shows multiple large areas of anoxic injury, nonhemorrhagic. Patient's son expressed interest in withdrawing ventilatory support. Plan will be to provide comfort care. He is first reaching out to family to discuss this plan. In light of new evidence of large CVA on CT scan, his prognosis is unfortunately very poor. Pulmonary: Patient remains on ventilatory support. PSV: 10, PEEP: 5, FiO2 35%. Breath sounds are relatively clear. Tracheal aspirate on 06/19/2020 shows Klebsi juanjo pneumonia. Patient remains on Cefepime. Remains on ventilator due to neuro status. Cardiovascular: He has remained hemodynamically stable. No further episodes of bradycardia. He has been weaned off of all vasoactive medications. Indwelling catheters: Left IJ TLC. Heme: Cytopenia is steadily improving. No evidence of HIT. Argatroban discontinued. Renal: Hemodialysis today. Creatinine today prior to HD was 4.15. Electrolytes within normal range. We will repeat renal panel in a.m. Gastrointestinal: No acute abdominal issues. Plan: GI prophylaxis: Patient is on Protonix 40 mg IV daily as well as senna and Colace twice daily. Diet: Nepro 1.8 with goal of 35 mL an hour. : Zapata catheter in place. ID: Patient remains on cefepime and azithromycin as well as tobramycin inhaled. Blood culture positive on 06/18 with H. influenza And tracheal aspirate positive on 06/19 with Klebsiella pneumonia. Barriers to discharge from ICU: Patient has unfortunately not recovered from a neurologic point of view since admission. Family is interested in comfort measures and is coordinating with other family members. The current plan is to transition to comfort measures within the next 24 hours. Reason for ICU Addmission:: Acute hypoxemic respiratory failure; severe dehydration; hypernatremia; altered mental status. Intubated. - Medications: Medications reviewed and adjusted accordingly: Yes Physical Exam Vital Signs: Temp Pulse Resp BP Pulse Ox 100.0 F 86 27 H 141/85 H 96 06/27/20 16:00 06/27/20 18:00 06/27/20 18:00 06/27/20 18:00 06/27/20 18:00 Intake & Output 06/26/20 06/27/20 06/28/20 06:59 06:59 06:59 Intake Total 2343 255 Output Total 6180 2945 3335 Balance -3837 -2690 -3335 Weight 66.7 kg 65.3 kg Weight/Height Weight 65.3 kg Height 5 ft 7 in General appearance: PRESENT: no acute distress, thin Head exam: PRESENT: atraumatic, normocephalic Eye exam: PRESENT: EOMI, PERRLA Ear exam: PRESENT: normal external ear exam Mouth exam: PRESENT: dry mucosa Neck exam: PRESENT: full ROM. ABSENT: JVD, lymphadenopathy, tracheal deviation Respiratory exam: PRESENT: clear to auscultation dane. ABSENT: accessory muscle use, rales, rhonchi, wheezes Cardiovascular exam: PRESENT: irregular rhythm Pulses: PRESENT: normal carotid pulses, normal radial pulses, normal femoral pulses Vascular exam: PRESENT: normal capillary refill GI/Abdominal exam: PRESENT: normal bowel sounds Extremities exam: PRESENT: +2 edema Musculoskeletal exam: PRESENT: normal inspection Neurological exam: PRESENT: CN II-XII grossly intact - Patient has been unresponsive over the past several days. Tubes/Lines: PRESENT: Endotracheal Tube Laboratory/Radiographs Laboratory Results: 06/27/20 04:24 06/27/20 04:16 06/27/20 06/27/20 04:16 04:24 WBC 12.4 H RBC 2.93 L Hgb 9.0 L Hct 26.6 L MCV 91 MCH 30.8 MCHC 33.9 RDW 14.6 H Plt Count 128 L D Sodium 137.9 Potassium 3.2 L Chloride 100 Carbon Dioxide 26 Anion Gap 12 BUN 104 H Creatinine 4.15 H Est GFR ( Amer) 18 L Glucose 100 Calcium 6.3 L* 06/18/20 06/18/20 06/18/20 14:07 14:07 18:30 Creatine Kinase 992 H 940 H CK-MB (CK-2) 5.14 H Troponin I 0.447 NT-Pro-B Natriuret Pep 06/18/20 06/19/20 06/19/20 19:20 02:33 02:33 Creatine Kinase 883 H CK-MB (CK-2) 8.85 H 21.90 H Troponin I 0.640 4.590 NT-Pro-B Natriuret Pep 06/19/20 06/19/20 06/19/20 05:47 05:47 08:00 Creatine Kinase 814 H CK-MB (CK-2) Cancelled 22.00 H Troponin I Cancelled NT-Pro-B Natriuret Pep 06/19/20 06/19/20 06/19/20 08:00 08:00 14:20 Creatine Kinase 862 H CK-MB (CK-2) Troponin I 8.620 26.900 NT-Pro-B Natriuret Pep 06/19/20 06/20/20 06/20/20 20:25 02:15 08:21 Creatine Kinase CK-MB (CK-2) Troponin I 36.400 31.500 24.700 NT-Pro-B Natriuret Pep 06/20/20 06/20/20 06/21/20 13:45 20:25 05:00 Creatine Kinase CK-MB (CK-2) Troponin I 20.800 17.300 NT-Pro-B Natriuret Pep 7010 H 06/21/20 06/21/20 06/21/20 05:00 07:50 14:00 Creatine Kinase CK-MB (CK-2) Troponin I 10.500 10.300 8.520 NT-Pro-B Natriuret Pep 06/22/20 06/23/20 06/24/20 05:30 06:40 11:21 Creatine Kinase 612 H CK-MB (CK-2) Troponin I 4.550 NT-Pro-B Natriuret Pep 6320 H Impressions: KUB X-Ray 06/22/20 00:00 IMPRESSION: NO RADIOGRAPHIC EVIDENCE FOR ACUTE ABDOMINAL DISEASE. Renal Ultrasound 06/23/20 00:00 IMPRESSION: Multiple right renal cysts versus chronic hydronephrosis. Chest X-Ray 06/23/20 05:00 IMPRESSION: Tubes and lines in good positioning Increasing bilateral alveolar and interstitial infiltrates Head CT 06/24/20 00:00 IMPRESSION: Extensive acute nonhemorrhagic infarction. EVIDENCE OF ACUTE STROKE: YES. Multiple territories. All labs, radiographs, diagnostic studies and EKGs were personally reviewed: Yes In addition, reports of radiographic and diagnostic studies were read: Yes Assessment and Plan - Diagnosis (1) Acute hypoxemic respiratory failure Is this a current diagnosis for this admission?: Yes Plan: Please see systems review for greater detail. Continue vent support Continue albuterol as needed Continue antibiotics for Klebsiella pneumonia. We are likely to withdraw ventilatory support over the next 24 to 48 hours. (2) Acute kidney failure Qualifiers: Acute renal failure type: unspecified Qualified Code(s): N17.9 - Acute kidney failure, unspecified Is this a current diagnosis for this admission?: Yes Plan: BUN/creatinine improved with hemodialysis today. Patient will most likely need dialysis again tomorrow. Patient most likely to transition to comfort measures only over the next 24 to 48 hours.. (3) Bilateral pneumonia Qualifiers: Pneumonia type: due to Haemophilus influenzae Lung location: unspecified part of lung Qualified Code(s): J14 - Pneumonia due to Hemophilus influenzae Is this a current diagnosis for this admission?: Yes Plan: Continue cefepime and azithromycin as well as inhaled tobramycin. Currently without significant leukocytosis. Patient is afebrile. (4) Metabolic acidosis Is this a current diagnosis for this admission?: Yes Plan: Resolved. Continue to monitor renal panel closely in the presence of renal failure. (5) Thrombocytopenia Is this a current diagnosis for this admission?: Yes Plan: Dissolving. Platelets now within normal range. Critical Time Critical Time (minutes): 64 Level of Care: ICU Anticipated discharge: Hospice Anticipated DC Timeframe: within 36 hours -: 1. The care of a critical patient is a dynamic process. This note is a customer service representative teacher synopsis but static in nature. The timeframe for treatments given in order is not necessarily the actual time these treatments may have been done. 2. This patient requires critical care secondary to ongoing requirements for therapy not offered or safe outside the critical care environment. Transfer to a lower level of care will result in altered life or limb morbidity and mortality. 3. Multidisciplinary rounds completed. 4. ABCDE bundle addressed.
[2020-06-27] MEDS: CEFEPIME 1 GM/D5W RTU 1 GM/50 ML RTUPB IV SCH (21:45)
[2020-06-28 08:15] LABS: HEMATOCRIT 27.7 % (37.9-51.0); HEMOGLOBIN 9.2 g/dL (13.5-17.0); MEAN CORPUSCULAR HEMOGLOBIN 30.3 pg (27.0-33.4); MEAN CORPUSCULAR HGB CONC 33.1 g/dL (32.0-36.0); MEAN CORPUSCULAR VOLUME 92 fl (80-97); PLATELET COUNT 197 10^3/uL (150-450); RED BLOOD COUNT 3.02 10^6/uL (4.35-5.55); RED CELL DISTRIBUTION WIDTH 14.5 % (11.5-14.0); WHITE BLOOD COUNT 13.9 10^3/uL (4.0-10.5)
[2020-06-28 08:38] LABS: ANION GAP 9 (5-19); BLOOD UREA NITROGEN 71 mg/dL (7-20); CARBON DIOXIDE 27 mmol/L (22-30); CHLORIDE 100 mmol/L (98-107); GLUCOSE 112 mg/dL (75-110); POTASSIUM 3.3 mmol/L (3.6-5.0)
[2020-06-28 08:44] LABS: CALCIUM 6.9 mg/dL (8.4-10.2)
[2020-06-28] MEDS: TOBRAMYCIN SULFATE NEB 40 MG/ML 30 ML NEB SCH ×2 (08:46→19:28)
[2020-06-28] MEDS: HEPARIN SOD (PORCINE) 5,000 UNIT/ML 1 ML VIAL SUBCUT SCH (09:55)
[2020-06-28] MEDS: ASPIRIN 81 MG TABLET, CHEWABLE PO SCH (09:55)
[2020-06-28] MEDS: PANTOPRAZOLE SODIUM 40 MG VIAL IV SCH (09:55)
--- NOTE | 2020-06-28 15:26 | PDOC CRITICAL CARE PROG REPORT ---
General Date:: 06/28/20 ICU Day:: 10 Ventilator Day:: 10 Hospital Day:: 10 Resuscitation Status: Full Code Events in the past 12 to 24 Hours:: 06/25/20: Patient with significant bradycardia today in the 40s to 50s however he has remained hemodynamically stable. He underwent HD and his electrolytes are now within normal limits. We will recheck electrolytes in the a.m. 06/26/20: Patient's bradycardia seems to have resolved. As per cardiology, argatroban was discontinued. No other acute events. 06/27/2020: No significant changes today. I had an extensive conversation with the patient's son yesterday and again today. Patient was made DNR. Son is interested in withdrawing ventilatory support and providing comfort measures. He is reaching out to family members tonight. 06/28/20: No significant changes again today. Awaiting arrival of son to better understand his family's decisions about comfort care. Review of systems relevant to events:: ICU day: 10 Neuro: Patient remains unarousable despite not being on any sedation over the past several days. Head CT scan on 06/24/2020 shows multiple large areas of anoxic injury, nonhemorrhagic. Patient's son expressed interest in withdrawing ventilatory support. Plan will be to provide comfort care. He is first reaching out to family to discuss this plan. In light of new evidence of large CVA on CT scan, his prognosis is unfortunately very poor. Pulmonary: No change in pulmonary status. Patient remains on ventilatory s upport. PSV: 10, PEEP: 5, FiO2 35%. Breath sounds are relatively clear. Tracheal aspirate on 06/19/2020 shows Klebsiella pneumonia. Patient remains on Cefepime. Remains on ventilator due to neuro status. Cardiovascular: He has remained hemodynamically stable. No further episodes of bradycardia. He has been weaned off of all vasoactive medications. Indwelling catheters: Left IJ TLC. Heme: Cytopenia has resolved Renal: Creatinine remains elevated. BUN may be trending down. Electrolytes within normal range. We will repeat renal panel in a.m. Gastrointestinal: No acute abdominal issues. Plan: GI prophylaxis: Patient is on Protonix 40 mg IV daily as well as senna and Colace twice daily. Diet: Nepro 1.8 with goal of 35 mL an hour. : Zapata catheter in place. ID: Patient remains on cefepime and azithromycin as well as tobramycin inhaled. Blood culture positive on 06/18 with H. influenza And tracheal aspirate positive on 06/19 with Klebsiella pneumonia. Barriers to discharge from ICU: Patient has unfortunately not recovered from a neurologic point of view since admission. Family is interested in comfort measures and is coordinating with other family members. The current plan is to transition to comfort measures within the next 24 hours. Reason for ICU Addmission:: Acute hypoxemic respiratory failure; severe dehydration; hypernatremia; altered mental status. Intubated. - Medications: Medications reviewed and adjusted accordingly: Yes Physical Exam Vital Signs: Temp Pulse Resp BP Pulse Ox 98.6 F 71 23 H 142/64 H 94 06/28/20 13:16 06/28/20 14:00 06/28/20 14:00 06/28/20 14:00 06/28/20 14:00 Intake & Output 06/27/20 06/28/20 06/29/20 06:59 06:59 06:59 Intake Total 255 1003 Output Total 2945 4055 180 Balance -2690 -3052 -180 Weight 65.3 kg 59.1 kg Weight/Height Weight 59.1 kg Height 5 ft 7 in General appearance: PRESENT: no acute distress, thin Head exam: PRESENT: atraumatic, normocephalic Eye exam: PRESENT: EOMI, PERRLA Ear exam: PRESENT: normal external ear exam Mouth exam: PRESENT: moist Neck exam: ABSENT: carotid bruit, JVD Respiratory exam: PRESENT: clear to auscultation dane, unlabored. ABSENT: accessory muscle use, rales, rhonchi, tachypnea, wheezes Cardiovascular exam: PRESENT: irregular rhythm Pulses: PRESENT: normal carotid pulses, normal radial pulses, normal femoral pulses Vascular exam: PRESENT: normal capillary refill GI/Abdominal exam: PRESENT: normal bowel sounds, soft Musculoskeletal exam: PRESENT: normal inspection Neurological exam: PRESENT: CN II-XII grossly intact, other - Patient has been unresponsive. Skin exam: PRESENT: dry, intact. ABSENT: rash, skin tears Tubes/Lines: PRESENT: Endotracheal Tube, Central Line, Dialysis catheter Laboratory/Radiographs Laboratory Results: 06/28/20 07:35 06/28/20 07:35 06/28/20 06/28/20 07:35 07:35 WBC 13.9 H RBC 3.02 L Hgb 9.2 L Hct 27.7 L MCV 92 MCH 30.3 MCHC 33.1 RDW 14.5 H Plt Count 197 Sodium 136.3 L Potassium 3.3 L Chloride 100 Carbon Dioxide 27 Anion Gap 9 BUN 71 H Creatinine 3.27 H Est GFR ( Amer) 23 L Glucose 112 H Calcium 6.9 L* 06/18/20 06/18/20 06/18/20 14:07 14:07 18:30 Creatine Kinase 992 H 940 H CK-MB (CK-2) 5.14 H Troponin I 0.447 NT-Pro-B Natriuret Pep 06/18/20 06/19/20 06/19/20 19:20 02:33 02:33 Creatine Kinase 883 H CK-MB (CK-2) 8.85 H 21.90 H Troponin I 0.640 4.590 NT-Pro-B Natriuret Pep 06/19/20 06/19/20 06/19/20 05:47 05:47 08:00 Creatine Kinase 814 H CK-MB (CK-2) Cancelled 22.00 H Troponin I Cancelled NT-Pro-B Natriuret Pep 06/19/20 06/19/20 06/19/20 08:00 08:00 14:20 Creatine Kinase 862 H CK-MB (CK-2) Troponin I 8.620 26.900 NT-Pro-B Natriuret Pep 06/19/20 06/20/20 06/20/20 20:25 02:15 08:21 Creatine Kinase CK-MB (CK-2) Troponin I 36.400 31.500 24.700 NT-Pro-B Natriuret Pep 06/20/20 06/20/20 06/21/20 13:45 20:25 05:00 Creatine Kinase CK-MB (CK-2) Troponin I 20.800 17.300 NT-Pro-B Natriuret Pep 7010 H 06/21/20 06/21/20 06/21/20 05:00 07:50 14:00 Creatine Kinase CK-MB (CK-2) Troponin I 10.500 10.300 8.520 NT-Pro-B Natriuret Pep 06/22/20 06/23/20 06/24/20 05:30 06:40 11:21 Creatine Kinase 612 H CK-MB (CK-2) Troponin I 4.550 NT-Pro-B Natriuret Pep 6320 H Impressions: KUB X-Ray 06/22/20 00:00 IMPRESSION: NO RADIOGRAPHIC EVIDENCE FOR ACUTE ABDOMINAL DISEASE. Renal Ultrasound 06/23/20 00:00 IMPRESSION: Multiple right renal cysts versus chronic hydronephrosis. Chest X-Ray 06/23/20 05:00 IMPRESSION: Tubes and lines in good positioning Increasing bilateral alveolar and interstitial infiltrates Head CT 06/24/20 00:00 IMPRESSION: Extensive acute nonhemorrhagic infarction. EVIDENCE OF ACUTE STROKE: YES. Multiple territories. All labs, radiographs, diagnostic studies and EKGs were personally reviewed: Yes In addition, reports of radiographic and diagnostic studies were read: Yes Assessment and Plan - Diagnosis (1) Acute hypoxemic respiratory failure Is this a current diagnosis for this admission?: Yes Plan: Please see systems review for greater detail. No change in plan today. Continue vent support Continue albuterol as needed Continue antibiotics for Klebsiella pneumonia. We are likely to withdraw ventilatory support over the next 24 to 48 hours. (2) Acute kidney failure Qualifiers: Acute renal failure type: unspecified Qualified Code(s): N17.9 - Acute kidney failure, unspecified Is this a current diagnosis for this admission?: Yes Plan: BUN trending down. Creatinine also remains elevated but is trending down. Patient most likely to transition to comfort measures only over the next 24 to 48 hours.. (3) Bilateral pneumonia Qualifiers: Pneumonia type: due to Haemophilus influenzae Lung location: unspecified part of lung Qualified Code(s): J14 - Pneumonia due to Hemophilus influenzae Is this a current diagnosis for this admission?: Yes Plan: No change in plan today. Continue cefepime and azithromycin as well as inhaled tobramycin. Currently without significant leukocytosis. Patient is afebrile. (4) Metabolic acidosis Is this a current diagnosis for this admission?: Yes Plan: Resolved. Continue to monitor renal panel closely in the presence of renal failure. (5) Thrombocytopenia Is this a current diagnosis for this admission?: Yes Plan: Resolving. Platelets now within normal range. Critical Time Critical Time (minutes): 35 Level of Care: ICU Anticipated discharge: Hospice Anticipated DC Timeframe: within 48 hours -: 1. The care of a critical patient is a dynamic process. This note is a rep resentative synopsis but static in nature. The timeframe for treatments given in order is not necessarily the actual time these treatments may have been done. 2. This patient requires critical care secondary to ongoing requirements for therapy not offered or safe outside the critical care environment. Transfer to a lower level of care will result in altered life or limb morbidity and mortality. 3. Multidisciplinary rounds completed. 4. ABCDE bundle addressed.
[2020-06-28] MEDS: PHARMACY COMMUNICATION ORDER MC SCH (17:31)
[2020-06-28] MEDS: AZITHROMYCIN 500 MG in DEXTROSE 5%-WATER 250 ML IV SCH (17:31)
[2020-06-29] MEDS: HEPARIN SOD (PORCINE) 5,000 UNIT/ML 1 ML VIAL SUBCUT SCH ×3 (02:08→22:08)
[2020-06-29] MEDS: CEFEPIME 1 GM/D5W RTU 1 GM/50 ML RTUPB IV SCH (02:14)
[2020-06-29] MEDS: TOBRAMYCIN SULFATE NEB 40 MG/ML 30 ML NEB SCH (07:59)
--- NOTE | 2020-06-29 10:19 | PDOC CRITICAL CARE PROG REPORT ---
General Date:: 06/29/20 ICU Day:: 11 Ventilator Day:: 11 Hospital Day:: 11 Resuscitation Status: Do Not Resuscitate Events in the past 12 to 24 Hours:: Essentially no change. Review of systems relevant to events:: Neurological, renal. Reason for ICU Addmission:: Acute hypoxemic respiratory failure; severe dehydration; hypernatremia; altered mental status. Intubated. - Medications: Medications reviewed and adjusted accordingly: Yes Vasopressors:: None Sedation:: None Physical Exam Vital Signs: Temp Pulse Resp BP Pulse Ox 97.9 F 64 22 H 150/69 H 94 06/29/20 09:15 06/29/20 08:00 06/29/20 08:00 06/29/20 08:00 06/29/20 08:00 Intake & Output 06/28/20 06/29/20 06/30/20 06:59 06:59 06:59 Intake Total 1053 1175 Output Total 4055 1115 50 Balance -3002 60 -50 Weight 59.1 kg 62.5 kg Weight/Height Weight 62.5 kg Height 5 ft 7 in General appearance: PRESENT: no acute distress, thin Head exam: PRESENT: atraumatic, normocephalic Eye exam: PRESENT: conjunctiva pink. ABSENT: scleral icterus Ear exam: PRESENT: normal external ear exam Mouth exam: PRESENT: moist, tongue midline Respiratory exam: PRESENT: clear to auscultation dane, decreased breath sounds. ABSENT: rales, rhonchi, wheezes Cardiovascular exam: PRESENT: RRR. ABSENT: diastolic murmur, rubs, systolic murmur GI/Abdominal exam: PRESENT: normal bowel sounds, soft. ABSENT: distended, g uarding, mass, organolmegaly, rebound, tenderness Rectal exam: PRESENT: deferred Gentrourinary exam: PRESENT: indwelling catheter Extremities exam: PRESENT: full ROM. ABSENT: calf tenderness, clubbing, pedal edema Neurological exam: PRESENT: other - Only occassionally will open eyes. Not to voive or touch. I saw no motion of extremities. Skin exam: PRESENT: dry, intact, warm. ABSENT: cyanosis, rash Tubes/Lines: PRESENT: Endotracheal Tube, Central Line, Dialysis catheter, Nasogastic Tube Laboratory/Radiographs Laboratory Results: 06/28/20 07:35 06/28/20 07:35 06/18/20 06/18/20 06/18/20 14:07 14:07 18:30 Creatine Kinase 992 H 940 H CK-MB (CK-2) 5.14 H Troponin I 0.447 NT-Pro-B Natriuret Pep 06/18/20 06/19/20 06/19/20 19:20 02:33 02:33 Creatine Kinase 883 H CK-MB (CK-2) 8.85 H 21.90 H Troponin I 0.640 4.590 NT-Pro-B Natriuret Pep 06/19/20 06/19/20 06/19/20 05:47 05:47 08:00 Creatine Kinase 814 H CK-MB (CK-2) Cancelled 22.00 H Troponin I Cancelled NT-Pro-B Natriuret Pep 06/19/20 06/19/20 06/19/20 08:00 08:00 14:20 Creatine Kinase 862 H CK-MB (CK-2) Troponin I 8.620 26.900 NT-Pro-B Natriuret Pep 06/19/20 06/20/20 06/20/20 20:25 02:15 08:21 Creatine Kinase CK-MB (CK-2) Troponin I 36.400 31.500 24.700 NT-Pro-B Natriuret Pep 06/20/20 06/20/20 06/21/20 13:45 20:25 05:00 Creatine Kinase CK-MB (CK-2) Troponin I 20.800 17.300 NT-Pro-B Natriuret Pep 7010 H 06/21/20 06/21/20 06/21/20 05:00 07:50 14:00 Creatine Kinase CK-MB (CK-2) Troponin I 10.500 10.300 8.520 NT-Pro-B Natriuret Pep 06/22/20 06/23/20 06/24/20 05:30 06:40 11:21 Creatine Kinase 612 H CK-MB (CK-2) Troponin I 4.550 NT-Pro-B Natriuret Pep 6320 H Impressions: KUB X-Ray 06/22/20 00:00 IMPRESSION: NO RADIOGRAPHIC EVIDENCE FOR ACUTE ABDOMINAL DISEASE. Renal Ultrasound 06/23/20 00:00 IMPRESSION: Multiple right renal cysts versus chronic hydronephrosis. Chest X-Ray 06/23/20 05:00 IMPRESSION: Tubes and lines in good positioning Increasing bilateral alveolar and interstitial infiltrates Head CT 06/24/20 00:00 IMPRESSION: Extensive acute nonhemorrhagic infarction. EVIDENCE OF ACUTE STROKE: YES. Multiple territories. All labs, radiographs, diagnostic studies and EKGs were personally reviewed: Yes In addition, reports of radiographic and diagnostic studies were read: Yes Assessment and Plan - Diagnosis (1) Acute kidney failure Qualifiers: Acute renal failure type: unspecified Qualified Code(s): N17.9 - Acute kid johana failure, unspecified Is this a current diagnosis for this admission?: Yes Plan: Still receiving HD. Cr 3.3, GFR 19. Potassium somewhat low. Will not replace. (2) Dehydration Is this a current diagnosis for this admission?: Yes Plan: Resolved (3) Failure to thrive in adult Is this a current diagnosis for this admission?: Yes Plan: This has been chronic for quite some time at home. (4) Non-ST elevated myocardial infarction (non-STEMI) Is this a current diagnosis for this admission?: Yes Plan: Resolved. (5) Thrombocytopenia Is this a current diagnosis for this admission?: Yes Plan: Resolved. Level now 197. (6) Aspirated gastric contents in lower respiratory tract Is this a current diagnosis for this admission?: Yes Plan: Resolved (7) CVA (cerebral vascular accident) Qualifiers: CVA mechanism: embolism Precerebral and cerebral artery: unspecified cerebral artery Qualified Code(s): I63.40 - Cerebral infarction due to embolism of unspecified cerebral artery Is this a current diagnosis for this admission?: Yes Plan: This is in multiple cerebral territories and has resulted in a devestating neurologic injury. He is not brain , however the extent of the injuries precludes a meaningful recovery. When family has gathered plan is to withdraw care, perhaps as early as Tuesday. Plan Summary: Support until family is here to withdraw care. Critical Time Critical Time (minutes): 35 Level of Care: ICU Anticipated discharge: Hospice Anticipated DC Timeframe: Other -: 1. The care of a critical patient is a dynamic process. This note is a entry level marketing representative synopsis but static in nature. The timeframe for treatments given in order is not necessarily the actual time these treatments may have been done. 2. This patient requires critical care secondary to ongoing requirements for therapy not offered or safe outside the critical care environment. Transfer to a lower level of care will result in altered life or limb morbidity and mortality. 3. Multidisciplinary rounds completed. 4. ABCDE bundle addressed.
[2020-06-29] MEDS: PANTOPRAZOLE SODIUM 40 MG VIAL IV SCH (10:23)
[2020-06-29] MEDS: ASPIRIN 81 MG TABLET, CHEWABLE PO SCH (10:23)
[2020-06-30 09:21] LABS: ABSOLUTE BASOPHILS # (AUTO) 0.1 10^3/uL (0.0-0.2); ABSOLUTE EOSINOPHILS # (AUTO) 0.2 10^3/uL (0.0-0.6); ABSOLUTE MONOCYTES (AUTO) 1.4 10^3/uL (0.1-1.4); BASOPHILS % (AUTO) 0.5 % (0-2); EOSINOPHILS % (AUTO) 0.9 % (0-6); HEMATOCRIT 25.4 % (37.9-51.0); HEMOGLOBIN 8.6 g/dL (13.5-17.0); LYMPHOCYTES % (AUTO) 5.6 % (13-45); MEAN CORPUSCULAR HEMOGLOBIN 30.6 pg (27.0-33.4); MEAN CORPUSCULAR HGB CONC 33.8 g/dL (32.0-36.0); MEAN CORPUSCULAR VOLUME 91 fl (80-97); MONOCYTES % (AUTO) 8.1 % (3-13); PLATELET COUNT 329 10^3/uL (150-450); RED BLOOD COUNT 2.81 10^6/uL (4.35-5.55); RED CELL DISTRIBUTION WIDTH 14.2 % (11.5-14.0); SEGMENTED NEUTROPHILS % (AUTO) 84.9 % (42-78); TOTAL CELLS COUNTED % (AUTO) 100 %; WHITE BLOOD COUNT 17.7 10^3/uL (4.0-10.5)
[2020-06-30 09:42] LABS: ALBUMIN 2.3 g/dL (3.5-5.0); ALKALINE PHOSPHATASE 250 U/L (38-126); ANION GAP 7 (5-19); ASPARTATE AMINO TRANSFERASE 57 U/L (17-59); BILIRUBIN,DIRECT 0.4 mg/dL (0.0-0.4); BILIRUBIN,TOTAL 0.7 mg/dL (0.2-1.3); BLOOD UREA NITROGEN 73 mg/dL (7-20); CARBON DIOXIDE 27 mmol/L (22-30); CHLORIDE 99 mmol/L (98-107); GLUCOSE 106 mg/dL (75-110); PHOSPHORUS 5.1 mg/dL (2.5-4.5); POTASSIUM 3.2 mmol/L (3.6-5.0)
[2020-06-30 09:52] LABS: CALCIUM 6.8 mg/dL (8.4-10.2)
[2020-06-30] MEDS: HEPARIN SOD (PORCINE) 5,000 UNIT/ML 1 ML VIAL SUBCUT SCH ×2 (11:44→22:49)
[2020-06-30] MEDS: ASPIRIN 81 MG TABLET, CHEWABLE PO SCH (11:44)
[2020-06-30] MEDS: PANTOPRAZOLE SODIUM 40 MG VIAL IV SCH (11:45)
[2020-06-30] MEDS: EPOETIN ALFA-EPBX 20,000 UNIT in SYRINGE, DISPOSABLE, 1 EACH IV PRN (11:59)
--- NOTE | 2020-06-30 13:38 | PDOC CRITICAL CARE PROG REPORT ---
General Date:: 06/30/20 ICU Day:: 12 Ventilator Day:: 12 Hospital Day:: 12 Resuscitation Status: Do Not Resuscitate Events in the past 12 to 24 Hours:: 06/30 No real change in status. he is getting a short run of dialysis presently. Reason for ICU Addmission:: Acute hypoxemic respiratory failure; severe dehydration; hypernatremia; altered mental status. Intubated. Physical Exam Vital Signs: Temp Pulse Resp BP Pulse Ox 97.5 F 82 22 H 148/63 H 90 L 06/30/20 12:20 06/30/20 07:00 06/30/20 12:20 06/30/20 12:20 06/30/20 12:36 Intake & Output 06/29/20 06/30/20 07/01/20 06:59 06:59 06:59 Intake Total 1175 1970 700 Output Total 1115 1860 2650 Balance 60 110 -1950 Weight 62.5 kg 63.1 kg Weight/Height Weight 63.1 kg Height 5 ft 7 in Neurological exam: PRESENT: other - The patient does not respond. He does not open eyes or respond to commands. His gaze looks down. He does withdraw his feet to noxious stimuli. he does breath on hios own on the ventialtor. He appears to be in a vegetative state. Laboratory/Radiographs Laboratory Results: 06/30/20 08:57 06/30/20 08:57 06/30/20 06/30/20 08:57 08:57 WBC 17.7 H RBC 2.81 L Hgb 8.6 L Hct 25.4 L MCV 91 MCH 30.6 MCHC 33.8 RDW 14.2 H Plt Count 329 Seg Neutrophils % 84.9 H Sodium 133.1 L Potassium 3.2 L Chloride 99 Carbon Dioxide 27 Anion Gap 7 BUN 73 H Creatinine 3.61 H Est GFR ( Amer) 21 L Glucose 106 Calcium 6.8 L* Phosphorus 5.1 H Magnesium 1.8 Total Bilirubin 0.7 AST 57 Alkaline Phosphatase 250 H Total Protein 5.0 L Albumin 2.3 L 06/18/20 06/18/20 06/18/20 14:07 14:07 18:30 Creatine Kinase 992 H 940 H CK-MB (CK-2) 5.14 H Troponin I 0.447 NT-Pro-B Natriuret Pep 1106/19/20 06/19/20 19:20 02:33 02:33 Creatine Kinase 883 H CK-MB (CK-2) 8.85 H 21.90 H Troponin I 0.640 4.590 NT-Pro-B Natriuret Pep 06/19/20 06/19/20 06/19/20 05:47 05:47 08:00 Creatine Kinase 814 H CK-MB (CK-2) Cancelled 22.00 H Troponin I Cancelled NT-Pro-B Natriuret Pep 06/19/20 06/19/20 06/19/20 08:00 08:00 14:20 Creatine Kinase 862 H CK-MB (CK-2) Troponin I 8.620 26.900 NT-Pro-B Natriuret Pep 06/19/20 06/20/20 06/20/20 20:25 02:15 08:21 Creatine Kinase CK-MB (CK-2) Troponin I 36.400 31.500 24.700 NT-Pro-B Natriuret Pep 06/20/20 06/20/20 06/21/20 13:45 20:25 05:00 Creatine Kinase CK-MB (CK-2) Troponin I 20.800 17.300 NT-Pro-B Natriuret Pep 7010 H 06/21/20 06/21/20 06/21/20 05:00 07:50 14:00 Creatine Kinase CK-MB (CK-2) Troponin I 10.500 10.300 8.520 NT-Pro-B Natriuret Pep 06/22/20 06/23/20 06/24/20 05:30 06:40 11:21 Creatine Kinase 612 H CK-MB (CK-2) Troponin I 4.550 NT-Pro-B Natriuret Pep 6320 H Impressions: KUB X-Ray 06/22/20 00:00 IMPRESSION: NO RADIOGRAPHIC EVIDENCE FOR ACUTE ABDOMINAL DISEASE. Renal Ultrasound 06/23/20 00:00 IMPRESSION: Multiple right renal cysts versus chronic hydronephrosis. Chest X-Ray 06/23/20 05:00 IMPRESSION: Tubes and lines in good positioning Increasing bilateral alveolar and interstitial infiltrates Head CT 06/24/20 00:00 IMPRESSION: Extensive acute nonhemorrhagic infarction. EVIDENCE OF ACUTE STROKE: YES. Multiple territories. Assessment and Plan - Diagnosis (1) Vegetative state Is this a current diagnosis for this admission?: Yes (2) Acute hypoxemic respiratory failure Is this a current diagnosis for this admission?: Yes Plan: Please see systems review for greater detail. No change in plan today. Continue vent support Continue albuterol as needed Continue antibiotics for Klebsiella pneumonia. We are likely to withdraw ventilatory support over the next 24 to 48 hours. 06/30 the patient remains on mechanical ventialtion No prospect for weaning given the fact thepatient has not woken up. (3) Acute kidney failure Qualifiers: Acute renal failure type: unspecified Qualified Code(s): N17.9 - Acute kidney failure, unspecified Is this a current diagnosis for this admission?: Yes Plan: Still receiving HD. Cr 3.3, GFR 19. Potassium somewhat low. Will not replace. 06/30 The patient is getting dialyzed today. The plan was to take off about 1.5 liters. His creatine remains in 3-4 range. (4) CVA (cerebral vascular accident) Qualifiers: CVA mechanism: embolism Precerebral and cerebral artery: unspecified cerebral artery Qualified Code(s): I63.40 - Cerebral infarction due to embolism of unspecified cerebral artery Is this a current diagnosis for this admission?: Yes Plan: This is in multiple cerebral territories and has resulted in a devastating neurologic injury. He is not brain , however the extent of the injuries precludes a meaningful recovery. When family has gathered plan is to withdraw care, perhaps as early as Saturday 06/30 The patient has had no improvement in neurolgical status. Between the time of admission and 06/24 thepatient had developed large areas of low attentuationin both cerebral hemispegeres consistent with anoxic injury. He does not respond at all. He can overbreathe the ventiilato but shows no sign of higher function activies. The family is considering a move to terminal weaning at this time. '. Critical Time Critical Time (minutes): 30 Level of Care: ICU -: 1. The care of a critical patient is a dynamic process. This note is a procurement representative synopsis but static in nature. The timeframe for treatments given in order is not necessarily the actual time these treatments may have been done. 2. This patient requires critical care secondary to ongoing requirements for therapy not offered or safe outside the critical care environment. Transfer to a lower level of care will result in altered life or limb morbidity and mort ality. 3. Multidisciplinary rounds completed. 4. ABCDE bundle addressed.
[2020-06-30] MEDS ORDERED: HEPARIN SOD (PORCINE) 1,000 UNIT/ML 10 ML VIAL IV PRN (14:14)
--- NOTE | 2020-06-30 16:05 | PDOC PROGRESS REPORT ---
Subjective Date:: 06/30/20 Reason For Visit: Patient seen in the ICU today on dialysis. He still remains intubated and s edated. Unresponsive. Labs and medications were reviewed. Dialysis orders were reviewed with the treating dialysis nurse. Discussions were done with the ICU bill peddler. Physical Exam Vital Signs: Temp Pulse Resp BP Pulse Ox 97.3 F 82 21 H 151/60 H 95 06/30/20 14:20 06/30/20 07:00 06/30/20 14:20 06/30/20 14:20 06/30/20 14:20 Intake & Output 06/29/20 06/30/20 07/01/20 06:59 06:59 06:59 Intake Total 1175 1970 700 Output Total 1115 1860 2725 Balance 60 110 -2025 Weight 62.5 kg 63.1 kg Exam: Remains intubated and sedated Respiratory exam: PRESENT: clear to auscultation dane. ABSENT: crackles Cardiovascular exam: PRESENT: +S1, +S2, systolic murmur GI/Abdominal exam: PRESENT: normal bowel sounds, soft. ABSENT: organomegaly, tenderness Extremities exam: ABSENT: pedal edema Results Laboratory Results: 06/30/20 08:57 06/30/20 08:57 06/30/20 06/30/20 08:57 08:57 WBC 17.7 H RBC 2.81 L Hgb 8.6 L Hct 25.4 L MCV 91 MCH 30.6 MCHC 33.8 RDW 14.2 H Plt Count 329 Seg Neutrophils % 84.9 H Sodium 133.1 L Potassium 3.2 L Chloride 99 Carbon Dioxide 27 Anion Gap 7 BUN 73 H Creatinine 3.61 H Est GFR ( Amer) 21 L Glucose 106 Calcium 6.8 L* Phosphorus 5.1 H Magnesium 1.8 Total Bilirubin 0.7 AST 57 Alkaline Phosphatase 250 H Total Protein 5.0 L Albumin 2.3 L 06/18/20 06/18/20 06/18/20 14:07 14:07 18:30 Creatine Kinase 992 H 940 H CK-MB (CK-2) 5.14 H Troponin I 0.447 NT-Pro-B Natriuret Pep 06/18/20 06/19/20 06/19/20 19:20 02:33 02:33 Creatine Kinase 883 H CK-MB (CK-2) 8.85 H 21.90 H Troponin I 0.640 4.590 NT-Pro-B Natriuret Pep 06/19/20 06/19/20 06/19/20 05:47 05:47 08:00 Creatine Kinase 814 H CK-MB (CK-2) Cancelled 22.00 H Troponin I Cancelled NT-Pro-B Natriuret Pep 06/19/20 06/19/20 06/19/20 08:00 08:00 14:20 Creatine Kinase 862 H CK-MB (CK-2) Troponin I 8.620 26.900 NT-Pro-B Natriuret Pep 06/19/20 06/20/20 06/20/20 20:25 02:15 08:21 Creatine Kinase CK-MB (CK-2) Troponin I 36.400 31.500 24.700 NT-Pro-B Natriuret Pep 06/20/20 06/20/20 06/21/20 13:45 20:25 05:00 Creatine Kinase CK-MB (CK-2) Troponin I 20.800 17.300 NT-Pro-B Natriuret Pep 7010 H 06/21/20 06/21/20 06/21/20 05:00 07:50 14:00 Creatine Kinase CK-MB (CK-2) Troponin I 10.500 10.300 8.520 NT-Pro-B Natriuret Pep 06/22/20 06/23/20 06/24/20 05:30 06:40 11:21 Creatine Kinase 612 H CK-MB (CK-2) Troponin I 4.550 NT-Pro-B Natriuret Pep 6320 H Impressions: KUB X-Ray 06/22/20 00:00 IMPRESSION: NO RADIOGRAPHIC EVIDENCE FOR ACUTE ABDOMINAL DISEASE. Renal Ultrasound 06/23/20 00:00 IMPRESSION: Multiple right renal cysts versus chronic hydronephrosis. Chest X-Ray 06/23/20 05:00 IMPRESSION: Tubes and lines in good positioning Increasing bilateral alveolar and interstitial infiltrates Head CT 06/24/20 00:00 IMPRESSION: Extensive acute nonhemorrhagic infarction. EVIDENCE OF ACUTE STROKE: YES. Multiple territories. Assessment & Plan - Diagnosis (1) CVA (cerebral vascular accident) Qualifiers: CVA mechanism: embolism Precerebral and cerebral artery: unspecified cerebral artery Qualified Code(s): I63.40 - Cerebral infarction due to embolism of unspecified cerebral artery Is this a current diagnosis for this admission?: Yes Plan: New CT scan done shows extensive nonhemorrhagic infarction bilaterally. Poor prognosis. (2) Acute kidney failure Qualifiers: Acute renal failure type: unspecified Qualified Code(s): N17.9 - Acute kidney failure, unspecified Is this a current diagnosis for this admission?: Yes Plan: Multifactorial. Looks like he is entering an acute diuretic phase of ATN recovery and has made really good amounts of urine but still BUN is relatively high. See the response to hemodialysis. Initially one was thinking about uremic encephalopathy but given the recent CT scan done yesterday showing bilateral extensive nonhemorrhagic stroke prognosis looks very bleak.Patient currently undergoing supervised dialysis. Plan to remove less than a liter of fluid as tolerated. Dialysis orders reviewed with the treating dialysis nurse. (3) Acute hypoxemic respiratory failure Is this a current diagnosis for this admission?: Yes Plan: Currently intubated and sedated. (4) Anemia Is this a current diagnosis for this admission?: Yes Plan: Monitor. (5) Bilateral pneumonia Qualifiers: Pneumonia type: due to Haemophilus influenzae Lung location: unspecified part of lung Qualified Code(s): J14 - Pneumonia due to Hemophilus influenzae Is this a current diagnosis for this admission?: Yes Plan: Tracheal aspirate grew Klebsiella and Acinetobacter. On antibiotics. (6) Failure to thrive in adult Is this a current diagnosis for this admission?: Yes Plan: Chronic. Looks very emaciated. (7) Non-ST elevated myocardial infarction (non-STEMI) Is this a current diagnosis for this admission?: Yes Plan: As per cardiology. (8) Shock Is this a current diagnosis for this admission?: Yes Plan: Off pressors. Monitor.
[2020-07-01 09:30] LABS: ARTERIAL BLOOD BASE EXCESS 1.4 mmol/L; ARTERIAL BLOOD H2CO3 0.87 mmol/L (1.05-1.35); ARTERIAL BLOOD HCO3 23.6 mmol/L (20-24); ARTERIAL BLOOD O2 SATURATION 96.2 % (94-98); ARTERIAL BLOOD PCO2 28.8 mmHg (35-45); ARTERIAL BLOOD PH 7.53 (7.35-7.45); ARTERIAL BLOOD PO2 72.2 mmHg (80-100); ARTERIAL BLOOD TOTAL CO2 24.5 mmol/L (23-27)
[2020-07-01 09:31] LABS: ARTERIAL BLOOD FIO2 35%
[2020-07-01 09:39] LABS: ABSOLUTE BASOPHILS # (AUTO) 0.1 10^3/uL (0.0-0.2); ABSOLUTE EOSINOPHILS # (AUTO) 0.2 10^3/uL (0.0-0.6); ABSOLUTE LYMPHOCYTES (AUTO) 1.1 10^3/uL (0.5-4.7); ABSOLUTE MONOCYTES (AUTO) 1.7 10^3/uL (0.1-1.4); ABSOLUTE NEUT (AUTO) 13.2 10^3/uL (1.7-8.2); BASOPHILS % (AUTO) 0.6 % (0-2); EOSINOPHILS % (AUTO) 0.9 % (0-6); HEMATOCRIT 26.4 % (37.9-51.0); HEMOGLOBIN 8.8 g/dL (13.5-17.0); LYMPHOCYTES % (AUTO) 6.8 % (13-45); MEAN CORPUSCULAR HEMOGLOBIN 30.6 pg (27.0-33.4); MEAN CORPUSCULAR HGB CONC 33.4 g/dL (32.0-36.0); MEAN CORPUSCULAR VOLUME 92 fl (80-97); MONOCYTES % (AUTO) 10.3 % (3-13); PLATELET COUNT 384 10^3/uL (150-450); RED BLOOD COUNT 2.88 10^6/uL (4.35-5.55); RED CELL DISTRIBUTION WIDTH 14.5 % (11.5-14.0); SEGMENTED NEUTROPHILS % (AUTO) 81.4 % (42-78); TOTAL CELLS COUNTED % (AUTO) 100 %; WHITE BLOOD COUNT 16.2 10^3/uL (4.0-10.5)
[2020-07-01 09:56] LABS: ANION GAP 9 (5-19); BLOOD UREA NITROGEN 62 mg/dL (7-20); CALCIUM 7.3 mg/dL (8.4-10.2); CARBON DIOXIDE 26 mmol/L (22-30); CHLORIDE 99 mmol/L (98-107); GLUCOSE 109 mg/dL (75-110); PHOSPHORUS 4.9 mg/dL (2.5-4.5); POTASSIUM 3.4 mmol/L (3.6-5.0)
[2020-07-01] MEDS: HEPARIN SOD (PORCINE) 5,000 UNIT/ML 1 ML VIAL SUBCUT SCH ×2 (10:11→21:59)
[2020-07-01] MEDS: PANTOPRAZOLE SODIUM 40 MG VIAL IV SCH (10:11)
[2020-07-01] MEDS: ASPIRIN 81 MG TABLET, CHEWABLE PO SCH (10:11)
--- NOTE | 2020-07-01 12:03 | PDOC CRITICAL CARE PROG REPORT ---
General Date:: 07/01/20 ICU Day:: Hospital Day:: 13 Resuscitation Status: Do Not Resuscitate Events in the past 12 to 24 Hours:: 06/30 No real change in status. he is getting a short run of dialysis presently. 07/01 The patient was dialyzed yesterday. He is neurological exam is unchanged. the patient dfoes breath spontaneously. He does withdraw to pain. He does not open his eyes or move. He has been off sedation for a week without improvement in his neuro status. I will try to speak with his sone today to try to determine where we go from here. Reason for ICU Addmission:: Acute hypoxemic respiratory failure; severe dehydration; hypernatremia; altered mental status. Intubated. Physical Exam Vital Signs: Temp Pulse Resp BP Pulse Ox 98.1 F 79 25 H 148/62 H 94 07/01/20 10:21 07/01/20 10:00 07/01/20 10:21 07/01/20 10:21 07/01/20 10:21 Intake & Output 06/30/20 07/01/20 07/02/20 06:59 06:59 06:59 Intake Total 1970 1380 Output Total 1860 3800 225 Balance 110 -2420 -225 Weight 63.1 kg 60.4 kg Weight/Height Weight 60.4 kg Height 5 ft 7 in Laboratory/Radiographs Laboratory Results: 07/01/20 09:00 07/01/20 09:00 07/01/20 07/01/20 07/01/20 09:00 09:00 09:00 WBC 16.2 H RBC 2.88 L Hgb 8.8 L Hct 26.4 L MCV 92 MCH 30.6 MCHC 33.4 RDW 14.5 H Plt Count 384 Seg Neutrophils % 81.4 H Carbonic Acid 0.87 L HCO3/H2CO3 Ratio 27:1 ABG pH 7.53 H ABG pCO2 28.8 L ABG pO2 72.2 L ABG HCO3 23.6 ABG O2 Saturation 96.2 ABG Base Excess 1.4 FiO2 35% Sodium 133.6 L Potassium 3.4 L Chloride 99 Carbon Dioxide 26 Anion Gap 9 BUN 62 H Creatinine 2.83 H Est GFR ( Amer) 27 L Glucose 109 Calcium 7.3 L Phosphorus 4.9 H Magnesium 1.9 06/18/20 06/18/2020 14:07 14:07 18:30 Creatine Kinase 992 H 940 H CK-MB (CK-2) 5.14 H Troponin I 0.447 NT-Pro-B Natriuret Pep 06/18/20 06/19/20 06/19/20 19:20 02:33 02:33 Creatine Kinase 883 H CK-MB (CK-2) 8.85 H 21.90 H Troponin I 0.640 4.590 NT-Pro-B Natriuret Pep 06/19/20 06/19/20 06/19/20 05:47 05:47 08:00 Creatine Kinase 814 H CK-MB (CK-2) Cancelled 22.00 H Troponin I Cancelled NT-Pro-B Natriuret Pep 06/19/20 06/19/20 06/19/20 08:00 08:00 14:20 Creatine Kinase 862 H CK-MB (CK-2) Troponin I 8.620 26.900 NT-Pro-B Natriuret Pep 06/19/20 06/20/20 06/20/20 20:25 02:15 08:21 Creatine Kinase CK-MB (CK-2) Troponin I 36.400 31.500 24.700 NT-Pro-B Natriuret Pep 06/20/20 06/20/20 06/21/20 13:45 20:25 05:00 Creatine Kinase CK-MB (CK-2) Troponin I 20.800 17.300 NT-Pro-B Natriuret Pep 7010 H 06/21/20 06/21/20 06/21/20 05:00 07:50 14:00 Creatine Kinase CK-MB (CK-2) Troponin I 10.500 10.300 8.520 NT-Pro-B Natriuret Pep 06/22/20 06/23/20 06/24/20 05:30 06:40 11:21 Creatine Kinase 612 H CK-MB (CK-2) Troponin I 4.550 NT-Pro-B Natriuret Pep 6320 H Impressions: KUB X-Ray 06/22/20 00:00 IMPRESSION: NO RADIOGRAPHIC EVIDENCE FOR ACUTE ABDOMINAL DISEASE. Renal Ultrasound 06/23/20 00:00 IMPRESSION: Multiple right renal cysts versus chronic hydronephrosis. Chest X-Ray 06/23/20 05:00 IMPRESSION: Tubes and lines in good positioning Increasing bilateral alveolar and interstitial infiltrates Head CT 06/24/20 00:00 IMPRESSION: Extensive acute nonhemorrhagic infarction. EVIDENCE OF ACUTE STROKE: YES. Multiple territories. Assessment and Plan - Diagnosis (1) Vegetative state Is this a current diagnosis for this admission?: Yes Plan: The patient appears to be a in a persistent vegetative state. Has been off sedation for a week without marked imrovement. There are larege area od decreased attentuationbilaterally consistent with global ischemia. (2) Acute hypoxemic respiratory failure Is this a current diagnosis for this admission?: Yes Plan: Please see systems review for greater detail. No change in plan today. Continue vent support Continue albuterol as needed Continue antibiotics for Klebsiella pneumonia. We are likely to withdraw ventilatory support over the next 24 to 48 hours. 06/30 the patient remains on mechanical ventialtion No prospect for weaning given the fact thepatient has not woken up 07/01 The patient is on ventiaotor principally becuse of his altered mental status. If his sone wishes to proceed he will need a trachand pEG before going to a nursing facility. (3) Acute kidney failure Qualifiers: Acute renal failure type: unspecified Qualified Code(s): N17.9 - Acute kidney failure, unspecified Is this a current diagnosis for this admission?: Yes Plan: Still receiving HD. Cr 3.3, GFR 19. Potassium somewhat low. Will not replace. 06/30 The patient is getting dialyzed today. The plan was to take off about 1.5 liters. His creatinine remains in 3-4 range. 07/01 The patient has a fair amount of urine in his folley this AM. The patient is putting out close to 100 cc/hr. Unsure if he will need ongoing dialysis at this point. (4) CVA (cerebral vascular accident) Qualifiers: CVA mechanism: embolism Precerebral and cerebral artery: unspecified cere bral artery Qualified Code(s): I63.40 - Cerebral infarction due to embolism of unspecified cerebral artery Is this a current diagnosis for this admission?: Yes Critical Time Critical Time (minutes): 25 Level of Care: ICU -: 1. The care of a critical patient is a dynamic process. This note is a pharmaceutical sales representative synopsis but static in nature. The timeframe for treatments given in order is not necessarily the actual time these treatments may have been done. 2. This patient requires critical care secondary to ongoing requirements for therapy not offered or safe outside the critical care environment. Transfer to a lower level of care will result in altered life or limb morbidity and mortality. 3. Multidisciplinary rounds completed. 4. ABCDE bundle addressed.
[2020-07-02] MEDS: HEPARIN SOD (PORCINE) 5,000 UNIT/ML 1 ML VIAL SUBCUT SCH ×2 (09:25→21:15)
[2020-07-02] MEDS: PANTOPRAZOLE SODIUM 40 MG VIAL IV SCH (09:25)
[2020-07-02] MEDS: ASPIRIN 81 MG TABLET, CHEWABLE PO SCH (09:25)
--- NOTE | 2020-07-02 11:40 | RADIOLOGY REPORT (SQ) ---
EXAM DESCRIPTION: CHEST SINGLE VIEW IMAGES COMPLETED DATE/TIME: 07/02/2020 11:27 am REASON FOR STUDY: respiratory failure COMPARISON: 06/23/2020 EXAM PARAMETERS: NUMBER OF VIEWS: One view. TECHNIQUE: Single frontal radiographic view of the chest acquired. RADIATION DOSE: NA LIMITATIONS: None. FINDINGS: LUNGS AND PLEURA: Improved pulmonary examination demonstrating diminished, albeit persiste nt, multifocal airspace opacities. No pleural effusion or pneumothorax. MEDIASTINUM AND HILAR STRUCTURES: No masses. Contour normal. HEART AND VASCULAR STRUCTURES: Heart normal in size. Normal vasculature. BONES: No acute findings. HARDWARE: Stable appearance of an endotracheal tube, enteric tube, and left internal jugular vascular access catheter. OTHER: No other significant finding. IMPRESSION: Improved pulmonary exam demonstrating diminished, albeit persistent, multifocal airspace opacities. Stable lines and tubes. TECHNICAL DOCUMENTATION: JOB ID: [id number] 2010 [employer]- All Rights Reserved Reading location - IP/workstation name: [email or web address]
--- NOTE | 2020-07-02 15:10 | PDOC CRITICAL CARE PROG REPORT ---
General ICU Day:: 14 Ventilator Day:: 14 Hospital Day:: 14 Resuscitation Status: Do Not Resuscitate Events in the past 12 to 24 Hours:: 06/30 No real change in status. he is getting a short run of dialysis presently. 07/01 The patient was dialyzed yesterday. He is neurological exam is unchanged. the patient does breath spontaneously. He does withdraw to pain. He does not open his eyes or move. He has been off sedation for a week without improvement in his neuro status. I will try to speak with his sone today to try to determine where we go from here. 07/02 Thepatient remains in the ICU on the ventialtor. no major change in status. i winter d a longdiscussionwith his sonyesterday. i was very dali and said thatn his father was not likely to shows any further neurological improvement. imtold him to speak with hsi siblings to determine their course of action in the next few days. If they decide to move forward the patient will need trach and PEG befre going to a SNF. WE have hel;d dialysis at this time. the patienthas an excellent urien output presently. Reason for ICU Addmission:: Acute hypoxemic respiratory failure; severe dehydration; hypernatremia; altered mental status. Intubated. Physical Exam Vital Signs: Temp Pulse Resp BP Pulse Ox 97.3 F 65 19 133/61 H 95 07/02/20 14:00 07/02/20 12:00 07/02/20 14:00 07/02/20 13:21 07/02/20 14:00 Intake & Output 07/01/20 07/02/20 07/03/20 06:59 06:59 06:59 Intake Total 1380 Output Total 3800 1545 340 Balance -2420 -1545 -340 Weight 60.4 kg 60.7 kg Weight/Height Weight 60.7 kg Height 5 ft 7 in Laboratory/Radiographs Laboratory Results: 07/01/20 09:00 07/01/20 09:00 06/18/20 06/18/20 06/18/20 14:07 14:07 18:30 Creatine Kinase 992 H 940 H CK-MB (CK-2) 5.14 H Troponin I 0.447 NT-Pro-B Natriuret Pep 06/18/20 06/19/20 06/19/20 19:20 02:33 02:33 Creatine Kinase 883 H CK-MB (CK-2) 8.85 H 21.90 H Troponin I 0.640 4.590 NT-Pro-B Natriuret Pep 06/19/20 06/19/20 06/19/20 05:47 05:47 08:00 Creatine Kinase 814 H CK-MB (CK-2) Cancelled 22.00 H Troponin I Cancelled NT-Pro-B Natriuret Pep 06/19/20 06/19/20 06/19/20 08:00 08:00 14:20 Creatine Kinase 862 H CK-MB (CK-2) Troponin I 8.620 26.900 NT-Pro-B Natriuret Pep 06/19/20 06/20/20 06/20/20 20:25 02:15 08:21 Creatine Kinase CK-MB (CK-2) Troponin I 36.400 31.500 24.700 NT-Pro-B Natriuret Pep 06/20/20 06/20/20 06/21/20 13:45 20:25 05:00 Creatine Kinase CK-MB (CK-2) Troponin I 20.800 17.300 NT-Pro-B Natriuret Pep 7010 H 06/21/20 06/21/20 06/21/20 05:00 07:50 14:00 Creatine Kinase CK-MB (CK-2) Troponin I 10.500 10.300 8.520 NT-Pro-B Natriuret Pep 06/22/20 06/23/20 06/24/20 05:30 06:40 11:21 Creatine Kinase 612 H CK-MB (CK-2) Troponin I 4.550 NT-Pro-B Natriuret Pep 6320 H Impressions: KUB X-Ray 06/22/20 00:00 IMPRESSION: NO RADIOGRAPHIC EVIDENCE FOR ACUTE ABDOMINAL DISEASE. Renal Ultrasound 06/23/20 00:00 IMPRESSION: Multiple right renal cysts versus chronic hydronephrosis. Head CT 06/24/20 00:00 IMPRESSION: Extensive acute nonhemorrhagic infarction. EVIDENCE OF ACUTE STROKE: YES. Multiple territories. Chest X-Ray 07/02/20 00:00 IMPRESSION: Improved pulmonary exam demonstrating diminished, albeit persistent, multifocal airspace opacities. Stable lines and tubes. Assessment and Plan - Diagnosis (1) Vegetative state Is this a current diagnosis for this admission?: Yes Plan: The patient appears to be a in a persistent vegetative state. Has been off sed ation for a week without marked imrovement. There are larege area od decreased attentuationbilaterally consistent with global ischemia. 07/02 As noted the patient has been off sedation 8 days without any sign of higher cortical function. He appears to be in a chronic vegetative state. We are awioting a decision on how to prceed from the family. (2) Acute hypoxemic respiratory failure Is this a current diagnosis for this admission?: Yes (3) Acute kidney failure Qualifiers: Acute renal failure type: unspecified Qualified Code(s): N17.9 - Acute kidney failure, unspecified Is this a current diagnosis for this admission?: Yes Plan: Still receiving HD. Cr 3.3, GFR 19. Potassium somewhat low. Will not replace. 06/30 The patient is getting dialyzed today. The plan was to take off about 1.5 liters. His creatinine remains in 3-4 range. 07/01 The patient has a fair amount of urine in his folley this AM. The patient is putting out close to 100 cc/hr. Unsure if he will need ongoing dialysis at this point. 07/02 Little change. Urine output > 1500 cc yesterday. Last creat was 2.8 on 07/01. (4) CVA (cerebral vascular accident) Qualifiers: CVA mechanism: embolism Precerebral and cerebral artery: unspecified cerebral artery Qualified Code(s): I63.40 - Cerebral infarction due to embolism of unspecified cerebral artery Is this a current diagnosis for this admission?: Yes Plan: This is in multiple cerebral territories and has resulted in a devastating neurologic injury. He is not brain , however the extent of the injuries precludes a meaningful recovery. When family has gathered plan is to withdraw care, perhaps as early as Saturday 06/30 The patient has had no improvement in neurolgical status. Between the time of admission and 06/24 thepatient had developed large areas of low attentuationin both cerebral hemispegeres consistent with anoxic injury. He does not respond at all. He can over breathe the ventiilato but shows no sign of higher function act ivies. The family is considering a move to terminal weaning at this time. 07/02 As noted we are awiting the family's decison onhow to prceed going forward , either comfort care and termianlextubation vs Trach/PEG and long term care social worker placement. '. Critical Time Critical Time (minutes): 25 Level of Care: ICU -: 1. The care of a critical patient is a dynamic process. This note is a medical billing representative synopsis but static in nature. The timeframe for treatments given in order is not necessarily the actual time these treatments may have been done. 2. This patient requires critical care secondary to ongoing requirements for therapy not offered or safe outside the critical care environment. Transfer to a lower level of care will result in altered life or limb morbidity and mortality. 3. Multidisciplinary rounds completed. 4. ABCDE bundle addressed.
[2020-07-03 03:45] LABS: ALBUMIN 2.5 g/dL (3.5-5.0); ALKALINE PHOSPHATASE 221 U/L (38-126); ANION GAP 10 (5-19); ASPARTATE AMINO TRANSFERASE 51 U/L (17-59); BILIRUBIN,DIRECT 0.4 mg/dL (0.0-0.4); BILIRUBIN,TOTAL 0.7 mg/dL (0.2-1.3); BLOOD UREA NITROGEN 67 mg/dL (7-20); CALCIUM 7.5 mg/dL (8.4-10.2); CARBON DIOXIDE 25 mmol/L (22-30); CHLORIDE 99 mmol/L (98-107); GLUCOSE 115 mg/dL (75-110); PHOSPHORUS 5.4 mg/dL (2.5-4.5); POTASSIUM 3.4 mmol/L (3.6-5.0); TOTAL PROTEIN 5.6 g/dL (6.3-8.2)
[2020-07-03] MEDS: PANTOPRAZOLE SODIUM 40 MG VIAL IV SCH (09:10)
[2020-07-03] MEDS: HEPARIN SOD (PORCINE) 5,000 UNIT/ML 1 ML VIAL SUBCUT SCH ×2 (09:10→21:45)
[2020-07-03] MEDS: POTASSI CL 20 MEQ/50 ML RIDER 20 MEQ/50 ML RTUPB IV SCH ×2 (09:10→11:15)
[2020-07-03] MEDS: ASPIRIN 81 MG TABLET, CHEWABLE PO SCH (09:10)
--- NOTE | 2020-07-03 18:35 | PDOC CRITICAL CARE PROG REPORT ---
General Date:: 07/03/20 ICU Day:: 15 Ventilator Day:: 15 Hospital Day:: 15 Resuscitation Status: Chemical Code Only Events in the past 12 to 24 Hours:: 06/30 No real change in status. he is getting a short run of dialysis presently. 07/01 The patient was dialyzed yesterday. He is neurological exam is unchanged. the patient does breath spontaneously. He does withdraw to pain. He does not open his eyes or move. He has been off sedation for a week without improvement in his neuro status. I will try to speak with his sone today to try to determine where we go from here. 07/02 Thepatient remains in the ICU on the ventialtor. no major change in status. i had a long discussion with his son yesterday. i was very dali and said thatn his father was not likely to shows any further neurological improvement. I told him to speak with hsi siblings to determine their course of action in the next few days. If they decide to move forward the patient will need trach and PEG before going to a SNF. WE have hel;d dialysis at this time. the patient has an excellent urine output presently. 07/03 BEKAH James was going to speak to thepatient about his decision to proceed with trachand PEG. I have held off making any arrangements for that reason. His CXR looks much better than her previous CXR of \several days ago. GNR were isolated from his tracheal aspirate. His WBC is up thepast few days. i was told he had purulent secretions today. therfore we started him on abx coverage at this time. The patient had grown out Acinetobacter and klebsiella pn. on 06/19. Reason for ICU Addmission:: Acute hypoxemic respiratory failure; severe dehydration; hypernatremia; altered mental status. Intubated. Physical Exam Vital Signs: Temp Pulse Resp BP Pulse Ox 98.4 F 70 23 H 138/50 H 97 07/03/20 18:27 07/03/20 18:27 07/03/20 18:27 07/03/20 18:27 07/03/20 18:27 Intake & Output 07/02/20 07/03/20 07/04/20 06:59 06:59 06:59 Intake Total 610 Output Total 1545 1330 1055 Balance -2255 -1330 -445 Weight 60.7 kg 55 kg Weight/Height Weight 55 kg Height 5 ft 7 in Laboratory/Radiographs Laboratory Results: 07/01/20 09:00 07/03/20 03:17 07/03/20 03:17 Sodium 133.5 L Potassium 3.4 L Chloride 99 Carbon Dioxide 25 Anion Gap 10 BUN 67 H Creatinine 3.12 H Est GFR ( Amer) 24 L Glucose 115 H Calcium 7.5 L Phosphorus 5.4 H Magnesium 2.0 Total Bilirubin 0.7 AST 51 Alkaline Phosphatase 221 H Total Protein 5.6 L Albumin 2.5 L 06/18/20 06/18/20 06/18/20 14:07 14:07 18:30 Creatine Kinase 992 H 940 H CK-MB (CK-2) 5.14 H Troponin I 0.447 NT-Pro-B Natriuret Pep 06/18/20 06/19/20 06/19/20 19:20 02:33 02:33 Creatine Kinase 883 H CK-MB (CK-2) 8.85 H 21.90 H Troponin I 0.640 4.590 NT-Pro-B Natriuret Pep 06/19/20 06/19/20 06/19/20 05:47 05:47 08:00 Creatine Kinase 814 H CK-MB (CK-2) Cancelled 22.00 H Troponin I Cancelled NT-Pro-B Natriuret Pep 06/19/20 06/19/20 06/19/20 08:00 08:00 14:20 Creatine Kinase 862 H CK-MB (CK-2) Troponin I 8.620 26.900 NT-Pro-B Natriuret Pep 06/19/20 06/20/20 06/20/20 20:25 02:15 08:21 Creatine Kinase CK-MB (CK-2) Troponin I 36.400 31.500 24.700 NT-Pro-B Natriuret Pep 06/20/20 06/20/20 06/21/20 13:45 20:25 05:00 Creatine Kinase CK-MB (CK-2) Troponin I 20.800 17.300 NT-Pro-B Natriuret Pep 7010 H 06/21/20 06/21/20 06/21/20 05:00 07:50 14:00 Creatine Kinase CK-MB (CK-2) Troponin I 10.500 10.300 8.520 NT-Pro-B Natriuret Pep 06/22/20 06/23/20 06/24/20 05:30 06:40 11:21 Creatine Kinase 612 H CK-MB (CK-2) Troponin I 4.550 NT-Pro-B Natriuret Pep 6320 H Impressions: KUB X-Ray 06/22/20 00:00 IMPRESSION: NO RADIOGRAPHIC EVIDENCE FOR ACUTE ABDOMINAL DISEASE. Renal Ultrasound 06/23/20 00:00 IMPRESSION: Multiple right renal cysts versus chronic hydronephrosis. Head CT 06/24/20 00:00 IMPRESSION: Extensive acute nonhemorrhagic infarction. EVIDENCE OF ACUTE STROKE: YES. Multiple territories. Chest X-Ray 07/02/20 00:00 IMPRESSION: Improved pulmonary exam demonstrating diminished, albeit persistent, multifocal airspace opacities. Stable lines and tubes. Assessment and Plan - Diagnosis (1) Vegetative state Is this a current diagnosis for this admission?: Yes Plan: The patient appears to be a in a persistent vegetative state. Has been off sedation for a week without marked imrovement. There are larege area od decreased attentuationbilaterally consistent with global ischemia. 07/02 As noted the patient has been off sedation 8 days without any sign of higher cortical function. He appears to be in a chronic vegetative state. We are awaiting a decision on how to prceed from the family. 07/03 As noted BEKAH James knows thepatient 's sosn and was going to speak with himand than we will decide when andif to proceed with trach and pEG. (2) Acute hypoxemic respiratory failure Is this a current diagnosis for this admission?: Yes Plan: Please see systems review for greater detail. No change in plan today. Continue vent support Continue albuterol as needed Continue antibiotics for Klebsiella pneumonia. We are likely to withdraw ventilatory support over the next 24 to 48 hours. 06/30 the patient remains on mechanical ventialtion No prospect for weaning given the fact thepatient has not woken up 07/01 The patient is on ventilator principally because of his altered mental status. If his son wishes to proceed he will need a trach and pEG before going to a nursing facility. (3) Acute kidney failure Qualifiers: Acute renal failure type: unspecified Qualified Code(s): N17.9 - Acute kidney failure, unspecified Is this a current diagnosis for this admission?: Yes Plan: Still receiving HD. Cr 3.3, GFR 19. Potassium somewhat low. Will not replace. 06/30 The patient is getting dialyzed today. The plan was to take off about 1.5 liters. His creatinine remains in 3-4 range. 07/01 The patient has a fair amount of urine in his folley this AM. The patient is putting out close to 100 cc/hr. Unsure if he will need ongoing dialysis at this point. 07/02 Little change. Urine output > 1500 cc yesterday. Last creat was 2.8 on 07/01. 07/03 Dialysis is on hold presently. the patient has a good urien output. Will monitor electrolytes. (4) CVA (cerebral vascular accident) Qualifiers: CVA mechanism: embolism Precerebral and cerebral artery: unspecified cerebral artery Qualified Code(s): I63.40 - Cerebral infarction due to embolism of unspecified cerebral artery Is this a current diagnosis for this admission?: Yes Plan: This is in multiple cerebral territories and has resulted in a devastating neurologic injury. He is not brain , however the extent of the injuries precludes a meaningful recovery. When family has gathered plan is to withdraw care, perhaps as early as Saturday 06/30 The patient has had no improvement in neurolgical status. Between the time of admission and 06/24 thepatient had developed large areas of low attentuationin both cerebral hemispegeres consistent with anoxic injury. He does not respond at all. He can over breathe the ventiilato but shows no sign of higher function activies. The family is considering a move to terminal weaning at this time. 07/02 As noted we are awiting the family's decison onhow to prceed going forward , either comfort care and termianlextubation vs Trach/PEG and city auditor placement. '. Critical Time Critical Time (minutes): 20 Level of Care: ICU -: 1. The care of a critical patient is a dynamic process. This note is a rep resentative synopsis but static in nature. The timeframe for treatments given in order is not necessarily the actual time these treatments may have been done. 2. This patient requires critical care secondary to ongoing requirements for therapy not offered or safe outside the critical care environment. Transfer to a lower level of care will result in altered life or limb morbidity and mortality. 3. Multidisciplinary rounds completed. 4. ABCDE bundle addressed.
[2020-07-03] MEDS ORDERED: CEFEPIME HCL 2 GM in DEXTROSE 5%-WATER 50 ML IV SCH (20:00)
[2020-07-03] MEDS ORDERED: HEPARIN SOD (PORCINE) 5,000 UNIT/ML 1 ML VIAL ONE (21:29)
[2020-07-03] MEDS ORDERED: CEFEPIME 2 GM/D5W RTU 2 GM/50 ML RTUPB IV SCH (22:00)
[2020-07-03] MEDS ORDERED: CEFEPIME HCL 2 GM in DEXTROSE 5%-WATER 50 ML IV ONE (22:30)
[2020-07-04] MEDS ORDERED: CEFEPIME 2 GM/D5W RTU 2 GM/50 ML RTUPB IV ONE (00:17)
[2020-07-04 05:35] LABS: ABSOLUTE BASOPHILS # (AUTO) 0.1 10^3/uL (0.0-0.2); ABSOLUTE EOSINOPHILS # (AUTO) 0.1 10^3/uL (0.0-0.6); ABSOLUTE LYMPHOCYTES (AUTO) 1.1 10^3/uL (0.5-4.7); ABSOLUTE MONOCYTES (AUTO) 1.5 10^3/uL (0.1-1.4); ABSOLUTE NEUT (AUTO) 9.9 10^3/uL (1.7-8.2); BASOPHILS % (AUTO) 0.8 % (0-2); HEMATOCRIT 24.4 % (37.9-51.0); LYMPHOCYTES % (AUTO) 8.9 % (13-45); MEAN CORPUSCULAR HEMOGLOBIN 30.4 pg (27.0-33.4); MEAN CORPUSCULAR HGB CONC 32.9 g/dL (32.0-36.0); MEAN CORPUSCULAR VOLUME 92 fl (80-97); MONOCYTES % (AUTO) 11.7 % (3-13); PLATELET COUNT 428 10^3/uL (150-450); RED BLOOD COUNT 2.64 10^6/uL (4.35-5.55); RED CELL DISTRIBUTION WIDTH 14.7 % (11.5-14.0); SEGMENTED NEUTROPHILS % (AUTO) 77.6 % (42-78); TOTAL CELLS COUNTED % (AUTO) 100 %; WHITE BLOOD COUNT 12.8 10^3/uL (4.0-10.5)
[2020-07-04 06:04] LABS: ALBUMIN 2.5 g/dL (3.5-5.0); ALKALINE PHOSPHATASE 221 U/L (38-126); ANION GAP 11 (5-19); ASPARTATE AMINO TRANSFERASE 50 U/L (17-59); BILIRUBIN,DIRECT 0.3 mg/dL (0.0-0.4); BILIRUBIN,TOTAL 0.6 mg/dL (0.2-1.3); BLOOD UREA NITROGEN 74 mg/dL (7-20); CALCIUM 7.8 mg/dL (8.4-10.2); CARBON DIOXIDE 21 mmol/L (22-30); CHLORIDE 103 mmol/L (98-107); GLUCOSE 97 mg/dL (75-110); POTASSIUM 4.4 mmol/L (3.6-5.0); TOTAL PROTEIN 5.7 g/dL (6.3-8.2)
[2020-07-04 09:44] LABS: ARTERIAL BLOOD BASE EXCESS -0.5 mmol/L; ARTERIAL BLOOD H2CO3 1.06 mmol/L (1.05-1.35); ARTERIAL BLOOD HCO3 23.4 mmol/L (20-24); ARTERIAL BLOOD PCO2 35.2 mmHg (35-45); ARTERIAL BLOOD PH 7.44 (7.35-7.45); ARTERIAL BLOOD PO2 87.2 mmHg (80-100); ARTERIAL BLOOD TOTAL CO2 24.5 mmol/L (23-27)
[2020-07-04 09:45] LABS: ARTERIAL BLOOD FIO2 35%
[2020-07-04] MEDS: HEPARIN SOD (PORCINE) 5,000 UNIT/ML 1 ML VIAL SUBCUT SCH ×2 (10:26→21:04)
[2020-07-04] MEDS: PANTOPRAZOLE SODIUM 40 MG VIAL IV SCH (10:27)
[2020-07-04] MEDS: ASPIRIN 81 MG TABLET, CHEWABLE PO SCH (10:27)
--- NOTE | 2020-07-04 16:06 | PDOC CRITICAL CARE PROG REPORT ---
General Date:: 07/04/20 ICU Day:: 16 Ventilator Day:: 16 Hospital Day:: 16 Resuscitation Status: Chemical Code Only Events in the past 12 to 24 Hours:: 06/30 No real change in status. he is getting a short run of dialysis presently. 07/01 The patient was dialyzed yesterday. He is neurological exam is unchanged. the patient does breath spontaneously. He does withdraw to pain. He does not open his eyes or move. He has been off sedation for a week without improvement in his neuro status. I will try to speak with his sone today to try to determine where we go from here. 07/02 Thepatient remains in the ICU on the ventialtor. no major change in status. i had a long discussion with his son yesterday. i was very dali and said thatn his father was not likely to shows any further neurological improvement. I told him to speak with hsi siblings to determine their course of action in the next few days. If they decide to move forward the patient will need trach and PEG before going to a SNF. WE have hel;d dialysis at this time. the patient has an excellent urine output presently. 07/03 BEKAH James was going to speak to the patient about his decision to proceed with trach and PEG. I have held off making any arrangements for that reason. His CXR looks much better than her previous CXR of several days ago. GNR were isolated from his tracheal aspirate. His WBC is up the past few days. i was told he had purulent secretions today. Therefore, we started him on abx coverage at this time. The patient had grown out Acinetobacter and Klebsiella pn. on 06/19. 07/04 The patient's overal status is little changed. No improvement in neuro staus. Vitals stable It is 12.8 and was 15.2 on 07/01. The patient has grwn out Stenotrohomonas in his sputum culture. ABX coverage changed to IV Bactrim. BEKAH James spoke with jhsi son who appears towant to go forward presently with trach and PEG. Reason for ICU Addmission:: Acute hypoxemic respiratory failure; severe dehydration; hypernatremia; altered mental status. Intubated. Physical Exam Vital Signs: Temp Pulse Resp BP Pulse Ox 98.9 F 70 20 155/52 H 96 07/04/20 10:00 07/04/20 10:00 07/04/20 10:00 07/04/20 10:00 07/04/20 12:00 Intake & Output 07/03/20 07/04/20 07/05/20 06:59 06:59 06:59 Intake Total 610 870 Output Total 1330 1710 90 Balance -1330 -1100 780 Weight 55 kg 55.3 kg 55.3 kg Weight/Height Weight 55.3 kg Height 5 ft 7 in General appearance: PRESENT: no acute distress Head exam: PRESENT: atraumatic, normocephalic Ear exam: PRESENT: normal external ear exam Mouth exam: PRESENT: dry mucosa Neck exam: ABSENT: JVD, thyromegaly GI/Abdominal exam: PRESENT: normal bowel sounds Extremities exam: ABSENT: calf tenderness Laboratory/Radiographs Laboratory Results: 07/04/20 05:09 07/04/20 05:09 07/04/20 07/04/20 07/04/20 05:09 05:09 09:12 WBC 12.8 H RBC 2.64 L Hgb 8.0 L Hct 24.4 L MCV 92 MCH 30.4 MCHC 32.9 RDW 14.7 H Plt Count 428 Seg Neutrophils % 77.6 Carbonic Acid 1.06 HCO3/H2CO3 Ratio 22:1 ABG pH 7.44 ABG pCO2 35.2 ABG pO2 87.2 ABG HCO3 23.4 ABG O2 Saturation 97.0 ABG Base Excess -0.5 FiO2 35% Sodium 135.1 L Potassium 4.4 Chloride 103 Carbon Dioxide 21 L Anion Gap 11 BUN 74 H Creatinine 3.19 H Est GFR ( Amer) 24 L Glucose 97 Calcium 7.8 L Total Bilirubin 0.6 AST 50 Alkaline Phosphatase 221 H Total Protein 5.7 L Albumin 2.5 L 07/02/20 12:15 Tracheal Aspirate Gram Stain - Final 07/02/20 12:15 Tracheal Aspirate Sputum Culture - Final Stenotrophomonas Maltophilia Normal Malathi Absent 06/18/20 06/18/20 06/18/20 14:07 14:07 18:30 Creatine Kinase 992 H 940 H CK-MB (CK-2) 5.14 H Troponin I 0.447 NT-Pro-B Natriuret Pep 06/18/20 06/19/20 06/19/20 19:20 02:33 02:33 Creatine Kinase 883 H CK-MB (CK-2) 8.85 H 21.90 H Troponin I 0.640 4.590 NT-Pro-B Natriuret Pep 06/19/20 06/19/20 06/19/20 05:47 05:47 08:00 Creatine Kinase 814 H CK-MB (CK-2) Cancelled 22.00 H Troponin I Cancelled NT-Pro-B Natriuret Pep 06/19/20 06/19/20 06/19/20 08:00 08:00 14:20 Creatine Kinase 862 H CK-MB (CK-2) Troponin I 8.620 26.900 NT-Pro-B Natriuret Pep 06/19/20 06/20/20 06/20/20 20:25 02:15 08:21 Creatine Kinase CK-MB (CK-2) Troponin I 36.400 31.500 24.700 NT-Pro-B Natriuret Pep 06/20/20 06/20/20 06/21/20 13:45 20:25 05:00 Creatine Kinase CK-MB (CK-2) Troponin I 20.800 17.300 NT-Pro-B Natriuret Pep 7010 H 06/21/20 06/21/20 06/21/20 05:00 07:50 14:00 Creatine Kinase CK-MB (CK-2) Troponin I 10.500 10.300 8.520 NT-Pro-B Natriuret Pep 06/22/20 06/23/20 06/24/20 05:30 06:40 11:21 Creatine Kinase 612 H CK-MB (CK-2) Troponin I 4.550 NT-Pro-B Natriuret Pep 6320 H Impressions: KUB X-Ray 06/22/20 00:00 IMPRESSION: NO RADIOGRAPHIC EVIDENCE FOR ACUTE ABDOMINAL DISEASE. Renal Ultrasound 06/23/20 00:00 IMPRESSION: Multiple right renal cysts versus chronic hydronephrosis. Head CT 06/24/20 00:00 IMPRESSION: Extensive acute nonhemorrhagic infarction. EVIDENCE OF ACUTE STROKE: YES. Multiple territories. Chest X-Ray 07/02/20 00:00 IMPRESSION: Improved pulmonary exam demonstrating diminished, albeit persistent, multifocal airspace opacities. Stable lines and tubes. Assessment and Plan - Diagnosis (1) Vegetative state Is this a current diagnosis for this admission?: Yes Plan: The patient appears to be a in a persistent vegetative state. Has been off sed ation for a week without marked imrovement. There are larege area od decreased attentuationbilaterally consistent with global ischemia. 07/02 As noted the patient has been off sedation 8 days without any sign of higher cortical function. He appears to be in a chronic vegetative state. We are awaiting a decision on how to prceed from the family. 07/03 As noted BEKAH James knows thepatient 's sosn and was going to speak with himand than we will decide when andif to proceed with trach and pEG. (2) Acute hypoxemic respiratory failure Is this a current diagnosis for this admission?: Yes Plan: Please see systems review for greater detail. No change in plan today. Continue vent support Continue albuterol as needed Continue antibiotics for Klebsiella pneumonia. We are likely to withdraw ventilatory support over the next 24 to 48 hours. 06/30 the patient remains on mechanical ventialtion No prospect for weaning given the fact thepatient has not woken up 07/01 The patient is on ventilator principally because of his altered mental status. If his son wishes to proceed he will need a trach and pEG before going to a nursing facility. (3) Acute kidney failure Qualifiers: Acute renal failure type: unspecified Qualified Code(s): N17.9 - Acute kidney failure, unspecified Is this a current diagnosis for this admission?: Yes Plan: Still receiving HD. Cr 3.3, GFR 19. Potassium somewhat low. Will not replace. 06/30 The patient is getting dialyzed today. The plan was to take off about 1.5 liter s. His creatinine remains in 3-4 range. 07/01 The patient has a fair amount of urine in his folley this AM. The patient is putting out close to 100 cc/hr. Unsure if he will need ongoing dialysis at this point. 07/02 Little change. Urine output > 1500 cc yesterday. Last creat was 2.8 on 07/01. 07/03 Dialysis is on hold presently. the patient has a good urien output. Will monitor electrolytes. 07/04 renal fn little changed. Put out > 1700cc yesterday. (4) CVA (cerebral vascular accident) Qualifiers: CVA mechanism: embolism Precerebral and cerebral artery: unspecified cerebral artery Qualified Code(s): I63.40 - Cerebral infarction due to embolism of unspecified cerebral artery Is this a current diagnosis for this admission?: Yes Critical Time Critical Time (minutes): 15 Level of Care: ICU -: 1. The care of a critical patient is a dynamic process. This note is a re presentative synopsis but static in nature. The timeframe for treatments given in order is not necessarily the actual time these treatments may have been done. 2. This patient requires critical care secondary to ongoing requirements for therapy not offered or safe outside the critical care environment. Transfer to a lower level of care will result in altered life or limb morbidity and mortalit y. 3. Multidisciplinary rounds completed. 4. ABCDE bundle addressed.
[2020-07-04] MEDS: DEXTROSE 5% IV SCH (19:37)
[2020-07-04] MEDS: SULFAMETHOXAZOLE IV SCH (19:37)
[2020-07-04] MEDS: TRIMETHOPRIM IV SCH (19:37)
[2020-07-04] MEDS: WATER IV SCH (19:37)
[2020-07-05] MEDS: WATER IV SCH ×2 (05:04→18:44)
[2020-07-05] MEDS: DEXTROSE 5% IV SCH ×2 (05:04→18:44)
[2020-07-05] MEDS: SULFAMETHOXAZOLE IV SCH ×2 (05:04→18:44)
[2020-07-05] MEDS: TRIMETHOPRIM IV SCH ×2 (05:04→18:44)
[2020-07-05] MEDS: ASPIRIN 81 MG TABLET, CHEWABLE PO SCH (09:52)
[2020-07-05] MEDS: HEPARIN SOD (PORCINE) 5,000 UNIT/ML 1 ML VIAL SUBCUT SCH ×2 (09:52→22:25)
[2020-07-05] MEDS: PANTOPRAZOLE SODIUM 40 MG VIAL IV SCH (09:52)
[2020-07-06 03:37] LABS: HEMATOCRIT 22.8 % (37.9-51.0); MEAN CORPUSCULAR HGB CONC 33.8 g/dL (32.0-36.0); MEAN CORPUSCULAR VOLUME 92 fl (80-97); PLATELET COUNT 378 10^3/uL (150-450); RED BLOOD COUNT 2.48 10^6/uL (4.35-5.55); RED CELL DISTRIBUTION WIDTH 14.2 % (11.5-14.0); WHITE BLOOD COUNT 9.5 10^3/uL (4.0-10.5)
[2020-07-06 03:41] LABS: HEMOGLOBIN 7.7 g/dL (13.5-17.0)
[2020-07-06 03:53] LABS: ANION GAP 12 (5-19); BLOOD UREA NITROGEN 73 mg/dL (7-20); CALCIUM 7.6 mg/dL (8.4-10.2); CARBON DIOXIDE 21 mmol/L (22-30); CHLORIDE 99 mmol/L (98-107); GLUCOSE 89 mg/dL (75-110); POTASSIUM 4.5 mmol/L (3.6-5.0)
[2020-07-06] MEDS: WATER IV SCH ×2 (05:35→17:08)
[2020-07-06] MEDS: DEXTROSE 5% IV SCH ×2 (05:35→17:08)
[2020-07-06] MEDS: TRIMETHOPRIM IV SCH ×2 (05:35→17:08)
[2020-07-06] MEDS: SULFAMETHOXAZOLE IV SCH ×2 (05:35→17:08)
[2020-07-06] MEDS: HEPARIN SOD (PORCINE) 5,000 UNIT/ML 1 ML VIAL SUBCUT SCH ×2 (09:59→22:03)
[2020-07-06] MEDS: ASPIRIN 81 MG TABLET, CHEWABLE PO SCH (10:00)
[2020-07-06] MEDS: PANTOPRAZOLE SODIUM 40 MG VIAL IV SCH (10:00)
--- NOTE | 2020-07-06 13:24 | PDOC CRITICAL CARE PROG REPORT ---
General Date:: 07/06/20 ICU Day:: 18 Ventilator Day:: 18 Hospital Day:: 18 Resuscitation Status: Chemical Code Only Events in the past 12 to 24 Hours:: 06/30 No real change in status. he is getting a short run of dialysis presently. 07/01 The patient was dialyzed yesterday. He is neurological exam is unchanged. the patient does breath spontaneously. He does withdraw to pain. He does not open his eyes or move. He has been off sedation for a week without improvement in his neuro status. I will try to speak with his son today to try to determine where we go from here. 07/02 Thepatient remains in the ICU on the ventialtor. no major change in status. i had a long discussion with his son yesterday. i was very dali and said thatn his father was not likely to shows any further neurological improvement. I told him to speak with his siblings to determine their course of action in the next few days. If they decide to move forward the patient will need trach and PEG before going to a SNF. WE have hel;d dialysis at this time. the patient has an excellent urine output presently. 07/03 BEKAH James was going to speak to the patient about his decision to proceed with trach and PEG. I have held off making any arrangements for that reason. His CXR looks much better than her previous CXR of several days ago. GNR were isolated from his tracheal aspirate. His WBC is up the past few days. i was told he had purulent secretions today. Therefore, we started him on abx coverage at this time. The patient had grown out Acinetobacter and Klebsiella pn. on 06/19. 07/04 The patient's overall status is little changed. No improvement in neuro staus. Vitals stable It is 12.8 and was 15.2 on 07/01. The patient has grown out Stenotrophomonas in his sputum culture. ABX coverage changed to IV Bactrim. BEKAH James spoke with his son who appears to want to go forward presently with trach and PEG. 07/05 Little change in status. Patient does not respoond when called. He does open eyes on occasion spontaneousy. He does not move. T max 100.2 07/06 little change overall. The patient did vomit a few times overnight so his tube feeds are off presently. Has been hemodynamically stable. WBC is in the normal range. urine output is normal. it does not appear that there is an imminent reason presently to resume dialysis Reason for ICU Addmission:: Acute hypoxemic respiratory failure; severe dehy dration; hypernatremia; altered mental status. Intubated. Physical Exam Vital Signs: Temp Pulse Resp BP Pulse Ox 98.1 F 75 21 H 153/54 H 92 07/06/20 10:00 07/06/20 12:14 07/06/20 12:14 07/06/20 12:14 07/06/20 12:14 Intake & Output 07/05/20 07/06/20 07/07/20 06:59 06:59 06:59 Intake Total 1862 1840 Output Total 1000 1730 120 Balance 862 110 -120 Weight 55 kg 56.1 kg Weight/Height Weight 56.1 kg Height 5 ft 7 in Laboratory/Radiographs Laboratory Results: 07/06/20 03:25 07/06/20 03:25 07/06/20 07/06/20 03:25 03:25 WBC 9.5 RBC 2.48 L Hgb 7.7 L Hct 22.8 L MCV 92 MCH 31.0 MCHC 33.8 RDW 14.2 H Plt Count 378 Sodium 131.5 L Potassium 4.5 Chloride 99 Carbon Dioxide 21 L Anion Gap 12 BUN 73 H Creatinine 3.31 H Est GFR ( Amer) 23 L Glucose 89 Calcium 7.6 L 06/18/20 06/18/20 06/18/20 14:07 14:07 18:30 Creatine Kinase 992 H 940 H CK-MB (CK-2) 5.14 H Troponin I 0.447 NT-Pro-B Natriuret Pep 06/18/20 06/19/20 06/19/20 19:20 02:33 02:33 Creatine Kinase 883 H CK-MB (CK-2) 8.85 H 21.90 H Troponin I 0.640 4.590 NT-Pro-B Natriuret Pep 06/19/20 06/19/20 06/19/20 05:47 05:47 08:00 Creatine Kinase 814 H CK-MB (CK-2) Cancelled 22.00 H Troponin I Cancelled NT-Pro-B Natriuret Pep 06/19/20 06/19/20 06/19/20 08:00 08:00 14:20 Creatine Kinase 862 H CK-MB (CK-2) Troponin I 8.620 26.900 NT-Pro-B Natriuret Pep 06/19/20 06/20/20 06/20/20 20:25 02:15 08:21 Creatine Kinase CK-MB (CK-2) Troponin I 36.400 31.500 24.700 NT-Pro-B Natriuret Pep 06/20/20 06/20/20 06/21/20 13:45 20:25 05:00 Creatine Kinase CK-MB (CK-2) Troponin I 20.800 17.300 NT-Pro-B Natriuret Pep 7010 H 06/21/20 06/21/20 06/21/20 05:00 07:50 14:00 Creatine Kinase CK-MB (CK-2) Troponin I 10.500 10.300 8.520 NT-Pro-B Natriuret Pep 06/22/20 06/23/20 06/24/20 05:30 06:40 11:21 Creatine Kinase 612 H CK-MB (CK-2) Troponin I 4.550 NT-Pro-B Natriuret Pep 6320 H Impressions: KUB X-Ray 06/22/20 00:00 IMPRESSION: NO RADIOGRAPHIC EVIDENCE FOR ACUTE ABDOMINAL DISEASE. Renal Ultrasound 06/23/20 00:00 IMPRESSION: Multiple right renal cysts versus chronic hydronephrosis. Head CT 06/24/20 00:00 IMPRESSION: Extensive acute nonhemorrhagic infarction. EVIDENCE OF ACUTE STROKE: YES. Multiple territories. Chest X-Ray 07/02/20 00:00 IMPRESSION: Improved pulmonary exam demonstrating diminished, albeit persi stent, multifocal airspace opacities. Stable lines and tubes. Assessment and Plan - Diagnosis (1) Vegetative state Is this a current diagnosis for this admission?: Yes Plan: The patient appears to be a in a persistent vegetative state. Has been off sedation for a week without marked imrovement. There are larege area od decreased attentuationbilaterally consistent with global ischemia. 07/02 As noted the patient has been off sedation 8 days without any sign of higher cortical function. He appears to be in a chronic vegetative state. We are awaiting a decision on how to prceed from the family. 07/03 As noted BEKAH James knows thepatient 's son and was going to speak with himand than we will decide when andif to proceed with trach and pEG. 07/06 I spoke to the patient's ex- who has come to see him recently. I inquired as to what she thought theplan michael be.' She claims that ehr sonedid not want to go forward with the trach and thought thepatient coud go home with the ventialtor. i told her that was not a viable option. i will attmept to speak to the son, Chris, when he comes by later today. (2) Acute hypoxemic respiratory failure Is this a current diagnosis for this admission?: Yes Plan: Please see systems review for greater detail. No change in plan today. Continue vent support Continue albuterol as needed Continue antibiotics for Klebsiella pneumonia. We are likely to withdraw ventilatory support over the next 24 to 48 hours. 06/30 the patient remains on mechanical ventialtion No prospect for weaning given the fact thepatient has not woken up 07/01 The patient is on ventilator principally because of his altered mental status. If his son wishes to proceed he will need a trach and pEG before going to a nursing facility. (3) Acute kidney failure Qualifiers: Acute renal failure type: unspecified Qualified Code(s): N17.9 - Acute kidney failure, unspecified Is this a current diagnosis for this admission?: Yes Plan: Still receiving HD. Cr 3.3, GFR 19. Potassium somewhat low. Will not replace. 06/30 The patient is getting dialyzed today. The plan was to take off about 1.5 liters. His creatinine remains in 3-4 range. 07/01 The patient has a fair amount of urine in his folley this AM. The patient is putting out close to 100 cc/hr. Unsure if he will need ongoing dialysis at this point. 07/02 Little change. Urine output > 1500 cc yesterday. Last creat was 2.8 on 07/01. 07/03 Dialysis is on hold presently. the patient has a good urine output. Will monitor electrolytes. 07/04 renal fn little changed. Put out > 1700cc yesterday. 07/06 has a resonable output. No clear need for dialysis presently. Will monitor. (4) CVA (cerebral vascular accident) Qualifiers: CVA mechanism: embolism Precerebral and cerebral artery: unspecified cerebral artery Qualified Code(s): I63.40 - Cerebral infarction due to embolism of unspecified cerebral artery Is this a current diagnosis for this admission?: Yes Plan: This is in multiple cerebral territories and has resulted in a devastating neurologic injury. He is not brain , however the extent of the injuries precludes a meaningful recovery. When family has gathered plan is to withdraw care, perhaps as early as Saturday 06/30 The patient has had no improvement in neurolgical status. Between the time of admission and 06/24 thepatient had developed large areas of low attentuationin both cerebral hemispegeres consistent with anoxic injury. He does not respond at all. He can over breathe the ventiilato but shows no sign of higher function activies. The family is considering a move to terminal weaning at this time. 07/02 As noted we are awiting the family's decison onhow to prceed going forward , either comfort care and termianlextubation vs Trach/PEG and grease rack worker placement. '. Critical Time Critical Time (minutes): 20 Level of Care: ICU -: 1. The care of a critical patient is a dynamic process. This note is a district representative synopsis but static in nature. The timeframe for treatments given in order is not necessarily the actual time these treatments may have been done. 2. This patient requires critical care secondary to ongoing requirements for therapy not offered or safe outside the critical care environment. Transfer to a lower level of care will result in altered life or limb morbidity and mortality. 3. Multidisciplinary rounds completed. 4. ABCDE bundle addressed.
[2020-07-06] MEDS ORDERED: HEPARIN SOD (PORCINE) 5,000 UNIT/ML 1 ML VIAL ONE (21:15)
[2020-07-07] MEDS: SULFAMETHOXAZOLE IV SCH ×2 (05:17→18:01)
[2020-07-07] MEDS: DEXTROSE 5% IV SCH ×2 (05:17→18:01)
[2020-07-07] MEDS: TRIMETHOPRIM IV SCH ×2 (05:17→18:01)
[2020-07-07] MEDS: WATER IV SCH ×2 (05:17→18:01)
[2020-07-07] MEDS ORDERED: ASPIRIN 81 MG TABLET, CHEWABLE ONE (09:03)
[2020-07-07] MEDS ORDERED: HEPARIN SOD (PORCINE) 5,000 UNIT/ML 1 ML VIAL ONE ×2 (09:04→20:26)
[2020-07-07] MEDS: HEPARIN SOD (PORCINE) 5,000 UNIT/ML 1 ML VIAL SUBCUT SCH ×2 (10:40→21:07)
[2020-07-07] MEDS: PANTOPRAZOLE SODIUM 40 MG VIAL IV SCH (10:40)
[2020-07-07] MEDS: ASPIRIN 81 MG TABLET, CHEWABLE PO SCH (10:40)
--- NOTE | 2020-07-07 11:47 | PDOC CRITICAL CARE PROG REPORT ---
General Date:: 07/07/20 ICU Day:: 19 Ventilator Day:: 19 Hospital Day:: 19 Resuscitation Status: Chemical Code Only Events in the past 12 to 24 Hours:: 06/30 No real change in status. he is getting a short run of dialysis presently. 07/01 The patient was dialyzed yesterday. He is neurological exam is unchanged. the patient does breath spontaneously. He does withdraw to pain. He does not open his eyes or move. He has been off sedation for a week without improvement in his neuro status. I will try to speak with his son today to try to determine where we go from here. 07/02 Thepatient remains in the ICU on the ventialtor. no major change in status. i had a long discussion with his son yesterday. i was very dali and said thatn his father was not likely to shows any further neurological improvement. I told him to speak with his siblings to determine their course of action in the next few days. If they decide to move forward the patient will need trach and PEG before going to a SNF. WE have hel;d dialysis at this time. the patient has an excellent urine output presently. 07/03 BEKAH James was going to speak to the patient about his decision to proceed with trach and PEG. I have held off making any arrangements for that reason. His CXR looks much better than her previous CXR of several days ago. GNR were isolated from his tracheal aspirate. His WBC is up the past few days. i was told he had purulent secretions today. Therefore, we started him on abx coverage at this time. The patient had grown out Acinetobacter and Klebsiella pn. on 06/19. 07/04 The patient's overall status is little changed. No improvement in neuro staus. Vitals stable It is 12.8 and was 15.2 on 07/01. The patient has grown out Stenotrophomonas in his sputum culture. ABX coverage changed to IV Bactrim. BEKAH James spoke with his son who appears to want to go forward presently with trach and PEG. 07/05 Little change in status. Patient does not respoond when called. He does open eyes on occasion spontaneousy. He does not move. T max 100.2 07/06 little change overall. The patient did vomit a few times overnight so his tube feeds are off presently. Has been hemodynamically stable. WBC is in the normal range. urine output is normal. it does not appear that there is an imminent reason presently to resume dialysis 07/07. Little change in progress. He decerebrates to pain. No response to voice or touch. His son would like to take him home on hospice knowing he will not survive. Review of systems relevant to events:: Neurological, CV, pulmonary Reason for ICU Addmission:: Acute hypoxemic respiratory failure; severe dehydration; hypernatremia; altered mental status. Intubated. - Medications: Medications reviewed and adjusted accordingly: Yes Vasopressors:: None Sedation:: None Physical Exam Vital Signs: Temp Pulse Resp BP Pulse Ox 97.3 F 65 18 130/62 H 93 07/07/20 10:00 07/07/20 10:00 07/07/20 10:00 07/07/20 10:00 07/07/20 10:00 Intake & Output 07/06/20 07/07/20 07/08/20 06:59 06:59 06:59 Intake Total 1840 1030 555 Output Total 1730 1635 325 Balance 110 -605 230 Weight 56.1 kg 55.4 kg Weight/Height Weight 55.4 kg Height 5 ft 7 in General appearance: PRESENT: no acute distress, disheveled Head exam: PRESENT: atraumatic, normocephalic Eye exam: PRESENT: PERRLA Ear exam: PRESENT: normal external ear exam Mouth exam: PRESENT: moist, tongue midline Respiratory exam: PRESENT: clear to auscultation dane. ABSENT: rales, rhonchi, wheezes Cardiovascular exam: PRESENT: RRR. ABSENT: diastolic murmur, rubs, systolic murmur GI/Abdominal exam: PRESENT: normal bowel sounds, soft. ABSENT: distended, guarding, mass, organolmegaly, rebound, tenderness Rectal exam: PRESENT: deferred Gentrourinary exam: PRESENT: indwelling catheter Extremities exam: PRESENT: full ROM, other - Thin and emaciated.. ABSENT: calf tenderness, clubbing, pedal edema Musculoskeletal exam: PRESENT: normal inspection Neurological exam: PRESENT: altered, other - Decerebrate posturing to pain. Skin exam: PRESENT: dry, intact, warm. ABSENT: cyanosis, rash Tubes/Lines: PRESENT: Endotracheal Tube, Nasogastic Tube Laboratory/Radiographs Laboratory Results: 07/06/20 03:25 07/06/20 03:25 06/18/20 06/18/20 06/18/20 14:07 14:07 18:30 Creatine Kinase 992 H 940 H CK-MB (CK-2) 5.14 H Troponin I 0.447 NT-Pro-B Natriuret Pep 06/18/20 06/19/20 06/19/20 19:20 02:33 02:33 Creatine Kinase 883 H CK-MB (CK-2) 8.85 H 21.90 H Troponin I 0.640 4.590 NT-Pro-B Natriuret Pep 06/19/20 06/19/20 06/19/20 05:47 05:47 08:00 Creatine Kinase 814 H CK-MB (CK-2) Cancelled 22.00 H Troponin I Cancelled NT-Pro-B Natriuret Pep 06/19/20 06/19/20 06/19/20 08:00 08:00 14:20 Creatine Kinase 862 H CK-MB (CK-2) Troponin I 8.620 26.900 NT-Pro-B Natriuret Pep 06/19/20 06/20/20 06/20/20 20:25 02:15 08:21 Creatine Kinase CK-MB (CK-2) Troponin I 36.400 31.500 24.700 NT-Pro-B Natriuret Pep 06/20/20 06/20/20 06/21/20 13:45 20:25 05:00 Creatine Kinase CK-MB (CK-2) Troponin I 20.800 17.300 NT-Pro-B Natriuret Pep 7010 H 06/21/20 06/21/20 06/21/20 05:00 07:50 14:00 Creatine Kinase CK-MB (CK-2) Troponin I 10.500 10.300 8.520 NT-Pro-B Natriuret Pep 06/22/20 06/23/20 06/24/20 05:30 06:40 11:21 Creatine Kinase 612 H CK-MB (CK-2) Troponin I 4.550 NT-Pro-B Natriuret Pep 6320 H Impressions: KUB X-Ray 06/22/20 00:00 IMPRESSION: NO RADIOGRAPHIC EVIDENCE FOR ACUTE ABDOMINAL DISEASE. Renal Ultrasound 06/23/20 00:00 IMPRESSION: Multiple right renal cysts versus chronic hydronephrosis. Head CT 06/24/20 00:00 IMPRESSION: Extensive acute nonhemorrhagic infarction. EVIDENCE OF ACUTE STROKE: YES. Multiple territories. Chest X-Ray 07/02/20 00:00 IMPRESSION: Improved pulmonary exam demonstrating diminished, albeit persistent, multifocal airspace opacities. Stable lines and tubes. All labs, radiographs, diagnostic studies and EKGs were personally reviewed: Yes In addition, reports of radiographic and diagnostic studies were read: Yes Assessment and Plan - Diagnosis (1) Neurologic deficit due to acute ischemic cerebrovascular accident (CVA) Is this a current diagnosis for this admission?: Yes Plan: Due to new and multiple strokes, his neuro function is minimal and has not changed in days. He will likely be in persistant vegatative state. His son is aware as but Dr. Eid and I have told him. He nevertheless would like to get him home to end his days. We will try to extubate. (2) Acute kidney failure Qualifiers: Acute renal failure type: unspecified Qualified Code(s): N17.9 - Acute kidney failure, unspecified Is this a current diagnosis for this admission?: Yes Plan: GFR staying at 20 with CR about 3. Not hyperkalemic, acidotic or overloaded. No reason for HD. (3) Dehydration Is this a current diagnosis for this admission?: Yes Plan: Resolved (4) Failure to thrive in adult Is this a current diagnosis for this admission?: Yes Plan: This likely has contributed to his current state. (5) Non-ST elevated myocardial infarction (non-STEMI) Is this a current diagnosis for this admission?: Yes Plan: Not having an effect right now. (6) Aspirated gastric contents in lower respiratory tract Is this a current diagnosis for this admission?: Yes Plan: Resolved. (7) CVA (cerebral vascular accident) Qualifiers: CVA mechanism: embolism Precerebral and cerebral artery: unspecified cerebral artery Qualified Code(s): I63.40 - Cerebral infarction due to embolism of unspecified cerebral artery Is this a current diagnosis for this admission?: Yes Plan: Both old and new as mentioned above. Plan Summary: Try to wean, extubate and get home on hospice. Critical Time Critical Time (minutes): 35 Level of Care: ICU Anticipated discharge: Hospice Anticipated DC Timeframe: Other -: 1. The care of a critical patient is a dynamic process. This note is a logistics service representative synopsis but static in nature. The timeframe for treatments given in order is not necessarily the actual time these treatments may have been done. 2. This patient requires critical care secondary to ongoing requirements for therapy not offered or safe outside the critical care environment. Transfer to a lower level of care will result in altered life or limb morbidity and mortality. 3. Multidisciplinary rounds completed. 4. ABCDE bundle addressed.
[2020-07-08 03:58] LABS: ABSOLUTE BASOPHILS # (AUTO) 0.1 10^3/uL (0.0-0.2); ABSOLUTE EOSINOPHILS # (AUTO) 0.2 10^3/uL (0.0-0.6); ABSOLUTE LYMPHOCYTES (AUTO) 1.3 10^3/uL (0.5-4.7); ABSOLUTE MONOCYTES (AUTO) 1.2 10^3/uL (0.1-1.4); ABSOLUTE NEUT (AUTO) 5.5 10^3/uL (1.7-8.2); BASOPHILS % (AUTO) 1.1 % (0-2); EOSINOPHILS % (AUTO) 2.5 % (0-6); HEMATOCRIT 23.7 % (37.9-51.0); LYMPHOCYTES % (AUTO) 15.5 % (13-45); MEAN CORPUSCULAR HEMOGLOBIN 30.4 pg (27.0-33.4); MEAN CORPUSCULAR HGB CONC 32.9 g/dL (32.0-36.0); MEAN CORPUSCULAR VOLUME 92 fl (80-97); MONOCYTES % (AUTO) 14.2 % (3-13); PLATELET COUNT 365 10^3/uL (150-450); RED BLOOD COUNT 2.56 10^6/uL (4.35-5.55); RED CELL DISTRIBUTION WIDTH 14.2 % (11.5-14.0); SEGMENTED NEUTROPHILS % (AUTO) 66.7 % (42-78); TOTAL CELLS COUNTED % (AUTO) 100 %; WHITE BLOOD COUNT 8.2 10^3/uL (4.0-10.5)
[2020-07-08 04:20] LABS: ANION GAP 9 (5-19); BLOOD UREA NITROGEN 67 mg/dL (7-20); CALCIUM 7.7 mg/dL (8.4-10.2); CARBON DIOXIDE 22 mmol/L (22-30); CHLORIDE 102 mmol/L (98-107); GLUCOSE 85 mg/dL (75-110); POTASSIUM 4.5 mmol/L (3.6-5.0)
[2020-07-08] MEDS: WATER IV SCH ×2 (05:24→18:05)
[2020-07-08] MEDS: SULFAMETHOXAZOLE IV SCH ×2 (05:24→18:05)
[2020-07-08] MEDS: DEXTROSE 5% IV SCH ×2 (05:24→18:05)
[2020-07-08] MEDS: TRIMETHOPRIM IV SCH ×2 (05:24→18:05)
--- NOTE | 2020-07-08 06:09 | PDOC CONSULTATION ---
Consultation Consult Date: 07/07/20 Provider Consulted: SURGICAL SURGICALIST Consult reason:: Trach and PEG History of Present Illness Admission Date/PCP: 06/18/20 16:42 History of Present Illness: ALVARO DYKES is a 65 year old male seen in consultation at the request of the nurse ob service. This is a patient recently diagnosed with a stroke, now who is ventilator dependent. Patient does awaken to voice, but will not follow commands for me. Attempts have been made to wean him from the ventilator and extubate him, however these have been unsuccessful. Consult is for tracheostomy and PEG tube placement so that the patient can be discharged to home hospice. This is at the request of the family. I have discussed the case with Dr. Terry. I have also discussed the situation with the patient's son, who is in agreement with trach and PEG. A review of systems is unobtainable at this time due to the patient's mental status, and endotracheal tube. Past Medical History Cardiac Medical History: Reports: Hypertension Neurological Medical History: Reports: Ischemic CVA, Other - Dysphagia Musculoskeltal Medical History: Reports: Other - Frequent falls Psychiatric Medical History: Denies: Depression Past Surgical History Past Surgical History: Reports: Orthopedic Surgery Social History Lives with: Family - Lives with son Smoking Status: Former Smoker Electronic Cigarette use?: No Frequency of Alcohol Use: Heavy - Quit 5 years ago Hx Recreational Drug Use: No Hx Prescription Drug Abuse: No - Advance Directive Resuscitation Status: Chemical Code Only Family History Family History: CAD Parental Family History Reviewed: Yes Children Family History Reviewed: Yes Sibling(s) Family History Reviewed.: Yes Medication/Allergy Home Medications: No Home Medications 08/11/15 Allergies/Adverse Reactions: Penicillins Allergy (Verified 06/18/20 12:57) Review of Systems ROS unobtainable: Due to endotracheal tube, Due to mental status Physical Exam Vital Signs: Temp Pulse Resp BP Pulse Ox 97.8 F 61 18 140/53 H 100 07/07/20 18:00 07/07/20 18:00 07/07/20 18:00 07/07/20 18:00 07/07/20 18:00 Intake & Output 07/06/20 07/07/20 07/08/20 06:59 06:59 06:59 Intake Total 1840 1030 790 Output Total 1730 1635 1125 Balance 110 -605 -335 Weight 56.1 kg 55.4 kg 55.4 kg General appearance: PRESENT: no acute distress, disheveled Head exam: PRESENT: atraumatic, normocephalic Eye exam: ABSENT: scleral icterus Mouth exam: PRESENT: moist, neck supple Neck exam: ABSENT: thyromegaly, tracheal deviation Respiratory exam: PRESENT: other - On ventilator, endotracheal tube present. ABSENT: tachypnea Cardiovascular exam: ABSENT: tachycardia Vascular exam: PRESENT: normal capillary refill GI/Abdominal exam: PRESENT: soft. ABSENT: distended, rigid Rectal exam: PRESENT: deferred Extremities exam: ABSENT: clubbing Musculoskeletal exam: ABSENT: deformity Neurological exam: PRESENT: awake - Awakens to voice, does not follow commands Psychiatric exam: ABSENT: agitated Skin exam: ABSENT: erythema, jaundice Results Laboratory Results: 07/06/20 03:25 07/06/20 03:25 06/18/20 06/18/20 06/18/20 14:07 14:07 18:30 Creatine Kinase 992 H 940 H CK-MB (CK-2) 5.14 H Troponin I 0.447 NT-Pro-B Natriuret Pep 06/18/20 06/19/20 06/19/20 19:20 02:33 02:33 Creatine Kinase 883 H CK-MB (CK-2) 8.85 H 21.90 H Troponin I 0.640 4.590 NT-Pro-B Natriuret Pep 06/19/20 06/19/20 06/19/20 05:47 05:47 08:00 Creatine Kinase 814 H CK-MB (CK-2) Cancelled 22.00 H Troponin I Cancelled NT-Pro-B Natriuret Pep 06/19/20 06/19/20 06/19/20 08:00 08:00 14:20 Creatine Kinase 862 H CK-MB (CK-2) Troponin I 8.620 26.900 NT-Pro-B Natriuret Pep 06/19/20 06/20/20 06/20/20 20:25 02:15 08:21 Creatine Kinase CK-MB (CK-2) Troponin I 36.400 31.500 24.700 NT-Pro-B Natriuret Pep 06/20/20 06/20/20 06/21/20 13:45 20:25 05:00 Creatine Kinase CK-MB (CK-2) Troponin I 20.800 17.300 NT-Pro-B Natriuret Pep 7010 H 06/21/20 06/21/20 06/21/20 05:00 07:50 14:00 Creatine Kinase CK-MB (CK-2) Troponin I 10.500 10.300 8.520 NT-Pro-B Natriuret Pep 06/22/20 06/23/20 06/24/20 05:30 06:40 11:21 Creatine Kinase 612 H CK-MB (CK-2) Troponin I 4.550 NT-Pro-B Natriuret Pep 6320 H Impressions: KUB X-Ray 06/22/20 00:00 IMPRESSION: NO RADIOGRAPHIC EVIDENCE FOR ACUTE ABDOMINAL DISEASE. Renal Ultrasound 06/23/20 00:00 IMPRESSION: Multiple right renal cysts versus chronic hydronephrosis. Head CT 06/24/20 00:00 IMPRESSION: Extensive acute nonhemorrhagic infarction. EVIDENCE OF ACUTE STROKE: YES. Multiple territories. Chest X-Ray 07/02/20 00:00 IMPRESSION: Improved pulmonary exam demonstrating diminished, albeit persistent, multifocal airspace opacities. Stable lines and tubes. Assessment & Plan - Diagnosis (1) Ventilator dependence Is this a current diagnosis for this admission?: Yes (2) CVA (cerebral vascular accident) Qualifiers: CVA mechanism: embolism Precerebral and cerebral artery: unspecified cerebral artery Qualified Code(s): I63.40 - Cerebral infarction due to embolism of unspecified cerebral artery Is this a current diagnosis for this admission?: Yes - Plan Summary Plan Summary: 65-year-old male with a history of stroke. Patient has been unable to wean from the ventilator. Consult has been made for PEG and trach. I have discussed the situation with the patient's son, who is his medical power of attorney law clerk. He wishes to proceed with trach and PEG. This is reasonable, in an effort to get the patient to home hospice. Risks and benefits of the procedure were discussed with the son. Check Covid test. Plan for intervention in the next 48 hours.
--- NOTE | 2020-07-08 08:01 | PDOC CRITICAL CARE PROG REPORT ---
General Date:: 07/08/20 ICU Day:: 20 Ventilator Day:: 20 Hospital Day:: 20 Resuscitation Status: Chemical Code Only Events in the past 12 to 24 Hours:: Seen by Dr. Sterling for trach and PEG in next 2 days. Review of systems relevant to events:: Neurological, pulmonary. Reason for ICU Addmission:: Acute hypoxemic respiratory failure; severe dehydration; hypernatremia; altered mental status. Intubated. - Medications: Medications reviewed and adjusted accordingly: Yes Vasopressors:: None Sedation:: None Physical Exam Vital Signs: Temp Pulse Resp BP Pulse Ox 97.0 F 68 17 149/70 H 100 07/08/20 05:30 07/07/20 22:00 07/08/20 03:00 07/08/20 02:25 07/08/20 03:56 Intake & Output 07/07/20 07/08/20 07/09/20 06:59 06:59 06:59 Intake Total 1030 1965 Output Total 1635 1595 Balance -605 370 Weight 55.4 kg 56.4 kg Weight/Height Weight 56.4 kg Height 5 ft 7 in General appearance: PRESENT: no acute distress, thin Head exam: PRESENT: atraumatic, normocephalic Eye exam: PRESENT: conjunctiva pink, EOMI, PERRLA. ABSENT: scleral icterus Ear exam: PRESENT: normal external ear exam Mouth exam: PRESENT: moist, tongue midline Respiratory exam: PRESENT: clear to auscultation dane, other - Coarse. ABSENT: rales, rhonchi, wheezes Cardiovascular exam: PRESENT: RRR. ABSENT: diastolic murmur, rubs, systolic murmur GI/Abdominal exam: PRESENT: normal bowel sounds, soft. ABSENT: distended, guarding, mass, organolmegaly, rebound, tenderness Rectal exam: PRESENT: deferred Gentrourinary exam: PRESENT: indwelling catheter Extremities exam: PRESENT: full ROM, other - Quite thin, emaciated.. ABSENT: calf tenderness, clubbing, pedal edema Neurological exam: PRESENT: altered, other - He makes some non-purposeful movements. Does not respond to voice. Skin exam: PRESENT: dry, intact, warm. ABSENT: cyanosis, rash Tubes/Lines: PRESENT: Endotracheal Tube, Central Line, Nasogastic Tube Laboratory/Radiographs Laboratory Results: 07/08/20 03:19 07/08/20 03:19 07/08/20 07/08/20 03:19 03:19 WBC 8.2 RBC 2.56 L Hgb 7.8 L Hct 23.7 L MCV 92 MCH 30.4 MCHC 32.9 RDW 14.2 H Plt Count 365 Seg Neutrophils % 66.7 Sodium 132.8 L Potassium 4.5 Chloride 102 Carbon Dioxide 22 Anion Gap 9 BUN 67 H Creatinine 3.54 H Est GFR ( Amer) 21 L Glucose 85 Calcium 7.7 L 06/18/20 06/18/20 06/18/20 14:07 14:07 18:30 Creatine Kinase 992 H 940 H CK-MB (CK-2) 5.14 H Troponin I 0.447 NT-Pro-B Natriuret Pep 06/18/20 06/19/20 06/19/20 19:20 02:33 02:33 Creatine Kinase 883 H CK-MB (CK-2) 8.85 H 21.90 H Troponin I 0.640 4.590 NT-Pro-B Natriuret Pep 06/19/20 06/19/20 06/19/20 05:47 05:47 08:00 Creatine Kinase 814 H CK-MB (CK-2) Cancelled 22.00 H Troponin I Cancelled NT-Pro-B Natriuret Pep 06/19/20 06/19/20 06/19/20 08:00 08:00 14:20 Creatine Kinase 862 H CK-MB (CK-2) Troponin I 8.620 26.900 NT-Pro-B Natriuret Pep 06/19/20 06/20/20 06/20/20 20:25 02:15 08:21 Creatine Kinase CK-MB (CK-2) Troponin I 36.400 31.500 24.700 NT-Pro-B Natriuret Pep 06/20/20 06/20/20 06/21/20 13:45 20:25 05:00 Creatine Kinase CK-MB (CK-2) Troponin I 20.800 17.300 NT-Pro-B Natriuret Pep 7010 H 06/21/20 06/21/20 06/21/20 05:00 07:50 14:00 Creatine Kinase CK-MB (CK-2) Troponin I 10.500 10.300 8.520 NT-Pro-B Natriuret Pep 06/22/20 06/23/20 06/24/20 05:30 06:40 11:21 Creatine Kinase 612 H CK-MB (CK-2) Troponin I 4.550 NT-Pro-B Natriuret Pep 6320 H Impressions: KUB X-Ray 06/22/20 00:00 IMPRESSION: NO RADIOGRAPHIC EVIDENCE FOR ACUTE ABDOMINAL DISEASE. Renal Ultrasound 06/23/20 00:00 IMPRESSION: Multiple right renal cysts versus chronic hydronephrosis. Head CT 06/24/20 00:00 IMPRESSION: Extensive acute nonhemorrhagic infarction. EVIDENCE OF ACUTE STROKE: YES. Multiple territories. Chest X-Ray 07/02/20 00:00 IMPRESSION: Improved pulmonary exam demonstrating diminished, albeit persistent, multifocal airspace opacities. Stable lines and tubes. All labs, radiographs, diagnostic studies and EKGs were personally reviewed: Yes In addition, reports of radiographic and diagnostic studies were read: Yes Assessment and Plan - Diagnosis (1) Neurologic deficit due to acute ischemic cerebrovascular accident (CVA) Is this a current diagnosis for this admission?: Yes Plan: This is the aspect that will likely result in his demise. Son is aware. Wishes to proceed with trach, PEG in an effort to get him home to live his final days. Hope to accomplish this during this week. (2) Acute kidney failure Qualifiers: Acute renal failure type: unspecified Qualified Code(s): N17.9 - Acute kidney failure, unspecified Is this a current diagnosis for this admission?: Yes Plan: Cr 3.5 and GFR between 15-20. (3) Dehydration Is this a current diagnosis for this admission?: Yes Plan: Resolved (4) Failure to thrive in adult Is this a current diagnosis for this admission?: Yes Plan: This is anither aspect that he has been chronically ill for some time. (5) Non-ST elevated myocardial infarction (non-STEMI) Is this a current diagnosis for this admission?: Yes Plan: Currently not an active issue. (6) CVA (cerebral vascular accident) Qualifiers: CVA mechanism: embolism Precerebral and cerebral artery: unspecified cerebral artery Qualified Code(s): I63.40 - Cerebral infarction due to embolism of unspecified cerebral artery Is this a current diagnosis for this admission?: Yes Plan: Old and multiple new. The reason for his need for trach and PEG. Plan Summary: Trach and PEG this week and hope to get him home on hospice. Critical Time Critical Time (minutes): 35 Level of Care: ICU Anticipated discharge: Hospice Anticipated DC Timeframe: Other -: 1. The care of a critical patient is a dynamic process. This note is a insurance verification representative synopsis but static in nature. The timeframe for treatments given in order is not necessarily the actual time these treatments may have been done. 2. This patient requires critical care secondary to ongoing requirements for therapy not offered or safe outside the critical care environment. Transfer to a lower level of care will result in altered life or limb morbidity and mortal ity. 3. Multidisciplinary rounds completed. 4. ABCDE bundle addressed.
[2020-07-08] MEDS: PANTOPRAZOLE SODIUM 40 MG VIAL IV SCH (10:22)
[2020-07-08] MEDS: HEPARIN SOD (PORCINE) 5,000 UNIT/ML 1 ML VIAL SUBCUT SCH ×2 (10:22→21:05)
[2020-07-08] MEDS: ASPIRIN 81 MG TABLET, CHEWABLE PO SCH (10:22)
[2020-07-09 03:36] LABS: ARTERIAL BLOOD H2CO3 0.85 mmol/L (1.05-1.35); ARTERIAL BLOOD HCO3 19.3 mmol/L (20-24); ARTERIAL BLOOD PCO2 28.3 mmHg (35-45); ARTERIAL BLOOD PH 7.45 (7.35-7.45); ARTERIAL BLOOD PO2 85.2 mmHg (80-100); ARTERIAL BLOOD TOTAL CO2 20.1 mmol/L (23-27)
[2020-07-09 03:37] LABS: ARTERIAL BLOOD FIO2 35%
[2020-07-09 03:53] LABS: ANION GAP 8 (5-19); BLOOD UREA NITROGEN 60 mg/dL (7-20); CALCIUM 7.8 mg/dL (8.4-10.2); CARBON DIOXIDE 22 mmol/L (22-30); CHLORIDE 101 mmol/L (98-107); GLUCOSE 74 mg/dL (75-110); POTASSIUM 4.7 mmol/L (3.6-5.0)
[2020-07-09] MEDS: WATER IV SCH ×2 (06:00→17:36)
[2020-07-09] MEDS: DEXTROSE 5% IV SCH ×2 (06:00→17:36)
[2020-07-09] MEDS: SULFAMETHOXAZOLE IV SCH ×2 (06:00→17:36)
[2020-07-09] MEDS: TRIMETHOPRIM IV SCH ×2 (06:00→17:36)
[2020-07-09] MEDS ORDERED: BUPIVACAINE HCL 0.25 % INJ/PF (2.5 MG/1 ML) 30 ML VIAL ONE (07:09)
[2020-07-09] MEDS ORDERED: FENTANYL CITRATE INJ/PF 100 MCG/2 ML AMPUL ONE ×2 (07:19)
[2020-07-09] MEDS ORDERED: MIDAZOLAM 2 MG/2 ML INJ ONE ×2 (07:19→09:33)
[2020-07-09 07:28] LABS: HEMOGLOBIN 7.8 g/dL (13.5-17.0)
[2020-07-09] MEDS ORDERED: ROCURONIUM BROMIDE INJ 50 MG/5 ML VIAL IV ONE (08:00)
--- NOTE | 2020-07-09 08:10 | Progress Note ---
Provider Note Provider Note: Patient in OR for trach and PEG. On his return nicolle attempt to remove from vent
--- NOTE | 2020-07-09 09:19 | PDOC PROGRESS REPORT ---
Subjective Date:: 07/09/20 Reason For Visit: ACUTE HYPOXEMIC RESPIRATORY FAILURE; SEVERE Physical Exam Vital Signs: Temp Pulse Resp BP Pulse Ox 97.3 F 65 17 146/68 H 97 07/09/20 07:24 07/08/20 19:00 07/09/20 07:24 07/09/20 07:24 07/09/20 07:24 Intake & Output 07/08/20 07/09/20 07/10/20 06:59 06:59 06:59 Intake Total 1965 1810 Output Total 1598 8225 Balance 370 -715 Weight 56.4 kg 56 kg General appearance: PRESENT: thin Eye exam: ABSENT: scleral icterus Mouth exam: PRESENT: moist, neck supple Neck exam: ABSENT: thyromegaly, tracheal deviation Respiratory exam: PRESENT: other - on vent. ABSENT: tachypnea Cardiovascular exam: ABSENT: tachycardia GI/Abdominal exam: PRESENT: soft. ABSENT: distended, firm, tenderness Rectal exam: PRESENT: deferred Neurological exam: ABSENT: alert, awake Psychiatric exam: ABSENT: agitated, anxious Focused psych exam: ABSENT: restlessness Skin exam: ABSENT: erythema, jaundice Results Laboratory Results: 07/08/20 03:19 07/09/20 03:08 07/08/20 07/09/20 07/09/20 03:19 03:08 03:08 Hgb 7.8 L Carbonic Acid 0.85 L HCO3/H2CO3 Ratio 22:1 ABG pH 7.45 ABG pCO2 28.3 L ABG pO2 85.2 ABG HCO3 19.3 L ABG O2 Saturation 97.0 ABG Base Excess -4.0 FiO2 35% Sodium 131.3 L Potassium 4.7 Chloride 101 Carbon Dioxide 22 Anion Gap 8 BUN 60 H Creatinine 3.59 H Est GFR ( Amer) 21 L Glucose 74 L Calcium 7.8 L 06/18/20 06/18/20 06/18/20 14:07 14:07 18:30 Creatine Kinase 992 H 940 H CK-MB (CK-2) 5.14 H Troponin I 0.447 NT-Pro-B Natriuret Pep 06/18/20 06/19/20 06/19/20 19:20 02:33 02:33 Creatine Kinase 883 H CK-MB (CK-2) 8.85 H 21.90 H Troponin I 0.640 4.590 NT-Pro-B Natriuret Pep 06/19/20 06/19/20 06/19/20 05:47 05:47 08:00 Creatine Kinase 814 H CK-MB (CK-2) Cancelled 22.00 H Troponin I Cancelled NT-Pro-B Natriuret Pep 06/19/20 06/19/20 06/19/20 08:00 08:00 14:20 Creatine Kinase 862 H CK-MB (CK-2) Troponin I 8.620 26.900 NT-Pro-B Natriuret Pep 06/19/20 06/20/20 06/20/20 20:25 02:15 08:21 Creatine Kinase CK-MB (CK-2) Troponin I 36.400 31.500 24.700 NT-Pro-B Natriuret Pep 06/20/20 06/20/20 06/21/20 13:45 20:25 05:00 Creatine Kinase CK-MB (CK-2) Troponin I 20.800 17.300 NT-Pro-B Natriuret Pep 7010 H 06/21/20 06/21/20 06/21/20 05:00 07:50 14:00 Creatine Kinase CK-MB (CK-2) Troponin I 10.500 10.300 8.520 NT-Pro-B Natriuret Pep 06/22/20 06/23/20 06/24/20 05:30 06:40 11:21 Creatine Kinase 612 H CK-MB (CK-2) Troponin I 4.550 NT-Pro-B Natriuret Pep 6320 H Impressions: KUB X-Ray 06/22/20 00:00 IMPRESSION: NO RADIOGRAPHIC EVIDENCE FOR ACUTE ABDOMINAL DISEASE. Renal Ultrasound 06/23/20 00:00 IMPRESSION: Multiple right renal cysts versus chronic hydronephrosis. Head CT 06/24/20 00:00 IMPRESSION: Extensive acute nonhemorrhagic infarction. EVIDENCE OF ACUTE STROKE: YES. Multiple territories. Chest X-Ray 07/02/20 00:00 IMPRESSION: Improved pulmonary exam demonstrating diminished, albeit persistent, multifocal airspace opacities. Stable lines and tubes. Assessment & Plan - Diagnosis (1) Ventilator dependence Is this a current diagnosis for this admission?: Yes (2) CVA (cerebral vascular accident) Qualifiers: CVA mechanism: embolism Precerebral and cerebral artery: unspecified cerebral artery Qualified Code(s): I63.40 - Cerebral infarction due to em bolism of unspecified cerebral artery Is this a current diagnosis for this admission?: Yes - Time Anticipated Discharge Disposition: Home with Hospice Anticipated Discharge Timeframe: when bed available - Plan Summary Plan Summary: 65-year-old male status post CVA. The patient has become ventilator dependent. His family wishes to take him home with hospice. Plan for trach and PEG today to facilitate transfer to home hospice. This has been discussed at length with the son, who is in agreement with the treatment plan.
--- NOTE | 2020-07-09 09:27 | Operative Report ---
Nonrecallable Operative Report DATE OF SURGERY: 07/09/20 PREOPERATIVE DIAGNOSIS: CVA, ventilator dependence, inanition POSTOPERATIVE DIAGNOSIS: Same as above OPERATION: 1. Tracheostomy. 2. Percutaneous endoscopic gastrostomy SURGEON: GAVINO BARROS ANESTHESIA: GA TISSUE REMOVED OR ALTERED: None COMPLICATIONS: None apparent ESTIMATED BLOOD LOSS: Minimal PROCEDURE: Drains/implants: 1. #8 Shiley tracheostomy. 2. Percutaneous endoscopic gastrostomy, 20 Malay. Procedure in detail: After informed consent was obtained, the patient was brought to the operating room and laid in the supine position. The area of the neck was prepped and draped in a normal sterile fashion. An incision was created in the anterior neck, just above the sternal notch. Dissection was carried through the subcutaneous tissues using electrocautery and blunt dissection. The strap muscles were divided in the midline and retracted a nteriorly. The thyroid was divided in the midline, at the isthmus, using electrocautery. The trachea was brought into view. The second and third tracheal rings were easily identified. 0 Ethibond suture were used as stay sutures, around the second and third tracheal rings. Next, an 11 blade scalpel was used to incise the anterior trachea. The ET tube was withdrawn, in order to provide space to insert the tracheostomy. A #8 Shiley trach was then inserted into the tracheotomy. The balloon was inflated, and the circuit was attached. End-tidal CO2 was confirmed. The entire maneuver, from incision of the trachea to insertion of the tracheostomy, was less than 30 seconds. The patient's sats never dropped below 90%. The tracheostomy was then sutured to the skin using 0 Prolene in 4 quadrants. The trach strap was attached, and this portion of the procedure was concluded. Attention was then turned to the percutaneous endoscopic gastrostomy. The endoscope was passed down the oropharynx, down the esophagus, and into the stomach. The stomach was insufflated with air. An appropriate place on the stomach was chosen for PEG placement. This was done using one-to-one ballottement, as well as transillumination. Under endoscopic guidance, a needle was inserted percutaneously into the lumen of the stomach. A wire was then inserted into the needle. The wire was grasped with a snare, and pulled out through the oropharynx. The PEG tube was attached to the wire. It was pulled down the esophagus, through the anterior abdominal wall, leaving the internal bumper against the mucosa of the stomach. The tube was found to lie 2 cm at the skin. The tube was assembled, and sutured to the skin using 0 Ethibond suture. The endoscope was then removed from the patient's oropharynx, and the procedure was concluded. All sponge, instrument, and needle counts were correct x2. Condition: Fair.
[2020-07-09] MEDS: PANTOPRAZOLE SODIUM 40 MG VIAL IV SCH (11:07)
[2020-07-09] MEDS: ASPIRIN 81 MG TABLET, CHEWABLE PO SCH (11:10)
[2020-07-09] MEDS: HEPARIN SOD (PORCINE) 5,000 UNIT/ML 1 ML VIAL SUBCUT SCH ×2 (11:10→21:13)
--- NOTE | 2020-07-09 14:09 | PDOC CRITICAL CARE PROG REPORT ---
General Date:: 07/09/20 Resuscitation Status: Do Not Resuscitate Events in the past 12 to 24 Hours:: Had tracheostomy and PEG today. Review of systems relevant to events:: Neurological, pulmonary Reason for ICU Addmission:: On vent trach. Now try to wean to trach collar. - Medications: Medications reviewed and adjusted accordingly: Yes Vasopressors:: None Sedation:: None Physical Exam Vital Signs: Temp Pulse Resp BP Pulse Ox 95.4 F L 60 16 131/59 H 94 07/09/20 12:20 07/09/20 12:00 07/09/20 12:20 07/09/20 12:20 07/09/20 12:20 Intake & Output 07/08/20 07/09/20 07/10/20 06:59 06:59 06:59 Intake Total 1965 1810 515 Output Total 1595 1515 600 Balance 370 -495 -73 Weight 56.4 kg 56 kg 56 kg Weight/Height Weight 56 kg Height 5 ft 7 in Laboratory/Radiographs Laboratory Results: 07/08/20 03:19 07/09/20 03:08 07/08/20 07/09/20 07/09/20 03:19 03:08 03:08 Hgb 7.8 L Carbonic Acid 0.85 L HCO3/H2CO3 Ratio 22:1 ABG pH 7.45 ABG pCO2 28.3 L ABG pO2 85.2 ABG HCO3 19.3 L ABG O2 Saturation 97.0 ABG Base Excess -4.0 FiO2 35% Sodium 131.3 L Potassium 4.7 Chloride 101 Carbon Dioxide 22 Anion Gap 8 BUN 60 H Creatinine 3.59 H Est GFR ( Amer) 21 L Glucose 74 L Calcium 7.8 L 06/18/20 06/18/20 06/18/20 14:07 14:07 18:30 Creatine Kinase 992 H 940 H CK-MB (CK-2) 5.14 H Troponin I 0.447 NT-Pro-B Natriuret Pep 06/18/20 06/19/20 06/19/20 19:20 02:33 02:33 Creatine Kinase 883 H CK-MB (CK-2) 8.85 H 21.90 H Troponin I 0.640 4.590 NT-Pro-B Natriuret Pep 11/05/20 11/05/20 11/05/20 05:47 05:47 08:00 Creatine Kinase 814 H CK-MB (CK-2) Cancelled 22.00 H Troponin I Cancelled NT-Pro-B Natriuret Pep 06/19/20 06/19/20 06/19/20 08:00 08:00 14:20 Creatine Kinase 862 H CK-MB (CK-2) Troponin I 8.620 26.900 NT-Pro-B Natriuret Pep 06/19/20 06/20/20 06/20/20 20:25 02:15 08:21 Creatine Kinase CK-MB (CK-2) Troponin I 36.400 31.500 24.700 NT-Pro-B Natriuret Pep 06/20/20 06/20/20 06/21/20 13:45 20:25 05:00 Creatine Kinase CK-MB (CK-2) Troponin I 20.800 17.300 NT-Pro-B Natriuret Pep 7010 H 06/21/20 06/21/20 06/21/20 05:00 07:50 14:00 Creatine Kinase CK-MB (CK-2) Troponin I 10.500 10.300 8.520 NT-Pro-B Natriuret Pep 06/22/20 06/23/20 06/24/20 05:30 06:40 11:21 Creatine Kinase 612 H CK-MB (CK-2) Troponin I 4.550 NT-Pro-B Natriuret Pep 6320 H Impressions: KUB X-Ray 06/22/20 00:00 IMPRESSION: NO RADIOGRAPHIC EVIDENCE FOR ACUTE ABDOMINAL DISEASE. Renal Ultrasound 06/23/20 00:00 IMPRESSION: Multiple right renal cysts versus chronic hydronephrosis. Head CT 06/24/20 00:00 IMPRESSION: Extensive acute nonhemorrhagic infarction. EVIDENCE OF ACUTE STROKE: YES. Multiple territories. Chest X-Ray 07/02/20 00:00 IMPRESSION: Improved pulmonary exam demonstrating diminished, albeit persistent, multifocal airspace opacities. Stable lines and tubes. All labs, radiographs, diagnostic studies and EKGs were personally reviewed: Yes In addition, reports of radiographic and diagnostic studies were read: Yes Assessment and Plan - Diagnosis (1) Neurologic deficit due to acute ischemic cerebrovascular accident (CVA) Is this a current diagnosis for this admission?: Yes Plan: Severe and he reason for trach, PEG and home hospice Tuesday. (2) Acute kidney failure Qualifiers: Acute renal failure type: unspecified Qualified Code(s): N17.9 - Acute kidney failure, unspecified Is this a current diagnosis for this admission?: Yes Plan: Holding steady with a CR 3.5 and GFR 17. (3) CVA (cerebral vascular accident) Qualifiers: CVA mechanism: embolism Precerebral and cerebral artery: unspecified cerebral artery Qualified Code(s): I63.40 - Cerebral infarction due to embolism of unspecified cerebral artery Is this a current diagnosis for this admission?: Yes Plan: The reason for his debilitated status and acceptance by son for home hospice. Plan Summary: Plan to get to trach collar today. Home by Tuesday. Start using PEG tomorrow. Critical Time Critical Time (minutes): 35 Level of Care: ICU Anticipated discharge: Home Anticipated DC Timeframe: within 48 hours -: 1. The care of a critical patient is a dynamic process. This note is a freight representative synopsis but static in nature. The timeframe for treatments given in order is not necessarily the actual time these treatments may have been done. 2. This patient requires critical care secondary to ongoing requirements for therapy not offered or safe outside the critical care environment. Transfer to a lower level of care will result in altered life or limb morbidity and mortality. 3. Multidisciplinary rounds completed. 4. ABCDE bundle addressed.
[2020-07-10] MEDS: SULFAMETHOXAZOLE IV SCH (05:18)
[2020-07-10] MEDS: DEXTROSE 5% IV SCH (05:18)
[2020-07-10] MEDS: TRIMETHOPRIM IV SCH (05:18)
[2020-07-10] MEDS: WATER IV SCH (05:18)
--- NOTE | 2020-07-10 07:41 | PDOC CRITICAL CARE PROG REPORT ---
General Date:: 07/10/20 Hospital Day:: Resuscitation Status: Do Not Resuscitate Events in the past 12 to 24 Hours:: Has stayed 24 hours on trach collar. Review of systems relevant to events:: Neurological. Pulmonary Reason for ICU Addmission:: Trach collar. Home Tuesday. - Medications: Medications reviewed and adjusted accordingly: Yes Vasopressors:: None Sedation:: None Physical Exam Vital Signs: Temp Pulse Resp BP Pulse Ox 97.5 F 71 16 149/65 H 100 07/10/20 06:00 07/09/20 19:00 07/10/20 06:00 07/10/20 05:21 07/10/20 06:00 Intake & Output 07/09/20 07/10/20 07/11/20 06:59 06:59 06:59 Intake Total 1810 1030 Output Total 2525 1945 Balance -715 -915 Weight 56 kg 55 kg Weight/Height Weight 55 kg Height 5 ft 7 in General appearance: PRESENT: no acute distress, thin, other - Emaciated Eye exam: PRESENT: conjunctiva pink, PERRLA. ABSENT: scleral icterus Ear exam: PRESENT: normal external ear exam Mouth exam: PRESENT: moist, tongue midline Neck exam: PRESENT: tracheostomy Respiratory exam: PRESENT: clear to auscultation dane. ABSENT: rales, rhonchi, wheezes Cardiovascular exam: PRESENT: RRR. ABSENT: diastolic murmur, rubs, systolic murmur GI/Abdominal exam: PRESENT: normal bowel sounds, soft, other - PEG site clean. ABSENT: distended, guarding, mass, organolmegaly, rebound, tenderness Rectal exam: PRESENT: deferred Extremities exam: PRESENT: full ROM. ABSENT: calf tenderness, clubbing, pedal edema Musculoskeletal exam: PRESENT: normal inspection Neurological exam: PRESENT: other - Makes some motions with face and mouth. Nothing purposeful. Tubes/Lines: PRESENT: Peg Tube, Other - Tracheostomy Laboratory/Radiographs Laboratory Results: 07/08/20 03:19 07/09/20 03:08 06/18/20 06/18/20 06/18/20 14:07 14:07 18:30 Creatine Kinase 992 H 940 H CK-MB (CK-2) 5.14 H Troponin I 0.447 NT-Pro-B Natriuret Pep 06/18/20 06/19/2020 19:20 02:33 02:33 Creatine Kinase 883 H CK-MB (CK-2) 8.85 H 21.90 H Troponin I 0.640 4.590 NT-Pro-B Natriuret Pep 06/19/20 06/19/20 06/19/20 05:47 05:47 08:00 Creatine Kinase 814 H CK-MB (CK-2) Cancelled 22.00 H Troponin I Cancelled NT-Pro-B Natriuret Pep 06/19/20 06/19/20 06/19/20 08:00 08:00 14:20 Creatine Kinase 862 H CK-MB (CK-2) Troponin I 8.620 26.900 NT-Pro-B Natriuret Pep 06/19/20 06/20/20 06/20/20 20:25 02:15 08:21 Creatine Kinase CK-MB (CK-2) Troponin I 36.400 31.500 24.700 NT-Pro-B Natriuret Pep 06/20/20 06/20/20 06/21/20 13:45 20:25 05:00 Creatine Kinase CK-MB (CK-2) Troponin I 20.800 17.300 NT-Pro-B Natriuret Pep 7010 H 06/21/20 06/21/20 06/21/20 05:00 07:50 14:00 Creatine Kinase CK-MB (CK-2) Troponin I 10.500 10.300 8.520 NT-Pro-B Natriuret Pep 06/22/20 06/23/20 06/24/20 05:30 06:40 11:21 Creatine Kinase 612 H CK-MB (CK-2) Troponin I 4.550 NT-Pro-B Natriuret Pep 6320 H Impressions: KUB X-Ray 06/22/20 00:00 IMPRESSION: NO RADIOGRAPHIC EVIDENCE FOR ACUTE ABDOMINAL DISEASE. Renal Ultrasound 06/23/20 00:00 IMPRESSION: Multiple right renal cysts versus chronic hydronephrosis. Head CT 06/24/20 00:00 IMPRESSION: Extensive acute nonhemorrhagic infarction. EVIDENCE OF ACUTE STROKE: YES. Multiple territories. Chest X-Ray 07/02/20 00:00 IMPRESSION: Improved pulmonary exam demonstrating diminished, albeit persistent, multifocal airspace opacities. Stable lines and tubes. All labs, radiographs, diagnostic studies and EKGs were personally reviewed: Yes In addition, reports of radiographic and diagnostic studies were read: Yes Assessment and Plan - Diagnosis (1) Neurologic deficit due to acute ischemic cerebrovascular accident (CVA) Is this a current diagnosis for this admission?: Yes Plan: Likely permanent. Multiple strokes (2) Acute kidney failure Qualifiers: Acute renal failure type: unspecified Qualified Code(s): N17.9 - Acute kidney failure, unspecified Is this a current diagnosis for this admission?: Yes Plan: Stable (3) CVA (cerebral vascular accident) Qualifiers: CVA mechanism: embolism Precerebral and cerebral artery: unspecified cerebral artery Qualified Code(s): I63.40 - Cerebral infarction due to embolism of unspecified cerebral artery Is this a current diagnosis for this admission?: Yes Plan: Leaving the aforementioned devastating neurologic injury. Plan Summary: Patient is no longer ICU status. Hope to get home on home hospice Tuesday. Critical Time Critical Time (minutes): 25 Level of Care: IMCU Anticipated discharge: Hospice Anticipated DC Timeframe: within 24 hours -: 1. The care of a critical patient is a dynamic process. This note is a disability representative synopsis but static in nature. The timeframe for treatments given in order is not necessarily the actual time these treatments may have been done. 2. This patient requires critical care secondary to ongoing requirements for therapy not offered or safe outside the critical care environment. Transfer to a lower level of care will result in altered life or limb morbidity and mortality. 3. Multidisciplinary rounds completed. 4. ABCDE bundle addressed.
[2020-07-10] MEDS: HEPARIN SOD (PORCINE) 5,000 UNIT/ML 1 ML VIAL SUBCUT SCH ×2 (09:33→21:28)
[2020-07-11] MEDS: HEPARIN SOD (PORCINE) 5,000 UNIT/ML 1 ML VIAL SUBCUT SCH (09:28)
--- NOTE | 2020-07-11 14:38 | PDOC DISCHARGE SUMMARY ---
Impression - Admit/DC Date/PCP Admission Date/Primary Care Provider: 06/18/20 16:42 Discharge Date: 07/11/20 - Discharge Diagnosis (1) Neurologic deficit due to acute ischemic cerebrovascular accident (CVA) Is this a current diagnosis for this admission?: Yes (2) Acute kidney failure Is this a current diagnosis for this admission?: Yes (3) CVA (cerebral vascular accident) Is this a current diagnosis for this admission?: Yes - Assessment Summary: This patient is a 65 yo man who lives at home with his son and was not doing well for 'a while'. He had decreased PO intake of both food and drink due to dysphagia from a stroke. He aspirated requiring his son to do the Heimlich maneu marlyn several days prior to admission. He was brought to the ED with decreased level of consciousness and found to have a very high sodium of 184. He was intubated and brought to the ICU. - Additional Information Resuscitation Status: Do Not Resuscitate Discharge Activity: Bedrest Home Medications: No Home Medications 08/11/15 History of Present Illiness History of Present Illness: ALVARO DYKES is a 65 year old male who was initially intubated for decreased L OC and hypernatremia. He had been somewhat debilitated before this from an old stroke and had dysphagia. Hospital Course Hospital Course: He had NS and this lowered his sodium over the course of four or five days to the 104s. However he never woke up prompting a CT scan which showed multiple large new strokes involving much of the brain and causing the resulting vegatative state. The son understands this and requests a trach PEG which have been done and home hospice which has been arranged. Physical Exam Vital Signs: Temp Pulse Resp BP Pulse Ox 97.3 F 68 17 160/78 H 94 07/11/20 11:00 07/11/20 10:00 07/11/20 11:00 07/11/20 10:22 07/11/20 12:42 Intake & Output 07/10/20 07/11/20 07/12/20 06:59 06:59 06:59 Intake Total 1030 515 Output Total 1945 1705 500 Balance -915 -1190 -500 Weight 55 kg General appearance: PRESENT: no acute distress, thin, other - Emaciated Head exam: PRESENT: atraumatic, normocephalic Eye exam: PRESENT: conjunctiva pink, EOMI, PERRLA. ABSENT: scleral icterus Ear exam: PRESENT: normal external ear exam Mouth exam: PRESENT: moist, tongue midline Neck exam: PRESENT: tracheostomy Respiratory exam: PRESENT: clear to auscultation dane. ABSENT: rales, rhonchi, wheezes Cardiovascular exam: PRESENT: RRR. ABSENT: diastolic murmur, rubs, systolic murmur GI/Abdominal exam: PRESENT: normal bowel sounds, soft, other - PEG site clean. ABSENT: distended, guarding, mass, organolmegaly, rebound, tenderness Rectal exam: PRESENT: deferred Extremities exam: PRESENT: full ROM. ABSENT: calf tenderness, clubbing, pedal edema Musculoskeletal exam: PRESENT: normal inspection Neurological exam: PRESENT: other - Vegetative. Occassionaly moves face. No arm or leg movements. Skin exam: PRESENT: dry, intact, warm. ABSENT: cyanosis, rash Results Laboratory Results: WBC 8.2 10^3/uL (4.0-10.5) 07/08/20 03:19 RBC 2.56 10^6/uL (4.35-5.55) L 07/08/20 03:19 Hgb 7.8 g/dL (13.5-17.0) L 07/08/20 03:19 Hct 23.7 % (37.9-51.0) L 07/08/20 03:19 MCV 92 fl (80-97) 07/08/20 03:19 MCH 30.4 pg (27.0-33.4) 07/08/20 03:19 MCHC 32.9 g/dL (32.0-36.0) 07/08/20 03:19 RDW 14.2 % (11.5-14.0) H 07/08/20 03:19 Plt Count 365 10^3/uL (150-450) 07/08/20 03:19 Lymph % (Auto) 15.5 % (13-45) 07/08/20 03:19 Union % (Auto) 14.2 % (3-13) H 07/08/20 03:19 Eos % (Auto) 2.5 % (0-6) 07/08/20 03:19 Baso % (Auto) 1.1 % (0-2) 07/08/20 03:19 Absolute Neuts (auto) 5.5 10^3/uL (1.7-8.2) 07/08/20 03:19 Absolute Lymphs (auto) 1.3 10^3/uL (0.5-4.7) 07/08/20 03:19 Absolute Monos (auto) 1.2 10^3/uL (0.1-1.4) 07/08/20 03:19 Absolute Eos (auto) 0.2 10^3/uL (0.0-0.6) 07/08/20 03:19 Absolute Basos (auto) 0.1 10^3/uL (0.0-0.2) 07/08/20 03:19 Total Counted 100 06/25/20 04:15 Seg Neutrophils % 66.7 % (42-78) 07/08/20 03:19 Seg Neuts % (Manual) 78 % (42-78) 06/25/20 04:15 Band Neutrophils % 1 % (3-5) L 06/25/20 04:15 Lymphocytes % (Manual) 17 % (13-45) 06/25/20 04:15 Atypical Lymphs % 1 % (0) 06/19/20 09:41 Monocytes % (Manual) 3 % (3-13) 06/25/20 04:15 Eosinophils % (Manual) 1 % (0-6) 06/25/20 04:15 Basophils % (Manual) 0 % (0-2) 06/25/20 04:15 Metamyelocytes % 1 % (0-1) 06/21/20 07:50 Myelocytes % 1 % (0) H 06/19/20 09:41 Promyelocytes % 3 % (0) H 06/19/20 09:41 Abs Neuts (Manual) 7.0 10^3/uL (1.7-8.2) 06/25/20 04:15 Abs Lymphs (Manual) 1.5 10^3/uL (0.5-4.7) 06/25/20 04:15 Abs Monocytes (Manual) 0.3 10^3/uL (0.1-1.4) 06/25/20 04:15 Absolute Eos (Manual) 0.1 10^3/uL (0.0-0.6) 06/25/20 04:15 Abs Basophils (Manual) 0.0 10^3/uL (0.0-0.2) 06/25/20 04:15 Nucleated RBCs 2 /100 WBC (0) 06/23/20 06:40 Toxic Granulation 1+ 06/22/20 05:30 Toxic Vacuolation PRESENT 06/22/20 05:30 Dohle Bodies PRESENT 06/22/20 05:30 Platelet Estimate [employer]ESSIONAL [employer]GANIZER 06/27/20 04:24 Large Platelets PRESENT 06/23/20 06:40 Platelet Comment DECREASED 06/25/20 04:15 Polychromasia SLIGHT 06/25/20 04:15 Poikilocytosis 1+ 06/21/20 07:50 Anisocytosis SLIGHT 06/25/20 04:15 Microcytosis 1+ 06/18/20 14:07 Ovalocytes SLIGHT 06/25/20 04:15 Helmet Cells 1+ 06/19/20 06:56 Robin Cells 1+ 06/21/20 07:50 Rouleaux SLIGHT 06/24/20 11:21 Schistocytes 1+ 06/19/20 06:56 ESR 96 mm/hr (0-20) H 06/23/20 16:10 PT 20.4 SEC (11.4-15.4) H 06/19/20 09:41 INR 1.74 06/19/20 09:41 APTT 54.1 SEC (23.5-35.8) H 06/26/20 03:55 Carbonic Acid 0.85 mmol/L (1.05-1.35) L 07/09/20 03:08 HCO3/H2CO3 Ratio 22:1 07/09/20 03:08 ABG pH 7.45 (7.35-7.45) 07/09/20 03:08 ABG pCO2 28.3 mmHg (35-45) L 07/09/20 03:08 ABG pO2 85.2 mmHg (80-100) 07/09/20 03:08 ABG HCO3 19.3 mmol/L (20-24) L 07/09/20 03:08 ABG Total CO2 20.1 mmol/L (23-27) L 07/09/20 03:08 ABG O2 Saturation 97.0 % (94-98) 07/09/20 03:08 ABG Base Excess -4.0 mmol/L 07/09/20 03:08 FiO2 35% 07/09/20 03:08 Sodium 131.3 mmol/L (137-145) L 07/09/20 03:08 Potassium 4.7 mmol/L (3.6-5.0) 07/09/20 03:08 Chloride 101 mmol/L (98-107) 07/09/20 03:08 Carbon Dioxide 22 mmol/L (22-30) 07/09/20 03:08 Anion Gap 8 (5-19) 07/09/20 03:08 BUN 60 mg/dL (7-20) H 07/09/20 03:08 Creatinine 3.59 mg/dL (0.52-1.25) H 07/09/20 03:08 Est GFR ( Amer) 21 (>60) L 07/09/20 03:08 Est GFR (MDRD) Non-Af 17 (>60) L 07/09/20 03:08 Glucose 74 mg/dL (75-110) L 07/09/20 03:08 POC Glucose 76 mg/dL (70-110) 07/10/20 05:17 Serum Osmolality 380 mOsm/kg (275-301) H 06/19/20 17:16 Lactic Acid 3.3 mmol/L (0.7-2.1) H 06/21/20 18:25 Calcium 7.8 mg/dL (8.4-10.2) L 07/09/20 03:08 Ionized Calcium Akila 0.88 mmol/L (1.14-1.30) L 06/25/20 04:15 Phosphorus 5.4 mg/dL (2.5-4.5) H 07/03/20 03:17 Magnesium 2.0 mg/dL (1.6-2.3) 07/03/20 03:17 Total Bilirubin 0.6 mg/dL (0.2-1.3) 07/04/20 05:09 Direct Bilirubin 0.3 mg/dL (0.0-0.4) 07/04/20 05:09 Neonat Total Bilirubin Not Reportable 07/04/20 05:09 Neonat Direct Bilirubin Not Reportable 07/04/20 05:09 Neonat Indirect Bili Not Reportable 07/04/20 05:09 AST 50 U/L (17-59) 07/04/20 05:09 ALT 28 U/L (<50) 07/04/20 05:09 Alkaline Phosphatase 221 U/L (38-126) H 07/04/20 05:09 Ammonia 37.2 umol/L (9-33) H 06/18/20 19:20 Lactate Dehydrogenase 382 U/L (120-246) H 06/23/20 16:10 Creatine Kinase 612 U/L (55-170) H 06/24/20 11:21 CK-MB (CK-2) 22.00 ng/mL (<4.55) H 06/19/20 08:00 Troponin I 4.550 ng/mL 06/23/20 06:40 NT-Pro-B Natriuret Pep 6320 pg/mL (<125) H 06/22/20 05:30 Total Protein 5.7 g/dL (6.3-8.2) L 07/04/20 05:09 Albumin 2.5 g/dL (3.5-5.0) L 07/04/20 05:09 Prealbumin 4.7 mg/dL (17.6-36.0) L 06/23/20 06:40 Procalcitonin 23.50 ng/mL (0.00-0.08) H 06/19/20 15:50 TSH 2.75 uIU/mL (0.47-4.68) 06/18/20 18:30 Urine Color YELLOW 06/25/20 04:15 Urine Appearance CLEAR 06/25/20 04:15 Urine pH 7.0 (5.0-9.0) 06/25/20 04:15 Ur Specific Honor 1.006 06/25/20 04:15 Urine Protein 30 mg/dL (NEGATIVE) H 06/25/20 04:15 Urine Glucose (UA) NEGATIVE mg/dL (NEGATIVE) 06/25/20 04:15 Urine Ketones NEGATIVE mg/dL (NEGATIVE) 06/25/20 04:15 Urine Blood MODERATE (NEGATIVE) H 06/25/20 04:15 Urine Nitrite NEGATIVE (NEGATIVE) 06/25/20 04:15 Urine Bilirubin NEGATIVE (NEGATIVE) 06/25/20 04:15 Urine Urobilinogen NEGATIVE mg/dL (<2.0) 06/25/20 04:15 Ur Leukocyte Esterase NEGATIVE (NEGATIVE) 06/25/20 04:15 Urine WBC (Auto) 2 /HPF 06/25/20 04:15 Urine RBC (Auto) 1 /HPF 06/25/20 04:15 U Hyaline Cast (Auto) 1 /LPF 06/18/20 18:30 Urine Bacteria (Auto) TRACE /HPF 06/25/20 04:15 Squamous Epi Cells Auto <1 /HPF 06/25/20 04:15 Urine Mucus (Auto) RARE /LPF 06/23/20 16:10 Urine Osmolality 489 mOsm/kg (300-900) 06/19/20 17:16 Urine Creatinine 58.6 mg/dL (22-328) 06/23/20 16:10 Protein/Creatinin Ratio 1.4 mg/mg (0.0-0.2) H 06/23/20 16:10 Urine Sodium 28 mmol/L (30-90) L 06/19/20 17:16 Urine Total Protein 80.4 mg/dL (<12) H 06/23/20 16:10 Urine Ascorbic Acid NEGATIVE (NEGATIVE) 06/25/20 04:15 Time Trough Drawn 203906/21/20 20:40 Vancomycin Trough 7.0 ug/mL (5.0-20.0) 06/21/20 20:40 Cryoglobulin Comment (None detec) 06/23/20 16:36 RAJEEV (Multiplex) TNP 06/23/20 16:10 c-ANCA Antibody <1:20 titer (Neg:<1:20) 06/23/20 16:10 Anti-Proteinase 3 Intrp <3.5 U/mL (0.0-3.5) 06/23/20 16:10 Atypical p-ANCA <1:20 titer (Neg:<1:20) 06/23/20 16:10 p-ANCA Antibody <1:20 titer (Neg:<1:20) 06/23/20 16:10 Myeloperoxidase Ab <9.0 U/mL (0.0-9.0) 06/23/20 16:10 Glomerular Base Memb Ab 4 units (0-20) 06/23/20 16:10 Heparin-induced Plt Ab 0.079 OD (0.000-0.40) 06/22/20 17:06 Complement C3 74 mg/dL (82-167) L 06/23/20 16:10 Complement C4 14 mg/dL (12-38) 06/23/20 16:10 COVID-19 Source Cancelled 07/07/20 20:40 COVID-19 (TAM) Cancelled 07/07/20 20:40 Hep Bs Antigen Negative (Negative) 06/23/20 16:10 Hep Bs Antibody, Quant <3.1 mIU/mL (Immunity>9) L 06/23/20 16:10 Hep B Core Total Ab Negative (Negative) 06/25/20 04:15 Hepatitis C (LOS) <0.1 s/co ratio (0.0-0.9) 06/23/20 16:10 HCV Quantitation HCV Not Detected IU/mL (.) 06/25/20 04:15 HCV RNA PCR Test Info Comment (.) 06/25/20 04:15 Hep C Verif Com 1 Comment (.) 06/23/20 16:10 HIV 1&2 Antibody NEGATIVE (NEGATIVE) 06/23/20 16:10 Influenza A (RT-PCR) NEGATIVE (NEGATIVE) 07/07/20 20:40 Influenza B (RT-PCR) NEGATIVE (NEGATIVE) 07/07/20 20:40 RSV (RT-PCR) NEGATIVE (NEGATIVE) 07/07/20 20:40 SARS-CoV-2 Rap RNA(RT-PCR) NEGATIVE (NEGATIVE) 07/07/20 20:40 Slides for Path Review PROFESSIONAL ORGANIZER 06/27/20 04:24 Blood Type A POSITIVE 06/20/20 16:47 Blood Type Confirm A POSITIVE 06/20/20 16:54 Antibody Screen NEGATIVE 06/20/20 16:47 Crossmatch See Detail 06/20/20 16:47 06/18/20 06/18/20 06/19/20 14:07 19:20 02:33 CK-MB (CK-2) 5.14 H 8.85 H 21.90 H Troponin I 0.447 0.640 4.590 NT-Pro-B Natriuret Pep 06/19/20 06/19/20 06/19/20 05:47 08:00 08:00 CK-MB (CK-2) Cancelled 22.00 H Troponin I Cancelled 8.620 NT-Pro-B Natriuret Pep 06/19/20 06/19/20 06/20/20 14:20 20:25 02:15 CK-MB (CK-2) Troponin I 26.900 36.400 31.500 NT-Pro-B Natriuret Pep 06/20/20 06/20/20 06/20/20 08:21 13:45 20:25 CK-MB (CK-2) Troponin I 24.700 20.800 17.300 NT-Pro-B Natriuret Pep 06/21/20 06/21/20 06/21/20 05:00 05:00 07:50 CK-MB (CK-2) Troponin I 10.500 10.300 NT-Pro-B Natriuret Pep 7010 H 06/21/20 06/22/20 06/23/20 14:00 05:30 06:40 CK-MB (CK-2) Troponin I 8.520 4.550 NT-Pro-B Natriuret Pep 6320 H Impressions: Chest X-Ray 06/18/20 13:05 IMPRESSION: BILATERAL UPPER LUNG OPACITIES, POSSIBLY DUE TO PNEUMONIA. UNDERLYING PULMONARY MASSES CANNOT BE EXCLUDED. Head CT 06/18/20 13:05 IMPRESSION: CHRONIC CHANGES OF ATROPHY AND MICROVASCULAR ISCHEMIA. NO ACUTE PROCESS. EVIDENCE OF ACUTE STROKE: NO. Chest X-Ray 06/18/20 15:29 IMPRESSION: Support lines and tubes are in satisfactory position. Persistent diffuse upper lobe infiltrates. Minimal right lower lobe airspace disease. Chest X-Ray 06/20/20 05:00 IMPRESSION: STABLE APPEARANCE OF THE CHEST. SUPPORT DEVICES UNCHANGED. Chest X-Ray 06/21/20 05:00 IMPRESSION: Parenchymal opacities with some improvement particularly since 06/18/2020 Acute appearing lower right rib fractures. Unchanged from 06/18/2020. SUPPORT DEVICE(S) IN EXPECTED LOCATIONS. Chest X-Ray 06/21/20 20:31 IMPRESSION: Enteric tube courses below the left hemidiaphragm out of the [id number]. Consider abdominal radiographs for complete evaluation. KUB X-Ray 06/22/20 00:00 IMPRESSION: NO RADIOGRAPHIC EVIDENCE FOR ACUTE ABDOMINAL DISEASE. Chest X-Ray 06/22/20 05:00 IMPRESSION: Stable parenchymal opacities without improvement. SUPPORT DEVICE(S) IN EXPECTED LOCATIONS. Renal Ultrasound 06/23/20 00:00 IMPRESSION: Multiple right renal cysts versus chronic hydronephrosis. Chest X-Ray 06/23/20 05:00 IMPRESSION: Tubes and lines in good positioning Increasing bilateral alveolar and interstitial infiltrates Head CT 06/24/20 00:00 IMPRESSION: Extensive acute nonhemorrhagic infarction. EVIDENCE OF ACUTE STROKE: YES. Multiple territories. Chest X-Ray 07/02/20 00:00 IMPRESSION: Improved pulmonary exam demonstrating diminished, albeit persistent, multifocal airspace opacities. Stable lines and tubes. Plan Health Concerns: Will likely pass some but time frame cannot be determined Plan of Treatment: Home with hospice, comfort care. Goals: Peaceful painless end of life at home with family. Critical Time: 40 Level of Care: MEDICAL Stroke Is this a Stroke Patient?: No Acute Heart Failure Is this a Heart Failure Patient?: No
--- NOTE | 2020-07-11 16:36 | RADIOLOGY REPORT (SQ) ---
EXAM DESCRIPTION: ABDOMEN 2 VIEWS IMAGES COMPLETED DATE/TIME: 07/11/2020 4:26 pm REASON FOR STUDY: Peg Tube Placement COMPARISON: None. NUMBER OF VIEWS: Two views. TECHNIQUE: Supine and erect/decubitus radiographic images of the abdomen acquired. LIMITATIONS: None. FINDINGS: FREE AIR: None. No abnormal gas collections. LUNG BASES: Clear. BOWEL GAS PATTERN: Nonobstructive pattern. No dilated loops or air fluid levels. CALCIFICATIONS: No suspicious calcifications. SOFT TISSUES: No gross mass or suggestion of organomegaly. HARDWARE: Peg catheter present. Contrast injected it and the PEG catheter is in appropriate location . BONES: No acute fracture. No worrisome bone lesions. OTHER: No other significant finding. IMPRESSION: Peg catheter in appropriate location. TECHNICAL DOCUMENTATION: JOB ID: [id number] 2010 [employer]- All Rights Reserved Reading location - IP/workstation name: [email or web address]
[2020-07-11 18:31] VITALS: BP 169/83
== END 2020-07-11 19:00 | disposition hospice, home (50) | DRG 4 ==
LOC: ER 12:28 → EH 16:42 → ICU 17:58
PROVIDERS: ADMIT Internal Medicine Critical Care Medicine; ATTEND Internal Medicine Critical Care Medicine
PROC: 5A1955Z Respiratory Ventilation, Greater than 96 Consecutive Hours (ICD-10-PCS; 2020-06-18)
PROC: 0BH17EZ Insertion of Endotracheal Airway into Trachea, Via Natural or Artificial Opening (ICD-10-PCS; 2020-06-18)
PROC: 05HN33Z Insertion of Infusion Device into Left Internal Jugular Vein, Percutaneous Approach (ICD-10-PCS; 2020-06-18)
PROC: B24BZZ4 Ultrasonography of Heart with Aorta, Transesophageal (ICD-10-PCS; 2020-06-19)
PROC: 30233N1 Transfusion of Nonautologous Red Blood Cells into Peripheral Vein, Percutaneous Approach (ICD-10-PCS; 2020-06-20)
PROC: 30233N1 Transfusion of Nonautologous Red Blood Cells into Peripheral Vein, Percutaneous Approach (ICD-10-PCS; 2020-06-21)
PROC: 5A1D70Z Performance of Urinary Filtration, Intermittent, Less than 6 Hours Per Day (ICD-10-PCS; 2020-06-25)
PROC: 5A1D70Z Performance of Urinary Filtration, Intermittent, Less than 6 Hours Per Day (ICD-10-PCS; 2020-06-27)
PROC: 5A1D70Z Performance of Urinary Filtration, Intermittent, Less than 6 Hours Per Day (ICD-10-PCS; 2020-06-30)
PROC: 0DH63UZ Insertion of Feeding Device into Stomach, Percutaneous Approach (ICD-10-PCS; 2020-07-09)
PROC: 0B110F4 Bypass Trachea to Cutaneous with Tracheostomy Device, Open Approach (ICD-10-PCS; principal; 2020-07-09 09:00)
PROC: 3E02340 Introduction of Influenza Vaccine into Muscle, Percutaneous Approach (ICD-10-PCS; 2020-07-11)
DX: J96.01 Acute respiratory failure with hypoxia (principal); I63.40 Cerebral infarction due to embolism of unspecified cerebral artery; R57.1 Hypovolemic shock; J14 Pneumonia due to Hemophilus influenzae; I21.4 Non-ST elevation (NSTEMI) myocardial infarction; N17.9 Acute kidney failure, unspecified; E87.0 Hyperosmolality and hypernatremia; E87.2 Acidosis; R40.3 Persistent vegetative state; Z66 Do not resuscitate; R13.10 Dysphagia, unspecified; Z20.828 Contact with and (suspected) exposure to other viral communicable diseases; R29.6 Repeated falls; I10 Essential (primary) hypertension; E86.0 Dehydration; B96.1 Klebsiella pneumoniae [K. pneumoniae] as the cause of diseases classified elsewhere; D64.9 Anemia, unspecified; D69.6 Thrombocytopenia, unspecified; T68.XXXA Hypothermia, initial encounter; E83.51 Hypocalcemia; R62.7 Adult failure to thrive; R40.2432 Glasgow coma scale score 3-8, at arrival to emergency department; L89.892 Pressure ulcer of other site, stage 2; K59.03 Drug induced constipation; Z23 Encounter for immunization; Z99.2 Dependence on renal dialysis; Z78.1 Physical restraint status; Z87.891 Personal history of nicotine dependence; Z82.49 Family history of ischemic heart disease and other diseases of the circulatory system; Z88.0 Allergy status to penicillin
CPT/HCPCS: 00320; 36415; 36430; 36556; 36600; 43246; 70450; 71045; 74018; 74019; 76770; 80048; 80053; 80202; 81001; 82040; 82140; 82330; 82550; 82553; 82570; 82595; 82803; 82962; 83516; 83605; 83615; 83735; 83880; 83930; 83935; 84100; 84134; 84145; 84156; 84295; 84300; 84443; 84484; 85025; 85027; 85610; 85652; 85730; 86022; 86038; 86160; 86256; 86317; 86701; 86704; 86803; 86804; 86850; 86900; 86901; 86920; 87040; 87070; 87077; 87150; 87186; 87205; 87340; 87522; 87635; 90471; 90686; 93005; 93010; 93306; 94002; 94003; 94640; 96374; 96375; 99238; 99285; 99291; 99292; J0610; 0241U; C9113; C9803; G0008; J0282; J0330; J0456; J0692; J0696; J0883; J1250; J1265; J1642; J1644; J1940; J2001; J2250; J2704; J3010; J3260; J3370; J3475; J3480; J3490; J7030; J7050; J7060; J7120; J7613; P9016; P9047; Q5105; Q9967